=== PATIENT | female | born 1955 | race Caucasian/White ===

== ENCOUNTER 2024-12-02 10:59 | Outpatient (REF) | payer MEDICARE, SELFPAY ==
--- OUTSIDE RECORDS SUMMARY | 2024-12-02 12:44 | XMS_ITS | Patient Health Record ---
[facility] Address [address] [place] [address] Care Team Providers Care Pad Extraction Tender Name Role Phone Antione Venegas Primary Care Provider Unavailabl e Black, Christina Unavailable [phone] Allergies Allergen (clinical drug ingredient) Drug/Non Drug Allergy documented on EMR Reaction Allergy Type Onset Date Status meperidine Demerol Unknown Drug Allergy Active acetaminophen / oxycodone Percocet hives Drug Allergy Active Penicillin hives Drug Allergy Active Results Component Value Reference Range Notes X ray : Foot, left 3V Reviewed date:10/07/2024 12:55:56 PM Interpretation:See Examination above Performing Lab: Notes/Report: See Examination above HEMOGLOBIN A1C (GLYCOHEMOGLO BIN) Reviewed date:10/07/2024 08:26:33 AM Interpretation: Performing Lab: Notes/Report: HEMOGLOBIN A1C % (HH) 5.6 Reason For Referral No Information Medications Medication SIG (Take, Route, Frequency, Duration) Notes Start Date End Date Status Trelegy Ellipta 100-62.5-25 MCG/INH 1 puff Inhalation Once a day Unknown metFORMIN HCl 500 MG 1 tablet with a kellen l Orally Once a day for 30 day(s) Unknown Lexapro 20 MG 1 tablet Orally Once a day for 30 day(s) Unknown Losartan Potassium 50 MG 1 tablet Orally Once a day for 30 day(s) Unknown hydroCHLOROthiazide 25 MG 1 tablet in th e morning Orally Once a day for 30 day(s) Unknown Calcium 1000 + D 1000-800 MG-UNIT 1 tablet with a meal Orally Once a day for 30 day(s) Unknown CeleBREX 100 MG 1 capsule with food Orally Once a day for 30 day(s) Unknown Omeprazole 20 MG 1 capsule 30 minutes before morning meal Orally Once a day for 30 day(s) Active Baby Aspirin Active Atorvastatin Calcium 40 MG 1 tablet Oral ly Once a day for 30 day(s) Active Vitamin B12 Active Combivent Respimat A ctive Vitamin D Active Ozempic Active Escitalopram Oxalate Active Medrol 4 MG as directed Orally daily for 6 days 07/08/2021 Unknown Vitamin A & D 35255-548 UNIT as directed Orally Unknown Immunizations Vaccine Route Administration Date Status Comme nts COVID-19 Pfizer BioNTech Vaccine Unknown 12/18/2020 Adm inistered 1st 11/26/20 Social History Tobacco Use: Social History Observation Description Date Details (start date - stop date) Never Smoker NA - NA Tobacco use other than smoking: Question Answer Notes Are you an other tobacco user? No Tobacco Control (Standard) Question Answer Notes Tobacco use: Nonsmoker Additional Findings: Tobacco non-user Current no nsmoker AUDIT-C (Standard) Question Answer Notes Did you have a drink containing alcohol in the p ast year? No Points 0 Interpretation Negative Problems Problem Type SNOMED Code ICD Code Onset Dates Problem Status W/U Status Risk Notes Problem Diabetic renal disease (506458458) Type 2 diabetes mellitus with diabetic chronic kidney disease (E11.22) Active confirmed Problem Localized, primary osteoarthritis of the ankle and/or foot (204004325) Primary osteoarthritis, right ankle and foot (M19.071) Active confirmed Problem Localized, primary osteoarthritis of the ankle and/or foot (115594643) Primary osteoarthritis, left ankle and foot (M19.072) Active confirmed Problem Acquired hammer toe of right foot (3490423537518596 ) Other hammer toe(s) (acquired), right foot (M20.41) Active confirmed Problem Acquired hammer toe of left foot (9836581132006041 ) Hammer toe of left foot (M20.42) Active confirmed Problem Kohler's neuroma of left foot (231290083499370) 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 confirmed Problem Acquired deformity of right foot (2092700359123495 0) PlantarFlexion of metatarsal of right foot (M21.6X1) Active confirmed Problem Acquired deformity of left foot (3002514454028670 4) PlantarFlexion of metatarsal of left foot (M21.6X2) Active confirmed Vital Signs Blood pressure diastolic 80 mm Hg 11/03/2024 Height 5ft 1in in 11/03/2024 Blood pressure systolic 120 mm Hg 11/03/2024 Weight 185 lbs 11/03/2024 BMI 34.95 kg/m2 11/03/2024 Procedures Procedure Date Ordered Date Performed Result Body Sit e 43682, J0702- Neuroma/Injection 10/07/2024 N/A Encounters Encounter Location Date Provider Diagnosis [address] [address] 10/07/2024 Christina Black Pain in left foot M79.672 ; Pain in left ankle and joints of left foot M25.572 ; Bursitis of intermetatarsal bursa of left foot M77.52 ; Metatarsalgia, left foot M77.42 ; Kohler's neuroma of left foot G57.62 ; Neuritis M79.2 ; Hammer toe of left foot M20.42 and Type 2 diabetes mellitus with diabetic chronic kidney disease E11.[address] [address] 11/03/2024 Christina Black Pain in left foot M79.672 ; Kohler's neuroma of left foot G57.62 ; Pain in left ankle and joints of left foot M25.572 ; Bursitis of intermetatarsal bursa of left foot M77.52 ; Metatarsalgia, left foot M77.42 ; Neuritis M79.2 ; Hammer toe of left foot M20.42 and Type 2 diabetes mellitus with diabetic chronic kidney disease E11.[address] [address] 08/30/2024 Christina Black [address] [address] 11/03/2024 Christina Black Assessments Encounter Date Diagnosis (ICD Code) Assessment Notes Treatment Notes Treatment Clinical Notes Section Notes 10/07/2024 Pain in left ankle and joints of left foot (ICD-10 - M25.572) 10/07/2024 Pain in left foot (ICD-10 - M79.672) 11/03/2024 Pain in left foot (ICD-10 - M79.672) 11/03/2024 Kohler's neuroma of left foot (ICD-10 - G57.62) 11/03/2024 Pain in left ankle and joints of left foot (ICD-10 - M25.572) 10/07/2024 Bursitis of intermetatarsal bursa of left foot (ICD-10 - M77.52) 10/07/2024 Metatarsalgia, left foot (ICD-10 - M77.42) 11/03/2024 Bursitis of intermetatarsal bursa of left foot (ICD-10 - M77.52) 11/03/2024 Metatarsalgia, left foot (ICD-10 - M77.42) 10/07/2024 Okhler's neuroma of left foot (ICD-10 - G57.62) 10/07/2024 Neuritis (ICD-10 - M79.2) 11/03/2024 Neuritis (ICD-10 - M79.2) 11/03/2024 Hammer toe of left foot (ICD-10 - M20.42) 10/07/2024 Hammer toe of left foot (ICD-10 - M20.42) 10/07/2024 Type 2 diabetes mellitus with diabetic chronic kidney disease (ICD-10 - E11.22) 11/03/2024 Type 2 diabetes mellitus with diabetic chronic kidney disease (ICD-10 - E11.22) Plan Of Treatment Pending Test Test Name Order Date 82254, J0702- Neuroma/Injection 10/07/19 25 Insurance Providers Payer Name Payer Address Payer Phone Subscriber Number Group Number Insured Name Patient Relationship to Insured Coverage Start Date Coverage End Date [employer] [place] Medicare Advantage [facility] [address] [place] [address] [id number] Rena Ko Self - patient is the insured 4 Medical (General) History Medical History History ICD Code Anxiety Arthritis asthma Back,Hip,and Knee pain Diverticulitis High blood pressure osteonecrosis Psoriasis Scarlet fever Spina bifida Pulmonary hypertension Cataracts covid-19 Gall bladder problems Kidney disease Lung disease Reflux ( GERD) Sciatica Measles Mumps Chicken pox Joint implants/screws Diabetes mellitus Surgical History Surgery Date(Month/Year) right thoracotomy 11/13/2016 2 cataracts surgeies 07/2018 right rotator cuff repair 03/29/18 left arthroscopy shoulder 03/10/19
--- OUTSIDE RECORDS SUMMARY | 2024-12-02 12:45 | XMS_ITS | Clinical Summary ---
Author Organization [address] Address [address] [place] [address] Phone Care Team Providers Care Mortgage Loan Originator Name Role Phone Laith Venegas MD Primary Care Provider [phone] Medical History Medical History Date Comments Hyperlipidemia 07/04/2017 DX:Hyperlipidemi a Osteoarthritis 07/04/2017 DX:Osteoarthriti s Allergic rhinitis 07/04/2017 DX:Allergic rh initis Sicca syndrome (CMS/HCC) 07/04/2017 DX:Sicc a syndrome (HCC) Psoriasis 07/04/2017 DX:Psoriasis GERD (gastroesophageal reflux disease) 07/04/2017 DX:GERD (gastroesophageal reflux disease) History of scarlet fever 07/04/2017 DX:Hist ory of scarlet fever Spina bifida occulta 07/04/2017 DX:Spina bi fida occulta Social History Tobacco Use Types Packs/Day Years Used Date Smoking Tobacco: Former Cigarettes Smokeless Tobacco: Never Alcohol Use Standard Drinks/Week Comments Yes 1 (1 standard drink = 0.6 oz pur e alcohol) Comments Unknown Sex and Gender Information Value Date Recorded Sex Assigned at Not on file Legal Sex Female 8:40 PM EST Gender Identity Not on file Sexual Orientation Not on file Obstetrics History Last Filed Vital Signs Vital Sign Reading Time Taken Comments Blood Pressure 125/64 11/30/2023 3:26 PM EDT Sit ting L Arm Pulse 72 11/30/2023 3:26 PM EDT Temperature - - Respiratory Rate - - Oxygen Saturation - - Inhaled Oxygen Concentration - - Weight 87.5 kg (193 lb) 11/30/2023 3:26 PM EDT Height 157.5 cm (5' 2 ) 11/30/2023 3:26 PM EDT Body Mass Index 35.3 11/30/2023 3:26 PM EDT Plan of Treatment Upcoming Encounters Date Type Department Care Team (Late st Contact Info) Description 01/26/2025 9:50 AM EDT Office Visit [facility] [address] [facility] [address] [place] [address] Tom Doherty MD [address] [facility] [address] [place] [address] Health Maintenance Due Date Last Done Comments DTaP,Tdap,and Td Vaccines (1 - Tdap) 1973 Pneumococcal Vaccine: 50+ Years (1 of 2 - PCV) 1973 Zoster Vaccines (1 of 2) 2004 RSV Immunization Adult Patients (1 - Risk 60-74 years 1-dose series) 2014 Colorectal Cancer Screening: Colonoscopy 08/08/2022 Depression Screening 08/08/2022 Falls Risk Assessment 08/08/2022 Hepatitis C Screening 08/08/2022 Medicare Annual Wellness Visit 08/08/2022 Social Influencers of Health Screening 08/08/2022 COVID-19 Vaccine ( season) 2024 Influenza Vaccine (#1) 2024 05/28/2017 Breast Cancer Screening 12/09/2025 12/10/19, 09/08/2022, 08/07/2021, Additional history exists Cholesterol Screening (Lipid Panel) 07/05/2029 07/05/2024 Osteoporosis Screening (Bone Density Screening) 11/05/2031 11/04/2021, 08/19/2019 HIB Vaccines Aged Out No longer eligi ble based on patient's age to complete this topic HPV Vaccines Aged Out No longer eligi ble based on patient's age to complete this topic Hepatitis A Vaccines Aged Out No long er eligible based on patient's age to complete this topic Hepatitis B Vaccines Aged Out No long er eligible based on patient's age to complete this topic IPV Vaccines Aged Out No longer eligi ble based on patient's age to complete this topic MMR Vaccines Aged Out No longer eligi ble based on patient's age to complete this topic Meningococcal ACWY Vaccine Aged Out N o longer eligible based on patient's age to complete this topic Meningococcal B Vacine Aged Out No lo nger eligible based on patient's age to complete this topic RSV Immunization Patients Under 20 months Aged Out No longer eligible based on patient's age to complete this topic Varicella Vaccines Aged Out No longer eligible based on patient's age to complete this topic Procedures Procedure Name Priority Date/Time Associated Diagnosis Comments LIPID PANEL WITH REFLEX TO DIRECT LDL Routine 07/05/2024 8:16 AM EST Pre-diabetes Hyperlipemia Routine general medical examination at health care facility Vitamin D deficiency disease [facility] SCREENING DIGITAL Routine 12/10/2023 2:24 PM EDT Encounter for screening mammogram for malignant neoplasm of breast [facility] DEXA AXIAL SKELETON Routine 11/04/2021 1:23 PM EST Encounter for screening for osteoporosis from Last 3 Months or Most Recently Relevant to Health Maintenance Results * Lipid panel with reflex to direct LDL (07/05/2024 8:16 AM EST) Cholesterol 153 0 - 200 mg/dL LAB CHEMISTRY METHOD 07/05/2024 11:12 AM [facility] Triglycerides 55 0 - 150 mg/dL LAB CHEMISTRY METHOD 07/05/2024 11:12 AM [facility] HDL 64 >=40 mg/dL LAB CHEMISTRY METHOD 07/05/2024 11:12 AM [facility] LDL Calculated 78 0 - 100 mg/dL LAB CHEMISTRY METHOD 07/05/2024 11:12 AM [facility] VLDL Cholesterol Alexis 11 mg/dL LAB CHEMISTRY METHOD 07/05/2024 11:12 AM [facility] Non HDL Chol. (LDL+VLDL) 89 <145 mg/dL LAB CHEMISTRY METHOD 07/05/2024 11:12 AM [facility] Chol/HDL Ratio 2.4 0.0 - 4.4 LAB CHEMISTRY METHOD 07/05/2024 11:12 AM [facility] Blood Venous blood specimen / Unknown Venipuncture / Unknown 07/05/2024 8:16 AM EST 07/05/2024 10:02 AM EST us Mari Sandoval AGRICULTURAL COMMODITIES INSPECTOR LAB BLOOD ORDERABLES Final Re sult [facility] [address] [place] [address], * MAO SCREENING DIGITAL (12/10/2023 2:24 PM EDT) Anatomical Region Laterality Modality Mammography 12/10/2023 11:0 2 AM EDT Narrative 12/10/2023 2:24 PM EDT [facility] Diagnostic Imaging Department [address] [place] [address] Patient: ??RENA DODGE ?/Age/Sex: 1955 - 68 - F Unit#: ??[id number] ? Location/Status: ??SPDIMAM/REG CLI ? Mnemonic/Ordering Site: ??DIGSC/SPMAM Ordering Physician: ??LAITH VENEGAS MD Mao Screening Digital - 12/10/23 - 1133 Report Status:Signed EXAM: [facility] Screening Digital EXAM DATE AND TIME: 12/10/2023 11:33 AM HISTORY: ??Annual screening COMPARISON: ??Multiple exams dating back to 2003 TECHNIQUE: Bilateral digital breast tomosynthesis was performed in the CC and MLO projections. Computer aided detection with Nu3 3D 3.1 was employed. TISSUE DENSITY: b. There are scattered areas of fibroglandular density. FINDINGS: No suspicious masses, grouped microcalcifications, or areas of architectural distortion are seen. The skin and vascularity are unremarkable. IMPRESSION: Stable mammographic appearance of the breasts. ??No evidence of malignancy is seen. A negative mammogram in the presence of a clinically suspicious palpable abnormality does not preclude the possibility of malignancy or alter the indications for biopsy. BI-RADS: ??Category 1: Negative RECOMMENDATION(S): 1: Routine screening mammogram BILATERAL in 1 year. 3341F, 7098F Dictating Physician: ??MANJEET BELLO MD Electronically Signed by: ??MANJEET BELLO MD Dic Date/Time: ??12/10/23 142 Sign date/Time: ??12/10/23 1424 Procedure Note Manjeet Bello MD - 04/18/2024 [facility] Diagnostic Imaging Department [address] [place] [address] Patient: RENA DODGE/Age/Sex: 1955 68 - F Unit#: [id number] [facility]Ordering Site: [facility] Ordering Physician: LAITH VENEGAS MD Mao Screening Digital - 12/10/23 - 1133 Report Status:Signed EXAM: [facility] Screening Digital EXAM DATE AND TIME: 12/10/2023 11:33 AM HISTORY: Annual screening COMPARISON: Multiple exams dating back to 2003 TECHNIQUE: Bilateral digital breast tomosynthesis was performed in the CCand MLO projections. Computer aided detection with Nu3 3D 3.1was employed. TISSUE DENSITY: b. There are scattered areas of fibroglandular density. FINDINGS: No suspicious masses, grouped microcalcifications, or areas ofarchitectural distortion are seen. The skin and vascularity are unremarkable. IMPRESSION: Stable mammographic appearance of the breasts. No evidence of malignancyis seen. A negative mammogram in the presence of a clinically suspicious palpable abnormality does not preclude the possibility of malignancy or alter the indications for biopsy. BI-RADS: Category 1: Negative RECOMMENDATION(S): 1: Routine screening mammogram BILATERAL in 1 year. 3341F, 7025F Dictating Physician: MANJEET BELLO MD Electronically Signed by: MANJEET BELLO MD Dic Date/Time: 12/10/23 1422 Sign date/Time: 12/10/23 142 Laith Venegas MD IMG BI PROCEDURES Final Result * [facility] DEXA AXIAL SKELETON (11/04/2021 1:23 PM EST) Anatomical Region Laterality Modality Mammography 11/04/2021 10:2 8 AM EST Narrative 11/04/2021 1:23 PM EST [facility] Diagnostic Imaging Department [address] [place] [address] [id number] Patient: ??IMERMertRENA ?/Age/Sex: 1955 - 66 - F Unit#: ??[id number] ? Location/Status: ??SPDIMAM/REG CLI ? Mnemonic/Ordering Site: ??MAMDEXAAX/SPMAM Ordering Physician: ??GAGE FRANCE MD [facility] Dexa Axial Skeleton - 11/04/21 - 1100 [facility] Dexa Axial Skeleton INDICATION: POSTMENOPAUSAL Technique: Bone densitometry was performed utilizing dual energy x-ray absorptiometry (DEXA). The lumbar spine is evaluated in the AP projection from L1 through L4. The proximal femora are evaluated in the AP projection bilaterally. The patient is taking vitamin D supplements. COMPARISON: 08/19/2019 FINDINGS: AP spine: Bone mineral density: 1.092 gm/cm2 T-score: 0.7 Femoral total (mean, bilateral): Bone mineral density: 0.963 gm/cm2 T-score: -0.4 IMPRESSION: Findings suggesting normal bone mineral density. Statistically significant interval increase in lumbar spine bone mineral density of 4.9% [id number] Dictating Physician: ??BETO THOMAS MD Electronically Signed by: ??BETO THOMAS MD Dic Date/Time: ??11/04/21 1322 Sign date/Time: ??11/04/21 1323 Procedure Note Beto Thomas MD - 08/20/2022 [facility] Diagnostic Imaging Department [address] [place], [place] [id number] Patient: RENA DODGE /Age/Sex: 1955 - 66 - F Unit#: [id number] Location/Status: SPDIMAM/REG CLI Mnemonic/Ordering Site: MAMDEXAAX/SPMAM Ordering Physician: GAGE FRANCE MD [facility] Dexa Axial Skeleton - 11/04/21 - 1100 [facility] Dexa Axial Skeleton INDICATION: POSTMENOPAUSAL Technique: Bone densitometry was performed utilizing dual energy x-ray absorptiometry (DEXA). The lumbar spine is evaluated in the AP projectionfrom L1 through L4. The proximal femora are evaluated in the AP projection bilaterally. The patient is taking vitamin D supplements. COMPARISON: 08/19/2019 FINDINGS: AP spine: Bone mineral density: 1.092 gm/cm2 T-score: 0.7 Femoral total (mean, bilateral): Bone mineral density: 0.963 gm/cm2 T-score: -0.4 IMPRESSION: Findings suggesting normal bone mineral density. Statistically significant interval increase in lumbar spine bone mineral density of 4.9% [address] Dictating Physician: BETO THOMAS MD Electronically Signed by: BETO THOMAS MD Dic Date/Time: 11/04/21 1322 Sign date/Time: 11/04/21 132 Gage France MD IMG BI PROCEDURES Final Res ult from Last 3 Months or Most Recently Relevant to Health Maintenance Insurance [facility] MEDICARE ADVANTAGE Care Teams Mortgage Loan Originator Relationship Specialty Start Date End Date Laith Venegas MD PCP - General Internal Medicine 07/20/17
--- OUTSIDE RECORDS SUMMARY | 2024-12-02 12:45 | XMS_ITS ---
Author Organization [facility] Address [address] [place] [address] Care Team Providers Care Window Glazier Name Role Phone Antione Venegas Primary Care Provider Unavailabl e Black, Christina Unavailable [phone] REASON FOR VISIT buy Pedag OTs Mini #38 Encounters Encounter Location Date Provider Diagnosis [facility] [address] [place] [address] 11/03/2024 Christina Black Plan Of Treatment No Information Progress Notes * ECHO MorenaJanieOB:[birth year] (69 yo F)Acc No.[id number]:11/03/2024 Patient:?Rena DODGE :1955???Age:69 Y???Sex:Female Address:[address] [place] [address] * true * Date:? Generated for Printi ng/Faprabhug/eTransmitting on:?12/02/2024 12:45 PM EDT
--- OUTSIDE RECORDS SUMMARY | 2024-12-02 12:45 | XMS_ITS ---
Author Organization [facility] Address [address] [place] [address] Care Team Providers Care Aquaculture Farmer Name Role Phone LAITH CESPEDES Primary Care Provider SVEN ROBLERO [phone] REASON FOR VISIT letter Encounters Encounter Location Date Provider Diagnosis [address] [place] [address] 10/03/2024 SVEN ROBLERO PLAN OF TREATMENT Next Appt Details Provider Name:SVEN ROBLERO , 12/05/2024 11:15:00 AM, [address], [address], [place], [address], Provider Name:SVEN ROBLERO , 07/03/2025 11:00:00 AM, [address], [address], [place], [address], Progress Notes * ERWIN GOOD MDOB:1954 (69 yo F)Acc No.[id number]:10/03/2024 Patient:??ERWIN GOOD :1955?Age:69 Y?Sex:Fe male Address:[address] [place] [address] * true * Date:??
--- OUTSIDE RECORDS SUMMARY | 2024-12-02 12:45 | XMS_ITS | Clinical Summary ---
Author Organization [facility] Address [address] [place] [address] Care Team Providers Care Medical Review Specialist Name Role Phone Antione Venegas MD Primary Care Provider [phone] Allergies Active Allergy Reactions Criticality Noted Date Comments Penicillins 01/15/2018 Quinapril 10/22/2020 Rimantadine 01/15/2018 Medications Medication Sig Dispensed Refills Start Date End Date Status albuterol (PROVENTIL HFA;VENTOLIN HFA) 108 (90 Base) MCG/ACT inhaler Inhale 2 puffs into the lungs. 0 Active aspirin EC 81 MG tablet Take 81 mg by mouth. 0 Acti ve atorvastatin (LIPITOR) tablet 40 mg Take 10 mg by mouth. 0 Acti ve celecoxib (CELEBREX) 100 MG capsule Take 100 mg by mouth. 0 Act syed Cholecalciferol (VITAMIN D-[address]) 1000 units tablet Take 1,000 Units by mouth. 0 Active escitalopram (LEXAPRO) tablet 10 mg Take 10 mg by mouth. 0 Acti ve hydrochlorothiazid e (HYDRODIURIL) tablet 25 mg Take 25 mg by mouth. 0 Ac tive losartan (COZAAR) tablet 50 mg Take 50 mg by mouth. 0 Ac tive Omeprazole (RA OMEPRAZOLE) 20 MG TBEC Take 20 mg by mouth. 0 Acti ve buPROPion (WELLBUTRIN) 75 MG tablet Take 75 mg by mouth 2 (two) times a day. 3 12/10/2018 Active SAXENDA 18 MG/3ML SOPN INJECT 3MG UNDER THE SKIN ONCE DAILY 0 11/18/2018 Active metFORMIN (GLUCOPHAGE) tablet 500 mg Take 500 mg by mouth daily. with food 3 12/04/2018 Active naltrexone (DEPADE) 50 MG tablet Take 50 mg by mouth daily. 3 12/07/2018 Active diclofenac (VOLTAREN) 50 MG EC tablet TAKE 1 TABLET BY MOUTH TWICE A DAY NEEDED FOR 10 DAYS 0 10/14/2021 Active tiZANidine (ZANAFLEX) 2 MG tablet TAKE 1 TABLET BY MOUTH THREE TIMES A DAY NEEDED FOR 10 DAYS 0 10/14/2021 Active Trelegy Ellipta 100-62.5-25 MCG/INH AEPB 0 03/27/2022 Active irbesartan (AVAPRO) 150 MG tablet TAKE 1 TABLET BY MOUTH EVERY DAY FOR 90 DAYS 0 02/11/2022 Active Ozempic, 0.25 or 0.5 MG/DOSE, 2 MG/1.5ML SOPN INJECT DIRECTED SUBCUTANEOUSLY WEEKLY 0 01/26/2022 Active Active Problems Problem Noted Date Diagnosed Date Acute pain of left shoulder 12/23/2018 Shoulder impingement syndrome, left 12/23/2018 Subacromial bursitis of left shoulder joint 11/30 Postoperative follow-up 04/13/2018 Incomplete tear of right rotator cuff 02/10/2018 Right shoulder injury 01/15/2018 Acute pain of right shoulder 01/15/2018 Family History Medical History Relation Name Comments Heart disease Mother Relation Name Status Comments Mother Social History Tobacco Use Types Packs/Day Years Used Date Smoking Tobacco: Never Assessed Sex and Gender Information Value Date Recorded Sex Assigned at Not on file Gender Identity Not on file Sexual Orientation Not on file Job Start Date Occupation Industry Not on file Not on file Not on file Last Filed Vital Signs Vital Sign Reading Time Taken Comments Blood Pressure - - Pulse - - Temperature - - Respiratory Rate - - Oxygen Saturation - - Inhaled Oxygen Concentration - - Weight 108.9 kg (240 lb) 06/27/2022 9:51 AM EDT Height 157.5 cm (5' 2 ) 06/27/2022 9:51 AM EDT Body Mass Index 43.9 06/27/2022 9:51 AM EDT Plan of Treatment Health Maintenance Due Date Last Done Comments Hepatitis C Screening 1954 COVID-19 Vaccine (#1) 01[birth year]17/1956 Pneumococcal Vaccine (1 of 2 - PCV) 1960 Depression Screening 1966 BMI Counseling 1972 Preventative Health Evaluation 1972 DTap / Tdap / Td (1 - Tdap) 1973 Colon Cancer Screening (Colonoscopy) 1999 Breast Cancer Screening (Mammogram) 2004 Shingrix-Zoster Vaccine (1 o f 2) 2004 Fall Risk Assessment 2019 Osteoporosis Screening (DEXA Scan) 2019 Influenza Vaccine (#1) 2024 9, 05/28/2017 RSV Adult > 60+ Yrs or (1 - 1-dose 75+ series) 2029 Hepatitis B Vaccines Aged Out No long er eligible based on patient's age to complete this topic RSV Ped < 20 months Aged Out No longe r eligible based on patient's age to complete this topic Care Teams Medical Review Specialist Relationship Specialty Start Date End Date Antione Venegas MD [address] [place] [address] PCP - General Internal Medicine 03/07/19
--- OUTSIDE RECORDS SUMMARY | 2024-12-02 12:45 | XMS_ITS ---
Author Organization [facility] Address [address] [place] [address] Care Team Providers Care Psychodramatist Name Role Phone Antione Venegas Primary Care Provider Unavailabl e Black, Christina Unavailable [phone] Allergies Allergen (clinical drug ingredient) Drug/Non Drug Allergy documented on EMR Reaction Allergy Type Onset Date Status meperidine Demerol Unknown Drug Allergy Active acetaminophen / oxycodone Percocet hives Drug Allergy Active Penicillin hives Drug Allergy Active Results Component Value Reference Range Notes X ray : Foot, left 3V Reviewed date:10/07/2024 12:55:56 PM Interpretation:See Examination above Performing Lab: Notes/Report: See Examination above REASON FOR VISIT pcp-08/12/2024, Foot pain, At Risk Footcare Medications Medication SIG (Take, Route, Frequency, Duration) Notes Start Date End Date Status Vitamin A & D 44543-082 UNIT as directed Orally Unknown Medrol 4 MG as directed Orally daily for 6 days 07/08/2021 Unknown metFORMIN HCl 500 MG 1 tablet with a kellen l Orally Once a day for 30 day(s) Unknown Trelegy Ellipta 100-62.5-25 MCG/INH 1 puff Inhalation Once a day Unknown Lexapro 20 MG 1 tablet Orally [...] Once a day for 30 day(s) Active CeleBREX 100 MG 1 capsule with food Orally Once a day for 30 day(s) Unknown Baby Aspirin Active Vitamin B12 Active Atorvastatin Calcium 40 MG 1 tablet Oral ly Once a day for 30 day(s) Active Vitamin D Active Combivent Respimat A ctive Escitalopram Oxalate Active Ozempic Active Social History Tobacco Use: Social History Observation Description Date Details (start date - stop date) Never Smoker NA - NA Tobacco use other than smoking: Question Answer Notes Are you an other tobacco user? No Tobacco Control (Standard) Question Answer Notes Tobacco use: Nonsmoker Additional Findings: Tobacco non-user Current no nsmoker AUDIT-C (Standard) Question Answer Notes Did you have a drink contain ing alcohol in the past year? Yes How often did you have a dri nk containing alcohol in the past year? Monthly or less (1 point) How many drinks did you have on a typical day when you were drinking in the past year? 1 or 2 drinks (0 point) How often did you have six o r more drinks on one occasion in the past year? 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 confirmed Problem Acquired hammer toe of left foot (1667688979597 103) Hammer toe of left foot (M20.42) Active confirmed Problem Diabetic renal disease (426813356) Type 2 diabetes mellitus with diabetic chronic kidney disease (E11.22) Active confirmed Vital Signs Blood pressure systolic 120 mm Hg 10/07/19 25 Blood pressure diastolic 72 mm Hg 025 Height 5ft 1in in 10/07/2024 Weight 186 lbs 10/07/2024 BMI 35.14 kg/m2 10/07/2024 Procedures Procedure Date Ordered Date Performed Result Body Sit e 75707, J0702- Neuroma/Injection 10/07/2024 N/A Encounters Encounter Location Date Provider Diagnosis [facility] [address] [place] [address] 10/07/2024 Christina Black Pain in left foot M79.672 ; Pain in left ankle and joints of left foot M25.572 ; Bursitis of intermetatarsal bursa of left foot M77.52 ; Metatarsalgia, left foot M77.42 ; Kohler's neuroma of left foot G57.62 ; Neuritis M79.2 ; Hammer toe of left foot M20.42 and Type 2 diabetes mellitus with diabetic chronic kidney disease E11.22 Assessments Encounter Date Diagnosis (ICD Code) Assessment Notes Treatment Notes Treatment Clinical Notes Section Notes 10/07/2024 Pain in left foot (ICD-10 - M79.672) 10/07/2024 Pain in left ankle and joints of left foot (ICD-10 - M25.572) 10/07/2024 Bursitis of intermetatarsal bursa of left foot (ICD-10 - M77.52) 10/07/2024 Metatarsalgia, left foot (ICD-10 - M77.42) 10/07/2024 Kohler's neuroma of left foot (ICD-10 - G57.62) 10/07/2024 Neuritis (ICD-10 - M79.2) 10/07/2024 Hammer toe of left foot (ICD-10 - M20.42) 10/07/2024 Type 2 diabetes mellitus with diabetic chronic kidney disease (ICD-10 - E11.22) Plan Of Treatment Pending Test Test Name Order Date 67115, J0702- Neuroma/Injection 10/07/19 25 Next Appt Details Follow Up: 6 Weeks, Reason: Procedure Notes * Category Sub-Category Detail Notes Injection Neuroma/Injection 20566, J0702 I njection - Neuroma w/ Celestone Soluspan 3mg combined with 1cc 1 percent Xylocaine Plain anes utilizing aseptic technique. The patient tolerated the procedure well. Post injection instructions were dispensed, verbally discussed, and confirmed understood by the patient. I explained that a steroid and local anesthetic injections are administered to relieve pain and inflammation and thereby meant to improve function. I explained the possible complications including but not limited to signs/symptoms of steroid flare, infection, bruising, atrophy, discoloration of skin, change/deviation in toe position, and that additional injections may be necessary, Patient relates post-procedural pain assessment improved at ( 0-1) out of 10, I explained that a steroid and local anesthetic injection usually decreases pain and inflammation. I explained the possible complications including but not limited to signs/symptoms of steroid flare, infection, atrophy, discoloration of skin, additional injections may be necessary, change/deviation in toe position. Discussed the effects the cortisone will have on the patients blood sugars if the patient is a diabetic and Home Care Instructons: Rest 12-24hrs,Ice 15-20 mins. 3-4 x/24hrs, LEFT, DM: Discussed the transient elevated effects an injection of cortisone may have on the patient's blood sugars Progress Notes * Morena DODGEJanieOB:[birth year] (69 yo F)Acc No.[id number]:10/07/2024 Progress Notes Patient:?Rena DODGE Provider:?Christina Ward DPM :1955???Age:69 Y???Sex:Female D ate:10/07/2024 Address:[address] [place] [address] [place], [id number] Pcp:Antione Venegas Subjective: * Chief Complaints: * ???Pcp-08/12/2024Foot painAt Risk Footcare * HPI: ???Foot Pain:?Nature:?burning, numbness, sharp, shooting , burning, radiating, shooting, tingling.?Location:??Forefoot, LEFT , Forefoot, LEFT.?Duration:?, since DOI [ 02/2024] ,?.?Onset:?hyperextended toes ,.?Course:?worse ,.?Aggravated:?any pressure.?Treatments:?rest/alter normal daily activity, medication ( tylenol, voltaren gel) pedag inserts ,?.? * ROS:?General/Constitutional:?Nausea?denies.?Vomiting?denies.?Hunger Thirst?denies.?Loss appetite?denies.?Chills?denies.?Fatigue?denies.?Fever?denies.?Night Sweats?denies.?Unexplained weight loss?denies.?Unexplained weight gain?denies.?HEENTM:?Dentures?denies.?Dizziness?denies.?Glasses/contacts?admits.?Retinopathy?den ies.?Blurred/double vision?denies.?TMJ?denies.?Discharge/drainage?denies.?Implants?denies.?Sore throat?denies.?Dental implants?denies.?Hard of hearing ?denies.?Difficulty chewing/swallowing/speaking?denies.?Nose bleeds?denies.?Sore mouth?denies.?Respiratory:?On O xygen?admits.?Pneumonia/pleurisy?denies.?Bronchitis?denies.?Emphysema?denies.?Co ughing?denies.?Cough blood?denies.?Shortness of breath?denies.?Wheezing?denies.?Cardiovascular:?Pacemaker?denies.?MVP?denies.?WPW?denies.?CHF?denies.?Heart attack?denies.?Septal defect?denies.?Rapid beat?denies.?Chest pain ?denies.?Atrial Fib.?denies.?Murmur/Palpitations?denies.?Gastrointestinal:?Hemorrhoids?admits.?Stomach/Abdominal pain?denies.?Dark blood stool?denies.?Irritable bowel ?admits.?Constipation?denies.?Diarrhea?denies.?Hematology:?Swelling?denies.?Clots?denies.?Varicose Veins?denies.?Bruising?denies.?Bleeding problem?denies.?Genitourinary:?Blood urine?denies.?Frequent/Painfu/urination/bladder control?denies.?Kidney stones?denies.?Infection (UTI)?denies.?Nephropathy?denies.?sex trans dis (STD)?denies.?Prostate?denies.?Musculoskeletal:?Hammertoes?admits.?Bunions?denies.?Back Pain?admits.?Muscle Cramps/ Resting?denies.?Muscle cramps / walking?admits.?Generalized aches and pains?admits.?Weakness?denies.?Integ.:?Gonzalez?denies.?Scars?denies.?Corns/calluses?denies.?Ingrown nails?denies.?Painful nails?denies.?Open Sores?denies.?Rashes?denies.?Neurologic:?Difficulty sleeping?denies.?Brain disorder?denies.?Numbness?denies.?Balance t rouble?denies.?Confusion?denies.?Fainting/blackouts?denies.?Tingling?denies.?[place] mors?denies.? * Medical History:? * Surgical History:?right thor acotomy 11/13/20162 cataracts surgeies 07/2018right rotator cuff repair 03/29/18left arthroscopy shoulder 03/10/19 * Hospitalization/Major Diagno stic Procedure:?Denies Past Hospitalization * Family History:?Mother: dece ased, kidney/liver disease, diagnosed with Unspecified essential hypertension, Unspecified heart disease, Other specified conditions influencing health status, Family history of arthritis.?Father: , diagnosed with Family history of arthritis.?Maternal Grand Mother: diagnosed with Diabetic - NIDDM, Unspecified cerebral artery occlusion with cerebral infarction. Siblings: diagnosed with Other malignant neoplasm of unspecified site, Diabetic - NIDDM, Unspecified essential hypertension.? * Social History:?Tobacco Use:?Tobacco use other than smoking?Are you an other tobacco user??No ?Tobacco Control (Standard)?Tobacco use:?Nonsmoker ?Additional Findings: Tobacco non-user?Current nonsmoker ???Drugs/Alcohol:?Drugs?Have you used drugs other than those for medical reasons in the past 12 months??No ???Miscellaneous:?Caffeine: yes. ?Children: no. ?Exercise: yes, walking, reading, quilting, camping, water aerobics. ?Marital status: . ???Drug/Alcohol:?AUDIT-C (Standard)?Did you have a drink containing alcohol in the past year??Yes ?How often did you have a drink containing alcohol in the past year??Monthly or less (1 point) ?How many drinks did you have on a typical day when you were drinking in the past year??1 or 2 drinks (0 point) ?How often did you have six or more drinks on one occasion in the past year??Less than monthly (1 point) ?Points?2 ?Interpretation?Negative * Medications:?TakingEscitalop aleida Oxalate Ozempic Vitamin D Combivent Respimat Vitamin B12 Atorvastatin Calcium 40 MG Tablet 1 tablet Orally Once a day Baby Aspirin Omeprazole 20 MG Capsule Delayed Release 1 capsule 30 minutes before morning meal Orally Once a day Taking Escitalopram Oxalate Taking Ozempic Taking Vitamin D Taking Combivent Respimat Taking Vitamin B12 Taking Atorvastatin Calcium 40 MG Tablet 1 tablet Orally Once a day Taking Baby Aspirin Taking Omeprazole 20 MG Capsule Delayed Release 1 capsule 30 minutes before morning meal Orally Once a day UnknownCeleBREX 100 MG Capsule 1 capsule with food Orally Once a day Calcium 1000 + D 1000-800 MG-UNIT Tablet 1 tablet with a meal Orally Once a day hydroCHLOROthiazide 25 MG Tablet 1 tablet in the morning Orally Once a day Losartan Potassium 50 MG Tablet 1 tablet Orally Once a day Lexapro 20 MG Tablet 1 tablet Orally Once a day metFORMIN HCl 500 MG Tablet 1 tablet with a meal Orally Once a day Trelegy Ellipta 100-62.5-25 MCG/INH Aerosol Powder Breath Activated 1 puff Inhalation Once a day Vitamin A & D 30599-922 UNIT Tablet as directed Orally Medrol 4 MG Tablet Therapy Pack as directed Orally daily Medication List reviewed and reconciled with the patientUnknown CeleBREX 100 MG Capsule 1 capsule with food Orally Once a day Unknown Calcium 1000 + D 1000-800 MG-UNIT Tablet 1 tablet with a meal Orally Once a day Unknown hydroCHLOROthiazide 25 MG Tablet 1 tablet in the morning Orally Once a day Unknown Losartan Potassium 50 MG Tablet 1 tablet Orally Once a day Unknown Lexapro 20 MG Tablet 1 tablet Orally Once a day Unknown metFORMIN HCl 500 MG Tablet 1 tablet with a meal Orally Once a day Unknown Trelegy Ellipta 100-62.5-25 MCG/INH Aerosol Powder Breath Activated 1 puff Inhalation Once a day Unknown Vitamin A & D 95686-425 UNIT Tablet as directed Orally Unknown Medrol 4 MG Tablet Therapy Pack as directed Orally daily Medication List reviewed and reconciled with the patient * Allergies:?Penicillin: hives Percocet: hivesDemerolyes[Allergies Verified] Objective: * Vitals:?Ht: 5ft 1in, Wt:186, BMI:35.14, Shoe size: 7.5, BP:120/72mm Hg, BS: not taken, Ht-cm: 154.94 cm, Wt-k.37 kg. * ???Past Orders: ???Lab:HEMOGLOBIN A1C (GLYCO HEMOGLOBIN) (Order Date - 08/12/2024) (Collection Date & Time - 08/12/2024 08:26 AM) ? Value Reference Range ?HEMOGLOBIN A1C % (HH) 5.6 * Examination: ???Ophthalmology Referral: ?DIABETES EYE EXAM?Procedure Performed:?Yes ?Date of Exam Performed?08/01/2024 ?Diabetic Retinopathy Screening:?Yes ?Findings of Diabetic Eye Exam:?no retinopathy?General Examination: ?GENERAL APPEARANCE:?Reveals a pleasant, alert, well nourished, well- developed, well hydrated individual, who demonstrates proper attention to hygiene/body habitus, and is in no acute distress, Pt serves as own historian for office visit today.?ORIENTED:?person, place, and time.?FOOT EXAM:?Lower Extremity Neurological Exam performed:?Yes ?Visual exam of foot performed:?Yes ?Date?10/07/2024 ?Sensory testing performed:?sensations normal ?Sensory and motor testing performed:?sensations normal ?Pedal pulse taking performed:?2+ ?Footwear Evaluation?Footwear Evaluation performed:?Yes?Orthopedic: ?MUSCLE STRENGTH:?5/5 all groups in a symmetrical fashion, B/L.?GAIT ABNORMALITY:?antalgic.?DIGITAL DEFORMITIES:?Digital contracture, PIPJ, 2-5 B/L, incompl-reducible with WB, or to push-up test, no over, nor underlapping.?MPJ PATHOLOGY:? Pain, swelling, and inflammation to plantar/dorsal MPJ(s), LEFT, No MPJ pain with ROM, [ - ] Ecchymosis,2nd,3rd,LEFT.?FOOTWEAR:?good condition- new balance with high toe box and wide forefoot.?Neurological: ?SENSORY:?Neurological exam reveals intact sensorium, pain sensation normal, vibration sensation intact, pinprick sensation is normal in the lower extremities, Pt denies, anesthesia, burning, paresthesia, tingling, B/L.?TINEL'S COMPRESSION:? Negative tarsal tunnel, arpan pedis, and medial calcaneal nerves, Left.?Neuroma Pain: ?PALPATION:? Pain with direct palpation of the intermetatarsal space, Pain with lateral compression of metatarsals, positive Arun's click, 3rd interspace, LEFT.?X-Rays - IMAGING REPORT: ?Clinical Indication(s):? Evaluate for Fracture ,?.?Views:?3 views of Foot, AP, LAT, LO, LEFT??Taken by trained?Podiatric Lace Stripper (TG?),.?Findings:?normal bone and soft tissue density consistent for patients age and sex, elongated plantarflexed [ 4th ] metatarsal with hypertrophied MTH ,.?Fracture:?Negative fractures identified?.? Assessment: * Assessment: 1.?Pain in left ankle and casey ints of left foot - M25.572???2.?Pain in left foot - M79.672 (Primary)???3.?Bursitis of intermetatarsal bursa of left foot - M77.52???4.?Metatarsalgia, left foot - M77.42???5.?Kohler's neuroma of left foot - G57.62???Specify :Acute problem, Complicated w/ Multiple Tx Options(4),Dx New problem, Prognosis Uncertain (4)???6.?Neuritis - M79.2???7.?Hammer toe of left foot - M20.42???8.?Type 2 diabetes mellitus with diabetic chronic kidney disease - E11.22??? Plan: * Treatment: 2.?Kohler's neuroma of left foot?Procedure: 50530, J0702- Neuroma/Injection * Procedures:?Injection:?Neuroma/Injection?20327, J0702 Injection - Neuroma w/ Celestone Soluspan 3mg combined with 1cc 1 percent Xylocaine Plain anes utilizing aseptic technique. The patient tolerated the procedure well. Post injection instructions were dispensed, verbally discussed, and confirmed understood by the patient. I explained that a steroid and local anesthetic injections are administered to relieve pain and inflammation and thereby meant to improve function. I explained the possible complications including but not limited to signs/symptoms of steroid flare, infection, bruising, atrophy, discoloration of skin, change/deviation in toe position, and that additional injections may be necessary, Patient relates post-procedural pain assessment improved at ( 0-1) out of 10, I explained that a steroid and local anesthetic injection usually decreases pain and inflammation. I explained the possible complications including but not limited to signs/symptoms of steroid flare, infection, atrophy, discoloration of skin, additional injections may be necessary, change/deviation in toe position. Discussed the effects the cortisone will have on the patients blood sugars if the patient is a diabetic and Home Care Instructons: Rest 12-24hrs,Ice 15-20 mins. 3-4 x/24hrs, LEFT, DM: Discussed the transient elevated effects an injection of cortisone may have on the patient's blood sugars.? * Procedure Codes:?16512 X-RAY EXAM OF LEFT FOOT 3V, Modifiers: 26 , [id number] N BLOCK INJ, PLANTAR [id number] INJ BETAMETHSN ACTAT&SOD PHOSPH-3MG * Preventive Medicine:? ??Counseling:?Discussion:?-04: Office or other outpatient visit for the evaluation and management of a new patient, which required a medically appropriate history and/or examination and MODERATE level of DECISION MAKING for: 1 OR MORE CHRONIC PROBLEM(S) THATS WORSENING, 2 STABLE CHRONIC PROBLEMS, A NEWLY DIAGNOSED PROBLEM WITH UNCERTAIN PROGNOSIS, AN ACUTE COMPLICATED INJURY WITH MULTIPLE TREATMENT OPTIONS, OR AN ACUTE PROBLEM WITH ACCOMPANYING SYSTEMIC SYMPTOMS, THAT POSE(S) A MODERATE RISK OF MORBIDITY. THIS CONDITION MAY ALSO INCLUDE RX DRUG MANAGEMENT, OR A DECISON FOR MINOR SURGERY. The visit on the day of the encounter encompassed interpreting the data and educating the patient as to the nature of their condition, treatment options available according to their individual PMH, meds, allergies, and overall health/living conditions, as well as any potential risks or complications that may occur from a failure to adhere to, and participate in, the recommended course of therapy. The discussion included a complete verbal, and/or written explanation of the examination results, any x-rays taken, the proposed diagnosis, and outline of the treatment plan. A schedule for future care needs was also explained. The patient verbalized an understanding of the instructions at this time and agreed to be an active participant in their treatment. If the patient should think of any questions or concerns after the visit, I have encouraged the patient to call the office.?BioMech.:?I discussed the Pts foot biomechanics with them and how it relates to their problem, Discussed and reviewed the X-rays with the patient. We discussed how the findings relate to the patients symptoms/complaints. Answered any and all questions., Recommended Topical analgesics including biofreeze/aspercream/Voltaren gel.?Digital Treatment:?HT- I explained to the patient the possible etiologies of Hammertoes, including genetics/foot type/shoegear/activity level/exercise routine and the risks/benefits of all the different treatment options for their pain including: No treatment at all, Rest, Ice, New/supportive/wider/deeper Shoe gear, Digital Padding/Strapping/Taping/Bracing/Gel protective sleeves, Foot/Ankle AFO Bracing, Stretching exercises, Deep Tissue Massage, Arch support/shoe inserts with splay metatarsal padding, and Custom orthoses. I insisted that any digital devices be removed daily and not worn overnight for safety. The patient is to carefully examine the toes daily for any skin irritation while using any splinting or padding device. The advantages and disadvantages of each option were discussed and the patients questions re: shoe gear, padding, custom vs prefabricated inserts, activity level, and consistency in home treatment regimens for optimal success were answered to their verbally confirmed satisfaction.?Neuroma:?The patient was counseled on the diagnosis, possible etiologies (including foot structure/foot function/nonsupportive shoes/activity), treatment options, and importance for adherence to recommendations regarding the treatment for a Neuroma. The advantages and disadvantages of the treatment options including medications available, forefoot offloading padding, mechanically accomidative orthotics, supportive shoegear with adequate forefoot width, cortisone injection(s), experimental sclerosis therapy, and surgical treatment options including nerve release, nerve relocation, and complete nerve removal were discussed in detail with each procedures outcomes and possible sequlea (i.e.failure of procedure, stump neuroma formation, infection, chronic scarring, chronic pain). Patient questions re: the potential successes of conservative vs surgical treatment options were reviewed and their answers were understood. The patient verbally confirmed a full understanding of the above.?Shoe Gear Counseling:?The patient and I reviewed the types of shoes they should be wearing. My recommendation included obtaining a well-fitted shoe with a good supportive, non-foldable nor twistable sole, plenty of toe/room for the forefoot, and proper arch support. Based on todays examination, I recommended the patient look for new shoes, by having their feet professionally measured. We discussed that generally the best time of the day for a shoe fitting is the afternoon. Different shoes types and brands to best match the patients occupation and vocation were discussed. Specific brand selection will be up to the patient, their individual foot condition/deformities, and fit. The patient and I reviewed the standard new shoe break in period by wearing them for a few hours a day while checking for redness or sores as wear time is increased. The patient verbally confirmed to understanding the information discussed, Recommend supportive running shoes for patient, discussed various shoe brands including Roca, Asics, New Balance, [employer]. Discussed types of shoes to avoid for patients foot type..?Steriod Injection:?I explained that a steroid and local anesthetic injections are administered to relieve pain and inflammation and thereby meant to improve function. I explained the possible complications including but not limited to signs/symptoms of steroid flare, infection, bruising, atrophy, discoloration of skin, change/deviation in toe position, and that additional injections may be necessary, cortisone post-injection informative educational handout was dispensed to and reviewed with the patient.? ??Screening/Special Tests:?Fall Risk?Screening:?No falls in the past year ?FALLS: Screening for Future Fall Risk?Have you had any falls with injury in the past year??No * Follow Up:?6 Weeks * Images: * Sign off status: Completed true * Provider:?Christina Ward DPM Date:?2024 Generated for Baldo damon/Estefani/Halima on:?12/02/2024 12:45 PM EDT History and Physical Notes * HPI (History of Present Illness) Category Sub-Category Detail Notes Category Not es Foot Pain Nature: burning, numbnes s, sharp, shooting , burning, radiating, shooting, tingling Location: Forefoot, LEFT , For efoot, LEFT Duration: , since DOI [ 02/2024 ] , Onset: hyperextended toes , Course: worse , Aggravated: any pressure Treatments: rest/alter normal da shannon activity, medication ( tylenol, voltaren gel) pedag inserts , Examination Category Sub-Category Detail Notes Category Not es Neuroma Pain PALPATION: Pain with direct palpation of the intermetatarsal space, Pain with lateral compression of metatarsals, positive Arun's click, 3rd interspace, LEFT Neurological SENSORY: Neurological exa m reveals intact sensorium, pain sensation normal, vibration sensation intact, pinprick sensation is normal in the lower extremities, Pt denies, anesthesia, burning, paresthesia, tingling, B/L TINEL'S COMPRESSION: Negative tarsal alejandra alicia, arpan pedis, and medial calcaneal nerves, Left Orthopedic GAIT ABNORMALITY: antalgic FOOTWEAR EVALUATION: good condition- new balance with high toe box and wide forefoot DIGITAL DEFORMITIES: Digital contracture , PIPJ, 2-5 B/L, incompl-reducible with WB, or to push-up test, no over, nor underlapping MPJ PATHOLOGY: Pain, swelling, and inflammation to plantar/dorsal MPJ(s), LEFT, No MPJ pain with ROM, [ - ] Ecchymosis,2nd,3rd,LEFT MUSCLE STRENGTH: 5/5 all groups in a symmetrical fashion, B/L General Examination GENERAL APPEARANCE: Reveals a pleasant, alert, well nourished, well-developed, well hydrated individual, who demonstrates proper attention to hygiene/body habitus, and is in no acute distress, Pt serves as own historian for office visit today FOOT EXAM: Lower Extremity Neurological Exa m performed:: Yes Visual exam of foot performed:: Yes Date: 10/07/2024 Sensory testing performed:: sensations n ormal Sensory and motor testing performed:: se nsations normal Pedal pulse taking performed:: 2+ ORIENTED: person, place, and t sage Footwear Evaluation Footwear Evaluation performe d:: Yes Ophthalmology Referral DIABETES EYE EXAM Procedure Perform ed:: Yes ?Date of Exam Performed: 08/01/2024 Diabetic Retinopathy Screening:: Yes Findings of Diabetic Eye Exam:: no retin opathy X-Rays - IMAGING REPORT Findings: normal b one and soft tissue density consistent for patients age and sex, elongated plantarflexed [ 4th ] metatarsal with hypertrophied MTH , Fracture: Negative fractures i dentified Views: 3 views of Foot, AP, LAT, LO, LEFT Taken by trained Podiatric Lace Stripper (TG ) , Clinical Indication(s): Evaluate for Fra cture ,
--- OUTSIDE RECORDS SUMMARY | 2024-12-02 12:45 | XMS_ITS ---
Author Organization [facility] Address [address] [place] [address] Care Team Providers Care Kindergarten Assistant Name Role Phone Antione Venegas Primary Care Provider Unavailabl e Black, Christina Unavailable [phone] Allergies Allergen (clinical drug ingredient) Drug/Non Drug Allergy documented on EMR Reaction Allergy Type Onset Date Status meperidine Demerol Unknown Drug Allergy Active acetaminophen / oxycodone Percocet hives Drug Allergy Active Penicillin hives Drug Allergy Active REASON FOR VISIT Pcp-10/31/24, At Risk Footcare, Foot pain Medications Medication SIG (Take, Route, Frequency, Duration) Notes Start Date End Date Status Trelegy Ellipta 100-62.5-25 MCG/INH 1 puff Inhalation Once a day Unknown metFORMIN HCl 500 MG 1 tablet with a kellen l Orally Once a day for 30 day(s) Unknown Lexapro 20 MG 1 tablet Orally Once a day for 30 day(s) Unknown Medrol 4 MG as directed Orally daily for 6 days 07/08/2021 Unknown Vitamin A & D 73315-810 UNIT as directed Orally Unknown Losartan Potassium 50 MG 1 tablet [...] D Active Ozempic Active Escitalopram Oxalate Active Social History Tobacco Use: Social History [...] ast year? 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) 11/03/2024 Pain in left ankle and joints of left foot (ICD-10 - M25.572) 11/03/2024 Bursitis of intermetatarsal bursa of left foot (ICD-10 - M77.52) 11/03/2024 Metatarsalgia, left foot (ICD-10 - M77.42) 11/03/2024 Neuritis (ICD-10 - M79.2) 11/03/2024 Hammer toe of left foot (ICD-10 - M20.42) 11/03/2024 Type 2 diabetes mellitus with diabetic chronic kidney disease (ICD-10 - E11.22) Plan Of Treatment Next Appt Details Follow Up: prn, Reason: Progress Notes * Chely DODGEOB:[birth year] (69 yo F)Acc No.[id number]:11/03/2024 Progress Notes Patient:?Rena DODGE Provider:?Christina Ward DPM :1955???Age:69 Y???Sex:Female D ate:11/03/2024 Address:[address] [place] [address], [id number] Pcp:Antione Venegas Subjective: * Chief Complaints: * ???Pcp-10/31/24At Risk Footcar eFoot pain * HPI: ???Foot Pain:?Nature:?burning, numbness, sharp, shooting , burning, radiating, shooting, tingling.?Location:??Forefoot, LEFT , Forefoot, LEFT.?Duration:?, since DOI [ 02/2024] ,?.?Onset:?hyperextended toes ,.?Course:?, improved, at 80-90 %.?Aggravated:?any pressure.?Treatments:?rest/alter normal daily activity, medication ( tylenol, voltaren gel) pedag inserts , , cortisone injection (1).? * ROS:?General/Constitutional:?Nausea?denies.?Vomiting?denies.?Hunger Thirst?denies.?Loss appetite?denies.?Chills?denies.?Fatigue?denies.?Fever?denies.?Night Sweats?denies.?Unexplained weight loss?denies.?Unexplained [...] with Other malignant neoplasm of unspecified site, Unspecified essential hypertension, Diabetic - NIDDM.? * Social History:?Tobacco Use:?Tobacco use other than smoking?Are you an other tobacco user??No ?Tobacco Control (Standard)?Tobacco use:?Nonsmoker ?Additional Findings: Tobacco non-user?Current nonsmoker ???Drugs/Alcohol:?Drugs?Have you used drugs other than those for medical reasons in the past 12 months??No ???Miscellaneous:?Caffeine: yes, 1-2 cups per day. ?Children: no. ?Exercise: yes, walking, reading, quilting, camping, water aerobics. ?Marital status: . ?Occupation: weeks/months/years, Retired- [employer]. ???Drug/Alcohol:?AUDIT-C (Standard)?Did you have a drink containing alcohol in the past year??No ?Points?0 ?Interpretation?Negative * Medications:?TakingEscitalop aleida Oxalate Ozempic Vitamin [...] Once a day Vitamin A & D 27933-558 UNIT Tablet as directed Orally Medrol 4 [...] a day Unknown Vitamin A & D 44800-395 UNIT Tablet as directed Orally Unknown Medrol 4 MG Tablet Therapy Pack as directed Orally daily Medication List reviewed and reconciled with the patient * Allergies:?Penicillin: hives Percocet: hivesDemerolyes[Allergies Verified] Objective: * Vitals:?Ht: 5ft 1in, Wt:185, BMI:34.95, Shoe size: 7.5, BP:120/80mm Hg, BS: not taken, Ht-cm: 154.94 cm, Wt-k.92 kg. * ???Past Orders: ???Lab:HEMOGLOBIN A1C (GLYCO [...] historian for office visit today.?ORIENTED:?person, place, and time.?Orthopedic: ?MUSCLE STRENGTH:?5/5 all groups in a symmetrical fashion, B/L.?GAIT ABNORMALITY:?antalgic.?DIGITAL DEFORMITIES:?Digital contracture, PIPJ, 2-5 B/L, incompl-reducible with WB, or to push-up test, no over, nor underlapping.?MPJ PATHOLOGY:?minor Pain, swelling, and inflammation to plantar/dorsal MPJ(s), LEFT, No MPJ pain with ROM, [ - ] Ecchymosis,2nd,3rd,LEFT, Approximately 90? percent LESS.?FOOTWEAR:?good condition- new balance with high toe box and wide forefoot, orthotics are old with no metatarsal pad.?Neuroma Pain: ?PALPATION:? Pain with direct palpation of the intermetatarsal space, Pain with lateral compression of metatarsals, positive Arun's click, 3rd interspace, LEFT @ 80 % less.? * Physical Examination:?L2999 Supplies:?Insoles-pedag?#38.? Assessment: * Assessment: 1.?Pain in left foot - M79.6 72???2.?Kohler's neuroma of left foot - G57.62 (Primary)???Specify :Response to treatment - Improvement???3.?Pain in left ankle and joints of left foot - M25.572???4. Bursitis of intermetatarsal bursa of left foot - M77.52???5.?Metatarsalgia, left foot - M77.42???6.?Neuritis - M79.2???7.?Hammer toe of left foot - M20.42???8.?Type 2 diabetes mellitus with diabetic chronic kidney disease - E11.22??? Plan: * Treatment: * Procedure Codes:? * Preventive Medicine:? ??Counseling:?Discussion:?-13: Office or other outpatient visit for the evaluation and management of an established patient, which required a medically appropriate history and/or examination and LOW level of DECISION MAKING for: 1 STABLE ACUTE UNCOMPLICATED PROBLEM, 2 OR MORE MINOR PROBLEMS, OR 1 STABLE CHRONIC PROBLEM, THAT POSE(S) A LOW RISK FOR MORBIDITY/MORTALITY. The visit on the day of the [...] and how it relates to their problem, Pt is fitted for an OC orthotic to help address their issues..?Orthotic Dispensing:?The OTC inserts are properly fitted to the patient's feet in both weight-bearing and non-weight bearing attitudes. The patient was instructed to gradually increase the amount of time they are wearing the orthoses, starting with one hour the first day and thereon progressively increasing the amount of time used until they are comfortable to be worn all day and with all activities. They were asked to call the office if any signs of skin irritation were noted including redness, blistering or callous formation. The patient verbally indicated a full understanding of all the above information.? * Follow Up:?prn * Images: * Sign off status: Completed true * Provider:?Christina Ward DPM Date:?2024 Generated for Baldo damon/Estefani/Yandyitting on:?12/02/2024 12:45 PM EDT History and Physical Notes * HPI (History of Present Illness) Category Sub-Category Detail Notes Category Not es Foot Pain Nature: burning, numbnes s, sharp, shooting , burning, radiating, shooting, tingling Location: Forefoot, LEFT , For efoot, LEFT Duration: , since DOI [ 02/2024 ] , Onset: hyperextended toes , Course: , improved, at 80-90 % Aggravated: any pressure Treatments: rest/alter normal da shannon activity, medication ( tylenol, voltaren gel) pedag inserts , , cortisone injection (1) Physical Examination Category Sub-Category Detail Notes Section Note s L2999 Supplies Insoles-pedag #38 Examination Category Sub-Category Detail Notes Category Not es Neuroma Pain PALPATION: Pain with direct palpation of the intermetatarsal space, Pain with lateral compression of metatarsals, positive Arun's click, 3rd interspace, LEFT @ 80 % less Orthopedic GAIT ABNORMALITY: antalgic FOOTWEAR EVALUATION: good condition- new balance with high toe box and wide forefoot, orthotics are old with no metatarsal pad DIGITAL DEFORMITIES: Digital contracture , PIPJ, 2-5 B/L, incompl-reducible with WB, or to push-up test, no over, nor underlapping MPJ PATHOLOGY: minor Pain, swelling , and inflammation to plantar/dorsal MPJ(s), LEFT, No MPJ pain with ROM, [ - ] Ecchymosis,2nd,3rd,LEFT, Approximately 90 percent LESS MUSCLE STRENGTH: 5/5 all groups in a symmetrical fashion, B/L General Examination GENERAL APPEARANCE: Reveals a pleasant, alert, well nourished, well-developed, well hydrated individual, who demonstrates proper attention to hygiene/body habitus, and is in no acute distress, Pt serves as own historian for office visit today ORIENTED: person, place, and t sage Ophthalmology Referral DIABETES EYE EXAM Procedure Perform ed:: Yes ?Date of Exam Performed: 08/01/2024 Diabetic Retinopathy Screening:: Yes Findings of Diabetic Eye Exam:: no retin opathy
--- OUTSIDE RECORDS SUMMARY | 2024-12-02 12:46 | XMS_ITS ---
Author Organization [facility] Address [address] [place] [address] Care Team Providers Care Sizing Machine And Drier Operator Name Role Phone LAITH CESPEDES Primary Care Provider SVEN ROBLERO [phone] Encounters Encounter Location Date Provider Diagnosis [address] [place] [address] 10/21/2024 SVEN ROBLERO PLAN OF TREATMENT Next Appt Details Provider Name:SVEN ROBLERO , 12/05/2024 11:15:00 AM, [address], [address], [place], [address], Provider Name:SVEN ROBLERO , 07/03/2025 11:00:00 AM, [address], [address], [place], [address], Progress Notes * ERWIN GOOD MDOB:1954 (69 yo F)Acc No.[id number]:10/21/2024 Patient:??ERWIN GOOD Provider:??SVEN ROBLERO :1955?Age:69 Y?Sex:Fe male Date:10/21/2024 Address:[address] [facility], [id number] Pcp:LAITH CESPEDES Subjective: * Chief Complaints: * ? * Medical History:?? Objective: Assessment: Plan: * Treatment: * Images: Billing Information: * Visit Code:?? * Procedure Codes:?? * Sign off status: Pending * Provider:??SVEN ROBLERO Date:?? 025
--- OUTSIDE RECORDS SUMMARY | 2024-12-02 12:46 | XMS_ITS | Data Portability ---
Author Organization [place] [facility] Fed[facility] Reis [place] Address [address] [facility] [facility] [address] [place] [address] Care Team Providers Care Obstetrician/Gynecologist Name Role Phone LAITH CESPEDES Referring Provider [phone] LAITH CESPEDES Primary Care Provider Assessment Encounter Date Assessment Date Assessment LastModified by Organization Details LastModified Time 01/09/2023 01/09/2023 Pleasant 59-year -old female who has had right shoulder surgery x2. The last surgery being performed on 09/25/2022. She has had ongoing discomfort consistent with subacromial bursitis. I had a discussion with patient current management which include the following; 1. Physical therapy patient did not except at today's visit however stretching exercises were reinforced 2. Right cortisone injection subacromial bursa. After verbal consent was granted by patient. The procedure was carried out the right shoulder. The patient tolerated the procedure well. Aftercare instructions were discussed in detail. I did offer 3-month follow-up appointment however she states she will contact us if her symptoms do not improve. Patient agrees with the above-noted plan. Indirect care and treatment in conjunction with Dr. Wilder Additional treatment plan discussed with the patient in detail included the following; - Provider focused nonsteroidal anti-inflammatory regimen (discussed were the pros, cons, benefits and risks as well as any black box warnings) in patients over 60 years old they should be very cautious in taking these medications due to potential decreased kidney function and or elevated blood pressure. - Analgesic pain medication for pain suppression (discussed were the pros, cons, benefits and risks as well as any black box warnings) - The use of topical pain relieving medication were discussed - The use of ice to decrease inflammation and pain - The use of assistive ambulatory devices for ambulation and fall prevention - Formal specific guided physical therapy program I reviewed my findings at length with the patient today. ? ? ?We discussed the nature and etiology of this problem along with current treatment options. We discussed the expected course and outcomes and what to expect. We also discussed risks and benefits. ? ? ? All of their questions were answered today, and there was exhibited understanding and comprehension of all that was discussed. 10 minutes were spent reviewing previous imaging and charting. ? ? ?10 minutes were spent obtaining patient history. ? ? ?5 minutes were spent on physical exam. ? ? ?5? ? ?minutes were spent explaining diagnosis and assessment. Today's documentation was made using voice recognition software. This note may contain grammatical errors secondary to the software. Not available 01/09/2023 12:25:18 01/14/2024 01/14/2024 68-year-old fema le with left knee pain. History, examination and x-rays are consistent with osteoarthritis. After discussion regarding treatment options she wishes to proceed with cortisone injection. See the attached procedure note. She can continue to use Tylenol arthritis as needed. Follow-up in 2 months. This patient was seen and evaluated by Ankur Starkey MS, PA-C in indirect conjunction with documenting/supervis ing provider Chidi Wilder MD. He agrees with history, physical examination, tests/diagnostic imaging, and treatment plan. This document was generated using voice recognition software. As a result, there may be unintended spelling, grammatical and/or textual errors. Not available 01/14/2024 10:29:33 01/21/2024 01/21/2024 The above findin gs suggest medial epicondylitis and ulnar neuritis. We discussed pathology and expected prognosis today. Treatment options include conservative treatment, anti-inflammatories, physical therapy, and bracing. I showed them some exercises to work on today and provided a printout of home exercise. This is a self-limiting process however it often takes 6 months to one year for the symptoms to resolve. I recommend a tennis elbow counterforce brace or a wrist splint for pain control during activities. I explained to them that even if they are having discomfort, it is okay to work through the pain. I do not recommend a cortisone injection as it may provide some temporary relief but clinical data shows that it will prolong the overall course of symptoms. They can take over the counter antiinflammatories and icing. We discussed formal physical therapy, the patient would like to start with home exercises. We also discussed ulnar neuritis and activity modification she can do to help improve her symptoms such as keeping the elbow straight especially at night and not leaning on hard surfaces during the day. She will work on these. I will see them back in 2 months for followup, all their questions were answered, they are in agreement with the plan. Not available 01/26/2024 14:10:11 Plan of Treatment Reminders Order Date Submit Date Provider Last Modified By Organization Details Last Modified Time Details Appointments None recorded . Lab None recorded . Referral None recorded . Procedures None recorded . Surgeries None recorded . Imaging XR, elbow, 3 or more view 2023 [email or web address] [facility], [address], [place], [address], 4 22:51:40 XR, knee, 4 or more view 2023 024 [email or web address] [facility], [address], [address], [place], [address], 4 10:45:34 Medication Orders Marcaine (PF) 0.5 % (5 mg/mL) injectio n solution [address]/Pharm[facility] #[id number], [address] [place] [address], [address], 4 10:42:47 lidocain e (PF) 100 mg/5 mL (2 %) injectio n syringe [address]/Pharmacy #2332, [address] [place] [address], [address], 4 10:42:47 triamcin olone acetonid e 40 mg/mL suspensi on for injectio n [address]/Pharmacy #2339, [address] [place], [address], 10:42:47 Kenalog 40 mg/mL suspensi on for injectio n 2022 023 [email or web address] [facility]/Pharmacy #[id number], [address] [place], [address], 4 10:17:25 lidocain e (PF) 10 mg/mL (1 %) injectio n solution 2022 023 [email or web address] [facility]/Pharmacy #[id number], [address] [place], [address], 10:17:27 Patient TargetsNo targets recorded. Patient Instructions Encounter Date Encounter Id Patient Instructions Last Modified By Organization Details Last Modified Time 01/09/2023 [id number] You have been provided with a cortisone injection in order to reduce the pain and inflammation that you are experiencing. The injection consists of two medications. Cortisone (an anti-inflammatory that will take 48-72 hours to take effect) and Lidocaine (a numbing agent that will last 2-3 hours). Please note that not everyone will have a lasting response following the injection. PATIENT INSTRUCTIONS Once the Lidocaine wears off, you may have an increase in your pain. I recommend icing the affected area for 20 minutes 3-4 times per day. It is recommended that you refrain from any high level activities using the joint or limb that was injected for approximately 24-48 hours. Normal day-to-day activities are generally not a problem. POSSIBLE SIDE EFFECTS Individuals with dark complexions may experience some skin discoloration locally at the site of the injection. There is the possibility of an increase in discomfort within 48 hours following the injection. This is called a ? f lare? . To help minimize the chances of this, please see the post-injection instructions above. There is a less than 1% chance of an infection. If you notice any signs of infection (redness, warmth, drainage, fever greater than 100 degrees) please call our office or contact us through the portal [facility]. Not available 01/09/2023 12:26:09 01/14/2024 [id number] {{2 3 4 5 6 7* 8 9} } view X-ray study obtained during today's office encounter show evidence of {{mild moderate* se avila}} {{right left bilate ral*}} {{hip knee*}} osteoarthritis. There is joint space narrowing, subchondral sclerosis and marginal osteophytosis. Kellgren-Bob grade {{0 1 2* 3 4}}. No evidence of acute fracture or osteolytic findings. Not available 01/14/2024 10:29:04 01/21/2024 [id number] tennis elbow: exercises [email or web address] Not available 01/21/2024 22:51:40 3 views of the l eft elbow were ordered and reviewed today, this demonstrates no acute findings. There is an enthesophyte at the lateral epicondyle. No enthesophyte at the medial epicondyle or posterior olecranon. Maintained joint space at the radiocapitellar and ulnohumeral joints. Good mineralization of the bones. Not available 01/26/2024 14:09:02 Reason for Referral None Reported. Problems Name Problem SNOMED Code Status Onset Date Resolution Date Notes Provider Name and Address Organization Details Recorded Time Medial epicondyli tis of left elbow joint 8034758061384 07 Active 2023 Kristal gilbert, [place] - [facility] 4 14:14:29 Neuritis of left ulnar nerve 4722288430944 9100 Active 2023 Tenisha Olson MD [address] [address], [place], [address] , [place] [facility] 4 14:10:19 Subacromia l bursitis of right shoulder 3539550922936 109 Active 2022 ANKUR MAHAJAN PA-C [address] [facility] [address], [place], [address] , [place] - [facility] 3 12:25:41 Problem Notes None recorded. Procedures Surgical History Date Name Laterality Status Provider Name and Address Organization Details Recorded Time 4 MJG Knee injection w/US completed ANKUR STARKEY PA-C [address], [place], [address], [place] [facility] 01/14/2024 10:29:42 3 Shoulder Joint/Bursa Asp & Inj completed ANKUR MAHAJAN PA-C [address], [place], [address], [facility], P 01/09/2023 12:24:02 Shoulder Surgery completed Gennaro Neff [facility], P 01/09/2023 11:06:48 Imaging Results None recorded. Procedure Notes None recorded. Medical Equipment None Reported. Allergies Allergen ID Allergen Name Allergen Category Reaction Reaction Severity Criticality Documentation Date Start Date Code Code System Note Provider Name and Address Organization Details Recorded Time 3924 Product containin g penicilli n (product) medicatio n Not available Not available Not available 01/09/2023 15139 8001 SNOMED Gennaro Martinnchard [facility], [facility], P 3 11:05:18 3925 acetamino phen / oxycodone medicatio n Not available Not available Not available 01/09/2023 65811 3 RxNorm Gennaro Martinapril gilbert, [facility], P 3 11:05:30 Medications Name Sig Start Date Stop Date Status Note LastModified by Organization Details LastModified Time atorvastati n 40 mg tablet TAKE 1 TABLET BY MOUTH EVERY DAY active Not Available Not Available No t Available metformin 500 mg tablet TAKE 1 TABLET BY MOUTH EVERY DAY WITH MEALS 01/13 completed Not Available Not Available Not Available triamcinolo ne acetonide 0.1 % topical cream APPLY TWICE DAILY TO AFFECTED AREAS ON THE BACK FOR TWO WEEKS, BREAK FOR ONE WEEK, REPEAT NEEDED. active Not Available Not Available No t Available hydromorpho ne 2 mg tablet TAKE 1 OR 2 TABLETS BY MOUTH EVERY 4 HOURS NEEDED FOR PAIN. MAX 4/DAY MAX 7DS PER IN 01/13 completed Not Available Not Available Not Available triamcinolo ne acetonide 40 mg/mL suspension for injection Take 40 mg by injection route. 2023 active Not Available Not Available Not Avai lable nystatin 100,000 unit/gram topical cream APPLY TO AFFECTED AREAS BELOW BREASTS TWICE DAILY UNTIL CLEARED, THEN REPEAT FOR FLARES. 01/13 completed Not Available Not Available Not Available omeprazole 20 mg capsule,del ayed release TAKE 1 CAPSULE BY MOUTH EVERY DAY active Not Available Not Available No t Available hydrochloro thiazide 25 mg tablet TAKE 1 TABLET BY MOUTH EVERY DAY IN THE MORNING 01/13 completed Not Available Not Available Not Available irbesartan 150 mg tablet TAKE 1 TABLET BY MOUTH EVERY DAY active Not Available Not Available No t Available celecoxib 100 mg capsule TAKE 1 CAPSULE BY MOUTH EVERY DAY WITH FOOD 01/13 completed Not Available Not Available Not Available escitalopra m 20 mg tablet TAKE 1 TABLET BY MOUTH EVERY DAY active Not Available Not Available No t Available Marcaine (PF) 0.5 % (5 mg/mL) injection solution Take 4 mL by injection route. 2023 active Not Available Not Available Not Avai lable mometasone 0.1 % topical solution APPLY TO AFFECTED AREAS ON SCALP TWICE DAILY FOR TWO WEEKS ON AND ONE WEEK OFF, REPEAT NEEDED active Not Available Not Available No t Available lidocaine (PF) 10 mg/mL (1 %) injection solution Take 2 mL by injection route. 01/13 completed Not Available Not Available Not Available lidocaine (PF) 100 mg/5 mL (2 %) injection syringe Take 4 mL by injection route. 2023 active Not Available Not Available Not Avai lable Combivent Respimat 20 mcg-100 mcg/actuati on solution for inhalation PLEASE SEE ATTACHED FOR DETAILED DIRECTION S active Not Available Not Available No t Available Trelegy Ellipta 100 mcg-62.5 mcg-25 mcg powder for inhalation INHALE 1 PUFF BY MOUTH DAILY FOR 30 DAYS 01/13 completed Not Available Not Available Not Available Ozempic 0.25 mg or 0.5 mg (2 mg/1.5 mL) subcutaneou s pen injector INJECT DIRECTED SUBCUTANE OUSLY WEEKLY 01/13 completed Not Available Not Available Not Available Ozempic 1 mg/dose (4 mg/3 mL) subcutaneou s pen injector INJECT 1MG SUBCUTANE OUS WEEKLY 30 DAYS 01/13 completed Not Available Not Available Not Available Ozempic 2 mg/dose (8 mg/3 mL) subcutaneou s pen injector INJECT 2 MG SUBCUTANE OUSLY ONCE PER WEEK active Not Available Not Available No t Available Paxlovid 150 mg-100 mg tablets in a dose pack (Renal Dose) TAKE 2 TABLETS BY MOUTH TWICE A DAY FOR 5 DAYS 01/13 completed Not Available Not Available Not Available Vitals Date Recorded Body height Body mass index (BMI) Body weight Provider Name and Address Organization Details Last Updated DateTime 01/09/2023 157.48 cm 43.2 kg/m2 229958.8 g Gennaro Neff [place] - [facility] 01/09/2023 11:05:04 Social History Question Answer Notes LastModified by Organizat ion Details LastModified Time Tobacco Smoking Status Former Smoker Gennaro Neff [facility], [facility] 01/09/2023 11:06:07 What Is Your Level Of Alcohol Consumption? Occasional [email or web address] Information not available 01/09/2023 How Many Times Per Week Do You Consume Alcohol? 1-2 Times Per Week [email or web address] Information not available 01/09/2023 When Did You Quit Smoking? 16+yearssincel astcigarette [email or web address] Information not available 01/09/2023 Do You Use Any Illicit Or Recreational Drugs? No [email or web address] Information not available 01/09/2023 Do You Or Have You Ever Used Any Other Forms Of Tobacco Or Nicotine? No [email or web address] Information not available 01/09/2023 Sex: Unknown Functional Status None recorded. Mental Status None recorded. Family History Nothing Reported. Medical History Condition Response Hypertension Y Asthma Y Gynecological HistoryNo gynecological history recorded. Obstetrics History GPAL:G 0 P 0 0 0 0 Past Encounters Encounter ID Performer Location Encounter Start Date Encounter Closed Date Diagnosis/Indication Diagnosis SNOMED-CT Code Diagnosis ICD10 Code Diagnosis Note [id number] [facility] [address] [place] [address] 01/09/2023 10:53:37 01/09/2023 11:11:13 Subacromial bursitis of right shoulder 1244222926 433428 M75.51 [id number] MD KENNETH Lynchparesh [address] [place] [address] 01/21/2024 13:22:38 01/21/2024 14:26:00 Pain in elbow 03959129 M25.522 Additional diagnosis detail: Elbow pain, left Medial epi condylitis of left elbow joint 8912842560 01634 M77.02 Additional diagnosis detail: Medial epicondyli tis, left Neuritis o f left ulnar nerve 2757836418 6256552 G56.22 Additional diagnosis detail: Ulnar neuritis, left [id number] MD KENNETH Bang [facility] [address] [facility] [address] [place] [address] 01/14/2024 09:52:28 01/14/2024 10:45:33 Pain of left knee joint 9977302980 74549 M25.562 Additional diagnosis detail: Pain, joint, knee, left Osteoarthr itis of left knee joint 4666204555 82857 M17.12 Additional diagnosis detail: Primary osteoarthr itis of left knee Health Concerns Section Related Observation LastModified by Organization Detai ls LastModified Time None Recorded Concern Status LastModified by Organization Details LastModified Time None Recorded Advance Directives Directive None Recorded Payers Encounter Date Sequence Insurance Name Policy Number Policy Hope Covered Member ID Hope Member ID Guarantor Name 01/09/2023 1 [facility] (MEDICARE REPLACEMENT/A DVANTAGE - PPO) [id number] Rena Colbyk [id number] Rena Milmikiezjean-claude 01/14/2024 1 [facility] (MEDICARE REPLACEMENT/A DVANTAGE - PPO) [id number] Rena Colbyk [id number] Rena Milmikiezcik 01/14/2024 2 [employer] - MEDICARE ADVANTAGE PLAN (MEDICARE REPLACEMENT HMO) [id number] 01 Rena Colbyk [id number] Rena Milmikiezcik 01/21/2024 1 [facility] (MEDICARE REPLACEMENT/A DVANTAGE - PPO) [id number] 01 Rena Sierrazcik [id number] Rena Milelzcik 01/21/2024 2 [facility] - MEDICARE ADVANTAGE PLAN (MEDICARE REPLACEMENT HMO) [id number] 01 Rena Dodge [id number] Rena Dodge Notes Date Note Type Note Provider Name and Address Organization Details Recorded Time 01/09/2023 text/html Pleasant 67-year-old female last seen 10/09/2022 for ongoing right shoulder pain since her surgery on the below noted date. This has been ongoing but intermittent here for evaluation she describes her pain is lateral in nature with overuse she is doing repetitive exercises. She denies any trauma. Pertinent to her right shoulder history notable arthroscopy, DCE, acromioplasty, anterior capsular release and manipulation under anesthesia on 09/25/2022. Prior to that she had rotator cuff repair with 1 suture anchor. ANKUR MAHAJAN PA-C [address] [facility],[address], [place], [address], [place] [facility] 01/09/2023 12:26:45 01/14/2024 text/html 68-year-old jyoti nguyen presents with chief complaint of left knee pain. She reports that she has had knee pain over the course of many years... For a long, long, long time. She reports that she has had an estimated 3 cortisone injections to the left knee. Each have given her excellent relief. The most recent was multiple years ago. She describes form a progressive worsening of pain at the medial compartment of the left knee. She reports that approximately 1 month ago she was doing [employer] as part of her water aerobics routine when she had a spike in pain at the medial joint compartment. She states that ice has been helpful and Tylenol arthritis gives her about 4 hours worth of relief of the pain. She denies a history of surgery to the left knee. She has some mild symptoms radiating into the thigh as well. ANKUR STARKEY PA-C [address], [place], [address], [place] [facility] 01/14/2024 10:30:39 01/21/2024 text/html This is a 68-year-old taugj-euna-vdhejxrt female who presenting with left elbow pain and hand numbness and tingling. She sustained a fall about 2 weeks ago when she hit the left shoulder elbow and her head. She did not lose consciousness. She did not have bruising or swelling however after the fall she had pain at the elbow and tingling into her forearm and into her ring and small fingers. She notes increased numbness and tingling as well as pain in this distribution is just with activity. She also has symptoms at night. She has been trying Tylenol, Voltaren gel, and icing. She has not worn any braces. She does have a history of lateral epicondylitis a few months ago which she was treated nonoperatively. She denies any subjective weakness in the hand. Denies any numbness or tingling in the thumb, index, middle fingers. Tenisha Olson MD [address] [place] [address], [address], [place] - [facility] 01/26/2024 14:10:47 OBGyn Episode No OBEpisode recorded.
--- OUTSIDE RECORDS SUMMARY | 2024-12-02 12:46 | XMS_ITS ---
Author Organization [facility] Address [address] [place] [id number] Care Team Providers Care [employer] Name Role Phone LAITH VENEGAS Primary Care Provider SVEN ROBLERO Unavailable [phone] ALLERGIES Allergen (clinical drug ingredient) Drug/Non Drug Allergy documented on EMR Reaction Allergy Type Onset Date Status penicillin G Penicillin G Sodium Unknown Drug Allergy Active rimantadine Rimantadine HCl Unknown Drug Allergy Active REASON FOR VISIT 4 month f/u MEDICATIONS Medication SIG (Take, Route, Frequency, Duration) Notes Start Date End Date Status ZyrTEC Allergy 10 MG 1 tablet Orally Onc e a day for 30 day(s) Active Flonase 50 MCG/ACT 1 spray in each nost ril Nasally Once a day for 30 day(s) Active Aspirin 81 81 MG 1 tablet Orally Once a day for 30 day(s) Active Losartan Potassium 50 MG 1 tablet Orally Once a day Active Combivent Respimat 20-100 MCG/ACT 1 puff as needed Inhalation every 6 hrs Active Omeprazole 20 MG TAKE 1 CAPSULE BY [facility] EVERY DAY for 90 Active Zepbound 2.5 MG/0.5ML Inject 2.5 mg Subcutaneous weekly for 28 days 09/23/2024 Not-Taking Ozempic (2 MG/DOSE) 8 MG/3ML INJECT 2 MG SUBCUTANEOUSLY ONCE PER WEEK for 30 Active Vitamin B Complex - as directed Orally Active Escitalopram Oxalate 20 MG TAKE 1 TABLET BY MOUTH EVERY DAY FOR 30 DAYS for 90 Active Atorvastatin Calcium 40 MG 1 tablet Orally Once a day for 30 day(s) Active Calcium 1000 + D 1000-800 MG-UNIT 1 tablet with a meal Orally Once a day Active Vitamin D 25 MCG (1000 UT) 1 tablet Orally Once a day Active SOCIAL HISTORY Tobacco Use: Social History Observation Description Date Details (start date - stop date) Former Smoker NA - NA Sex Assigned At : Social History Observation Description Sex Assigned At Unknown Tobacco Use/Smoking Question Answer Notes Are you a former smoker PROBLEMS Problem Type ICD Code Onset Dates Problem Status W/U Status Risk SNOMED Code Notes Problem Mixed hyperlipidemia (E78.2) Active confirmed 729122907 VITAL SIGNS Blood pressure systolic 124 mm Hg 11/01/19 25 Blood pressure diastolic 80 mm Hg 025 Heart Rate 77 /min 10/31/2024 Height 62 in 10/31/2024 Weight 189 lbs 10/31/2024 BMI 34.56 kg/m2 10/31/2024 Oximetry 99 % 10/31/2024 Encounters Encounter Location Date Provider Diagnosis [facility] [address] [facility] [address] [place] [address] 10/31/2024 SVEN ROBLERO Essential hypertensi on I10 ; Primary pulmonary hypertension I27.0 ; ABBY (obstructive sleep apnea) G47.33 ; GERD without esophagitis K21.9 ; Primary osteoarthritis involving multiple joints M15.0 ; Mixed hyperlipidemia E78.2 ; Seasonal allergies J30.2 ; Prediabetes R73.03 and Adult-onset obesity E66.9 ASSESSMENTS Encounter Date Diagnosis Assessment Notes Treatment Notes Treatment Clinical Notes Section Notes 10/31/2024 Essential hypertension (ICD-10 - I10) Erwin is a 69-year-old female with history of multiple medical conditions who presents today for routine follow-up. Cardiopulmonary and abdominal exam unremarkable. All patient questions answered at this time. Follow-up with the following was performed. She will return to the office in approximately 3 to 4 months. All patient questions answered at this time. # Hypertension: Blood pressure stable in office 124/80. Continue losartan 50 mg once daily. Discussed red flag signs of hypertension. Currently asymptomatic without chest pain, shortness of breath, dyspnea on exertion, or diaphoresis. Will continue to monitor at subsequent visits. # ABBY: Continue nightly oxygen, 2 L O2 nasal cannula to maintain SpO2 of 96 to 98%. # Joint pain: Patient has followed previously with orthopedics for degenerative joint disease. Also has undergone right shoulder arthroscopy in August 2022 demonstrating right shoulder acromioclavicular joint arthritis, right shoulder impingement syndrome, and right shoulder adhesive capsulitis. Has history of right shoulder rotator cuff repair in 2018. Due to chronic kidney disease with recent improved creatinine of 1.22, EGFR 48 have advised against use of anti-inflammatory medications for acute pain. Advise [id number] Tylenol as needed. Patient has been practicing physical therapy exercises at home for increased range of motion. Has upcoming orthopedic appointment for further evaluation. # GERD: Stable at this time. Continue omeprazole 20 mg once daily before morning meal. Will continue to monitor. # Seasonal allergies: Continue Flonase 50 mcg 1 spray in each nostril daily. Continue Zyrtec 10 mg once daily. Will continue to monitor for symptoms of seasonal allergies. # Hyperlipidemia: Lipid panel obtained recently on 07/05/2024 with values of cholesterol 153, triglycerides 55, HDL 64, and LDL 78. Continue atorvastatin calcium 40 mg once daily. Discussed proper use of medication and expected side effect profile occluding but not limited to muscle aches. Will continue to monitor. # Pulmonary hypertension: Patient with cardiology regularly for management of pulmonary hypertension. Was last seen in the office in November 2023, no acute concerns for cardiology at this time. Continue Combivent Respimat 20 to 100 mcg per actuation 1 puff as needed every 6 hours. Will continue to monitor. Please follow-up with cardiology. # Depression: Stable at this time. Reports good mood. Continue escitalopram 20 mg once daily. Discussed proper use of the medication and expected side effect profile occluding with a limited to dizziness, headache, GI upset, sexual dysfunction, weight gain, and increased depression. Will continue to monitor. # Prediabetes: Hemoglobin A1c 5.6%. Will continue to monitor and encourage lifestyle vacations. # Obesity: Weight 189 pounds, BMI 34.56. Patient established in weight management program. Currently on Ozempic 2 mg weekly. Next follow-up on 12/05/24. Will continue to encourage healthy lifestyle including balanced diet and regular physical activity. All questions have been answered to patient's satisfaction. Patient verbalized understanding of diagnosis and treatments explained. Advised to call sooner prior to next visit it any questions/concerns arise. Case discussed with collaborating physician Makeda Venegas who reviewed the assessment and plan. Chart, medications, labs, vital signs reviewed. Dictation was accomplished with the use of [employer] voice recognition software, which is prone to medical misidentifications and grammatical errors. This are unintentional and the practitioner does try to identify and correct these, but some could still be present. Please do not hesitate to contact practitioner for clarification. 10/31/2024 Primary pulmonary hypertension (ICD-10 - I27.0) Erwin is a 69-year-old female with history of multiple medical conditions who presents today for routine follow-up. Cardiopulmonary and abdominal exam unremarkable. All patient questions answered at this time. Follow-up with the following was performed. She will return to the office in approximately 3 to 4 months. All patient questions answered at this time. # Hypertension: Blood pressure stable in office 124/80. Continue losartan 50 mg once daily. Discussed red flag signs of hypertension. Currently asymptomatic without chest pain, shortness of breath, dyspnea on exertion, or diaphoresis. Will continue to monitor at subsequent visits. # ABBY: Continue nightly oxygen, 2 L O2 nasal cannula to maintain SpO2 of 96 to 98%. # Joint pain: Patient has followed previously with orthopedics for degenerative joint disease. Also has undergone right shoulder arthroscopy in August 2022 demonstrating right shoulder acromioclavicular joint arthritis, right shoulder impingement syndrome, and right shoulder adhesive capsulitis. Has history of right shoulder rotator cuff repair in 2018. Due to chronic kidney disease with recent improved creatinine of 1.22, EGFR 48 have advised against use of anti-inflammatory medications for acute pain. Advise [id number] Tylenol as needed. Patient has been practicing physical therapy exercises at home for increased range of motion. Has upcoming orthopedic appointment for further evaluation. # GERD: Stable at this time. Continue omeprazole 20 mg once daily before morning meal. Will continue to monitor. # Seasonal allergies: Continue Flonase 50 mcg 1 spray in each nostril daily. Continue Zyrtec 10 mg once daily. Will continue to monitor for symptoms of seasonal allergies. # Hyperlipidemia: Lipid panel obtained recently on 07/05/2024 with values of cholesterol 153, triglycerides 55, HDL 64, and LDL 78. Continue atorvastatin calcium 40 mg once daily. Discussed proper use of medication and expected side effect profile occluding but not limited to muscle aches. Will continue to monitor. # Pulmonary hypertension: Patient with cardiology regularly for management of pulmonary hypertension. Was last seen in the office in November 2023, no acute concerns for cardiology at this time. Continue Combivent Respimat 20 to 100 mcg per actuation 1 puff as needed every 6 hours. Will continue to monitor. Please follow-up with cardiology. # Depression: Stable at this time. Reports good mood. Continue escitalopram 20 mg once daily. Discussed proper use of the medication and expected side effect profile occluding with a limited to dizziness, headache, GI upset, sexual dysfunction, weight gain, and increased depression. Will continue to monitor. # Prediabetes: Hemoglobin A1c 5.6%. Will continue to monitor and encourage lifestyle vacations. # Obesity: Weight 189 pounds, BMI 34.56. Patient established in weight management program. Currently on Ozempic 2 mg weekly. Next follow-up on 12/05/24. Will continue to encourage healthy lifestyle including balanced diet and regular physical activity. All questions have been answered to patient's satisfaction. Patient verbalized understanding of diagnosis and treatments explained. Advised to call sooner prior to next visit it any questions/concerns arise. Case discussed with collaborating physician Makeda Venegas who reviewed the assessment and plan. Chart, medications, labs, vital signs reviewed. Dictation was accomplished with the use of [employer] voice recognition software, which is prone to medical misidentifications and grammatical errors. This are unintentional and the practitioner does try to identify and correct these, but some could still be present. Please do not hesitate to contact practitioner for clarification. 10/31/2024 ABBY (obstructive sleep apnea) (ICD-10 - G47.33) Erwin is a 69-year-old female with history of multiple medical conditions who presents today for routine follow-up. Cardiopulmonary and abdominal exam unremarkable. All patient questions answered at this time. Follow-up with the following was performed. She will return to the office in approximately 3 to 4 months. All patient questions answered at this time. # Hypertension: Blood pressure stable in office 124/80. Continue losartan 50 mg once daily. Discussed red flag signs of hypertension. Currently asymptomatic without chest pain, shortness of breath, dyspnea on exertion, or diaphoresis. Will continue to monitor at subsequent visits. # ABBY: Continue nightly oxygen, 2 L O2 nasal cannula to maintain SpO2 of 96 to 98%. # Joint pain: Patient has followed previously with orthopedics for degenerative joint disease. Also has undergone right shoulder arthroscopy in August 2022 demonstrating right shoulder acromioclavicular joint arthritis, right shoulder impingement syndrome, and right shoulder adhesive capsulitis. Has history of right shoulder rotator cuff repair in 2018. Due to chronic kidney disease with recent improved creatinine of 1.22, EGFR 48 have advised against use of anti-inflammatory medications for acute pain. Advise [id number] Tylenol as needed. Patient has been practicing physical therapy exercises at home for increased range of motion. Has upcoming orthopedic appointment for further evaluation. # GERD: Stable at this time. Continue omeprazole 20 mg once daily before morning meal. Will continue to monitor. # Seasonal allergies: Continue Flonase 50 mcg 1 spray in each nostril daily. Continue Zyrtec 10 mg once daily. Will continue to monitor for symptoms of seasonal allergies. # Hyperlipidemia: Lipid panel obtained recently on 07/05/2024 with values of cholesterol 153, triglycerides 55, HDL 64, and LDL 78. Continue atorvastatin calcium 40 mg once daily. Discussed proper use of medication and expected side effect profile occluding but not limited to muscle aches. Will continue to monitor. # Pulmonary hypertension: Patient with cardiology regularly for management of pulmonary hypertension. Was last seen in the office in November 2023, no acute concerns for cardiology at this time. Continue Combivent Respimat 20 to 100 mcg per actuation 1 puff as needed every 6 hours. Will continue to monitor. Please follow-up with cardiology. # Depression: Stable at this time. Reports good mood. Continue escitalopram 20 mg once daily. Discussed proper use of the medication and expected side effect profile occluding with a limited to dizziness, headache, GI upset, sexual dysfunction, weight gain, and increased depression. Will continue to monitor. # Prediabetes: Hemoglobin A1c 5.6%. Will continue to monitor and encourage lifestyle vacations. # Obesity: Weight 189 pounds, BMI 34.56. Patient established in weight management program. Currently on Ozempic 2 mg weekly. Next follow-up on 12/05/24. Will continue to encourage healthy lifestyle including balanced diet and regular physical activity. All questions have been answered to patient's satisfaction. Patient verbalized understanding of diagnosis and treatments explained. Advised to call sooner prior to next visit it any questions/concerns arise. Case discussed with collaborating physician Makeda Venegas who reviewed the assessment and plan. Chart, medications, labs, vital signs reviewed. Dictation was accomplished with the use of [employer] voice recognition software, which is prone to medical misidentifications and grammatical errors. This are unintentional and the practitioner does try to identify and correct these, but some could still be present. Please do not hesitate to contact practitioner for clarification. 10/31/2024 GERD without esophagitis (ICD-10 - K21.9) Erwin is a 69-year-old female with history of multiple medical conditions who presents today for routine follow-up. Cardiopulmonary and abdominal exam unremarkable. All patient questions answered at this time. Follow-up with the following was performed. She will return to the office in approximately 3 to 4 months. All patient questions answered at this time. # Hypertension: Blood pressure stable in office 124/80. Continue losartan 50 mg once daily. Discussed red flag signs of hypertension. Currently asymptomatic without chest pain, shortness of breath, dyspnea on exertion, or diaphoresis. Will continue to monitor at subsequent visits. # ABBY: Continue nightly oxygen, 2 L O2 nasal cannula to maintain SpO2 of 96 to 98%. # Joint pain: Patient has followed previously with orthopedics for degenerative joint disease. Also has undergone right shoulder arthroscopy in August 2022 demonstrating right shoulder acromioclavicular joint arthritis, right shoulder impingement syndrome, and right shoulder adhesive capsulitis. Has history of right shoulder rotator cuff repair in 2018. Due to chronic kidney disease with recent improved creatinine of 1.22, EGFR 48 have advised against use of anti-inflammatory medications for acute pain. Advise [id number] Tylenol as needed. Patient has been practicing physical therapy exercises at home for increased range of motion. Has upcoming orthopedic appointment for further evaluation. # GERD: Stable at this time. Continue omeprazole 20 mg once daily before morning meal. Will continue to monitor. # Seasonal allergies: Continue Flonase 50 mcg 1 spray in each nostril daily. Continue Zyrtec 10 mg once daily. Will continue to monitor for symptoms of seasonal allergies. # Hyperlipidemia: Lipid panel obtained recently on 07/05/2024 with values of cholesterol 153, triglycerides 55, HDL 64, and LDL 78. Continue atorvastatin calcium 40 mg once daily. Discussed proper use of medication and expected side effect profile occluding but not limited to muscle aches. Will continue to monitor. # Pulmonary hypertension: Patient with cardiology regularly for management of pulmonary hypertension. Was last seen in the office in November 2023, no acute concerns for cardiology at this time. Continue Combivent Respimat 20 to 100 mcg per actuation 1 puff as needed every 6 hours. Will continue to monitor. Please follow-up with cardiology. # Depression: Stable at this time. Reports good mood. Continue escitalopram 20 mg once daily. Discussed proper use of the medication and expected side effect profile occluding with a limited to dizziness, headache, GI upset, sexual dysfunction, weight gain, and increased depression. Will continue to monitor. # Prediabetes: Hemoglobin A1c 5.6%. Will continue to monitor and encourage lifestyle vacations. # Obesity: Weight 189 pounds, BMI 34.56. Patient established in weight management program. Currently on Ozempic 2 mg weekly. Next follow-up on 12/05/24. Will continue to encourage healthy lifestyle including balanced diet and regular physical activity. All questions have been answered to patient's satisfaction. Patient verbalized understanding of diagnosis and treatments explained. Advised to call sooner prior to next visit it any questions/concerns arise. Case discussed with collaborating physician Makeda Venegas who reviewed the assessment and plan. Chart, medications, labs, vital signs reviewed. Dictation was accomplished with the use of [employer] voice recognition software, which is prone to medical misidentifications and grammatical errors. This are unintentional and the practitioner does try to identify and correct these, but some could still be present. Please do not hesitate to contact practitioner for clarification. 10/31/2024 Primary osteoarthritis involving multiple joints (ICD-10 - M15.0) Erwin is a 69-year-old female with history of multiple medical conditions who presents today for routine follow-up. Cardiopulmonary and abdominal exam unremarkable. All patient questions answered at this time. Follow-up with the following was performed. She will return to the office in approximately 3 to 4 months. All patient questions answered at this time. # Hypertension: Blood pressure stable in office 124/80. Continue losartan 50 mg once daily. Discussed red flag signs of hypertension. Currently asymptomatic without chest pain, shortness of breath, dyspnea on exertion, or diaphoresis. Will continue to monitor at subsequent visits. # ABBY: Continue nightly oxygen, 2 L O2 nasal cannula to maintain SpO2 of 96 to 98%. # Joint pain: Patient has followed previously with orthopedics for degenerative joint disease. Also has undergone right shoulder arthroscopy in August 2022 demonstrating right shoulder acromioclavicular joint arthritis, right shoulder impingement syndrome, and right shoulder adhesive capsulitis. Has history of right shoulder rotator cuff repair in 2018. Due to chronic kidney disease with recent improved creatinine of 1.22, EGFR 48 have advised against use of anti-inflammatory medications for acute pain. Advise [id number] Tylenol as needed. Patient has been practicing physical therapy exercises at home for increased range of motion. Has upcoming orthopedic appointment for further evaluation. # GERD: Stable at this time. Continue omeprazole 20 mg once daily before morning meal. Will continue to monitor. # Seasonal allergies: Continue Flonase 50 mcg 1 spray in each nostril daily. Continue Zyrtec 10 mg once daily. Will continue to monitor for symptoms of seasonal allergies. # Hyperlipidemia: Lipid panel obtained recently on 07/05/2024 with values of cholesterol 153, triglycerides 55, HDL 64, and LDL 78. Continue atorvastatin calcium 40 mg once daily. Discussed proper use of medication and expected side effect profile occluding but not limited to muscle aches. Will continue to monitor. # Pulmonary hypertension: Patient with cardiology regularly for management of pulmonary hypertension. Was last seen in the office in November 2023, no acute concerns for cardiology at this time. Continue Combivent Respimat 20 to 100 mcg per actuation 1 puff as needed every 6 hours. Will continue to monitor. Please follow-up with cardiology. # Depression: Stable at this time. Reports good mood. Continue escitalopram 20 mg once daily. Discussed proper use of the medication and expected side effect profile occluding with a limited to dizziness, headache, GI upset, sexual dysfunction, weight gain, and increased depression. Will continue to monitor. # Prediabetes: Hemoglobin A1c 5.6%. Will continue to monitor and encourage lifestyle vacations. # Obesity: Weight 189 pounds, BMI 34.56. Patient established in weight management program. Currently on Ozempic 2 mg weekly. Next follow-up on 12/05/24. Will continue to encourage healthy lifestyle including balanced diet and regular physical activity. All questions have been answered to patient's satisfaction. Patient verbalized understanding of diagnosis and treatments explained. Advised to call sooner prior to next visit it any questions/concerns arise. Case discussed with collaborating physician Makeda Venegas who reviewed the assessment and plan. Chart, medications, labs, vital signs reviewed. Dictation was accomplished with the use of [employer] voice recognition software, which is prone to medical misidentifications and grammatical errors. This are unintentional and the practitioner does try to identify and correct these, but some could still be present. Please do not hesitate to contact practitioner for clarification. 10/31/2024 Mixed hyperlipidemia (ICD-10 - E78.2) Erwin is a 69-year-old female with history of multiple medical conditions who presents today for routine follow-up. Cardiopulmonary and abdominal exam unremarkable. All patient questions answered at this time. Follow-up with the following was performed. She will return to the office in approximately 3 to 4 months. All patient questions answered at this time. # Hypertension: Blood pressure stable in office 124/80. Continue losartan 50 mg once daily. Discussed red flag signs of hypertension. Currently asymptomatic without chest pain, shortness of breath, dyspnea on exertion, or diaphoresis. Will continue to monitor at subsequent visits. # ABBY: Continue nightly oxygen, 2 L O2 nasal cannula to maintain SpO2 of 96 to 98%. # Joint pain: Patient has followed previously with orthopedics for degenerative joint disease. Also has undergone right shoulder arthroscopy in August 2022 demonstrating right shoulder acromioclavicular joint arthritis, right shoulder impingement syndrome, and right shoulder adhesive capsulitis. Has history of right shoulder rotator cuff repair in 2018. Due to chronic kidney disease with recent improved creatinine of 1.22, EGFR 48 have advised against use of anti-inflammatory medications for acute pain. Advise [id number] Tylenol as needed. Patient has been practicing physical therapy exercises at home for increased range of motion. Has upcoming orthopedic appointment for further evaluation. # GERD: Stable at this time. Continue omeprazole 20 mg once daily before morning meal. Will continue to monitor. # Seasonal allergies: Continue Flonase 50 mcg 1 spray in each nostril daily. Continue Zyrtec 10 mg once daily. Will continue to monitor for symptoms of seasonal allergies. # Hyperlipidemia: Lipid panel obtained recently on 07/05/2024 with values of cholesterol 153, triglycerides 55, HDL 64, and LDL 78. Continue atorvastatin calcium 40 mg once daily. Discussed proper use of medication and expected side effect profile occluding but not limited to muscle aches. Will continue to monitor. # Pulmonary hypertension: Patient with cardiology regularly for management of pulmonary hypertension. Was last seen in the office in November 2023, no acute concerns for cardiology at this time. Continue Combivent Respimat 20 to 100 mcg per actuation 1 puff as needed every 6 hours. Will continue to monitor. Please follow-up with cardiology. # Depression: Stable at this time. Reports good mood. Continue escitalopram 20 mg once daily. Discussed proper use of the medication and expected side effect profile occluding with a limited to dizziness, headache, GI upset, sexual dysfunction, weight gain, and increased depression. Will continue to monitor. # Prediabetes: Hemoglobin A1c 5.6%. Will continue to monitor and encourage lifestyle vacations. # Obesity: Weight 189 pounds, BMI 34.56. Patient established in weight management program. Currently on Ozempic 2 mg weekly. Next follow-up on 12/05/24. Will continue to encourage healthy lifestyle including balanced diet and regular physical activity. All questions have been answered to patient's satisfaction. Patient verbalized understanding of diagnosis and treatments explained. Advised to call sooner prior to next visit it any questions/concerns arise. Case discussed with collaborating physician Makeda Venegas who reviewed the assessment and plan. Chart, medications, labs, vital signs reviewed. Dictation was accomplished with the use of [employer] voice recognition software, which is prone to medical misidentifications and grammatical errors. This are unintentional and the practitioner does try to identify and correct these, but some could still be present. Please do not hesitate to contact practitioner for clarification. 10/31/2024 Seasonal allergies (ICD-10 - J30.2) Erwin is a 69-year-old female with history of multiple medical conditions who presents today for routine follow-up. Cardiopulmonary and abdominal exam unremarkable. All patient questions answered at this time. Follow-up with the following was performed. She will return to the office in approximately 3 to 4 months. All patient questions answered at this time. # Hypertension: Blood pressure stable in office 124/80. Continue losartan 50 mg once daily. Discussed red flag signs of hypertension. Currently asymptomatic without chest pain, shortness of breath, dyspnea on exertion, or diaphoresis. Will continue to monitor at subsequent visits. # ABBY: Continue nightly oxygen, 2 L O2 nasal cannula to maintain SpO2 of 96 to 98%. # Joint pain: Patient has followed previously with orthopedics for degenerative joint disease. Also has undergone right shoulder arthroscopy in August 2022 demonstrating right shoulder acromioclavicular joint arthritis, right shoulder impingement syndrome, and right shoulder adhesive capsulitis. Has history of right shoulder rotator cuff repair in 2018. Due to chronic kidney disease with recent improved creatinine of 1.22, EGFR 48 have advised against use of anti-inflammatory medications for acute pain. Advise [id number] Tylenol as needed. Patient has been practicing physical therapy exercises at home for increased range of motion. Has upcoming orthopedic appointment for further evaluation. # GERD: Stable at this time. Continue omeprazole 20 mg once daily before morning meal. Will continue to monitor. # Seasonal allergies: Continue Flonase 50 mcg 1 spray in each nostril daily. Continue Zyrtec 10 mg once daily. Will continue to monitor for symptoms of seasonal allergies. # Hyperlipidemia: Lipid panel obtained recently on 07/05/2024 with values of cholesterol 153, triglycerides 55, HDL 64, and LDL 78. Continue atorvastatin calcium 40 mg once daily. Discussed proper use of medication and expected side effect profile occluding but not limited to muscle aches. Will continue to monitor. # Pulmonary hypertension: Patient with cardiology regularly for management of pulmonary hypertension. Was last seen in the office in November 2023, no acute concerns for cardiology at this time. Continue Combivent Respimat 20 to 100 mcg per actuation 1 puff as needed every 6 hours. Will continue to monitor. Please follow-up with cardiology. # Depression: Stable at this time. Reports good mood. Continue escitalopram 20 mg once daily. Discussed proper use of the medication and expected side effect profile occluding with a limited to dizziness, headache, GI upset, sexual dysfunction, weight gain, and increased depression. Will continue to monitor. # Prediabetes: Hemoglobin A1c 5.6%. Will continue to monitor and encourage lifestyle vacations. # Obesity: Weight 189 pounds, BMI 34.56. Patient established in weight management program. Currently on Ozempic 2 mg weekly. Next follow-up on 12/05/24. Will continue to encourage healthy lifestyle including balanced diet and regular physical activity. All questions have been answered to patient's satisfaction. Patient verbalized understanding of diagnosis and treatments explained. Advised to call sooner prior to next visit it any questions/concerns arise. Case discussed with collaborating physician Makeda Venegas who reviewed the assessment and plan. Chart, medications, labs, vital signs reviewed. Dictation was accomplished with the use of [employer] voice recognition software, which is prone to medical misidentifications and grammatical errors. This are unintentional and the practitioner does try to identify and correct these, but some could still be present. Please do not hesitate to contact practitioner for clarification. 10/31/2024 Prediabetes (ICD-10 - R73.03) Erwin is a 69-year-old female with history of multiple medical conditions who presents today for routine follow-up. Cardiopulmonary and abdominal exam unremarkable. All patient questions answered at this time. Follow-up with the following was performed. She will return to the office in approximately 3 to 4 months. All patient questions answered at this time. # Hypertension: Blood pressure stable in office 124/80. Continue losartan 50 mg once daily. Discussed red flag signs of hypertension. Currently asymptomatic without chest pain, shortness of breath, dyspnea on exertion, or diaphoresis. Will continue to monitor at subsequent visits. # ABBY: Continue nightly oxygen, 2 L O2 nasal cannula to maintain SpO2 of 96 to 98%. # Joint pain: Patient has followed previously with orthopedics for degenerative joint disease. Also has undergone right shoulder arthroscopy in August 2022 demonstrating right shoulder acromioclavicular joint arthritis, right shoulder impingement syndrome, and right shoulder adhesive capsulitis. Has history of right shoulder rotator cuff repair in 2018. Due to chronic kidney disease with recent improved creatinine of 1.22, EGFR 48 have advised against use of anti-inflammatory medications for acute pain. Advise [id number] Tylenol as needed. Patient has been practicing physical therapy exercises at home for increased range of motion. Has upcoming orthopedic appointment for further evaluation. # GERD: Stable at this time. Continue omeprazole 20 mg once daily before morning meal. Will continue to monitor. # Seasonal allergies: Continue Flonase 50 mcg 1 spray in each nostril daily. Continue Zyrtec 10 mg once daily. Will continue to monitor for symptoms of seasonal allergies. # Hyperlipidemia: Lipid panel obtained recently on 07/05/2024 with values of cholesterol 153, triglycerides 55, HDL 64, and LDL 78. Continue atorvastatin calcium 40 mg once daily. Discussed proper use of medication and expected side effect profile occluding but not limited to muscle aches. Will continue to monitor. # Pulmonary hypertension: Patient with cardiology regularly for management of pulmonary hypertension. Was last seen in the office in November 2023, no acute concerns for cardiology at this time. Continue Combivent Respimat 20 to 100 mcg per actuation 1 puff as needed every 6 hours. Will continue to monitor. Please follow-up with cardiology. # Depression: Stable at this time. Reports good mood. Continue escitalopram 20 mg once daily. Discussed proper use of the medication and expected side effect profile occluding with a limited to dizziness, headache, GI upset, sexual dysfunction, weight gain, and increased depression. Will continue to monitor. # Prediabetes: Hemoglobin A1c 5.6%. Will continue to monitor and encourage lifestyle vacations. # Obesity: Weight 189 pounds, BMI 34.56. Patient established in weight management program. Currently on Ozempic 2 mg weekly. Next follow-up on 12/05/24. Will continue to encourage healthy lifestyle including balanced diet and regular physical activity. All questions have been answered to patient's satisfaction. Patient verbalized understanding of diagnosis and treatments explained. Advised to call sooner prior to next visit it any questions/concerns arise. Case discussed with collaborating physician Makeda Venegas who reviewed the assessment and plan. Chart, medications, labs, vital signs reviewed. Dictation was accomplished with the use of [employer] voice recognition software, which is prone to medical misidentifications and grammatical errors. This are unintentional and the practitioner does try to identify and correct these, but some could still be present. Please do not hesitate to contact practitioner for clarification. 10/31/2024 Adult-onset obesity (ICD-10 - E66.9) Erwin is a 69-year-old female with history of multiple medical conditions who presents today for routine follow-up. Cardiopulmonary and abdominal exam unremarkable. All patient questions answered at this time. Follow-up with the following was performed. She will return to the office in approximately 3 to 4 months. All patient questions answered at this time. # Hypertension: Blood pressure stable in office 124/80. Continue losartan 50 mg once daily. Discussed red flag signs of hypertension. Currently asymptomatic without chest pain, shortness of breath, dyspnea on exertion, or diaphoresis. Will continue to monitor at subsequent visits. # ABBY: Continue nightly oxygen, 2 L O2 nasal cannula to maintain SpO2 of 96 to 98%. # Joint pain: Patient has followed previously with orthopedics for degenerative joint disease. Also has undergone right shoulder arthroscopy in August 2022 demonstrating right shoulder acromioclavicular joint arthritis, right shoulder impingement syndrome, and right shoulder adhesive capsulitis. Has history of right shoulder rotator cuff repair in 2018. Due to chronic kidney disease with recent improved creatinine of 1.22, EGFR 48 have advised against use of anti-inflammatory medications for acute pain. Advise [id number] Tylenol as needed. Patient has been practicing physical therapy exercises at home for increased range of motion. Has upcoming orthopedic appointment for further evaluation. # GERD: Stable at this time. Continue omeprazole 20 mg once daily before morning meal. Will continue to monitor. # Seasonal allergies: Continue Flonase 50 mcg 1 spray in each nostril daily. Continue Zyrtec 10 mg once daily. Will continue to monitor for symptoms of seasonal allergies. # Hyperlipidemia: Lipid panel obtained recently on 07/05/2024 with values of cholesterol 153, triglycerides 55, HDL 64, and LDL 78. Continue atorvastatin calcium 40 mg once daily. Discussed proper use of medication and expected side effect profile occluding but not limited to muscle aches. Will continue to monitor. # Pulmonary hypertension: Patient with cardiology regularly for management of pulmonary hypertension. Was last seen in the office in November 2023, no acute concerns for cardiology at this time. Continue Combivent Respimat 20 to 100 mcg per actuation 1 puff as needed every 6 hours. Will continue to monitor. Please follow-up with cardiology. # Depression: Stable at this time. Reports good mood. Continue escitalopram 20 mg once daily. Discussed proper use of the medication and expected side effect profile occluding with a limited to dizziness, headache, GI upset, sexual dysfunction, weight gain, and increased depression. Will continue to monitor. # Prediabetes: Hemoglobin A1c 5.6%. Will continue to monitor and encourage lifestyle vacations. # Obesity: Weight 189 pounds, BMI 34.56. Patient established in weight management program. Currently on Ozempic 2 mg weekly. Next follow-up on 12/05/24. Will continue to encourage healthy lifestyle including balanced diet and regular physical activity. All questions have been answered to patient's satisfaction. Patient verbalized understanding of diagnosis and treatments explained. Advised to call sooner prior to next visit it any questions/concerns arise. Case discussed with collaborating physician Makeda Venegas who reviewed the assessment and plan. Chart, medications, labs, vital signs reviewed. Dictation was accomplished with the use of [employer] voice recognition software, which is prone to medical misidentifications and grammatical errors. This are unintentional and the practitioner does try to identify and correct these, but some could still be present. Please do not hesitate to contact practitioner for clarification. PLAN OF TREATMENT Pending Test Test Name Order Date LIPID PANEL, STANDARD 10/31/2024 COMPREHENSIVE METABOLIC PANEL 10/31/2024 CBC (INCLUDES DIFF/PLT) 10/31/2024 URINALYSIS, COMPLETE 10/31/2024 TSH 10/31/2024 VITAMIN D,25-OH,TOTAL,IA 10/31/2024 Next Appt Details Provider Name:SVEN OSBALDO , 12/05/2024 11:15:00 AM, [address], [address], [place], [id number], Provider Name:SVEN OSBALDO , 07/03/2025 11:00:00 AM, [address], [address], [place], [address], Progress Notes * ERWIN GOOD MDOB:1954 (69 yo F)Acc No.[id number]:10/31/2024 Progress Notes Patient:??ERWIN GOOD M Provider:??SVEN ROBLERO :1955?Age:69 Y?Sex:Fe male Date:10/31/2024 Address:[address] [place], [place] [id number] Pcp:LAITH VENEGAS Subjective: * Chief Complaints: * ?1. 4 month f/u. * HPI: ?Constitutional:? Erwin is a 69-year-old female with history of hypertension, hyperlipidemia, GERD, pulmonary hypertension, restrictive lung disease, asthma, osteoarthritis, psoriasis, and obesity who presents today for routine follow-up. Patient reports that she feels well today. Has been having recent right shoulder pain however chronic in nature. Reports no recent injuries or trauma. Does have some limited range of motion of the right shoulder, finds that sometimes it locks, however she is seeing orthopedics in November for follow-up. States that we will likely get a cortisone injection. States that she has no longer been taking joint supplements that we discussed at her previous visit due to adverse side effects and cost. Has been regularly exercising and doing physical therapy exercises at home to maintain joint mobility. ?Today also discussing her heart rate. States that she has had a few instances on her Fitbit where her heart rate has dropped about 58 bpm. Reports no associated symptoms including chest pain, dizziness, or shortness of breath. States will likely make a follow-up with cardiology for her annual appointment in November. ?States that she is not taking Zepbound this time due to medication not being on [facility] in formulary. Prior authorization was approved. * ROS:?Constitutional: Patient denies any excessive fatigue with exercise, no weight loss, no fever, no night sweats, no changes in sleep. ???Eyes: No eye discharge, no itching, no redness, no vision changes. Advised the significance of regular eye exams to screen for glaucoma and other eye problems. ???Ear nose throat: No ear pain, No sore throat, no postnasal drip, no runny nose, no sneezing, no hearing changes ???Cardiovascular: No chest pain, no dyspnea on exertion, no PND, no orthopnea, no irregular pulse, no palpitations, no claudication, no diaphoresis, no claudication. ???Respiratory: No chronic cough, no hemoptysis, no sputum, no wheezing, no SOB, no pleuritic pain. ???GI: No diarrhea, no constipation, no blood in the stools, no pain associated with eating, no indigestion, no difficulty swallowing, no appetite change. ???Genitourinary: No painful urination, no hesitancy, no blood in the urine, no incontinence, no frequency, no urgency, no abnormal discharge. ???Musculoskeletal: No back pain, no joint pain, no limitations to walking and running, no joint deformity, no joint stiffness, no muscle weakness ???Integumentary: No new skin rash. No new changes in skin moles, no pruritis, no color change. ???Neurological: No history of seizures, no memory loss, no language dysfunction, no inability to concentrate, no localized weakness, no sensation loss, no confusion, no dizziness, no tremor, no numbness, no tingling. ???Psychiatric: no anxiety, no depression, no suicidal thoughts, feels safe at home. ???Endocrine: No polyuria, no polyphagia, no polydipsia. No heat/cold intolerance, no excesss thirst. ???Hematological: No easy bruising or bleeding, no lymph node swelling. * Medical History:??Asthma, Mo rbid obesity, Pulmonary hypertension, Restrictive lung disease. * Surgical History:??right jeffrey phram plication 11/13/16 , colonoscopy 2015 , Right Shoulder Surgery 08/2022. * Hospitalization/Major Diagno stic Procedure:??Denies Past Hospitalization. * Family History:??Father: dec eased.??Spouse: alive.??Mother: , diagnosed with Unspecified heart disease.??Maternal Grand Father: diagnosed with Unspecified heart disease.??Maternal Grand Mother: diagnosed with Unspecified heart disease.??Maternal uncle: diagnosed with Other malignant neoplasm of unspecified site.??Maternal aunt: diagnosed with Unspecified heart disease.??1 brother(s) . .?? Father - copd, emphysema Mother - from kidney failure and heart issues. Brother - had IPF and prostate cancer. mom uncle's - had cancer brain, pancreatic and lung. * Social History:?Tobacco Use:??Tobacco Use/Smoking??Are you a??former smoker.?? * Medications:??Taking Vitamin B Complex - Capsule as directed Orally , Taking Combivent Respimat 20-100 MCG/ACT Aerosol Solution 1 puff as needed Inhalation every 6 hrs , Taking Losartan Potassium 50 MG Tablet 1 tablet Orally Once a day , Taking Aspirin 81 81 MG Tablet Chewable 1 tablet Orally Once a day , Taking Flonase 50 MCG/ACT Suspension 1 spray in each nostril Nasally Once a day , Taking ZyrTEC Allergy 10 MG Tablet 1 tablet Orally Once a day , Taking Vitamin D 25 MCG (1000 UT) Tablet 1 tablet Orally Once a day , Taking Calcium 1000 + D 1000-800 MG-UNIT Tablet 1 tablet with a meal Orally Once a day , Taking Atorvastatin Calcium 40 MG Tablet 1 tablet Orally Once a day , Taking Omeprazole 20 MG Capsule Delayed Release TAKE 1 CAPSULE BY MOUTH EVERY DAY , Taking Escitalopram Oxalate 20 MG Tablet TAKE 1 TABLET BY MOUTH EVERY DAY FOR 30 DAYS , Taking Ozempic (2 MG/DOSE) 8 MG/3ML Solution Pen- injector INJECT 2 MG SUBCUTANEOUSLY ONCE PER WEEK , Not-Taking Zepbound 2.5 MG/0.5ML Solution Auto-injector Inject 2.5 mg Subcutaneous weekly , Medication List reviewed and reconciled with the patient * Allergies:??Penicillin G Sod ium, Rimantadine HCl. Objective: * Vitals:??HR:77/min, BP:124/8 0mm Hg, Wt:189lbs, BMI:34.56Index, Ht: 62 in, Oxygen sat %:99%. Assessment: * Assessment: 1.??Essential hypertension - I10 (Primary)??2.??Primary pulmonary hypertension - I27.0??3.??ABBY (obstructive sleep apnea) - G47.33??4.??GERD without esophagitis - K21.9??5.??Primary osteoarthritis involving multiple joints - M15.0??6.??Mixed hyperlipidemia - E78.2??7.??Seasonal allergies - J30.2??8.??Prediabetes - R73.03??9.??Adult-onset obesity - E66.9?? Erwin is a 69-year-old femal e with history of multiple medical conditions who presents today for routine follow-up. Cardiopulmonary and abdominal exam unremarkable. All patient questions answered at this time. Follow-up with the following was performed. She will return to the office in approximately 3 to 4 months. All patient questions answered at this time. # Hypertension: Blood pressure stable in office 124/80. Continue losartan 50 mg once daily. Discussed red flag signs of hypertension. Currently asymptomatic without chest pain, shortness of breath, dyspnea on exertion, or diaphoresis. Will continue to monitor at subsequent visits. # ABBY: Continue nightly oxygen, 2 L O2 nasal cannula to maintain SpO2 of 96 to 98%. # Joint pain: Patient has followed previously with orthopedics for degenerative joint disease. Also has undergone right shoulder arthroscopy in August 2022 demonstrating right shoulder acromioclavicular joint arthritis, right shoulder impingement syndrome, and right shoulder adhesive capsulitis. Has history of right shoulder rotator cuff repair in 2018. Due to chronic kidney disease with recent improved creatinine of 1.22, EGFR 48 have advised against use of anti-inflammatory medications for acute pain. Advise [id number] Tylenol as needed. Patient has been practicing physical therapy exercises at home for increased range of motion. Has upcoming orthopedic appointment for further evaluation. # GERD: Stable at this time. Continue omeprazole 20 mg once daily before morning meal. Will continue to monitor. # Seasonal allergies: Continue Flonase 50 mcg 1 spray in each nostril daily. Continue Zyrtec 10 mg once daily. Will continue to monitor for symptoms of seasonal allergies. # Hyperlipidemia: Lipid panel obtained recently on 07/05/2024 with values of cholesterol 153, triglycerides 55, HDL 64, and LDL 78. Continue atorvastatin calcium 40 mg once daily. Discussed proper use of medication and expected side effect profile occluding but not limited to muscle aches. Will continue to monitor. # Pulmonary hypertension: Patient with cardiology regularly for management of pulmonary hypertension. Was last seen in the office in November 2023, no acute concerns for cardiology at this time. Continue Combivent Respimat 20 to 100 mcg per actuation 1 puff as needed every 6 hours. Will continue to monitor. Please follow-up with cardiology. # Depression: Stable at this time. Reports good mood. Continue escitalopram 20 mg once daily. Discussed proper use of the medication and expected side effect profile occluding with a limited to dizziness, headache, GI upset, sexual dysfunction, weight gain, and increased depression. Will continue to monitor. # Prediabetes: Hemoglobin A1c 5.6%. Will continue to monitor and encourage lifestyle vacations. # Obesity: Weight 189 pounds, BMI 34.56. Patient established in weight management program. Currently on Ozempic 2 mg weekly. Next follow-up on 12/05/24. Will continue to encourage healthy lifestyle including balanced diet and regular physical activity. All questions have been answered to patient's satisfaction. Patient verbalized understanding of diagnosis and treatments explained. Advised to call sooner prior to next visit it any questions/concerns arise. Case discussed with collaborating physician Makeda Venegas who reviewed the assessment and plan. Chart, medications, labs, vital signs reviewed. Dictation was accomplished with the use of [employer] voice recognition software, which is prone to medical misidentifications and grammatical errors. This are unintentional and the practitioner does try to identify and correct these, but some could still be present. Please do not hesitate to contact practitioner for clarification. Plan: * Treatment: * Labs:?? * ?Lab: VITAMIN D,25- OH,TOTAL,IA ?Lab: URINALYSIS, C OMPLETE ?Lab: COMPREHENSIVE METABOLIC PANEL ?Lab: CBC (INCLUDES DIFF/PLT) ?Lab: TSH ?Lab: LIPID PANEL, STANDARD * Images: Billing Information: * Visit Code:?? 99664 Office Visit, Est Pt., Level 4. Modifiers: 25, SA * Procedure Codes:?? Care Plan Details* * Sign off status: Completed true * Provider:??SVEN ROBLERO Date:?? 025 History and Physical Notes * HPI (History of Present Illness) Category Sub-Category Detail Notes Category Not es Constitutional Erwin is a 69-year-old female with history of hypertension, hyperlipidemia, GERD, pulmonary hypertension, restrictive lung disease, asthma, osteoarthritis, psoriasis, and obesity who presents today for routine follow-up. Patient reports that she feels well today. Has been having recent right shoulder pain however chronic in nature. Reports no recent injuries or trauma. Does have some limited range of motion of the right shoulder, finds that sometimes it locks, however she is seeing orthopedics in November for follow-up. States that we will likely get a cortisone injection. States that she has no longer been taking joint supplements that we discussed at her previous visit due to adverse side effects and cost. Has been regularly exercising and doing physical therapy exercises at home to maintain joint mobility. Today also discussing her heart rate. States that she has had a few instances on her Fitbit where her heart rate has dropped about 58 bpm. Reports no associated symptoms including chest pain, dizziness, or shortness of breath. States will likely make a follow-up with cardiology for her annual appointment in November. States that she is not taking Zepbound this time due to medication not being on [facility] in formulary. Prior authorization was approved.
== END 2024-12-02 11:00 | disposition home or self-care (01) ==
LOC: HO.HOSX 10:59
PROVIDERS: Visit Provider Orthopaedic Surgery
DX: Z13.89 Encounter for screening for other disorder (principal)

== ENCOUNTER 2024-12-08 13:47 | Outpatient (REF) | payer MEDICARE, SELFPAY ==
--- NOTE | ~2024-12-08 | XR_ITS ---
EXAMINATION: XR SHOULDER, RIGHT CLINICAL INFORMATION: M25.511 - Pain in right shoulder COMPARISON: None available. TECHNIQUE: AP external rotation, Grashey, scapular Y, and axillary views of the right shoulder. FINDINGS: Normal bone mineralization. No fracture, dislocation, or suspicious bone lesion. Normal alignment. There has been prior rotator cuff repair with surgical anchor in the greater tuberosity. Minimal degenerative arthritis in the glenohumeral joint with normal alignment. AC joint appears mildly widened, likely on the basis of prior subacromial decompression. No significant undersurface spurring. There is a mildly downsloping lateral acromion. No undersurface spurring. The subacromial space is moderately narrowed. Remainder of the soft tissue and bony structures appear normal. XR/XR shoulder RT min 2V IMPRESSION: 1. No acute bony abnormalities. 2. Prior rotator cuff repair and subacromial decompression. 3. Moderate narrowing of the subacromial space. 4. Mild degenerative arthritis in the glenohumeral joint. Electronically signed by: Qasim De La Rosa MD 12/09/2024 08:21 AM EDT
--- OUTSIDE RECORDS SUMMARY | 2024-12-09 14:09 | XMS_ITS | Patient Health Record ---
Author Organization [facility] Address [address] [place] [address] Care Team Providers Care Market Development Manager Name Role Phone LAITH VENEGAS Primary Care Provider [phone] CANDICE NAGEL Unavailable [phone] OSBALDO SVEN Unavailable [phone] ALLERGIES Allergen (clinical drug ingredient) Drug/Non Drug Allergy documented on EMR Reaction Allergy Type Onset Date Status penicillin G Penicillin G Sodium Unknown Drug Allergy Active rimantadine Rimantadine HCl Unknown Drug Allergy Active RESULTS Component Value Reference Range Notes Mao Screening Digital Reviewed date:12/11/2023 10:28:47 AM Interpretation: Performing Lab: Notes/Report: Original Ordering Provider: LAITH VENEGAS MD [facility] CBC WITH AUTO DIFFERENTIAL Reviewed date:07/05/2024 [...] 12:55:31 PM Interpretation: Performing Lab: Notes/Report: Specific [facility] Urine 1.016 1.003-1.030 pH, Urine 5.5 5.0-8.0 [...] Vitamin D deficiency, unspecified (E55.9) Active confirmed 12547503 Problem Morbid (severe) obesity due to excess calories (E66.01) Active confirmed Morbid obesity (disorder) (447905867) Problem Mixed hyperlipidemia (E78.2) Active confirmed 325490941 Problem Hyperlipidemia, unspecified (E78.5) Active confirmed Hyperlipidemia (15980437) Problem Primary pulmonary hypertension (I27.0) Active confirmed Idiopathic pulmonary arterial hypertension (769819571) Problem Unspecified diastolic (congestive) heart failure (I50.30) Active confirmed Diastolic heart failure (791266084) Problem Encounter for general adult medical examination without abnormal findings (Z00.00) Active confirmed 146905384 Problem Encounter for screening for lipoid disorders (Z13.220) Active confirmed Lipid screening (252889918) Problem Encounter for screening for other suspected endocrine disorder (Z13.29) Active confirmed 671683888 Problem Encounter for screening for osteoporosis (Z13.820) Active confirmed 995603152 Problem Body mass index (BMI) 40.0-44.9, adult (Z68.41) Active confirmed Body mass ind ex 40+ - severely obese (608635364) Problem Body mass index (BMI) 45.0-49.9, adult (Z68.42) Active confirmed Body mass ind ex 40+ - severely obese (866633548) Problem Prediabetes (R73.03) Active confirmed 666473459 Problem Essential hypertension (I10) Active confirmed 33128136 Problem Adult general medical exam (Z00.00) Active confirmed Adult health examination (562566094) Problem Dizziness (R42) Active confirmed Dizzin ess (622647732) Problem Cataract, unspecified cataract type, unspecified laterality (H26.9) Active confirmed Cataract (203841895) Problem Seasonal allergies (J30.2) Active confirmed 132288945 Problem ABBY (obstructive sleep apnea) (G47.33) Active confirmed 92895781 Problem Headache, unspecified (R51.9) Active confirmed Headache (53457545) Problem BMI 35.0-35.9,adult (Z68.35) Active confirmed 087296461 Problem Recurrent falls (R29.6) Active confirmed Recurrent falls (129394464) Problem BMI 36.0-36.9,adult (Z68.36) Active confirmed 984776889 Problem BMI 38.0-38.9,adult (Z68.38) Active confirmed 204099378 Problem Adult-onset obesity (E66.9) Active confirmed 432115392 Problem BMI 34.0-34.9,adult (Z68.34) Active confirmed 433264650 Problem GERD without esophagitis (K21.9) Active confirmed 911547510 Problem Avitaminosis D (E55.9) Active confirmed Avitaminosis D (40289852) Problem Encounter for screening for endocrine disorder (Z13.29) Active confirmed Endocrine/ metabol ic screening (213901577) VITAL SIGNS Heart Rate 70 /min 12/05/2024 Oximetry 98 % 12/05/2024 Blood pressure diastolic 86 mm Hg 12/05/2024 Height 62 in 12/05/2024 Blood pressure systolic 144 mm Hg 12/05/2024 Weight 188 lbs 12/05/2024 BMI 34.38 kg/m2 12/05/2024 Encounters Encounter Location Date Provider Diagnosis [facility] [address] [facility] [address] [place] [address] 03/10/2024 CANDICE NAGEL Obesity (BMI 30-39.9 ) E66.9 ; BMI 35.0-35.9,adult Z68.35 ; Primary pulmonary hypertension I27.0 ; Shortness of breath R06.02 ; Prediabetes R73.03 and Hyperlipidemia, unspecified E78.5 [facility] [address] [place] [address] 03/26/[address] [address] 10/21/2024 SVEN ROBLERO [place] [address] [address] 03/31/2024 CANDICE NAGEL Obesity (BMI 30-39.9 ) E66.9 ; BMI 35.0-35.9,adult Z68.35 ; Primary pulmonary hypertension I27.0 ; Shortness of breath R06.02 ; Prediabetes R73.03 and Hyperlipidemia, unspecified E78.5 [place] [address] [address] 07/12/2024 SVEN ROBLERO Annual physical exam Z00.00 ; Encounter for screening for depression Z13.31 ; Encounter for screening for other disorder Z13.89 ; BMI 34.0-34.9,adult Z68.34 ; Adult-onset obesity E66.9 ; Advance care planning Z71.89 ; Essential hypertension I10 ; Multiple joint pain M25.50 ; Pulmonary HTN I27.20 ; Mild depression F32.A and Seasonal allergies J30.2 [place] [address] [address] 09/23/2024 SVEN ROBLERO Adult-onset obesity E66.9 ; BMI 34.0-34.9,adult Z68.34 ; ABBY (obstructive sleep apnea) G47.33 ; Primary pulmonary hypertension I27.0 ; Generalized joint pain M25.50 ; GERD without esophagitis K21.9 ; Seasonal allergies J30.2 ; Hyperlipidemia, unspecified E78.5 ; Chronic depression F32.A and Prediabetes R73.03 [place] [address] [address] 10/31/2024 SVEN ROBLERO Essential hypertensi on I10 ; Primary pulmonary hypertension I27.0 ; ABBY (obstructive sleep apnea) G47.33 ; GERD without esophagitis K21.9 ; Primary osteoarthritis involving multiple joints M15.0 ; Mixed hyperlipidemia E78.2 ; Seasonal allergies J30.2 ; Prediabetes R73.03 and Adult-onset obesity E66.9 [place] [address] [address] 12/05/2024 SVEN ROBLERO Adult-onset obesity E66.9 ; BMI 34.0-34.9,adult Z68.34 ; ABBY (obstructive sleep apnea) G47.33 ; Primary pulmonary hypertension I27.0 ; Generalized joint pain M25.50 ; GERD without esophagitis K21.9 ; Seasonal allergies J30.2 ; Hyperlipidemia, unspecified E78.5 ; Chronic depression F32.A and Prediabetes R73.03 [address] [place] [address] 07/21/[address] [place] [address] 09/02/[address] [place] [address] 09/23/[address] [place] [address] 09/24/[address] [place] [address] 10/03/2024 SVEN ROBLERO [address] [place] [address] 04/03/2024 LAITH VENEGAS ASSESSMENTS Encounter Date Diagnosis Assessment Notes Treatment Notes Treatment Clinical Notes Section Notes 03/10/2024 Obesity (BMI 30-39.9) (ICD-10 - E66.9) [...] minimum of 6 months The most recent [place] [employer] of clinical endocrinologists and [place] [employer] guidelines recommend patients who [...] track activity level. Consider using apps like Petbrosia, E-Box - [email or web address], lose it, stick as needed for self-monitoring and weight management. Consider group exercises. Consider hiring a resident athletic trainer. Regular exercise is riojas to sustainable [...] counseling and psychiatry and Dr Escobar at [facility]. We would like to cover regular topics [...] software and direct typing Please excuse inadvertent forging dies final finisher or typing errors, or uncorrected word substitutions Although every attempt has been made by the provider to proofread this document, occasional misspellings and typographical errors may still be present Due to the previous pandemic, and the use of personal protective equipment (PPE) This may decrease voice recognition accuracy Inadvertent forging dies final finisher errors may occur 03/31/2024 Obesity (BMI 30-39.9) (ICD-10 - E66.9) [...] minimum of 6 months The most recent [place] Association of clinical endocrinologists and [place] [employer] guidelines recommend patients who [...] track activity level. Consider using apps like Petbrosia, myfitnesspal, lose it, stick as needed for self-monitoring and weight management. Consider group exercises. Consider hiring a resident athletic trainer. Regular exercise is riojas to sustainable [...] counseling and psychiatry and Dr Escobar at [facility]. We would like to cover regular topics [...] software and direct typing Please excuse inadvertent forging dies final finisher or typing errors, or uncorrected word substitutions Although every attempt has been made by the provider to proofread this document, occasional misspellings and typographical errors may still be present Due to the previous pandemic, and the use of personal protective equipment (PPE) This may decrease voice recognition accuracy Inadvertent forging dies final finisher errors may occur 07/12/2024 Encounter for screening [...] of anti-inflammatory medications for acute pain. Advise lwkx-xfj-redcvof Tylenol as needed. Patient also discussed a supplement today called Caddo XL which she can begin using and [...] Fall risk assessed. Discussed healthcare proxy. Discussed [place] order for life sustaining treatment, end-of-life issues, intubation and resuscitation dialysis artificial nutrition and hydration is appropriate. We discussed [place] order for life sustaining treatment and healthcare [...] Dictation was accomplished with the use of MyCrowd voice recognition software, which is prone to [...] of anti-inflammatory medications for acute pain. Advise pnib-lmy-tffkumk Tylenol as needed. Patient also discussed a supplement today called Caddo XL which she can begin using and [...] Fall risk assessed. Discussed healthcare proxy. Discussed [place] order for life sustaining treatment, end-of-life issues, intubation and resuscitation dialysis artificial nutrition and hydration is appropriate. We discussed [place] order for life sustaining treatment and healthcare [...] Dictation was accomplished with the use of MyCrowd voice recognition software, which is prone to [...] of anti-inflammatory medications for acute pain. Advise wcpi-mxj-qgyzljw Tylenol as needed. Patient also discussed a supplement today called Caddo XL which she can begin using and [...] Dictation was accomplished with the use of MyCrowd voice recognition software, which is prone to [...] Dictation was accomplished with the use of MyCrowd voice recognition software, which is prone to [...] of anti-inflammatory medications for acute pain. Advise kxhh-wsu-hirqwem Tylenol as needed. Patient has been practicing [...] Dictation was accomplished with the use of MyCrowd voice recognition software, which is prone to [...] of anti-inflammatory medications for acute pain. Advise ouhh-nkn-bwiqdlk Tylenol as needed. Patient has been practicing [...] Dictation was accomplished with the use of MyCrowd voice recognition software, which is prone to [...] of anti-inflammatory medications for acute pain. Advise ioiq-vdp-uhyhjlj Tylenol as needed. Patient also discussed a supplement today called Caddo XL which she can begin using and [...] Dictation was accomplished with the use of MyCrowd voice recognition software, which is prone to [...] Dictation was accomplished with the use of MyCrowd voice recognition software, which is prone to [...] of anti-inflammatory medications for acute pain. Advise tgsx-rgs-ezwfezh Tylenol as needed. Patient also discussed a supplement today called Caddo XL which she can begin using and [...] Dictation was accomplished with the use of MyCrowd voice recognition software, which is prone to [...] Dictation was accomplished with the use of MyCrowd voice recognition software, which is prone to [...] of anti-inflammatory medications for acute pain. Advise bkpa-lob-skysndp Tylenol as needed. Patient also discussed a supplement today called Caddo XL which she can begin using and [...] Dictation was accomplished with the use of MyCrowd voice recognition software, which is prone to [...] Dictation was accomplished with the use of MyCrowd voice recognition software, which is prone to [...] of anti-inflammatory medications for acute pain. Advise qqqt-vfv-jhzlibx Tylenol as needed. Patient has been practicing [...] Dictation was accomplished with the use of MyCrowd voice recognition software, which is prone to [...] of anti-inflammatory medications for acute pain. Advise fbmh-gkz-tcvtugg Tylenol as needed. Patient also discussed a supplement today called Caddo XL which she can begin using and [...] Dictation was accomplished with the use of MyCrowd voice recognition software, which is prone to [...] Dictation was accomplished with the use of MyCrowd voice recognition software, which is prone to [...] minimum of 6 months The most recent [place] Association of clinical endocrinologists and [place] [employer]ocrin[employer] guidelines recommend patients who [...] track activity level. Consider using apps like Jamgle mionute excercise, E-Box - Blogo.itpal, lose it, stick as needed for self-monitoring and weight management. Consider group exercises. Consider hiring a resident athletic trainer. Regular exercise is riojas to sustainable [...] counseling and psychiatry and Dr Escobar at [facility]. We would like to cover regular topics [...] software and direct typing Please excuse inadvertent forging dies final finisher or typing errors, or uncorrected word substitutions Although every attempt has been made by the provider to proofread this document, occasional misspellings and typographical errors may still be present Due to the previous pandemic, and the use of personal protective equipment (PPE) This may decrease voice recognition accuracy Inadvertent forging dies final finisher errors may occur 07/12/2024 Encounter for screening [...] of anti-inflammatory medications for acute pain. Advise sdoj-qvv-dafolgi Tylenol as needed. Patient also discussed a supplement today called Caddo XL which she can begin using and [...] Fall risk assessed. Discussed healthcare proxy. Discussed [place] order for life sustaining treatment, end-of-life issues, intubation and resuscitation dialysis artificial nutrition and hydration is appropriate. We discussed [place] order for life sustaining treatment and healthcare [...] Dictation was accomplished with the use of MyCrowd voice recognition software, which is prone to medical misidentifications and grammatical errors. This are unintentional and the practitioner does try to identify and correct these, but some could still be present. Please do not hesitate to contact practitioner for clarification. 03/10/2024 BMI 35.0-35.9,adult (ICD-10 - Z68.35) #Weight [...] minimum of 6 months The most recent [place] Association of clinical endocrinologists and [place] [employer]ocrin[employer] guidelines recommend patients who [...] track activity level. Consider using apps like Petbrosia, E-Box - Blogo.itpal, lose it, stick as needed for self-monitoring and weight management. Consider group exercises. Consider hiring a resident athletic trainer. Regular exercise is riojas to sustainable [...] counseling and psychiatry and Dr Escobar at [facility]. We would like to cover regular topics [...] software and direct typing Please excuse inadvertent forging dies final finisher or typing errors, or uncorrected word substitutions Although every attempt has been made by the provider to proofread this document, occasional misspellings and typographical errors may still be present Due to the previous pandemic, and the use of personal protective equipment (PPE) This may decrease voice recognition accuracy Inadvertent forging dies final finisher errors may occur 03/10/2024 Primary pulmonary hypertension (ICD-10 - I27.0) [...] minimum of 6 months The most recent [place] Association of clinical endocrinologists and [place] [employer] Endocrinology guidelines recommend patients who [...] track activity level. Consider using apps like Petbrosia, E-Box - Blogo.itpal, lose it, stick as needed for self-monitoring and weight management. Consider group exercises. Consider hiring a resident athletic trainer. Regular exercise is riojas to sustainable [...] counseling and psychiatry and Dr Escobar at [facility]. We would like to cover regular topics [...] software and direct typing Please excuse inadvertent forging dies final finisher or typing errors, or uncorrected word substitutions Although every attempt has been made by the provider to proofread this document, occasional misspellings and typographical errors may still be present Due to the previous pandemic, and the use of personal protective equipment (PPE) This may decrease voice recognition accuracy Inadvertent forging dies final finisher errors may occur 03/31/2024 Primary pulmonary hypertension (ICD-10 - I27.0) [...] minimum of 6 months The most recent [place] Association of clinical endocrinologists and [place] [employer] Endocrinology guidelines recommend patients who [...] track activity level. Consider using apps like Petbrosia, E-Box - Blogo.itpal, lose it, stick as needed for self-monitoring and weight management. Consider group exercises. Consider hiring a resident athletic trainer. Regular exercise is riojas to sustainable [...] counseling and psychiatry and Dr Escobar at [facility]. We would like to cover regular topics [...] software and direct typing Please excuse inadvertent forging dies final finisher or typing errors, or uncorrected word substitutions Although every attempt has been made by the provider to proofread this document, occasional misspellings and typographical errors may still be present Due to the previous pandemic, and the use of personal protective equipment (PPE) This may decrease voice recognition accuracy Inadvertent forging dies final finisher errors may occur 07/12/2024 BMI 34.0-34.9,adult (ICD-10 [...] of anti-inflammatory medications for acute pain. Advise sjdq-qvu-nxasgoq Tylenol as needed. Patient also discussed a supplement today called Caddo XL which she can begin using and [...] Fall risk assessed. Discussed healthcare proxy. Discussed [place] order for life sustaining treatment, end-of-life issues, intubation and resuscitation dialysis artificial nutrition and hydration is appropriate. We discussed [place] order for life sustaining treatment and healthcare [...] Dictation was accomplished with the use of MyCrowd voice recognition software, which is prone to [...] of anti-inflammatory medications for acute pain. Advise mblq-wbg-adlwwfg Tylenol as needed. Patient also discussed a supplement today called Caddo XL which she can begin using and [...] Dictation was accomplished with the use of MyCrowd voice recognition software, which is prone to [...] Dictation was accomplished with the use of MyCrowd voice recognition software, which is prone to [...] of anti-inflammatory medications for acute pain. Advise uwbf-xso-bcukzhf Tylenol as needed. Patient has been practicing [...] Dictation was accomplished with the use of MyCrowd voice recognition software, which is prone to [...] of anti-inflammatory medications for acute pain. Advise hqlx-rzh-dzuzegc Tylenol as needed. Patient also discussed a supplement today called Caddo XL which she can begin using and [...] Dictation was accomplished with the use of MyCrowd voice recognition software, which is prone to [...] Dictation was accomplished with the use of MyCrowd voice recognition software, which is prone to [...] of anti-inflammatory medications for acute pain. Advise iavl-gpq-yqpkugw Tylenol as needed. Patient has been practicing [...] Dictation was accomplished with the use of MyCrowd voice recognition software, which is prone to [...] of anti-inflammatory medications for acute pain. Advise bwxc-oox-fdywmxv Tylenol as needed. Patient also discussed a supplement today called Caddo XL which she can begin using and [...] Dictation was accomplished with the use of MyCrowd voice recognition software, which is prone to [...] Dictation was accomplished with the use of MyCrowd voice recognition software, which is prone to [...] of anti-inflammatory medications for acute pain. Advise wlwb-inz-eugcwnq Tylenol as needed. Patient also discussed a supplement today called Caddo XL which she can begin using and [...] Dictation was accomplished with the use of MyCrowd voice recognition software, which is prone to [...] Dictation was accomplished with the use of MyCrowd voice recognition software, which is prone to medical misidentifications and grammatical errors. This are unintentional and the practitioner does try to identify and correct these, but some could still be present. Please do not hesitate to contact practitioner for clarification. 07/12/2024 Adult-onset obesity (ICD-10 - E66.9) Patient [...] of anti-inflammatory medications for acute pain. Advise oyux-eza-kazjceq Tylenol as needed. Patient also discussed a supplement today called Caddo XL which she can begin using and [...] Fall risk assessed. Discussed healthcare proxy. Discussed [place] order for life sustaining treatment, end-of-life issues, intubation and resuscitation dialysis artificial nutrition and hydration is appropriate. We discussed [place] order for life sustaining treatment and healthcare [...] Dictation was accomplished with the use of MyCrowd voice recognition software, which is prone to [...] minimum of 6 months The most recent [place] Association of clinical endocrinologists and [place] [employer]in[employer] guidelines recommend patients who [...] track activity level. Consider using apps like Jamgle mionute exceGuideWallise, E-Box - Blogo.itpal, lose it, stick as needed for self-monitoring and weight management. Consider group exercises. Consider hiring a resident athletic trainer. Regular exercise is riojas to sustainable [...] counseling and psychiatry and Dr Escobar at [facility]. We would like to cover regular topics [...] software and direct typing Please excuse inadvertent forging dies final finisher or typing errors, or uncorrected word substitutions Although every attempt has been made by the provider to proofread this document, occasional misspellings and typographical errors may still be present Due to the previous pandemic, and the use of personal protective equipment (PPE) This may decrease voice recognition accuracy Inadvertent forging dies final finisher errors may occur 03/10/2024 Shortness of breath [...] minimum of 6 months The most recent [place] Association of clinical endocrinologists and [place] [employer]in[employer] guidelines recommend patients who [...] track activity level. Consider using apps like Petbrosia, E-Box - Blogo.itpal, lose it, stick as needed for self-monitoring and weight management. Consider group exercises. Consider hiring a resident athletic trainer. Regular exercise is riojas to sustainable [...] counseling and psychiatry and Dr Escobar at [facility]. We would like to cover regular topics [...] software and direct typing Please excuse inadvertent forging dies final finisher or typing errors, or uncorrected word substitutions Although every attempt has been made by the provider to proofread this document, occasional misspellings and typographical errors may still be present Due to the previous pandemic, and the use of personal protective equipment (PPE) This may decrease voice recognition accuracy Inadvertent forging dies final finisher errors may occur 03/10/2024 Prediabetes (ICD-10 - R73.03) #Weight Management [...] minimum of 6 months The most recent [place] Association of clinical endocrinologists and [place] [employer]in[employer] guidelines recommend patients who [...] track activity level. Consider using apps like Petbrosia, myfitSuo Yipal, lose it, stick as needed for self-monitoring and weight management. Consider group exercises. Consider hiring a resident athletic trainer. Regular exercise is riojas to sustainable [...] counseling and psychiatry and Dr Escobar at [facility]. We would like to cover regular topics [...] software and direct typing Please excuse inadvertent forging dies final finisher or typing errors, or uncorrected word substitutions Although every attempt has been made by the provider to proofread this document, occasional misspellings and typographical errors may still be present Due to the previous pandemic, and the use of personal protective equipment (PPE) This may decrease voice recognition accuracy Inadvertent forging dies final finisher errors may occur 03/31/2024 Prediabetes (ICD-10 - R73.03) #Weight Management [...] minimum of 6 months The most recent [place] Association of clinical endocrinologists and [place] [employer]in[employer] guidelines recommend patients who [...] track activity level. Consider using apps like Pet[employer], [employer], lose it, stick as needed for self-monitoring and weight management. Consider group exercises. Consider hiring a resident athletic trainer. Regular exercise is riojas to sustainable [...] counseling and psychiatry and Dr Escobar at [facility]. We would like to cover regular topics [...] software and direct typing Please excuse inadvertent forging dies final finisher or typing errors, or uncorrected word substitutions Although every attempt has been made by the provider to proofread this document, occasional misspellings and typographical errors may still be present Due to the previous pandemic, and the use of personal protective equipment (PPE) This may decrease voice recognition accuracy Inadvertent forging dies final finisher errors may occur 07/12/2024 Advance care planning (ICD-10 - Z71.89) [...] of anti-inflammatory medications for acute pain. Advise iygi-vax-piehiah Tylenol as needed. Patient also discussed a supplement today called Caddo XL which she can begin using and [...] Fall risk assessed. Discussed healthcare proxy. Discussed [place] order for life sustaining treatment, end-of-life issues, intubation and resuscitation dialysis artificial nutrition and hydration is appropriate. We discussed [place] order for life sustaining treatment and healthcare [...] Dictation was accomplished with the use of [employer] voice recognition software, which is prone to [...] of anti-inflammatory medications for acute pain. Advise dsut-shw-ujcmnac Tylenol as needed. Patient also discussed a supplement today called Caddo XL which she can begin using and [...] Dictation was accomplished with the use of [employer] voice recognition software, which is prone to [...] Dictation was accomplished with the use of [employer] voice recognition software, which is prone to medical misidentifications and grammatical errors. This are unintentional and the practitioner does try to identify and correct these, but some could still be present. Please do not hesitate to contact practitioner for clarification. 09/23/2024 GERD without esophagitis (ICD-10 - K21.9) [...] of anti-inflammatory medications for acute pain. Advise hnyv-qyv-dhjtmwc Tylenol as needed. Patient also discussed a supplement today called Caddo XL which she can begin using and [...] Dictation was accomplished with the use of [employer] voice recognition software, which is prone to [...] Dictation was accomplished with the use of [employer] voice recognition software, which is prone to medical misidentifications and grammatical errors. This are unintentional and the practitioner does try to identify and correct these, but some could still be present. Please do not hesitate to contact practitioner for clarification. 10/31/2024 Mixed hyperlipidemia (ICD-10 - E78.2) Rena is a 69-year-old female with history [...] of anti-inflammatory medications for acute pain. Advise lurm-ucz-rcjuwtq Tylenol as needed. Patient has been practicing [...] Dictation was accomplished with the use of [employer] voice recognition software, which is prone to [...] of anti-inflammatory medications for acute pain. Advise eues-gth-oswgfts Tylenol as needed. Patient also discussed a supplement today called Caddo XL which she can begin using and [...] Dictation was accomplished with the use of [employer] voice recognition software, which is prone to [...] Dictation was accomplished with the use of [employer] voice recognition software, which is prone to [...] of anti-inflammatory medications for acute pain. Advise rajo-uch-ejrleew Tylenol as needed. Patient has been practicing [...] Dictation was accomplished with the use of [employer] voice recognition software, which is prone to [...] of anti-inflammatory medications for acute pain. Advise ppaf-vay-raxsicf Tylenol as needed. Patient also discussed a supplement today called Caddo XL which she can begin using and [...] Dictation was accomplished with the use of [employer] voice recognition software, which is prone to [...] Dictation was accomplished with the use of [employer] voice recognition software, which is prone to medical misidentifications and grammatical errors. This are unintentional and the practitioner does try to identify and correct these, but some could still be present. Please do not hesitate to contact practitioner for clarification. 07/12/2024 Essential hypertension (ICD-10 - I10) Patient [...] of anti-inflammatory medications for acute pain. Advise iraw-rxe-kgwsgvs Tylenol as needed. Patient also discussed a supplement today called Caddo XL which she can begin using and [...] Fall risk assessed. Discussed healthcare proxy. Discussed [place] order for life sustaining treatment, end-of-life issues, intubation and resuscitation dialysis artificial nutrition and hydration is appropriate. We discussed [place] order for life sustaining treatment and healthcare [...] Dictation was accomplished with the use of [employer] voice recognition software, which is prone to medical misidentifications and grammatical errors. This are unintentional and the practitioner does try to identify and correct these, but some could still be present. Please do not hesitate to contact practitioner for clarification. 03/10/2024 Hyperlipidemia, unspecified (ICD-10 - E78.5) #Weight [...] minimum of 6 months The most recent [place] Association of clinical endocrinologists and [place] [employer]ocrin[employer] guidelines recommend patients who [...] track activity level. Consider using apps like Pet[employer], [employer]fitnesspal, lose it, stick as needed for self-monitoring and weight management. Consider group exercises. Consider hiring a resident athletic trainer. Regular exercise is riojas to sustainable [...] counseling and psychiatry and Dr Escobar at [facility]. We would like to cover regular topics [...] software and direct typing Please excuse inadvertent forging dies final finisher or typing errors, or uncorrected word substitutions Although every attempt has been made by the provider to proofread this document, occasional misspellings and typographical errors may still be present Due to the previous pandemic, and the use of personal protective equipment (PPE) This may decrease voice recognition accuracy Inadvertent forging dies final finisher errors may occur 03/31/2024 Hyperlipidemia, unspecified (ICD-10 - E78.5) #Weight [...] minimum of 6 months The most recent [place] Association of clinical endocrinologists and [place] [employer]ocrin[employer] guidelines recommend patients who [...] track activity level. Consider using apps like Petbrosia, [employer], lose it, stick as needed for self-monitoring and weight management. Consider group exercises. Consider hiring a resident athletic trainer. Regular exercise is riojas to sustainable [...] counseling and psychiatry and Dr Escobar at [facility]. We would like to cover regular topics [...] software and direct typing Please excuse inadvertent forging dies final finisher or typing errors, or uncorrected word substitutions Although every attempt has been made by the provider to proofread this document, occasional misspellings and typographical errors may still be present Due to the previous pandemic, and the use of personal protective equipment (PPE) This may decrease voice recognition accuracy Inadvertent forging dies final finisher errors may occur 07/12/2024 Multiple joint pain (ICD-10 - M25.50) [...] of anti-inflammatory medications for acute pain. Advise kguh-zry-srncgbs Tylenol as needed. Patient also discussed a supplement today called Caddo XL which she can begin using and [...] Fall risk assessed. Discussed healthcare proxy. Discussed [place] order for life sustaining treatment, end-of-life issues, [...] Dictation was accomplished with the use of [employer] voice recognition software, which is prone to [...] of anti-inflammatory medications for acute pain. Advise wkht-syk-cnycibp Tylenol as needed. Patient also discussed a supplement today called Caddo XL which she can begin using and [...] Dictation was accomplished with the use of [employer] voice recognition software, which is prone to [...] Dictation was accomplished with the use of [employer] voice recognition software, which is prone to medical misidentifications and grammatical errors. This are unintentional and the practitioner does try to identify and correct these, but some could still be present. Please do not hesitate to contact practitioner for clarification. 10/31/2024 Prediabetes (ICD-10 - R73.03) eRna is a 69-year-old female with history of [...] of anti-inflammatory medications for acute pain. Advise szjl-rev-hnveiji Tylenol as needed. Patient has been practicing [...] Dictation was accomplished with the use of [employer] voice recognition software, which is prone to [...] of anti-inflammatory medications for acute pain. Advise oeiv-rtj-hfyswtl Tylenol as needed. Patient also discussed a supplement today called Caddo XL which she can begin using and [...] Dictation was accomplished with the use of [employer] voice recognition software, which is prone to [...] Dictation was accomplished with the use of [employer] voice recognition software, which is prone to [...] of anti-inflammatory medications for acute pain. Advise qcvb-crc-tlwlkey Tylenol as needed. Patient has been practicing [...] Dictation was accomplished with the use of [employer] voice recognition software, which is prone to [...] of anti-inflammatory medications for acute pain. Advise sakk-zni-uqbghsc Tylenol as needed. Patient also discussed a supplement today called Caddo XL which she can begin using and [...] Dictation was accomplished with the use of [employer] voice recognition software, which is prone to [...] Dictation was accomplished with the use of [employer] voice recognition software, which is prone to [...] of anti-inflammatory medications for acute pain. Advise lptm-hzu-qlsarkw Tylenol as needed. Patient also discussed a supplement today called Caddo XL which she can begin using and [...] Dictation was accomplished with the use of [employer] voice recognition software, which is prone to [...] Dictation was accomplished with the use of [employer] voice recognition software, which is prone to [...] of anti-inflammatory medications for acute pain. Advise mvgl-dce-krmoaqn Tylenol as needed. Patient also discussed a supplement today called Caddo XL which she can begin using and [...] Fall risk assessed. Discussed healthcare proxy. Discussed [place] order for life sustaining treatment, end-of-life issues, intubation and resuscitation dialysis artificial nutrition and hydration is appropriate. We discussed [place] order for life sustaining treatment and healthcare [...] Dictation was accomplished with the use of My[employer] voice recognition software, which is prone to [...] of anti-inflammatory medications for acute pain. Advise gmss-ehi-xzyymzg Tylenol as needed. Patient also discussed a supplement today called Caddo XL which she can begin using and [...] Fall risk assessed. Discussed healthcare proxy. Discussed [place] order for life sustaining treatment, end-of-life issues, intubation and resuscitation dialysis artificial nutrition and hydration is appropriate. We discussed [place] order for life sustaining treatment and healthcare [...] Dictation was accomplished with the use of My[employer] voice recognition software, which is prone to [...] of anti-inflammatory medications for acute pain. Advise xaqx-ady-mrlmffo Tylenol as needed. Patient also discussed a supplement today called Caddo XL which she can begin using and [...] Dictation was accomplished with the use of My[employer] voice recognition software, which is prone to [...] Dictation was accomplished with the use of MyC[employer]d voice recognition software, which is prone to [...] of anti-inflammatory medications for acute pain. Advise whug-ihc-tkfhokf Tylenol as needed. Patient also discussed a supplement today called Caddo XL which she can begin using and [...] Dictation was accomplished with the use of My[employer] voice recognition software, which is prone to [...] Dictation was accomplished with the use of My[employer] voice recognition software, which is prone to [...] of anti-inflammatory medications for acute pain. Advise jdsw-psp-jjpkzcv Tylenol as needed. Patient also discussed a supplement today called Caddo XL which she can begin using and [...] Dictation was accomplished with the use of MyC[employer]d voice recognition software, which is prone to [...] Dictation was accomplished with the use of MyC[employer]d voice recognition software, which is prone to [...] of anti-inflammatory medications for acute pain. Advise tmei-qof-ejiezqc Tylenol as needed. Patient also discussed a supplement today called Caddo XL which she can begin using and [...] Dictation was accomplished with the use of My[employer]d voice recognition software, which is prone to [...] 11/18/2018 Comp. Metabolic Panel (14) 05/27/2019 CBC 11/18/2018 CBC 05/27/2019 Bone Density 07/12/2024 Urinalysis 11/18/2018 MRI : Brain without Contrast 04/15/2022 EKG 07/07/2022 1,25OH VITAMIN D 11/04/2017 25OH VITAMIN D 04/01/2023 25OH VITAMIN D 04/10/2021 CBC (COMPLETE BLOOD COUNT) 04/03/2020 CBC (COMPLETE BLOOD COUNT) 06/01/2018 CBC (COMPLETE BLOOD COUNT) 11/04/2017 CBC (COMPLETE BLOOD COUNT) 09/04/2020 CBC (COMPLETE BLOOD COUNT) 07/26/2019 CBC (COMPLETE BLOOD COUNT) 05/16/2020 CBC (COMPLETE BLOOD COUNT) WITH DIFF 10/2022 COMPREHENSIVE METABOLIC PANEL 04/10/2021 COMPREHENSIVE METABOLIC PANEL 04/03/2020 COMPREHENSIVE METABOLIC PANEL 04/01/2023 COMPREHENSIVE METABOLIC PANEL 05/16/2020 COMPREHENSIVE METABOLIC PANEL 07/26/2019 COMPREHENSIVE METABOLIC PANEL 09/04/2020 COMPREHENSIVE METABOLIC PANEL 11/04/2017 COMPREHENSIVE METABOLIC PANEL 06/01/2018 HEMOGLOBIN A1C 11/04/2017 HEMOGLOBIN A1C 07/26/2019 HEMOGLOBIN A1C 11/29/2021 HEMOGLOBIN A1C 09/04/2020 HEMOGLOBIN A1C 04/01/2023 HEMOGLOBIN A1C 04/10/2021 LIPID PANEL 04/01/2023 LIPID PANEL 05/16/2020 LIPID PANEL 07/26/2019 LIPID PANEL 09/04/2020 LIPID PANEL 06/01/2018 MICROALBUMIN, URINE 04/10/2021 TSH 04/10/2021 TSH WITH REFLEX TO FT4 04/01/2023 TSH WITH REFLEX TO FT4 11/04/2017 URINALYSIS W/REFLEX CULTURE 04/01/2023 URINALYSIS, COMPLETE 04/03/2020 URINALYSIS, COMPLETE 09/04/2020 URINALYSIS, COMPLETE 07/26/2019 URINALYSIS, COMPLETE 05/16/2020 VITAMIN B12 11/04/2017 XR Shoulder 2+ Views RT 10/14/2021 LIPID PANEL, STANDARD 10/31/2024 LIPID PANEL, STANDARD 03/31/2024 COMPREHENSIVE METABOLIC PANEL 03/31/2024 COMPREHENSIVE METABOLIC PANEL 10/31/2024 CBC (INCLUDES DIFF/PLT) 10/31/2024 CBC (INCLUDES DIFF/PLT) 03/31/2024 URINALYSIS, COMPLETE 03/31/2024 URINALYSIS, COMPLETE 10/31/2024 HEMOGLOBIN A1c 03/31/2024 TSH 03/31/2024 TSH 10/31/2024 VITAMIN D,25-OH,TOTAL,IA 10/31/2024 VITAMIN D,25-OH,TOTAL,IA 03/31/2024 COMPLETE URINALYSIS 04/10/2021 Next Appt Details Provider Name:SVEN ROBLERO , 02/06/2025 10:00:00 AM, [address] [address], [place], [address], Provider Name:SVEN ROBLERO , 07/03/2025 11:00:00 AM, [address] [facility], [facility] [address], [place], [address], Insurance Providers Payer Name Payer Address Payer Phone Subscriber Number Group Number Insured Name Patient Relationship to Insured Coverage Start Date Coverage End Date [facility] [address] [place] [address] [id number] RENA KIDD Self - patient is the [...]
--- OUTSIDE RECORDS SUMMARY | 2024-12-09 14:09 | XMS_ITS | Patient Health Record ---
[facility] Address [address] [facility] [place] [address] Care Team Providers Care Blockers Skiver Name Role Phone Antione Venegas Primary Care Provider Unavailabl e Black, Christina Unavailable [phone] Allergies Allergen (clinical drug ingredient) Drug/Non Drug [...] days 07/08/2021 Unknown Vitamin A & D 55238-572 UNIT as directed Orally Unknown Immunizations Vaccine [...] Status Risk Notes Problem Diabetic renal disease (313645992) Type 2 diabetes mellitus with diabetic chronic kidney disease (E11.22) Active confirmed Problem Localized, primary osteoarthritis of the ankle and/or foot (553112288) Primary osteoarthritis, right ankle and foot (M19.071) Active confirmed Problem Localized, primary osteoarthritis of the ankle and/or foot (878982062) Primary osteoarthritis, left ankle and foot (M19.072) Active confirmed Problem Acquired hammer toe of right foot (6483862282854458 ) Other hammer toe(s) (acquired), right foot (M20.41) Active confirmed Problem Acquired hammer toe of left foot (4306416593601625 ) Hammer toe of left foot (M20.42) Active confirmed Problem Kohler's neuroma of left foot (449048587814701) 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 confirmed Problem Acquired deformity of right foot (4831165281024047 0) PlantarFlexion of metatarsal of right foot (M21.6X1) Active confirmed Problem Acquired deformity of left foot (1965537984136848 4) PlantarFlexion of metatarsal of left foot (M21.6X2) Active confirmed Vital Signs Blood pressure diastolic 80 mm Hg 11/03/2024 Height 5ft 1in in 11/03/2024 Blood pressure systolic 120 mm Hg 11/03/2024 Weight 185 lbs 11/03/2024 BMI 34.95 kg/m2 11/03/2024 Procedures Procedure Date Ordered Date Performed Result [place] e [address]449, J0702- Neuroma/Injection 10/07/2024 N/A Encounters Encounter Location Date Provider Diagnosis [address] [address] 10/07/2024 Christina Black Pain in left foot M79.672 ; Pain in left ankle and joints of left foot M25.572 ; Bursitis of intermetatarsal bursa of left foot M77.52 ; Metatarsalgia, left foot M77.42 ; Kohler's neuroma of left foot G57.62 ; Neuritis M79.2 ; Hammer toe of left foot M20.42 and Type 2 diabetes mellitus with diabetic chronic kidney disease E11.[address] [address] 11/03/2024 Christina Black Pain in left foot M79.672 ; Kohler's neuroma of left foot G57.62 ; Pain in left ankle and joints of left foot M25.572 ; Bursitis of intermetatarsal bursa of left foot M77.52 ; Metatarsalgia, left foot M77.42 ; Neuritis M79.2 ; Hammer toe of left foot M20.42 and Type 2 diabetes mellitus with diabetic chronic kidney disease E11.[address] [address] 08/30/2024 Christina Black [address] [address] 11/03/2024 Christina Black Assessments Encounter Date Diagnosis [...] Treatment Pending Test Test Name Order Date 80310, J0702- Neuroma/Injection 10/07/19 25 Insurance Providers Payer Name Payer Address Payer Phone Subscriber Number Group Number Insured Name Patient Relationship to Insured Coverage Start Date Coverage End Date [employer] [place] [employer] Advant[employer] [facility] [address] [place] [address] [phone] [id number] Rena Ko Self - patient is the [...]
--- OUTSIDE RECORDS SUMMARY | 2024-12-09 14:09 | XMS_ITS | Clinical Summary ---
Author Organization [address] Address [address] [place] [address] Phone Care Team Providers Care Sales Representative Jewelry Name Role Phone Laith Venegas MD Primary Care Provider [phone] Medical History Medical History Date Comments Hyperlipidemia [...] Description 01/26/2025 9:50 AM EDT Office Visit [facility] [address] [address] Tom Doherty MD 300 [facility] [address] [place] [address] Health Maintenance Due Date Last Done Comments [...] health care facility Vitamin D deficiency disease [facility] SCREENING DIGITAL Routine 12/10/2023 2:24 PM EDT Encounter for screening mammogram for malignant neoplasm of breast [facility] DEXA AXIAL SKELETON Routine 11/04/2021 1:23 PM EST Encounter for screening for osteoporosis from Last 3 Months or Most Recently Relevant to Health Maintenance Results * Lipid panel with reflex to direct LDL (07/05/2024 8:16 AM EST) Cholesterol 153 0 - 200 mg/dL LAB CHEMISTRY METHOD 07/05/2024 11:12 AM [facility] Triglycerides 55 0 - 150 mg/dL LAB CHEMISTRY METHOD 07/05/2024 11:12 AM [facility] HDL 64 >=40 mg/dL LAB CHEMISTRY METHOD 07/05/2024 11:12 AM [facility] LDL Calculated 78 0 - 100 mg/dL LAB CHEMISTRY METHOD 07/05/2024 11:12 AM [facility] VLDL Cholesterol Alexis 11 mg/dL LAB CHEMISTRY METHOD 07/05/2024 11:12 AM [facility] Non HDL Chol. (LDL+VLDL) 89 <145 mg/dL LAB CHEMISTRY METHOD 07/05/2024 11:12 AM [facility] Chol/HDL Ratio 2.4 0.0 - 4.4 LAB CHEMISTRY METHOD 07/05/2024 11:12 AM [facility] Blood Venous blood specimen / Unknown Venipuncture / Unknown 07/05/2024 8:16 AM EST 07/05/2024 10:02 AM EST us Mari Sandoval FAGOTING MACHINE OPERATOR LAB BLOOD ORDERABLES Final Re sult [facility] ([facility] [[email or web address] H[facility] LAB [address] [place] [address], * MAO SCREENING DIGITAL (12/10/2023 2:24 PM EDT) Anatomical Region Laterality Modality Mammography 12/10/2023 11:0 2 AM EDT Narrative 12/10/2023 2:24 PM EDT [facility] Diagnostic Imaging Department [address] [place] [address] Patient: ??RENA DODGE ?/Age/Sex: 1955 - 68 - F Unit#: ??[id number] ? Location/Status: ??SPDIMAM/REG CLI ? Mnemonic/Ordering Site: ??DIGSC/SPMAM Ordering Physician: ??LAITH VENEGAS MD Mao Screening Digital - 12/10/23 - 1133 Report Status:Signed EXAM: Mao Screening Digital EXAM DATE AND TIME: 12/10/2023 11:33 AM HISTORY: ??Annual screening COMPARISON: ??Multiple exams dating back to 2003 TECHNIQUE: Bilateral digital breast tomosynthesis was performed in the CC and MLO projections. Computer aided detection with [employer] 3D 3.1 was employed. TISSUE DENSITY: b. [...] Procedure Note Manjeet Bello MD - 04/18/2024 [facility] Diagnostic Imaging Department [address] [place] [address] Patient: RENA DODGE/Age/Sex: 1955 68 - F Unit#: [id number] [facility]Ordering Site: [facility] Ordering Physician: LAITH VENEGAS MD Mao Screening Digital - 12/10/23 - 1133 Report Status:Signed EXAM: [facility] Screening Digital EXAM DATE AND TIME: 12/10/2023 11:33 AM HISTORY: Annual screening COMPARISON: Multiple exams dating back to 2003 TECHNIQUE: Bilateral digital breast tomosynthesis was performed in the CCand MLO projections. Computer aided detection with [employer] 3D 3.1was employed. TISSUE DENSITY: b. There [...] MD IMG BI PROCEDURES Final Result * [facility] DEXA AXIAL SKELETON (11/04/2021 1:23 PM EST) Anatomical Region Laterality Modality Mammography 11/04/2021 10:2 8 AM EST Narrative 11/04/2021 1:23 PM EST [facility] Diagnostic Imaging Department [address] [place] [id number] Patient: ??IMERMertRENA ?/Age/Sex: 1955 - 66 - F Unit#: ??[id number] ? Location/Status: ??SPDIMAM/REG CLI ? Mnemonic/Ordering Site: ??MAMDEXAAX/SPMAM Ordering Physician: ??GAGE FRANCE MD [facility] Dexa Axial Skeleton - 11/04/21 - 1100 [facility] Dexa Axial Skeleton INDICATION: POSTMENOPAUSAL Technique: Bone [...] lumbar spine bone mineral density of 4.9% [address]23 Dictating Physician: ??BETO THOMAS MD Electronically Signed by: ??BETO THOMAS MD Dic Date/Time: ??11/04/21 1322 Sign date/Time: ??11/04/21 1323 Procedure Note Beto Thomas MD - 08/20/2022 [facility] Diagnostic Imaging Department [address] [place], [place] [id number] Patient: RENA DODGE /Age/Sex: 1955 - 66 - F Unit#: [id number] Location/Status: SPDIMAM/REG CLI Mnemonic/Ordering Site: MAMDEXAAX/SPMAM Ordering Physician: GAGE FRANCE MD [facility] Dexa Axial Skeleton - 11/04/21 - 1100 [facility] Dexa Axial Skeleton INDICATION: POSTMENOPAUSAL Technique: Bone [...] lumbar spine bone mineral density of 4.9% 44998 Dictating Physician: BETO THOMAS MD Electronically Signed by: BETO THOMAS MD Dic Date/Time: 11/04/21 1322 Sign date/Time: 11/04/21 132 Gage France MD IMG BI PROCEDURES Final Res ult from Last 3 Months or Most Recently Relevant to Health Maintenance Insurance [facility] MEDIC[facility] ADVANTAGE Care Teams Sales Representative Jewelry Relationship Specialty Start Date End Date Laith Venegas MD PCP - General Internal Medicine 07/20/17
--- OUTSIDE RECORDS SUMMARY | 2024-12-09 14:09 | XMS_ITS | Clinical Summary ---
Author Organization [facility] Address [address] [place] [address] Care Team Providers Care Printed Circuit Board Panels Plater Name Role Phone Antione Venegas MD Primary Care Provider [phone] Allergies Active Allergy Reactions Criticality Noted Date [...] age to complete this topic Care Teams Printed Circuit Board Panels Plater Relationship Specialty Start Date End Date Antione Venegas MD [address] [place] [address] PCP - General Internal Medicine 03/07/19
--- OUTSIDE RECORDS SUMMARY | 2024-12-09 14:09 | XMS_ITS ---
Author Organization [facility] Address [address] [facility] [place] [address] Care Team Providers Care Physical Therapy Instructor Name Role Phone Antione Venegas Primary Care Provider Unavailabl e Black, Christina Unavailable [phone] Allergies Allergen (clinical drug ingredient) Drug/Non Drug [...] days 07/08/2021 Unknown Vitamin A & D 41358-694 UNIT as directed Orally Unknown Losartan Potassium [...] 025 Encounters Encounter Location Date Provider Diagnosis [facility] [place] [address] [place] [address] 11/03/2024 Christina Black Pain in left foot [...] * Chely DODGEOB:[birth year] (69 yo F)Acc No.[id number]:11/03/2024 Progress Notes Patient:?Rena DODGE Provider:?Christina Ward DPM :1955???Age:69 Y???Sex:Female D ate:11/03/2024 Address:[address] [place] [address], [phone] Pcp:Antione Venegas Subjective: * Chief Complaints: * [...] aerobics. ?Marital status: . ?Occupation: weeks/months/years, Retired- [employer]. ???Drug/Alcohol:?AUDIT-C (Standard)?Did you have a drink containing [...] Once a day Vitamin A & D 98235-902 UNIT Tablet as directed Orally Medrol 4 [...] a day Unknown Vitamin A & D 32836-769 UNIT Tablet as directed Orally Unknown Medrol [...] Ward DPM Date:?2024 Generated for Baldo damon/Estefani/Yandyitting on:?12/09/2024 02:09 PM EDT History and Physical Notes * [...]
--- OUTSIDE RECORDS SUMMARY | 2024-12-09 14:09 | XMS_ITS ---
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 Problem Acquired hammer toe of left foot (2270353155436 103) Hammer toe of left foot (M20.42) Active confirmed Problem Diabetic renal disease (423747508) Type 2 diabetes mellitus with diabetic chronic kidney disease (E11.22) Active confirmed Vital Signs Height 5ft 1in in 10/07/2024 Weight 186 lbs 10/07/2024 BMI 35.14 kg/m2 10/07/2024 Blood pressure systolic 120 mm Hg 10/07/19 25 Blood pressure diastolic 72 mm Hg 025 Procedures Procedure Date Ordered Date Performed Result Body Sit e 50062, J0702- Neuroma/Injection 10/07/2024 N/A Encounters Encounter Location Date Provider Diagnosis [facility] [address] 10/07/2024 Christina Black Pain in left foot [...] Treatment Pending Test Test Name Order Date 91279, J0702- Neuroma/Injection 10/07/19 25 Next Appt Details Follow Up: 6 Weeks, Reason: Procedure Notes * Category Sub-Category Detail Notes Injection Neuroma/Injection 49707, J0702 I njection - Neuroma w/ Celestone [...] patient's blood sugars Progress Notes * Morena DODEGJanieOB:[birth year] (69 yo F)Acc No.[id number]:10/07/2024 Progress Notes Patient:?Rena DODGE Provider:?Christina Ward DPM :1955???Age:69 Y???Sex:Female D ate:10/07/2024 Address:[address] [place] [address] [place] Pcp:Antione Venegas Subjective: * Chief Complaints: * [...] Once a day Vitamin A & D 65890-455 UNIT Tablet as directed Orally Medrol 4 [...] a day Unknown Vitamin A & D 19307-271 UNIT Tablet as directed Orally Unknown Medrol [...] Foot, AP, LAT, LO, LEFT??Taken by trained?Podiatric Supervisor Filter Assembly (TG?),.?Findings:?normal bone and soft tissue density consistent [...] * Treatment: 2.?Kohler's neuroma of left foot?Procedure: 50772, J0702- Neuroma/Injection * Procedures:?Injection:?Neuroma/Injection?16544, J0702 Injection - Neuroma w/ Celestone Soluspan [...] on the patient's blood sugars.? * Procedure Codes:?74386 X-RAY EXAM OF LEFT FOOT 3V, Modifiers: 26 , MD88415 N BLOCK INJ, PLANTAR [id number] INJ BETAMETHSN ACTAT&SOD PHOSPH-3MG * Preventive Medicine:? [...] Ward DPM Date:?2024 Generated for Baldo damon/Estefani/Halima on:?12/09/2024 02:09 PM EDT History and Physical [...] LAT, LO, LEFT Taken by trained Podiatric Supervisor Filter Assembly (TG ) , Clinical Indication(s): Evaluate for Fra cture ,
--- OUTSIDE RECORDS SUMMARY | 2024-12-09 14:10 | XMS_ITS ---
Author Organization [facility] Address [address] [place] [address] Care Team Providers Care Model Maker Plastic Name Role Phone Antione Venegas Primary Care Provider Unavailabl e Black, Christina Unavailable [phone] REASON FOR VISIT buy Pedag OTs Mini #38 Encounters Encounter Location Date Provider Diagnosis [facility] [address] [place] [address] 11/03/2024 Christina Black Plan Of Treatment No Information Progress Notes * ECHO MorenaJanieOB:[birth year] (69 yo F)Acc No.[id number]:11/03/2024 Patient:?Rena DODGE :1955???Age:69 Y???Sex:Female Address:[address] [place] [address] * true * Date:? Generated for Printi ng/Faprabhug/eTransmitting on:?12/09/2024 02:09 PM EDT
--- OUTSIDE RECORDS SUMMARY | 2024-12-09 14:10 | XMS_ITS ---
Author Organization [facility] Address [address] [place] [address] Care Team Providers Care Web Master Name Role Phone LAITH CESPEDES Primary Care Provider SVEN ROBLERO [phone] Encounters Encounter Location Date Provider Diagnosis [facility] [address] [place] [address] 10/21/2024 SVEN ROBLERO PLAN OF TREATMENT Next Appt Details Provider Name:SVEN ROBLERO , 02/06/2025 10:00:00 AM, [address], [address], [place], [address], Provider Name:SVEN ROBLERO , 07/03/2025 11:00:00 AM, [address], [address], [place], [address], Progress Notes * ERWIN GOOD MDOB:1954 (69 yo F)Acc No.[id number]:10/21/2024 Patient:??ERWIN GOOD Provider:??SVEN ROBLERO :1955?Age:69 Y?Sex:Fe male Date:10/21/2024 Address:[address] [facility] [place]-[id number] Pcp:LAITH CESPEDES Subjective: * Chief Complaints: * ? * Medical History:?? Objective: Assessment: Plan: * Treatment: * Images: Billing Information: * Visit Code:?? * Procedure Codes:?? * Sign off status: Pending * Provider:??SVEN ROBLERO Date:?? 025
--- OUTSIDE RECORDS SUMMARY | 2024-12-09 14:10 | XMS_ITS ---
Author Organization [facility] Address [address] [place] [address] Care Team Providers Care Gas Engineer Name Role Phone LAITH VENEGAS Primary Care Provider SVEN ROBLERO Unavailable [phone] ALLERGIES Allergen (clinical drug ingredient) Drug/Non Drug [...] Omeprazole 20 MG TAKE 1 CAPSULE BY [facility] EVERY DAY for 90 Active Zepbound 2.5 [...] Notes Problem Mixed hyperlipidemia (E78.2) Active confirmed [id number] VITAL SIGNS Blood pressure systolic 124 mm Hg 11/01/19 25 Blood pressure diastolic 80 mm Hg 025 Heart Rate 77 /min 10/31/2024 Height 62 in 10/31/2024 Weight 189 lbs 10/31/2024 BMI 34.56 kg/m2 10/31/2024 Oximetry 99 % 10/31/2024 Encounters Encounter Location Date Provider Diagnosis [facility] [address] [facility] [address] [place] [address] 10/31/2024 SVEN ROBLERO Essential hypertensi on I10 [...] of anti-inflammatory medications for acute pain. Advise cipa-ovg-gfkksqj Tylenol as needed. Patient has been practicing [...] Dictation was accomplished with the use of [employer] voice recognition software, which is prone to [...] of anti-inflammatory medications for acute pain. Advise ufwg-hsx-dkntdee Tylenol as needed. Patient has been practicing [...] Dictation was accomplished with the use of [employer] voice recognition software, which is prone to [...] of anti-inflammatory medications for acute pain. Advise vhsh-ecd-afznbog Tylenol as needed. Patient has been practicing [...] Dictation was accomplished with the use of [employer] voice recognition software, which is prone to [...] of anti-inflammatory medications for acute pain. Advise rtyu-eft-rdvpxul Tylenol as needed. Patient has been practicing [...] Dictation was accomplished with the use of [employer] voice recognition software, which is prone to [...] of anti-inflammatory medications for acute pain. Advise igmm-saw-soxxjqm Tylenol as needed. Patient has been practicing [...] Dictation was accomplished with the use of [employer] voice recognition software, which is prone to [...] of anti-inflammatory medications for acute pain. Advise yxba-qvd-jmtezcz Tylenol as needed. Patient has been practicing [...] Dictation was accomplished with the use of [employer] voice recognition software, which is prone to [...] of anti-inflammatory medications for acute pain. Advise kypi-jce-trppnse Tylenol as needed. Patient has been practicing [...] Dictation was accomplished with the use of [employer] voice recognition software, which is prone to [...] of anti-inflammatory medications for acute pain. Advise xgrw-znp-avarwkn Tylenol as needed. Patient has been practicing [...] Dictation was accomplished with the use of [employer] voice recognition software, which is prone to [...] of anti-inflammatory medications for acute pain. Advise iavw-jze-eyvhehf Tylenol as needed. Patient has been practicing [...] Dictation was accomplished with the use of [employer] voice recognition software, which is prone to [...] 10:00:00 AM, [address], [address], [place], [address], Provider Name:SVEN OSBALDO , 07/03/2025 11:00:00 AM, [address], [address], [place], [address], Progress Notes * ERWIN GOOD MDOB:1954 (69 yo F)Acc No.[id number]:10/31/2024 Progress Notes Patient:??ERWIN GOOD M Provider:??SVEN ROBLERO :1955?Age:69 Y?Sex:Fe male Date:10/31/2024 Address:[address] [place], [place] [address] Pcp:LAITH VENEGAS Subjective: * Chief Complaints: * [...] of anti-inflammatory medications for acute pain. Advise oqvm-kvv-cnwpids Tylenol as needed. Patient has been practicing [...] Dictation was accomplished with the use of [employer] voice recognition software, which is prone to [...] * Images: Billing Information: * Visit Code:?? 69164 Office Visit, Est Pt., Level 4. Modifiers: [...]
--- OUTSIDE RECORDS SUMMARY | 2024-12-09 14:10 | XMS_ITS ---
Author Organization [facility] Address [address] [place] [address] Care Team Providers Care Electrician Bus Name Role Phone LAITH VENEGAS Primary Care Provider OSBALDO SVEN Unavailable [phone] ALLERGIES Allergen (clinical drug ingredient) Drug/Non Drug [...] 12/05/2024 Encounters Encounter Location Date Provider Diagnosis [facility] [address] [facility] [address] [place] [address] 12/05/2024 SVEN ROBLERO Adult-onset obesity E66.9 ; [...] of anti-inflammatory medications for acute pain. Advise ogmy-mtw-mjgueft Tylenol as needed. Patient also discussed a supplement today called [place] XL which she can begin using and [...] Dictation was accomplished with the use of [employer] voice recognition software, which is prone to [...] Dictation was accomplished with the use of [employer] voice recognition software, which is prone to [...] of anti-inflammatory medications for acute pain. Advise rpsm-qfr-mruqexs Tylenol as needed. Patient also discussed a supplement today called [place] XL which she can begin using and [...] Dictation was accomplished with the use of [employer] voice recognition software, which is prone to [...] Dictation was accomplished with the use of [employer] voice recognition software, which is prone to [...] of anti-inflammatory medications for acute pain. Advise weay-dqf-trnyrlc Tylenol as needed. Patient also discussed a supplement today called [place] XL which she can begin using and [...] Dictation was accomplished with the use of [employer] voice recognition software, which is prone to [...] Dictation was accomplished with the use of [employer] voice recognition software, which is prone to [...] of anti-inflammatory medications for acute pain. Advise hnwo-vae-bkkbvna Tylenol as needed. Patient also discussed a supplement today called [place] XL which she can begin using and [...] Dictation was accomplished with the use of [employer] voice recognition software, which is prone to [...] questions/concerns arise. Case discussed with collaborating physician aMkeda Venegas who reviewed the assessment and plan. Chart, medications, labs, vital signs reviewed. Dictation was accomplished with the use of [employer] voice recognition software, which is prone to [...] of anti-inflammatory medications for acute pain. Advise zuud-qgx-acvrqut Tylenol as needed. Patient also discussed a supplement today called [place] XL which she can begin using and [...] Dictation was accomplished with the use of [employer] voice recognition software, which is prone to [...] Dictation was accomplished with the use of [employer] voice recognition software, which is prone to [...] of anti-inflammatory medications for acute pain. Advise xdil-xla-jkhokgp Tylenol as needed. Patient also discussed a supplement today called [place] XL which she can begin using and [...] Dictation was accomplished with the use of [employer] voice recognition software, which is prone to [...] Dictation was accomplished with the use of [employer] voice recognition software, which is prone to [...] of anti-inflammatory medications for acute pain. Advise fclw-vhw-raclqjv Tylenol as needed. Patient also discussed a supplement today called [place] XL which she can begin using and [...] Dictation was accomplished with the use of [employer] voice recognition software, which is prone to [...] Dictation was accomplished with the use of [employer] voice recognition software, which is prone to [...] of anti-inflammatory medications for acute pain. Advise qgkv-dcp-hrlhbdw Tylenol as needed. Patient also discussed a supplement today called [place] XL which she can begin using and [...] Dictation was accomplished with the use of [employer] voice recognition software, which is prone to [...] Dictation was accomplished with the use of [employer] voice recognition software, which is prone to [...] of anti-inflammatory medications for acute pain. Advise wtpk-dga-ehbtyis Tylenol as needed. Patient also discussed a supplement today called [place] XL which she can begin using and [...] Dictation was accomplished with the use of [employer] voice recognition software, which is prone to [...] Dictation was accomplished with the use of [employer] voice recognition software, which is prone to [...] of anti-inflammatory medications for acute pain. Advise zlof-qpg-fcqqjdt Tylenol as needed. Patient also discussed a supplement today called [place] XL which she can begin using and [...] Dictation was accomplished with the use of [employer] voice recognition software, which is prone to [...] Dictation was accomplished with the use of [employer] voice recognition software, which is prone to medical misidentifications and grammatical errors. This are unintentional and the practitioner does try to identify and correct these, but some could still be present. Please do not hesitate to contact practitioner for clarification. PLAN OF TREATMENT Next Appt Details Provider Name:SVEN ROBLERO , 02/06/2025 10:00:00 AM, [address], [address], [place], [address], Provider Name:SVEN ROBLERO , 07/03/2025 11:00:00 AM, [address], [address], [place], [address], Progress Notes * ERWIN GOOD MDOB:1954 (69 yo F)Acc No.[id number]:12/05/2024 Patient:??ERWIN GOOD Provider:??SVEN ROBLERO :1955?Age:69 Y?Sex:Fe male Date:12/05/2024 Address:[address] [place] [address], [facility] Pcp:LAITH VENEGAS Subjective: * Chief Complaints: * [...] She is soon to be traveling to [place]. Recently purchased a walking pad and has [...] of anti-inflammatory medications for acute pain. Advise ielr-nix-zarzzia Tylenol as needed. Patient also discussed a supplement today called [place] XL which she can begin using and [...] Dictation was accomplished with the use of [employer] voice recognition software, which is prone to [...] Dictation was accomplished with the use of [employer] voice recognition software, which is prone to medical misidentifications and grammatical errors. This are unintentional and the practitioner does try to identify and correct these, but some could still be present. Please do not hesitate to contact practitioner for clarification. Plan: * Treatment: * Procedure Codes:??91093 P/M FIRE ENGINEER, INDIV 15 MIN, Modifiers: 33 , SA * Images: Billing Information: * Visit Code:?? 00559 Office Visit, Est Pt., Level 4. Modifiers: SA * Procedure Codes:?? 16444 P/M FIRE ENGINEER, INDIV 15 MIN. Modifiers: 33, SA * [...] She is soon to be traveling to [place]. Recently purchased a walking pad and has [...]
== END 2024-12-08 13:48 | disposition home or self-care (01) ==
LOC: HO.HOSX 13:47
PROVIDERS: Visit Provider Orthopaedic Surgery
DX: M25.511 Pain in right shoulder (principal); M25.311 Other instability, right shoulder
CPT/HCPCS: 73030; 99212

== ENCOUNTER 2024-12-08 13:49 | Outpatient (AMB) | payer MEDICARE, SELFPAY ==
--- NOTE | 2024-12-08 13:53 | A.OFFVIS_ITS ---
Vital Signs 12/08/24 14:01 Height 5 ft 1 in Weight 188 lb BMI 35.5 Intake Visit Reasons: Right shoulder pain and weakness Intake Note: Rena is a 69 year old right hand dominant female who presents with complaints of progressively worsening right shoulder pain and weakness. The patient did undergo right shoulder surgery several years ago. She did well initially. She re-injured her shoulder approximately 1 year ago while lifting a heavy object. Since that time her pain and weakness have gotten worse. She reports difficulty lifting her right hand above shoulder height. She has failed the last 6 weeks of conservative treatment which has included physical therapy exercises, a home exercise program, Tylenol and anti-inflammatory medicines. Allergies acetaminophen [From Percocet] Allergy (Verified 12/08/24 14:06) Hives oxycodone [From Percocet] Allergy (Verified 12/08/24 14:06) Hives Penicillins Allergy (Verified 12/08/24 14:06) Hives rimantadine Allergy (Verified 12/08/24 14:06) Hives Medication List - Last Reconciled 12/08/24 by Luke Hartley MD atorvastatin 40 mg PO DAILY escitalopram oxalate 20 mg PO DAILY ipratropium-albuterol 20-100 mcg/actuation (Combivent Respimat) 1 puff inhalatio n Q6H omeprazole 20 mg PO DAILY PFSH Surgical History (Updated 12/08/24 @ 14:20 by RAAD Maradiaga) Hx of cataract surgery Hx of shoulder surgery History of thoracotomy Social History (Updated 12/08/24 @ 14:01 by RAAD Maradiaga) Patient Tobacco Use Status: Never used Tobacco Current occupational status: retired Current occupation: right hand dominant Physical Exam Vital Signs: BMI result Body Mass Index 35.5 Const Other: Well-nourished well-developed very friendly female awake alert and oriented x3 in no acute distress Extrem Other: Bilateral upper extremity examination shows good capillary refill, no skin lesions noted, normal sensation light touch Right shoulder examination shows decreased range of motion when compared to her left shoulder, 4/5 strength with supraspinatus testing, positive impingement signs, tenderness over her acromioclavicular joint, no instability Results Reviewed Results Reviewed: X-rays of the patient's right shoulder show 1 suture anchor in the proximal humerus with no signs of loosening, no acute bony abnormalities Assessment & Plan Assessment & Plan (1) Rotator cuff insufficiency of right shoulder: Code(s): M25.311 - Other instability, right shoulder Category: Medical Plan Mrs. Dodge presents with recurrent right shoulder pain and weakness possibly due to a recurrent rotator cuff tear. Thus, I will send the patient for an MRI of her right shoulder for further evaluation. I will see her back once the MRI is completed discuss the findings and treatment options. She will continue with her ymmko-cn-xqanwd exercises in the meantime. I spent 21 minutes in reviewing the patient's records and imaging studies, seeing the patient and documenting in the medical record. Orders: Orders XR shoulder RT min 2V Today M25.511 - Pain in right shoulder MR shoulder RT wo con Today M25.311 - Other instability, right shoulder Coding Level of Care Code Est Pt Level 3 (93034) Complex EM visit Add On G2211 Diagnoses Rotator cuff insufficiency of right shoulder M25.311
[2024-12-08 14:01] VITALS: BMI 35.5
--- OUTSIDE RECORDS SUMMARY | 2024-12-08 16:43 | XMS_ITS | Patient Health Record ---
Author [facility] Address [address] [place] [address] Care Team Providers Care Wood Heel Cementer Name Role Phone Antione Venegas Primary Care Provider Unavailabl e Black, Christina Unavailable [phone] Allergies Allergen (clinical drug ingredient) Drug/Non Drug [...] days 07/08/2021 Unknown Vitamin A & D 18673-498 UNIT as directed Orally Unknown Immunizations Vaccine [...] Status Risk Notes Problem Diabetic renal disease (074826306) Type 2 diabetes mellitus with diabetic chronic kidney disease (E11.22) Active confirmed Problem Localized, primary osteoarthritis of the ankle and/or foot (910099667) Primary osteoarthritis, right ankle and foot (M19.071) Active confirmed Problem Localized, primary osteoarthritis of the ankle and/or foot (012565784) Primary osteoarthritis, left ankle and foot (M19.072) Active confirmed Problem Acquired hammer toe of right foot (0048417740181813 ) Other hammer toe(s) (acquired), right foot (M20.41) Active confirmed Problem Acquired hammer toe of left foot (9009900833428783 ) Hammer toe of left foot (M20.42) Active confirmed Problem Kohler's neuroma of left foot (553992986907463) 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 confirmed Problem Acquired deformity of right foot (9716224207124695 0) PlantarFlexion of metatarsal of right foot (M21.6X1) Active confirmed Problem Acquired deformity of left foot (6236263241610525 4) PlantarFlexion of metatarsal of left foot (M21.6X2) Active confirmed Vital Signs Blood pressure diastolic 80 mm Hg 11/03/2024 Height 5ft 1in in 11/03/2024 Blood pressure systolic 120 mm Hg 11/03/2024 Weight 185 lbs 11/03/2024 BMI 34.95 kg/m2 11/03/2024 Procedures Procedure Date Ordered Date Performed Result Body Sit e 28894, J0702- Neuroma/Injection 10/07/2024 N/A Encounters Encounter Location Date Provider Diagnosis [address] [address] 10/07/2024 Christina Black Pain in left foot M79.672 ; Pain in left ankle and joints of left foot M25.572 ; Bursitis of intermetatarsal bursa of left foot M77.52 ; Metatarsalgia, left foot M77.42 ; Kohler's neuroma of left foot G57.62 ; Neuritis M79.2 ; Hammer toe of left foot M20.42 and Type 2 diabetes mellitus with diabetic chronic kidney disease E11.[address] [address] 11/03/2024 Christina Black Pain in left foot M79.672 ; Kohler's neuroma of left foot G57.62 ; Pain in left ankle and joints of left foot M25.572 ; Bursitis of intermetatarsal bursa of left foot M77.52 ; Metatarsalgia, left foot M77.42 ; Neuritis M79.2 ; Hammer toe of left foot M20.42 and Type 2 diabetes mellitus with diabetic chronic kidney disease E11.[address] [address] 08/30/2024 Christina Black [address] [address] 11/03/2024 Christina Black Assessments Encounter Date Diagnosis [...] Treatment Pending Test Test Name Order Date 93528, J0702- Neuroma/Injection 10/07/19 25 Insurance Providers Payer Name Payer Address Payer Phone Subscriber Number Group Number Insured Name Patient Relationship to Insured Coverage Start Date Coverage End Date [employer] [place] Medicare Advantage [facility] [address] [place] [address] [id number] Rena Ko Self - patient is the [...]
--- OUTSIDE RECORDS SUMMARY | 2024-12-08 16:44 | XMS_ITS | Clinical Summary ---
Author Organization [facility] Address [address] [place] [address] Care Team Providers Care Labor Commissioner Name Role Phone Antione Venegas MD Primary Care Provider [phone] Allergies Active Allergy Reactions Criticality Noted Date [...] age to complete this topic Care Teams Labor Commissioner Relationship Specialty Start Date End Date Antione Venegas MD [address] [place] [address] PCP - General Internal Medicine 03/07/19
--- OUTSIDE RECORDS SUMMARY | 2024-12-08 16:44 | XMS_ITS | Clinical Summary ---
Author Organization [address] Address [address] [place] [address] Phone Care Team Providers Care Production Worker Name Role Phone Laith Venegas MD Primary Care Provider [phone] Medical History Medical History Date Comments Hyperlipidemia 07/04/2017 DX:Hyperlipidemi a Osteoarthritis 07/04/2017 DX:Osteoarthriti s Allergic rhinitis 07/04/2017 DX:Allergic rh initis Sicca syndrome (CMS/HCC V24) 07/04/2017 DX: Sicca syndrome (HCC) Psoriasis 07/04/2017 DX:Psoriasis GERD (gastroesophageal [...] Description 01/26/2025 9:50 AM EDT Office Visit [facility] [address] [address] Tom Doherty MD [address] [facility] [address] [place] [address] Health Maintenance Due Date Last Done Comments [...] COVID-19 Vaccine ( season) 2024 Influenza Vaccine (Season Ended) 2025 05/28/2017 Breast Cancer Screening 12/09/2025 12/10/19 24, 09/08/2022, 08/07/2021, Additional history exists Cholesterol Screening [...] age to complete this topic Meningococcal B Vaccine Aged Out No l onger eligible based on patient's age to complete [...] health care facility Vitamin D deficiency disease [facility] SCREENING DIGITAL Routine 12/10/2023 2:24 PM EDT Encounter for screening mammogram for malignant neoplasm of breast [facility] DEXA AXIAL SKELETON Routine 11/04/2021 1:23 PM EST Encounter for screening for osteoporosis from Last 3 Months or Most Recently Relevant to Health Maintenance Results * Lipid panel with reflex to direct LDL (07/05/2024 8:16 AM EST) Cholesterol 153 0 - 200 mg/dL LAB CHEMISTRY METHOD 07/05/2024 11:12 AM [facility] Triglycerides 55 0 - 150 mg/dL LAB CHEMISTRY METHOD 07/05/2024 11:12 AM [facility] HDL 64 >=40 mg/dL LAB CHEMISTRY METHOD 07/05/2024 11:12 AM [facility] LDL Calculated 78 0 - 100 mg/dL LAB CHEMISTRY METHOD 07/05/2024 11:12 AM [facility] VLDL Cholesterol Alexis 11 mg/dL LAB CHEMISTRY METHOD 07/05/2024 11:12 AM [facility] Non HDL Chol. (LDL+VLDL) 89 <145 mg/dL LAB CHEMISTRY METHOD 07/05/2024 11:12 AM [facility] Chol/HDL Ratio 2.4 0.0 - 4.4 LAB CHEMISTRY METHOD 07/05/2024 11:12 AM [facility] Blood Venous blood specimen / Unknown Venipuncture / Unknown 07/05/2024 8:16 AM EST 07/05/2024 10:02 AM EST us Mari Sandoval BAILIFF LAB BLOOD ORDERABLES Final Re sult [facility] [address] [place] [address], * MAO SCREENING DIGITAL (12/10/2023 2:24 PM EDT) Anatomical Region Laterality Modality Mammography 12/10/2023 11:0 2 AM EDT Narrative 12/10/2023 2:24 PM EDT [facility] Diagnostic Imaging Department [address] [place] [address] Patient: ??RENA DODGE ?/Age/Sex: 1955 - 68 - F Unit#: ??[id number] ? Location/Status: ??SPDIMAM/REG CLI ? Mnemonic/Ordering Site: ??DIGSC/SPMAM Ordering Physician: ??LAITH VENEGAS MD Mao Screening Digital - 12/10/23 - 1133 Report Status:Signed EXAM: Mao Screening Digital EXAM DATE AND TIME: 12/10/2023 11:33 AM HISTORY: ??Annual screening COMPARISON: ??Multiple exams dating back to 2003 TECHNIQUE: Bilateral digital breast tomosynthesis was performed in the CC and MLO projections. Computer aided detection with Nvidia 3D 3.1 was employed. TISSUE DENSITY: b. [...] screening mammogram BILATERAL in 1 year. 3341F, 7013F Dictating Physician: ??MANJEET BELLO MD Electronically Signed by: ??MANJEET BELLO MD Dic Date/Time: ??12/10/23 142 Sign date/Time: ??12/10/23 1424 Procedure Note Manjeet Bello MD - 04/18/2024 [facility] Diagnostic Imaging Department [address] [place] [address] Patient: RENA DODGE/Age/Sex: 1955 68 - F Unit#: [id number] [facility]Ordering Site: [facility] Ordering Physician: LAITH VENEGAS MD Mao Screening Digital - 12/10/23 - 1133 Report Status:Signed EXAM: [facility] Screening Digital EXAM DATE AND TIME: 12/10/2023 11:33 AM HISTORY: Annual screening COMPARISON: Multiple exams dating back to 2003 TECHNIQUE: Bilateral digital breast tomosynthesis was performed in the CCand MLO projections. Computer aided detection with Nvidia 3D 3.1was employed. TISSUE DENSITY: b. There [...] MD IMG BI PROCEDURES Final Result * [facility] DEXA AXIAL SKELETON (11/04/2021 1:23 PM EST) Anatomical Region Laterality Modality Mammography 11/04/2021 10:2 8 AM EST Narrative 11/04/2021 1:23 PM EST [facility] Diagnostic Imaging Department [address] [place] [id number] Patient: ??IMERMertRENA ?/Age/Sex: 1955 - 66 - F Unit#: ??[id number] ? Location/Status: ??SPDIMAM/REG CLI ? Mnemonic/Ordering Site: ??MAMDEXAAX/SPMAM Ordering Physician: ??GAGE FRANCE MD [facility] Dexa Axial Skeleton - 11/04/21 - 1100 [facility] Dexa Axial Skeleton INDICATION: POSTMENOPAUSAL Technique: [...] lumbar spine bone mineral density of 4.9% 14269 Dictating Physician: ??BETO THOMAS MD Electronically Signed by: ??BETO THOMAS MD Dic Date/Time: ??11/04/21 1322 Sign date/Time: ??11/04/21 1323 Procedure Note Beto Thomas MD - 08/20/2022 [facility] Diagnostic Imaging Department [address] [place], [place] [id number] Patient: RENA DODGE /Age/Sex: 1955 - 66 - F Unit#: [id number] Location/Status: SPDIMAM/REG CLI Mnemonic/Ordering Site: MAMDEXAAX/SPMAM Ordering Physician: GAGE FRANCE MD [facility] Dexa Axial Skeleton - 11/04/21 - 1100 [facility] Dexa Axial Skeleton INDICATION: POSTMENOPAUSAL Technique: [...] lumbar spine bone mineral density of 4.9% 17533 Dictating Physician: BETO THOMAS MD Electronically Signed by: BETO THOMAS MD Dic Date/Time: 11/04/21 1322 Sign date/Time: 11/04/21 132 Gage France MD IMG BI PROCEDURES Final Res ult from Last 3 Months or Most Recently Relevant to Health Maintenance Insurance [facility] MEDICARE ADVANTAGE Care Teams Production Worker Relationship Specialty Start Date End Date Laith Venegas MD PCP - General Internal Medicine 07/20/17
--- OUTSIDE RECORDS SUMMARY | 2024-12-08 16:44 | XMS_ITS | Data Portability ---
Author Organization [place] [facility] Address [address] [facility] [address] [place] [address] Care Team Providers Care Software Controls Engineer Name Role Phone LAITH CESPEDES Referring Provider [phone] LAITH CESPEDES Primary Care Provider [phone] Assessment Encounter Date Assessment Date Assessment LastModified [...] or more view 2023 [email or web address] [facility], [address], [place], [address], 4 22:51:40 XR, knee, 4 or more view 2023 024 [email or web address] [facility], [address], [place], [address], 4 10:45:34 Medication Orders Marcaine (PF) 0.5 % (5 mg/mL) injectio n solution [address]/Pharmacy #2335, [address] [place] [address], [address], 4 10:42:47 lidocain e (PF) 100 mg/5 mL (2 %) injectio n syringe [address]/Pharmacy [facility]2332, [address] [place] [address], [address], 4 10:42:47 triamcin olone acetonid e 40 mg/mL suspensi on for injectio n [address]/Pharmacy #2339, [address] [place], [address], 10:42:47 Kenalog 40 mg/mL suspensi on for injectio n 2022 023 [email or web address] [facility]/Pharmacy #2339, [address] [place], [address], 4 10:17:25 lidocain e (PF) 10 mg/mL (1 %) injectio n solution 2022 023 [email or web address] [facility]/Pharmacy #2339, [address] [place], [address], 10:17:27 Patient TargetsNo targets recorded. Patient Instructions Encounter Date Encounter Id Patient Instructions Last Modified By Organization Details Last Modified Time 01/09/2023 [id number] You have been provided with a cortisone [...] portal HEATHER. Not available 01/09/2023 12:26:09 01/14/2024 [id number] {{2 3 4 5 6 7* 8 9} } view X-ray study obtained during today's office encounter show evidence of {{mild moderate* se avila}} {{right left bilate ral*}} {{hip knee*}} osteoarthritis. There is joint space narrowing, subchondral sclerosis and marginal osteophytosis. Kellgren-Bob grade {{0 1 2* 3 4}}. No evidence of acute fracture or osteolytic findings. Not available 01/14/2024 10:29:04 01/21/2024 [id number] tennis elbow: exercises [email or web address] Not available 01/21/2024 [...] Medial epicondyli tis of left elbow joint 1242664449602 07 Active 2023 Kristal gilbert, [place] [facility], P 4 14:14:29 Neuritis of left ulnar nerve 6392377124623 9100 Active 2023 Tenisha Olson MD [address] [address], [place], [address] , [place] [facility], [facility] 4 14:10:19 Subacromia l bursitis of right shoulder 9124509625430 109 Active 2022 ANKUR MAHAJAN PA-C [address] [facility] [address], [place], [address] , [place] [facility], [facility] 3 12:25:41 Problem Notes None recorded. Procedures Surgical History Date Name Laterality Status Provider Name and Address Organization Details Recorded Time 4 MJG Knee injection w/US completed ANKUR STARKEY PA-C [address], [place], [address], [place] [facility] 01/14/2024 10:29:42 3 Shoulder Joint/Bursa Asp & Inj completed ANKUR MAHAJAN PA-C [address], [place], [address], [facility], P 01/09/2023 12:24:02 Shoulder Surgery completed Gennaro Neff [facility], P 01/09/2023 11:06:48 Imaging Results None recorded. Procedure Notes None recorded. Medical Equipment None Reported. Allergies Allergen ID Allergen Name Allergen Category Reaction Reaction Severity Criticality Documentation Date Start Date Code Code System Note Provider Name and Address Organization Details Recorded Time 3924 Product containin g penicilli n (product) medicatio n Not available Not available Not available 01/09/2023 51876 8001 SNOMED Gennaro Martinnchard [facility], [facility], P 3 11:05:18 3925 acetamino phen / oxycodone medicatio n Not available Not available Not available 01/09/2023 31149 3 RxNorm Gennaro Martinapril gilbert, [facility], P 3 11:05:30 Medications Name Sig Start [...] Updated DateTime 01/09/2023 157.48 cm 43.2 kg/m2 721116.8 g Gennaro Neff [place] [facility], P 01/09/2023 11:05:04 Social History Question Answer Notes LastModified by Organizat ion Details LastModified Time Tobacco Smoking Status Former Smoker Gennaro Neff [facility], [facility] 01/09/2023 11:06:07 What Is Your Level Of Alcohol Consumption? Occasional [email or web address] Information not available 01/09/2023 How Many Times Per Week Do You Consume Alcohol? 1-2 Times Per Week [email or web address] Information not available 01/09/2023 When Did You Quit Smoking? 16+yearssincel astcigarette [email or web address] Information not available 01/09/2023 Do You Use Any Illicit Or Recreational Drugs? No [email or web address] Information not available 01/09/2023 Do You Or Have You Ever Used Any Other Forms Of Tobacco Or Nicotine? No [email or web address] Information not available 01/09/2023 Sex: Unknown Functional [...] Code Diagnosis Note [id number] [facility] [address] [place] [address] 01/09/2023 10:53:37 01/09/2023 11:11:13 Subacromial bursitis of right shoulder 4156855130 896971 M75.51 [id number] MD KENNETH Lynchparesh [address] [place] [address] 01/21/2024 13:22:38 01/21/2024 14:26:00 Pain in elbow 31750614 M25.522 Additional diagnosis detail: Elbow pain, left Medial epi condylitis of left elbow joint 8948294750 58315 M77.02 Additional diagnosis detail: Medial epicondyli tis, left Neuritis o f left ulnar nerve 8163160251 4609024 G56.22 Additional diagnosis detail: Ulnar neuritis, left 32389 MD KENNETH Bang [facility] [address] [facility] [address] [place] [address] 01/14/2024 09:52:28 01/14/2024 10:45:33 Pain of left knee joint 5352033130 76544 M25.562 Additional diagnosis detail: Pain, joint, knee, left Osteoarthr itis of left knee joint 3328210730 53144 M17.12 Additional diagnosis detail: Primary osteoarthr itis of left knee Health Concerns Section Related Observation LastModified by Organization Detai ls LastModified Time None Recorded Concern Status LastModified by Organization Details LastModified Time None Recorded Advance Directives Directive None Recorded Payers Encounter Date Sequence Insurance Name Policy Number Policy Hope Covered Member ID Hope Member ID Guarantor Name 01/09/2023 1 [facility] (MEDICARE REPLACEMENT/A DVANTAGE - PPO) [id number] Rena Colbyk [id number] Rena Milmikiezjean-claude 01/14/2024 1 [facility] (MEDICARE REPLACEMENT/A DVANTAGE - PPO) [id number] Rena Colbyk [id number] Rena Milmikiezcik 01/14/2024 2 [employer] - MEDICARE ADVANTAGE PLAN (MEDICARE REPLACEMENT HMO) [id number] Rena Colbyk [id number] Rena Milmikiezcik 01/21/2024 1 [facility] (MEDICARE REPLACEMENT/A DVANTAGE - PPO) [id number] 01 Rena Sierrazcik [id number] Rena Milelzcik 01/21/2024 2 [facility] - MEDICARE ADVANTAGE PLAN (MEDICARE REPLACEMENT HMO) [id number] 01 Rena Dodge [id number] Rena Dodge Notes Date Note Type Note [...] 1 suture anchor. ANKUR MAHAJAN PA-C [address] [facility],[address], [place], [address], [place] [facility], P 01/09/2023 12:26:45 01/14/2024 text/html 68-year-old jyoti [...] ANKUR STARKEY PA-C [address], [place], [address], [place] [facility] 01/14/2024 10:30:39 01/21/2024 text/html This is a 68-year-old dfdko-tolu-jtfeypkj female who presenting with left elbow pain [...] thumb, index, middle fingers. Tenisha Olson MD [address] [place] [address], [address], [place] [facility], P 01/26/2024 14:10:47 OBGyn Episode No OBEpisode recorded.
--- OUTSIDE RECORDS SUMMARY | 2024-12-08 16:44 | XMS_ITS | Patient Health Record ---
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 Name Role Phone LAITH VENEGAS Primary Care Provider CANDICE NAGEL Unavailable [phone] OSBALDO SVEN Unavailable [phone] ALLERGIES Allergen (clinical drug ingredient) Drug/Non Drug Allergy documented on EMR Reaction Allergy Type Onset Date Status penicillin G Penicillin G Sodium Unknown Drug Allergy Active rimantadine Rimantadine HCl Unknown Drug Allergy Active RESULTS Component Value Reference Range Notes Mao Screening Digital Reviewed date:12/11/2023 10:28:47 AM Interpretation: Performing Lab: Notes/Report: Original Ordering Provider: LAITH VENEGAS MD [facility] CBC WITH AUTO DIFFERENTIAL Reviewed date:07/05/2024 10:41:16 AM Interpretation: Performing Lab: Notes/Report: WBC 6.2 4.8-10.8 K/mcL RBC 4.40 3.80-4.80 M/mcL Hemoglobin 12.7 11.5-16.0 g/dL Hematocrit 41.2 35.0-47.0 % MCV 94.1 79.0-98.0 FL MCH 29.0 27.0-32.0 pcg MCHC 30.8 32.0-37.0 g/dL RDW 13.2 11.0-15.0 % Platelets 213 130-400 K/mcL MPV 10.0 7.0-11.0 FL NRBC 0.0 <1.0 % NRBC Absolute 0.00 <0.10 K/mcL Neutrophils Relative 67.1 Lymphocytes Relative 20.4 Monocytes Relative 9.6 Eosinophils Relative 1.8 Basophils Relative 0.6 Immature Granulocytes Relative 0.5 Neutrophils Absolute 4.14 1.50-7.00 K/mcL Lymphocytes Absolute 1.26 1.00-5.00 K/mcL Monocytes Absolute 0.59 0.20-1.00 K/mcL Eosinophils Absolute 0.11 0.00-0.50 K/mcL Basophils Absolute 0.04 0.00-0.20 K/mcL Immature Granulocytes Absolute 0.03 0.00-0.03 K/mcL LIPID PANEL WITH REFLEX TO D IRECT LDL Reviewed date:07/05/2024 11:37:07 AM Interpretation: Performing Lab: Notes/Report: Cholesterol 153 0-200 mg/dL Triglycerides 55 0-150 mg/dL HDL 64 >=40 mg/dL LDL Calculated 78 0-100 mg/dL VLDL Cholesterol Alexis 11 Non HDL Chol. (LDL+VLDL) 89 <145 mg/dL Chol/HDL Ratio 2.4 0.0-4.4 VITAMIN D 25 HYDROXY Reviewed date:07/05/2024 11:37:07 AM Interpretation: Performing Lab: Notes/Report: Vit D, 25-Hydroxy 46.2 30.0-80.0 ng/mL THYROID STIMULATING HORMONE Reviewed date:07/05/2024 11:37:07 AM Interpretation: Performing Lab: Notes/Report: TSH 1.93 0.40-4.00 mcIU/mL COMPREHENSIVE METABOLIC PANE L Reviewed date:07/05/2024 11:37:07 AM Interpretation: Performing Lab: Notes/Report: Sodium 141 133-145 mmol/L Potassium 4.0 3.5-5.5 mmol/L Chloride 106 96-110 mmol/L CO2 28 21-32 mmol/L Anion Gap 7 3-11 Glucose 74 70-100 mg/dL BUN 19 5-25 mg/dL Creatinine 1.22 0.50-1.10 mg/dL eGFR 48 >=60 mL/min/1.73m2 Calculati on based on the?Chronic Kidney Disease Epidemiology Collaboration (CKD-EPI) equation refit?without adjustment for race. BUN/Creatinine Ratio 15.6 Calcium 9.2 8.5-10.5 mg/dL AST (SGOT) 16 10-42 unit/L ALT (SGPT) 15 10-60 unit/L Alkaline Phosphatase 129 42-121 unit/L Total Protein 6.9 6.0-8.0 g/dL Albumin 3.6 3.2-5.0 g/dL Total Bilirubin 0.4 0.0-1.4 mg/dL URINALYSIS WITH REFLEX MICRO SCOPIC AND CULTURE Reviewed date:07/05/2024 12:55:31 PM Interpretation: Performing Lab: Notes/Report: Specific [place] Urine 1.016 1.003-1.030 pH, Urine 5.5 5.0-8.0 pH Leukocytes, Urine Moderate Negative Nitrite, Urine Negative Negative Protein, Urine Negative <=Trace mg/dL Glucose, Urine Negative Negative mg/dL Ketones, Urine Negative Negative mg/dL Urobilinogen, Urine 0.2 0.2-1.0 mg/dL Bilirubin, Urine Negative Negative Blood, Urine Negative Negative RBC, Urine 1.5 0-4 /HPF WBC, Urine 4.9 0-4 /HPF Squamous Epithelial, Urine 52 0-60 /LPF Bacteria, Urine Negative Negative /HPF Hyaline Casts, Urine 0.4 0-3 /LPF HEMOGLOBIN A1C Reviewed date:07/05/2024 02:20:57 PM Interpretation: Performing Lab: Notes/Report: Hemoglobin A1C 5.2 <6.5 % Mean Bld Glu Estim. 103 REASON FOR REFERRAL No Information MEDICATIONS Medication SIG (Take, Route, Frequency, Duration) Notes Start Date End Date Status Vitamin D 25 MCG (1000 UT) 1 tablet Orally Once a day Active Calcium 1000 + D 1000-800 MG-UNIT 1 tablet with a meal Orally Once a day Active Omeprazole 20 MG TAKE 1 CAPSULE BY MO UTH EVERY DAY for 90 Active Vitamin B Complex - as directed Orally Active Losartan Potassium 50 MG 1 tablet Orally Once a day Not-Taking Escitalopram Oxalate 20 MG TAKE 1 TABLET BY MOUTH EVERY DAY FOR 30 DAYS for 90 Active Ozempic (2 MG/DOSE) 8 MG/3ML INJECT 2 MG SUBCUTANEOUSLY ONCE PER WEEK for 30 Active Flonase 50 MCG/ACT 1 spray in each nost ril Nasally Once a day for 30 day(s) Active ZyrTEC Allergy 10 MG 1 tablet Orally Onc e a day for 30 day(s) Active Combivent Respimat 20-100 MCG/ACT 1 puff as needed Inhalation every 6 hrs Active Zepbound 2.5 MG/0.5ML Inject 2.5 mg Subcutaneous weekly for 28 days 09/23/2024 Not-Taking Aspirin 81 81 MG 1 tablet Orally Once a day for 30 day(s) Active Atorvastatin Calcium 40 MG 1 tablet Orally Once a day for 30 day(s) Active IMMUNIZATIONS Vaccine Route Administration Date Status Comme nts Influenza, high dose seasonal IM Intramuscular 05/27/2019 Administered Influenza, high dose seasonal IM Intramuscular 07/08/2023 Administered Pfizer Covid-19 Vaccine Unknown 12/18/2020 Administered SHINGRIX IM Intramuscular 09/15/2018 Administered Zoster IM Intramuscular 11/09/2020 Administered SOCIAL HISTORY Tobacco Use: Social History Observation Description Date Details (start date - stop date) Former Smoker NA - NA Sex Assigned At : Social History Observation Description Sex Assigned At Unknown Tobacco Use/Smoking Question Answer Notes Are you a former smoker PROBLEMS Problem Type ICD Code Onset Dates Problem Status W/U Status Risk SNOMED Code Notes Problem Vitamin D deficiency, unspecified (E55.9) Active confirmed 60171741 Problem Morbid (severe) obesity due to excess calories (E66.01) Active confirmed Morbid obesity (disorder) (163876728) Problem Mixed hyperlipidemia (E78.2) Active confirmed 348833605 Problem Hyperlipidemia, unspecified (E78.5) Active confirmed Hyperlipidemia (29189696) Problem Primary pulmonary hypertension (I27.0) Active confirmed Idiopathic pulmonary arterial hypertension (629895518) Problem Unspecified diastolic (congestive) heart failure (I50.30) Active confirmed Diastolic heart failure (815056793) Problem Encounter for general adult medical examination without abnormal findings (Z00.00) Active confirmed 619304310 Problem Encounter for screening for lipoid disorders (Z13.220) Active confirmed Lipid screening (019202296) Problem Encounter for screening for other suspected endocrine disorder (Z13.29) Active confirmed 091974712 Problem Encounter for screening for osteoporosis (Z13.820) Active confirmed 990842073 Problem Body mass index (BMI) 40.0-44.9, adult (Z68.41) Active confirmed Body mass ind ex 40+ - severely obese (617730132) Problem Body mass index (BMI) 45.0-49.9, adult (Z68.42) Active confirmed Body mass ind ex 40+ - severely obese (180920599) Problem Prediabetes (R73.03) Active confirmed 132208878 Problem Essential hypertension (I10) Active confirmed 29340472 Problem Adult general medical exam (Z00.00) Active confirmed Adult health examination (262547622) Problem Dizziness (R42) Active confirmed Dizzin ess (698042800) Problem Cataract, unspecified cataract type, unspecified laterality (H26.9) Active confirmed Cataract (323559314) Problem Seasonal allergies (J30.2) Active confirmed 813944257 Problem ABBY (obstructive sleep apnea) (G47.33) Active confirmed 88844495 Problem Headache, unspecified (R51.9) Active confirmed Headache (22637816) Problem BMI 35.0-35.9,adult (Z68.35) Active confirmed 770178121 Problem Recurrent falls (R29.6) Active confirmed Recurrent falls (482383914) Problem BMI 36.0-36.9,adult (Z68.36) Active confirmed 169696042 Problem BMI 38.0-38.9,adult (Z68.38) Active confirmed 439761527 Problem Adult-onset obesity (E66.9) Active confirmed 785134951 Problem BMI 34.0-34.9,adult (Z68.34) Active confirmed 920276672 Problem GERD without esophagitis (K21.9) Active confirmed 008132146 Problem Avitaminosis D (E55.9) Active confirmed Avitaminosis D (40006027) Problem Encounter for screening for endocrine disorder (Z13.29) Active confirmed Endocrine/ metabol ic screening (467847702) VITAL SIGNS Heart Rate 70 /min 12/05/2024 Oximetry 98 % 12/05/2024 Blood pressure diastolic 86 mm Hg 12/05/2024 Height 62 in 12/05/2024 Blood pressure systolic 144 mm Hg 12/05/2024 Weight 188 lbs 12/05/2024 BMI 34.38 kg/m2 12/05/2024 Encounters Encounter Location Date Provider Diagnosis [facility] [address] [facility] [address] [place] [address] 03/10/2024 CANDICE NAGEL Obesity (BMI 30-39.9 ) E66.9 ; BMI 35.0-35.9,adult Z68.35 ; Primary pulmonary hypertension I27.0 ; Shortness of breath R06.02 ; Prediabetes R73.03 and Hyperlipidemia, unspecified E78.5 [facility] [address] [place] [address] 03/26/[address] [facility] [address] 10/21/2024 SVEN ROBLERO [place] [address] [address] 03/31/2024 CANDICE NAGEL Obesity (BMI 30-39.9 ) E66.9 ; BMI 35.0-35.9,adult Z68.35 ; Primary pulmonary hypertension I27.0 ; Shortness of breath R06.02 ; Prediabetes R73.03 and Hyperlipidemia, unspecified E78.5 [place] [address] [address] 07/12/2024 SVEN ROBLERO Annual physical exam Z00.00 ; Encounter for screening for depression Z13.31 ; Encounter for screening for other disorder Z13.89 ; BMI 34.0-34.9,adult Z68.34 ; Adult-onset obesity E66.9 ; Advance care planning Z71.89 ; Essential hypertension I10 ; Multiple joint pain M25.50 ; Pulmonary HTN I27.20 ; Mild depression F32.A and Seasonal allergies J30.2 [place] [address] [address] 09/23/2024 SVEN ROBLERO Adult-onset obesity E66.9 ; BMI 34.0-34.9,adult Z68.34 ; ABBY (obstructive sleep apnea) G47.33 ; Primary pulmonary hypertension I27.0 ; Generalized joint pain M25.50 ; GERD without esophagitis K21.9 ; Seasonal allergies J30.2 ; Hyperlipidemia, unspecified E78.5 ; Chronic depression F32.A and Prediabetes R73.03 [place] [address] [address] 10/31/2024 SVEN ROBLERO Essential hypertensi on I10 ; Primary pulmonary hypertension I27.0 ; ABBY (obstructive sleep apnea) G47.33 ; GERD without esophagitis K21.9 ; Primary osteoarthritis involving multiple joints M15.0 ; Mixed hyperlipidemia E78.2 ; Seasonal allergies J30.2 ; Prediabetes R73.03 and Adult-onset obesity E66.9 [place] [address] [address] 12/05/2024 SVEN ROBLERO Adult-onset obesity E66.9 ; BMI 34.0-34.9,adult Z68.34 ; ABBY (obstructive sleep apnea) G47.33 ; Primary pulmonary hypertension I27.0 ; Generalized joint pain M25.50 ; GERD without esophagitis K21.9 ; Seasonal allergies J30.2 ; Hyperlipidemia, unspecified E78.5 ; Chronic depression F32.A and Prediabetes R73.03 [address] [place] [address] 07/21/[address] [place] [address] 09/02/[address] [place] [address] 09/23/[address] [place] [address] 09/24/[address] [place] [address] 10/03/2024 SVEN ROBLERO [address] [place] [address] 04/03/2024 LAITH VENEGAS ASSESSMENTS Encounter Date Diagnosis Assessment Notes Treatment Notes Treatment Clinical Notes Section Notes 03/31/2024 Obesity (BMI 30-39.9) (ICD-10 - E66.9) #Weight Management 03/31/2024 Has done quite well on a weight management program Chronic conditions are otherwise stable Increase stressors in life and family, likely increased cortisol Continue Ozempic 2 mg Will see her back in the fall for Medicare visit with labs Total time spent today was 30 minutes of which greater than 50% was spent on coordinating and counseling Patient has been found to be obese with a BMI of (35). Patient has class (2) obesity. We are a board certified obesity and weight management practice Patient has trialed behavioral modification, dietary restrictions and exercise for a minimum of 6 months The most recent [place] [employer] of clinical endocrinologists and [place] [employer] guidelines recommend patients who have overweight BMI or obesity BMI, who also have metabolic syndrome, prediabetes, or at risk of developing type 2 diabetes should aim for a weight loss goal of at least 10% of the baseline body weight Patient counseled regarding effects of GLP/GIP-1 agonists, and other FDA approved wgt loss meds with regards to a multifactorial approach of weight loss as mentioned above and not solely appetite suppression. We have discussed the mechanism of GLP-1's/GIP, dual incretins, appetitite suppressants I think this would be fantastic option for her given her metabolic workup and body composition We have discussed the risks and benefits and side effects including/and not limited to Sarcopenia, intestinal obstruction, constipation, nausea, lethargy, headache Discussed importance of protein consumption for muscle maintenance as well as strength and resistance training ,probiotics, B12 complex biotin , iron and other nutrients, To help avoid telogen effluvium We have discussed the lifelong requirement of nutritional supplementation And adherence to an exercise regimen as well as importance of follow-up The patient understands and agrees There is no history of medullary thyroid cancer or multiple endocrine neoplasia There is also no history of cardiovascular disease, hypertension, palpitations, or arrhythmias In the setting of potential stimulant/amphetamin e use such as phentermine We have also discussed risks and benefits, and the use of compounded medications to help offset the national shortages as well as financial implications vs trade name drugs Patient was reassured and welcomed to the practice. We discussed that we stress a hollistic medical approach with emphasis on lifestyle modification. Patient was informed that a healthy lifestyle with exercise and good eating habits can help reduce his risk of medical complications. He is explained that obesity increases his risk of diabetes, cardiovascular disease, or organ damage. We spent a lot of time discussing the relationship between food, exercise, sleep, mental health and obesity. Patient was counseled on the importance EATING local, organic food when possible. Patient was educated on clean 15 and dirty dozen. I provided information about reading books called The Food Rules by Pedro Barrera and Eat Fat Get Lean by Dr Pedro Salazar. Self education is important in the journey for weight management. Patient was offered diagnostic testing. We want to measure visceral adiposity, advanced body composition, adverse lipids, fatty acid balance, risk for heart disease and atherosclerosis, markers of inflammation and genetic susceptibility. Patient was counseled on weight management and was advised to lose weight using A. Meal Replacement Products We discussed the lifelong requirement of nutritional supplementation and adherence to an exercise regimen as well as importance of dietary follow-up Patient was educated on the replacement products called optifast. This is a good way of taking fixed amount of calories. It has been shown in studies to be ineffective weight management tool. We also recommend maintaining adequate protein intake and muscle composition, 1.5mg/kg This however has to be coupled with lifestyle intervention as well as laboratory data and EKG monitoring. It is impossible to know how a person will tolerate complete meal replacement. The side effects of meal replacement and weight loss could include syncopal attacks, dizziness, gallstones, potential cholecystectomy, possible heart attack and even . The benefits of meal replacement would be potential weight loss but no guarantees can be made. Meal replacement products are not covered by insurance. Once the patient has bought these products we cannot return them B. Lifestyle management which includes several strategies as below 1. Eat a low carbohydrate good fat good protein diet. Eliminate refined carbohydrates from the diet. Continue blood sugar and sugared beverages. Eat local organic when possible. Cook your own meals. Read food labels. None about healthy snacks. Portion control and food with low glycemic index 2. Exercise regularly. Try to get at least 6000 steps a day. Use a predominant to track activity level. Consider using apps like [employer], Fresh[employer], lose it, stick as needed for self-monitoring and weight management. Consider group exercises. Consider hiring a fitness trainer. Regular exercise is riojas to sustainable health and prevents as a buffer against weight regain 3. Sleep is most important for healing. Tried to sleep at least 8 hours a night. A good quality sleep needs a sleep ritual with ideal room temperature of around 68. It might help to take a shower and have no electronics in the room and sleep in a very dark room without artificial light. Start her sleep routine and get up early in the morning and go to bed on time 4. Make a social connection. Surround yourself with positive people with positive energy. Connect with friends and family. 5. Get into the habit of meditating and mindfulness while doing everything. 6. Go outside and connect with nature. C. Prescription medications Patient was educated on the use of prescription medications for medical weight loss. This is a growing list and includes phentermine, Topamax,Qsymia, contrave, belviq and saxenda. All prescription medications could have side effects including but not limited to kidney stones, seizure disorder cardiac arrhythmias heart attack pancreatitis etc. etc.. Patient was encouraged to read the prescription insert and have coaching with their pharmacist and make an informed decision about taking medication and know that these medications are being prescribed with good intentions and we do not know how a patient would react to her medication. Sudden medications are FDA approved for weight loss and there is also off label use depending on patient's inability to afford medications in an attempt to lose weight D. Behavioral counseling was done to establish a relationship between food and an mood. Patient was provided information about local counseling and psychiatry and Dr Escobar at [employer]. We would like to cover regular topics and build on low glycemic eating exercise mindful eating, using yoga and meditation along with deep breathing and connecting with friends and family. E. MASS PAT reviewed, Patient's current medications were reviewed and opinion was given on medication that can cause weight gain and can be substituted F. Patient was assessed for risk with obesity including and not limiting to atherosclerosis heart disease stroke kidney disease, restrictive lung disease, irritable bowel syndrome and overall mortality. Risk of developing prediabetes diabetes and metabolic syndrome was discussed G. Therapeutic plan: We have decided to make therapeutic plan which would include choosing wisely on calories restricting portion getting active, tracking weight, getting good quality sleep and working on time management H. Patient will follow up in (4) weeks for weight management Of note, some information is being carried forward from prior records for informational purposes only and is being cited so that efficiency, safety and quality of the patient's care is not compromised This note was prepared using voice recognition software and direct typing Please excuse inadvertent junior architect or typing errors, or uncorrected word substitutions Although every attempt has been made by the provider to proofread this document, occasional misspellings and typographical errors may still be present Due to the previous pandemic, and the use of personal protective equipment (PPE) This may decrease voice recognition accuracy Inadvertent junior architect errors may occur 07/12/2024 Encounter for screening for depression (ICD-10 - Z13.31) Patient is here for a Medicare wellness visit. Complete paperwork was reviewed and updated and has been filed and scanned. Depression screen completed. Alcohol AUDIT SCREEN completed. Obesity screen completed. Cardiovascular risk stratification screen completed. # Hypertension: Blood pressure stable in office today 126/82. Continue losartan 50 mg once daily. Continue aspirin 81 mg once daily for cardiac protection. Discussed proper use of the medication and expected side effect profile including but not limited to fatigue, muscle aches, low blood pressure, and cough. Discussed red flag signs of hypertension clinic but not limited to headache, blurry vision, chest pain, difficulty breathing, abdominal pain, dizziness, or weakness. Will continue to monitor. # Joint pain: Patient has followed previously [...] of anti-inflammatory medications for acute pain. Advise [id number] Tylenol as needed. Patient also discussed a supplement today called [place] XL which she can begin using and to monitor effect on joint pain. All patient question answered at this time. # GERD: Stable at this time. Continue [...] increased depression. Will continue to monitor. # Obesity: Weight at this visit 189 pounds, BMI 34.56. Hemoglobin A1c obtained on 07/05/2024 and is 5.2%. Before then hemoglobin A1c obtained in July 2023 and was 5.6%. Continue Ozempic 2 mg once weekly subcutaneous injection. Discussed proper use of medication including rotating injection sites and expected side effect profile including but not limited to nausea, constipation, abdominal pain, and heartburn. She will follow-up in the office in August at her earliest convenience for weight management. All patient questions answered at this time. # Preventative medicine: Repeat bone mineral density scan ordered. Patient is up-to-date on most immunizations. She is due for RSV vaccine, given vaccine form to give to pharmacist. Cognition assessed and within reasonable limits Fall risk assessed. Discussed healthcare proxy. Discussed [place] order for life sustaining treatment, end-of-life issues, intubation and resuscitation dialysis artificial nutrition and hydration is appropriate. We discussed [place] order for life sustaining treatment and healthcare proxy. We discussed need for resuscitation, intubation, ventilation, need for dialysis, short-term versus long-term, nutrition, IV nutrition and hydration. Total time spent was 45 minutes with greater than 50% spent on counseling and coordinating care All questions have been answered to patient's satisfaction. Patient verbalized understanding of diagnosis and treatments explained. Advised to call sooner prior to next visit it any questions/concerns arise. Case discussed with collaborating physician Makeda Venegas who reviewed the assessment and plan. Chart, medications, labs, vital signs reviewed. Dictation was accomplished with the use of [employer] voice recognition software, which is prone to medical misidentifications and grammatical errors. This are unintentional and the practitioner does try to identify and correct these, but some could still be present. Please do not hesitate to contact practitioner for clarification. 07/12/2024 Annual physical exam (ICD-10 - Z00.00) Patient is here for a Medicare wellness visit. Complete paperwork was reviewed and updated and has been filed and scanned. Depression screen completed. Alcohol AUDIT SCREEN completed. Obesity screen completed. Cardiovascular risk stratification screen completed. # Hypertension: Blood pressure stable in office today 126/82. Continue losartan 50 mg once daily. Continue aspirin 81 mg once daily for cardiac protection. Discussed proper use of the medication and expected side effect profile including but not limited to fatigue, muscle aches, low blood pressure, and cough. Discussed red flag signs of hypertension clinic but not limited to headache, blurry vision, chest pain, difficulty breathing, abdominal pain, dizziness, or weakness. Will continue to monitor. # Joint pain: Patient has followed previously [...] of anti-inflammatory medications for acute pain. Advise [id number] Tylenol as needed. Patient also discussed a supplement today called [employer] [place] XL which she can begin using and to monitor effect on joint pain. All patient question answered at this time. # GERD: Stable at this time. Continue [...] increased depression. Will continue to monitor. # Obesity: Weight at this visit 189 pounds, BMI 34.56. Hemoglobin A1c obtained on 07/05/2024 and is 5.2%. Before then hemoglobin A1c obtained in July 2023 and was 5.6%. Continue Ozempic 2 mg once weekly subcutaneous injection. Discussed proper use of medication including rotating injection sites and expected side effect profile including but not limited to nausea, constipation, abdominal pain, and heartburn. She will follow-up in the office in August at her earliest convenience for weight management. All patient questions answered at this time. # Preventative medicine: Repeat bone mineral density scan ordered. Patient is up-to-date on most immunizations. She is due for RSV vaccine, given vaccine form to give to pharmacist. Cognition assessed and within reasonable limits Fall risk assessed. Discussed healthcare proxy. Discussed [place] order for life sustaining treatment, end-of-life issues, intubation and resuscitation dialysis artificial nutrition and hydration is appropriate. We discussed [place] order for life sustaining treatment and healthcare proxy. We discussed need for resuscitation, intubation, ventilation, need for dialysis, short-term versus long-term, nutrition, IV nutrition and hydration. Total time spent was 45 minutes with greater than 50% spent on counseling and coordinating care All questions have been answered to patient's satisfaction. Patient verbalized understanding of diagnosis and treatments explained. Advised to call sooner prior to next visit it any questions/concerns arise. Case discussed with collaborating physician Makeda Venegas who reviewed the assessment and plan. Chart, medications, labs, vital signs reviewed. Dictation was accomplished with the use of [employer] voice recognition software, which is prone to medical misidentifications and grammatical errors. This are unintentional and the practitioner does try to identify and correct these, but some could still be present. Please do not hesitate to contact practitioner for clarification. 09/23/2024 Adult-onset obesity (ICD-10 - E66.9) Patient is here for weight management follow-up. We focused on significance of healthy lifestyle changes. We talked about need to track steps with goal between 6000-10,000 steps daily, focus on portion control, read food labels, get adequate sleep between 7 to 8 hours, get adequate rest to the body, meditate, frequent nutritious meals including vegetables and healthy choices of lean meats, fish, and elimination of refined carbohydrates. We also talked about mindfulness and mindful eating. Particular focus was on continuing portion control, mindful eating, and exercise. Total time spent with 30 minutes with greater than 50% spent on counseling and coordinating care. 09/23/2024: Weight 190 pounds, BMI 44.75. Seca scan completed today and interpreted with patient. SECA scan demonstrating low muscle mass. Discussed importance of increasing physical activity particular resistance training 3 times weekly to build muscle. Patient understanding. Discussed risk of sarcopenia related to osteoporosis. Currently on Ozempic 2 mg once weekly. Good tolerance of medication, however interested in transitioning to Zepbound due to increased co-pay at pharmacy as well as history of ABBY. Does not use nightly CPAP however does use nightly oxygen. Advised that the medication does require prior authorization which can take 2 to 4 weeks. At this time continue Ozempic weekly, if Zepbound approved we will discontinue Ozempic and begin Zepbound. Patient understanding. She otherwise will follow-up in office in 4 weeks for further management. # ABBY: Continue nightly oxygen, 2 L [...] of anti-inflammatory medications for acute pain. Advise [id number] Tylenol as needed. Patient also discussed a supplement today called [employer] [place] XL which she can begin using and to monitor effect on joint pain. All patient question answered at this time. # GERD: Stable at this time. Continue [...] continue to monitor and encourage lifestyle vacations. All questions have been answered to patient's satisfaction. Patient verbalized understanding of diagnosis and treatments explained. Advised to call sooner prior to next visit it any questions/concerns arise. Case discussed with collaborating physician Makeda Venegas who reviewed the assessment and plan. Chart, medications, labs, vital signs reviewed. Dictation was accomplished with the use of [employer] voice recognition software, which is prone to medical misidentifications and grammatical errors. This are unintentional and the practitioner does try to identify and correct these, but some could still be present. Please do not hesitate to contact practitioner for clarification. All questions have been answered to patient's satisfaction. Patient verbalized understanding of diagnosis and treatments explained. Advised to call sooner prior to next visit it any questions/concerns arise. Case discussed with collaborating physician Makeda Venegas who reviewed the assessment and plan. Chart, medications, labs, vital signs reviewed. Dictation was accomplished with the use of [employer] voice recognition software, which is prone to medical misidentifications and grammatical errors. This are unintentional and the practitioner does try to identify and correct these, but some could still be present. Please do not hesitate to contact practitioner for clarification. 09/23/2024 BMI 34.0-34.9,adult (ICD-10 - Z68.34) Patient is here for weight management follow-up. We focused on significance of healthy lifestyle changes. We talked about need to track steps with goal between 6000-10,000 steps daily, focus on portion control, read food labels, get adequate sleep between 7 to 8 hours, get adequate rest to the body, meditate, frequent nutritious meals including vegetables and healthy choices of lean meats, fish, and elimination of refined carbohydrates. We also talked about mindfulness and mindful eating. Particular focus was on continuing portion control, mindful eating, and exercise. Total time spent with 30 minutes with greater than 50% spent on counseling and coordinating care. 09/23/2024: Weight 190 pounds, BMI 44.75. Seca scan completed today and interpreted with patient. SECA scan demonstrating low muscle mass. Discussed importance of increasing physical activity particular resistance training 3 times weekly to build muscle. Patient understanding. Discussed risk of sarcopenia related to osteoporosis. Currently on Ozempic 2 mg once weekly. Good tolerance of medication, however interested in transitioning to Zepbound due to increased co-pay at pharmacy as well as history of ABBY. Does not use nightly CPAP however does use nightly oxygen. Advised that the medication does require prior authorization which can take 2 to 4 weeks. At this time continue Ozempic weekly, if Zepbound approved we will discontinue Ozempic and begin Zepbound. Patient understanding. She otherwise will follow-up in office in 4 weeks for further management. # ABBY: Continue nightly oxygen, 2 L [...] of anti-inflammatory medications for acute pain. Advise [id number] Tylenol as needed. Patient also discussed a supplement today called [place] XL which she can begin using and to monitor effect on joint pain. All patient question answered at this time. # GERD: Stable at this time. Continue [...] continue to monitor and encourage lifestyle vacations. All questions have been answered to patient's satisfaction. Patient verbalized understanding of diagnosis and treatments explained. Advised to call sooner prior to next visit it any questions/concerns arise. Case discussed with collaborating physician Makeda Venegas who reviewed the assessment and plan. Chart, medications, labs, vital signs reviewed. Dictation was accomplished with the use of [employer] voice recognition software, which is prone to medical misidentifications and grammatical errors. This are unintentional and the practitioner does try to identify and correct these, but some could still be present. Please do not hesitate to contact practitioner for clarification. All questions have been answered to patient's satisfaction. Patient verbalized understanding of diagnosis and treatments explained. Advised to call sooner prior to next visit it any questions/concerns arise. Case discussed with collaborating physician Makeda Venegas who reviewed the assessment and plan. Chart, medications, labs, vital signs reviewed. Dictation was accomplished with the use of [employer] voice recognition software, which is prone to medical misidentifications and grammatical errors. This are unintentional and the practitioner does try to identify and correct these, but some could still be present. Please do not hesitate to contact practitioner for clarification. 10/31/2024 Primary pulmonary hypertension (ICD-10 - I27.0) Rena is a 69-year-old female with history of [...] of anti-inflammatory medications for acute pain. Advise [id number] Tylenol as needed. Patient has been practicing [...] Dictation was accomplished with the use of [employer] voice recognition software, which is prone to medical misidentifications and grammatical errors. This are unintentional and the practitioner does try to identify and correct these, but some could still be present. Please do not hesitate to contact practitioner for clarification. 10/31/2024 Essential hypertension (ICD-10 - I10) Rena is a 69-year-old female with history of [...] of anti-inflammatory medications for acute pain. Advise [id number] Tylenol as needed. Patient has been practicing [...] Dictation was accomplished with the use of [employer] voice recognition software, which is prone to medical misidentifications and grammatical errors. This are unintentional and the practitioner does try to identify and correct these, but some could still be present. Please do not hesitate to contact practitioner for clarification. 12/05/2024 Adult-onset obesity (ICD-10 - E66.9) Patient is here for weight management follow-up. We focused on significance of healthy lifestyle changes. We talked about need to track steps with goal between 6000-10,000 steps daily, focus on portion control, read food labels, get adequate sleep between 7 to 8 hours, get adequate rest to the body, meditate, frequent nutritious meals including vegetables and healthy choices of lean meats, fish, and elimination of refined carbohydrates. We also talked about mindfulness and mindful eating. Particular focus was on continuing portion control, mindful eating, and exercise. Total time spent with 30 minutes with greater than 50% spent on counseling and coordinating care. 09/23/2024: Weight 190 pounds, BMI 44.75. Seca scan completed today and interpreted with patient. SECA scan demonstrating low muscle mass. Discussed importance of increasing physical activity particular resistance training 3 times weekly to build muscle. Patient understanding. Discussed risk of sarcopenia related to osteoporosis. Currently on Ozempic 2 mg once weekly. Good tolerance of medication, however interested in transitioning to Zepbound due to increased co-pay at pharmacy as well as history of ABBY. Does not use nightly CPAP however does use nightly oxygen. Advised that the medication does require prior authorization which can take 2 to 4 weeks. At this time continue Ozempic weekly, if Zepbound approved we will discontinue Ozempic and begin Zepbound. Patient understanding. She otherwise will follow-up in office in 4 weeks for further management. 12/05/2024: Weight 188 pounds, BMI 34.38. Seca scan completed today and interpreted with the patient. She is down 2 pounds from her last visit. On body analysis she is up 1 pound of muscle mass and has had a reduction of fat mass by about 4 pounds. Currently on Ozempic 2 mg weekly. Reports good tolerance of the medication. We discussed goals of diet and exercise as well as improving her hydration. Plan is to otherwise maintain current regimen and have her follow-up in office in approximately 8 weeks for further evaluation. # ABBY: Continue nightly oxygen, 2 L [...] of anti-inflammatory medications for acute pain. Advise [id number] Tylenol as needed. Patient also discussed a supplement today called [place] XL which she can begin using and to monitor effect on joint pain. All patient question answered at this time. # GERD: Stable at this time. Continue [...] continue to monitor. Please follow-up with cardiology. Patient reports that she is no longer on losartan per discretion of cardiology. Blood pressure is elevated today 144/86, however she reports regularly monitoring her blood pressure at home, typically within normal ranges. # Depression: Stable at this time. Reports good mood. Continue escitalopram 20 mg once daily. Discussed proper use of the medication and expected side effect profile occluding with a limited to dizziness, headache, GI upset, sexual dysfunction, weight gain, and increased depression. Will continue to monitor. # Prediabetes: Hemoglobin A1c 5.6%. Will continue to monitor and encourage lifestyle vacations. All questions have been answered to patient's satisfaction. Patient verbalized understanding of diagnosis and treatments explained. Advised to call sooner prior to next visit it any questions/concerns arise. Case discussed with collaborating physician Makeda Venegas who reviewed the assessment and plan. Chart, medications, labs, vital signs reviewed. Dictation was accomplished with the use of Enval voice recognition software, which is prone to medical misidentifications and grammatical errors. This are unintentional and the practitioner does try to identify and correct these, but some could still be present. Please do not hesitate to contact practitioner for clarification. All questions have been answered to patient's satisfaction. Patient verbalized understanding of diagnosis and treatments explained. Advised to call sooner prior to next visit it any questions/concerns arise. Case discussed with collaborating physician Makeda Venegas who reviewed the assessment and plan. Chart, medications, labs, vital signs reviewed. Dictation was accomplished with the use of Enval voice recognition software, which is prone to medical misidentifications and grammatical errors. This are unintentional and the practitioner does try to identify and correct these, but some could still be present. Please do not hesitate to contact practitioner for clarification. 03/10/2024 Obesity (BMI 30-39.9) (ICD-10 - E66.9) #Weight Management 03/10/2024 Has done quite well on a weight management program Patient reports increasing working out s/p shoulder athroscopy and participates in water aerobics for exercise She has set a new tagert weight goal Other chronic conditions are stable and she is doing quite well Will see her back in 6 weeks Total time spent today was 30 minutes of which greater than 50% was spent on coordinating and counseling Patient has been found to be obese with a BMI of (35). Patient has class (2) obesity. We are a board certified obesity and weight management practice Patient has trialed behavioral modification, dietary restrictions and exercise for a minimum of 6 months The most recent [place] [employer] clinical endocrinologists and [place] [employer] guidelines recommend patients who have overweight BMI or obesity BMI, who also have metabolic syndrome, prediabetes, or at risk of developing type 2 diabetes should aim for a weight loss goal of at least 10% of the baseline body weight Patient counseled regarding effects of GLP/GIP-1 agonists, and other FDA approved wgt loss meds with regards to a multifactorial approach of weight loss as mentioned above and not solely appetite suppression. We have discussed the mechanism of GLP-1's/GIP, dual incretins, appetitite suppressants I think this would be fantastic option for her given her metabolic workup and body composition We have discussed the risks and benefits and side effects including/and not limited to Sarcopenia, intestinal obstruction, constipation, nausea, lethargy, headache Discussed importance of protein consumption for muscle maintenance as well as strength and resistance training ,probiotics, B12 complex biotin , iron and other nutrients, To help avoid telogen effluvium We have discussed the lifelong requirement of nutritional supplementation And adherence to an exercise regimen as well as importance of follow-up The patient understands and agrees There is no history of medullary thyroid cancer or multiple endocrine neoplasia There is also no history of cardiovascular disease, hypertension, palpitations, or arrhythmias In the setting of potential stimulant/amphetamin e use such as phentermine We have also discussed risks and benefits, and the use of compounded medications to help offset the national shortages as well as financial implications vs trade name drugs Patient was reassured and welcomed to the practice. We discussed that we stress a hollistic medical approach with emphasis on lifestyle modification. Patient was informed that a healthy lifestyle with exercise and good eating habits can help reduce his risk of medical complications. He is explained that obesity increases his risk of diabetes, cardiovascular disease, or organ damage. We spent a lot of time discussing the relationship between food, exercise, sleep, mental health and obesity. Patient was counseled on the importance EATING local, organic food when possible. Patient was educated on clean 15 and dirty dozen. I provided information about reading books called The Food Rules by Pedro Barrera and Eat Fat Get Lean by Dr Pedro Salazar. Self education is important in the journey for weight management. Patient was offered diagnostic testing. We want to measure visceral adiposity, advanced body composition, adverse lipids, fatty acid balance, risk for heart disease and atherosclerosis, markers of inflammation and genetic susceptibility. Patient was counseled on weight management and was advised to lose weight using A. Meal Replacement Products We discussed the lifelong requirement of nutritional supplementation and adherence to an exercise regimen as well as importance of dietary follow-up Patient was educated on the replacement products called optifast. This is a good way of taking fixed amount of calories. It has been shown in studies to be ineffective weight management tool. We also recommend maintaining adequate protein intake and muscle composition, 1.5mg/kg This however has to be coupled with lifestyle intervention as well as laboratory data and EKG monitoring. It is impossible to know how a person will tolerate complete meal replacement. The side effects of meal replacement and weight loss could include syncopal attacks, dizziness, gallstones, potential cholecystectomy, possible heart attack and even . The benefits of meal replacement would be potential weight loss but no guarantees can be made. Meal replacement products are not covered by insurance. Once the patient has bought these products we cannot return them B. Lifestyle management which includes several strategies as below 1. Eat a low carbohydrate good fat good protein diet. Eliminate refined carbohydrates from the diet. Continue blood sugar and sugared beverages. Eat local organic when possible. Cook your own meals. Read food labels. None about healthy snacks. Portion control and food with low glycemic index 2. Exercise regularly. Try to get at least 6000 steps a day. Use a predominant to track activity level. Consider using apps like [employer], myfitnesspal, lose it, stick as needed for self-monitoring and weight management. Consider group exercises. Consider hiring a fitness trainer. Regular exercise is riojas to sustainable health and prevents as a buffer against weight regain 3. Sleep is most important for healing. Tried to sleep at least 8 hours a night. A good quality sleep needs a sleep ritual with ideal room temperature of around 68. It might help to take a shower and have no electronics in the room and sleep in a very dark room without artificial light. Start her sleep routine and get up early in the morning and go to bed on time 4. Make a social connection. Surround yourself with positive people with positive energy. Connect with friends and family. 5. Get into the habit of meditating and mindfulness while doing everything. 6. Go outside and connect with nature. C. Prescription medications Patient was educated on the use of prescription medications for medical weight loss. This is a growing list and includes phentermine, Topamax,Qsymia, contrave, belviq and saxenda. All prescription medications could have side effects including but not limited to kidney stones, seizure disorder cardiac arrhythmias heart attack pancreatitis etc. etc.. Patient was encouraged to read the prescription insert and have coaching with their pharmacist and make an informed decision about taking medication and know that these medications are being prescribed with good intentions and we do not know how a patient would react to her medication. Sudden medications are FDA approved for weight loss and there is also off label use depending on patient's inability to afford medications in an attempt to lose weight D. Behavioral counseling was done to establish a relationship between food and an mood. Patient was provided information about local counseling and psychiatry and Dr Escobar at [facility]. We would like to cover regular topics and build on low glycemic eating exercise mindful eating, using yoga and meditation along with deep breathing and connecting with friends and family. E. MASS PAT reviewed, Patient's current medications were reviewed and opinion was given on medication that can cause weight gain and can be substituted F. Patient was assessed for risk with obesity including and not limiting to atherosclerosis heart disease stroke kidney disease, restrictive lung disease, irritable bowel syndrome and overall mortality. Risk of developing prediabetes diabetes and metabolic syndrome was discussed G. Therapeutic plan: We have decided to make therapeutic plan which would include choosing wisely on calories restricting portion getting active, tracking weight, getting good quality sleep and working on time management H. Patient will follow up in (4) weeks for weight management Of note, some information is being carried forward from prior records for informational purposes only and is being cited so that efficiency, safety and quality of the patient's care is not compromised This note was prepared using voice recognition software and direct typing Please excuse inadvertent junior architect or typing errors, or uncorrected word substitutions Although every attempt has been made by the provider to proofread this document, occasional misspellings and typographical errors may still be present Due to the previous pandemic, and the use of personal protective equipment (PPE) This may decrease voice recognition accuracy Inadvertent junior architect errors may occur 03/10/2024 BMI 35.0-35.9,adult (ICD-10 - Z68.35) #Weight Management 03/10/2024 Has done quite well on a weight management program Patient reports increasing working out s/p shoulder athroscopy and participates in water aerobics for exercise She has set a new tagert weight goal Other chronic conditions are stable and she is doing quite well Will see her back in 6 weeks Total time spent today was 30 minutes of which greater than 50% was spent on coordinating and counseling Patient has been found to be obese with a BMI of (35). Patient has class (2) obesity. We are a board certified obesity and weight management practice Patient has trialed behavioral modification, dietary restrictions and exercise for a minimum of 6 months The most recent [place] [employer] and [place] [employer] guidelines recommend patients who have overweight BMI or obesity BMI, who also have metabolic syndrome, prediabetes, or at risk of developing type 2 diabetes should aim for a weight loss goal of at least 10% of the baseline body weight Patient counseled regarding effects of GLP/GIP-1 agonists, and other FDA approved wgt loss meds with regards to a multifactorial approach of weight loss as mentioned above and not solely appetite suppression. We have discussed the mechanism of GLP-1's/GIP, dual incretins, appetitite suppressants I think this would be fantastic option for her given her metabolic workup and body composition We have discussed the risks and benefits and side effects including/and not limited to Sarcopenia, intestinal obstruction, constipation, nausea, lethargy, headache Discussed importance of protein consumption for muscle maintenance as well as strength and resistance training ,probiotics, B12 complex biotin , iron and other nutrients, To help avoid telogen effluvium We have discussed the lifelong requirement of nutritional supplementation And adherence to an exercise regimen as well as importance of follow-up The patient understands and agrees There is no history of medullary thyroid cancer or multiple endocrine neoplasia There is also no history of cardiovascular disease, hypertension, palpitations, or arrhythmias In the setting of potential stimulant/amphetamin e use such as phentermine We have also discussed risks and benefits, and the use of compounded medications to help offset the national shortages as well as financial implications vs trade name drugs Patient was reassured and welcomed to the practice. We discussed that we stress a hollistic medical approach with emphasis on lifestyle modification. Patient was informed that a healthy lifestyle with exercise and good eating habits can help reduce his risk of medical complications. He is explained that obesity increases his risk of diabetes, cardiovascular disease, or organ damage. We spent a lot of time discussing the relationship between food, exercise, sleep, mental health and obesity. Patient was counseled on the importance EATING local, organic food when possible. Patient was educated on clean 15 and dirty dozen. I provided information about reading books called The Food Rules by Pedro Barrera and Eat Fat Get Lean by Dr Pedro Salazar. Self education is important in the journey for weight management. Patient was offered diagnostic testing. We want to measure visceral adiposity, advanced body composition, adverse lipids, fatty acid balance, risk for heart disease and atherosclerosis, markers of inflammation and genetic susceptibility. Patient was counseled on weight management and was advised to lose weight using A. Meal Replacement Products We discussed the lifelong requirement of nutritional supplementation and adherence to an exercise regimen as well as importance of dietary follow-up Patient was educated on the replacement products called optifast. This is a good way of taking fixed amount of calories. It has been shown in studies to be ineffective weight management tool. We also recommend maintaining adequate protein intake and muscle composition, 1.5mg/kg This however has to be coupled with lifestyle intervention as well as laboratory data and EKG monitoring. It is impossible to know how a person will tolerate complete meal replacement. The side effects of meal replacement and weight loss could include syncopal attacks, dizziness, gallstones, potential cholecystectomy, possible heart attack and even . The benefits of meal replacement would be potential weight loss but no guarantees can be made. Meal replacement products are not covered by insurance. Once the patient has bought these products we cannot return them B. Lifestyle management which includes several strategies as below 1. Eat a low carbohydrate good fat good protein diet. Eliminate refined carbohydrates from the diet. Continue blood sugar and sugared beverages. Eat local organic when possible. Cook your own meals. Read food labels. None about healthy snacks. Portion control and food with low glycemic index 2. Exercise regularly. Try to get at least 6000 steps a day. Use a predominant to track activity level. Consider using apps like [employer], FreshReal[employer], lose it, stick as needed for self-monitoring and weight management. Consider group exercises. Consider hiring a fitness trainer. Regular exercise is riojas to sustainable health and prevents as a buffer against weight regain 3. Sleep is most important for healing. Tried to sleep at least 8 hours a night. A good quality sleep needs a sleep ritual with ideal room temperature of around 68. It might help to take a shower and have no electronics in the room and sleep in a very dark room without artificial light. Start her sleep routine and get up early in the morning and go to bed on time 4. Make a social connection. Surround yourself with positive people with positive energy. Connect with friends and family. 5. Get into the habit of meditating and mindfulness while doing everything. 6. Go outside and connect with nature. C. Prescription medications Patient was educated on the use of prescription medications for medical weight loss. This is a growing list and includes phentermine, Topamax,Qsymia, contrave, belviq and saxenda. All prescription medications could have side effects including but not limited to kidney stones, seizure disorder cardiac arrhythmias heart attack pancreatitis etc. etc.. Patient was encouraged to read the prescription insert and have coaching with their pharmacist and make an informed decision about taking medication and know that these medications are being prescribed with good intentions and we do not know how a patient would react to her medication. Sudden medications are FDA approved for weight loss and there is also off label use depending on patient's inability to afford medications in an attempt to lose weight D. Behavioral counseling was done to establish a relationship between food and an mood. Patient was provided information about local counseling and psychiatry and Dr Escobar at [facility]. We would like to cover regular topics and build on low glycemic eating exercise mindful eating, using yoga and meditation along with deep breathing and connecting with friends and family. E. MASS PAT reviewed, Patient's current medications were reviewed and opinion was given on medication that can cause weight gain and can be substituted F. Patient was assessed for risk with obesity including and not limiting to atherosclerosis heart disease stroke kidney disease, restrictive lung disease, irritable bowel syndrome and overall mortality. Risk of developing prediabetes diabetes and metabolic syndrome was discussed G. Therapeutic plan: We have decided to make therapeutic plan which would include choosing wisely on calories restricting portion getting active, tracking weight, getting good quality sleep and working on time management H. Patient will follow up in (4) weeks for weight management Of note, some information is being carried forward from prior records for informational purposes only and is being cited so that efficiency, safety and quality of the patient's care is not compromised This note was prepared using voice recognition software and direct typing Please excuse inadvertent junior architect or typing errors, or uncorrected word substitutions Although every attempt has been made by the provider to proofread this document, occasional misspellings and typographical errors may still be present Due to the previous pandemic, and the use of personal protective equipment (PPE) This may decrease voice recognition accuracy Inadvertent junior architect errors may occur 12/05/2024 BMI 34.0-34.9,adult (ICD-10 - Z68.34) Patient is here for weight management follow-up. We focused on significance of healthy lifestyle changes. We talked about need to track steps with goal between 6000-10,000 steps daily, focus on portion control, read food labels, get adequate sleep between 7 to 8 hours, get adequate rest to the body, meditate, frequent nutritious meals including vegetables and healthy choices of lean meats, fish, and elimination of refined carbohydrates. We also talked about mindfulness and mindful eating. Particular focus was on continuing portion control, mindful eating, and exercise. Total time spent with 30 minutes with greater than 50% spent on counseling and coordinating care. 09/23/2024: Weight 190 pounds, BMI 44.75. Seca scan completed today and interpreted with patient. SECA scan demonstrating low muscle mass. Discussed importance of increasing physical activity particular resistance training 3 times weekly to build muscle. Patient understanding. Discussed risk of sarcopenia related to osteoporosis. Currently on Ozempic 2 mg once weekly. Good tolerance of medication, however interested in transitioning to Zepbound due to increased co-pay at pharmacy as well as history of ABBY. Does not use nightly CPAP however does use nightly oxygen. Advised that the medication does require prior authorization which can take 2 to 4 weeks. At this time continue Ozempic weekly, if Zepbound approved we will discontinue Ozempic and begin Zepbound. Patient understanding. She otherwise will follow-up in office in 4 weeks for further management. 12/05/2024: Weight 188 pounds, BMI 34.38. Seca scan completed today and interpreted with the patient. She is down 2 pounds from her last visit. On body analysis she is up 1 pound of muscle mass and has had a reduction of fat mass by about 4 pounds. Currently on Ozempic 2 mg weekly. Reports good tolerance of the medication. We discussed goals of diet and exercise as well as improving her hydration. Plan is to otherwise maintain current regimen and have her follow-up in office in approximately 8 weeks for further evaluation. # ABBY: Continue nightly oxygen, 2 L [...] of anti-inflammatory medications for acute pain. Advise [id number] Tylenol as needed. Patient also discussed a supplement today called [place] XL which she can begin using and to monitor effect on joint pain. All patient question answered at this time. # GERD: Stable at this time. Continue [...] continue to monitor. Please follow-up with cardiology. Patient reports that she is no longer on losartan per discretion of cardiology. Blood pressure is elevated today 144/86, however she reports regularly monitoring her blood pressure at home, typically within normal ranges. # Depression: Stable at this time. Reports good mood. Continue escitalopram 20 mg once daily. Discussed proper use of the medication and expected side effect profile occluding with a limited to dizziness, headache, GI upset, sexual dysfunction, weight gain, and increased depression. Will continue to monitor. # Prediabetes: Hemoglobin A1c 5.6%. Will continue to monitor and encourage lifestyle vacations. All questions have been answered to patient's satisfaction. Patient verbalized understanding of diagnosis and treatments explained. Advised to call sooner prior to next visit it any questions/concerns arise. Case discussed with collaborating physician Makeda Venegas who reviewed the assessment and plan. Chart, medications, labs, vital signs reviewed. Dictation was accomplished with the use of [employer]val voice recognition software, which is prone to medical misidentifications and grammatical errors. This are unintentional and the practitioner does try to identify and correct these, but some could still be present. Please do not hesitate to contact practitioner for clarification. All questions have been answered to patient's satisfaction. Patient verbalized understanding of diagnosis and treatments explained. Advised to call sooner prior to next visit it any questions/concerns arise. Case discussed with collaborating physician Makeda Venegas who reviewed the assessment and plan. Chart, medications, labs, vital signs reviewed. Dictation was accomplished with the use of [employer]val voice recognition software, which is prone to medical misidentifications and grammatical errors. This are unintentional and the practitioner does try to identify and correct these, but some could still be present. Please do not hesitate to contact practitioner for clarification. 10/31/2024 ABBY (obstructive sleep apnea) (ICD-10 - G47.33) Rena is a 69-year-old female with history of [...] of anti-inflammatory medications for acute pain. Advise [id number] Tylenol as needed. Patient has been practicing [...] Dictation was accomplished with the use of [employer]val voice recognition software, which is prone to medical misidentifications and grammatical errors. This are unintentional and the practitioner does try to identify and correct these, but some could still be present. Please do not hesitate to contact practitioner for clarification. 09/23/2024 ABBY (obstructive sleep apnea) (ICD-10 - G47.33) Patient is here for weight management follow-up. We focused on significance of healthy lifestyle changes. We talked about need to track steps with goal between 6000-10,000 steps daily, focus on portion control, read food labels, get adequate sleep between 7 to 8 hours, get adequate rest to the body, meditate, frequent nutritious meals including vegetables and healthy choices of lean meats, fish, and elimination of refined carbohydrates. We also talked about mindfulness and mindful eating. Particular focus was on continuing portion control, mindful eating, and exercise. Total time spent with 30 minutes with greater than 50% spent on counseling and coordinating care. 09/23/2024: Weight 190 pounds, BMI 44.75. Seca scan completed today and interpreted with patient. SECA scan demonstrating low muscle mass. Discussed importance of increasing physical activity particular resistance training 3 times weekly to build muscle. Patient understanding. Discussed risk of sarcopenia related to osteoporosis. Currently on Ozempic 2 mg once weekly. Good tolerance of medication, however interested in transitioning to Zepbound due to increased co-pay at pharmacy as well as history of ABBY. Does not use nightly CPAP however does use nightly oxygen. Advised that the medication does require prior authorization which can take 2 to 4 weeks. At this time continue Ozempic weekly, if Zepbound approved we will discontinue Ozempic and begin Zepbound. Patient understanding. She otherwise will follow-up in office in 4 weeks for further management. # ABBY: Continue nightly oxygen, 2 L [...] of anti-inflammatory medications for acute pain. Advise [id number] Tylenol as needed. Patient also discussed a supplement today called [place] XL which she can begin using and to monitor effect on joint pain. All patient question answered at this time. # GERD: Stable at this time. Continue [...] continue to monitor and encourage lifestyle vacations. All questions have been answered to patient's satisfaction. Patient verbalized understanding of diagnosis and treatments explained. Advised to call sooner prior to next visit it any questions/concerns arise. Case discussed with collaborating physician Makeda Venegas who reviewed the assessment and plan. Chart, medications, labs, vital signs reviewed. Dictation was accomplished with the use of Enval voice recognition software, which is prone to medical misidentifications and grammatical errors. This are unintentional and the practitioner does try to identify and correct these, but some could still be present. Please do not hesitate to contact practitioner for clarification. All questions have been answered to patient's satisfaction. Patient verbalized understanding of diagnosis and treatments explained. Advised to call sooner prior to next visit it any questions/concerns arise. Case discussed with collaborating physician Makeda Venegas who reviewed the assessment and plan. Chart, medications, labs, vital signs reviewed. Dictation was accomplished with the use of Enval voice recognition software, which is prone to medical misidentifications and grammatical errors. This are unintentional and the practitioner does try to identify and correct these, but some could still be present. Please do not hesitate to contact practitioner for clarification. 03/31/2024 BMI 35.0-35.9,adult (ICD-10 - Z68.35) #Weight Management 03/31/2024 Has done quite well on a weight management program Chronic conditions are otherwise stable Increase stressors in life and family, likely increased cortisol Continue Ozempic 2 mg Will see her back in the fall for Medicare visit with labs Total time spent today was 30 minutes of which greater than 50% was spent on coordinating and counseling Patient has been found to be obese with a BMI of (35). Patient has class (2) obesity. We are a board certified obesity and weight management practice Patient has trialed behavioral modification, dietary restrictions and exercise for a minimum of 6 months The most recent [place] [employer]ocrin[employer] and [place] [employer] guidelines recommend patients who have overweight BMI or obesity BMI, who also have metabolic syndrome, prediabetes, or at risk of developing type 2 diabetes should aim for a weight loss goal of at least 10% of the baseline body weight Patient counseled regarding effects of GLP/GIP-1 agonists, and other FDA approved wgt loss meds with regards to a multifactorial approach of weight loss as mentioned above and not solely appetite suppression. We have discussed the mechanism of GLP-1's/GIP, dual incretins, appetitite suppressants I think this would be fantastic option for her given her metabolic workup and body composition We have discussed the risks and benefits and side effects including/and not limited to Sarcopenia, intestinal obstruction, constipation, nausea, lethargy, headache Discussed importance of protein consumption for muscle maintenance as well as strength and resistance training ,probiotics, B12 complex biotin , iron and other nutrients, To help avoid telogen effluvium We have discussed the lifelong requirement of nutritional supplementation And adherence to an exercise regimen as well as importance of follow-up The patient understands and agrees There is no history of medullary thyroid cancer or multiple endocrine neoplasia There is also no history of cardiovascular disease, hypertension, palpitations, or arrhythmias In the setting of potential stimulant/amphetamin e use such as phentermine We have also discussed risks and benefits, and the use of compounded medications to help offset the national shortages as well as financial implications vs trade name drugs Patient was reassured and welcomed to the practice. We discussed that we stress a hollistic medical approach with emphasis on lifestyle modification. Patient was informed that a healthy lifestyle with exercise and good eating habits can help reduce his risk of medical complications. He is explained that obesity increases his risk of diabetes, cardiovascular disease, or organ damage. We spent a lot of time discussing the relationship between food, exercise, sleep, mental health and obesity. Patient was counseled on the importance EATING local, organic food when possible. Patient was educated on clean 15 and dirty dozen. I provided information about reading books called The Food Rules by Pedro Barrera and Eat Fat Get Lean by Dr Pedro Salazar. Self education is important in the journey for weight management. Patient was offered diagnostic testing. We want to measure visceral adiposity, advanced body composition, adverse lipids, fatty acid balance, risk for heart disease and atherosclerosis, markers of inflammation and genetic susceptibility. Patient was counseled on weight management and was advised to lose weight using A. Meal Replacement Products We discussed the lifelong requirement of nutritional supplementation and adherence to an exercise regimen as well as importance of dietary follow-up Patient was educated on the replacement products called optifast. This is a good way of taking fixed amount of calories. It has been shown in studies to be ineffective weight management tool. We also recommend maintaining adequate protein intake and muscle composition, 1.5mg/kg This however has to be coupled with lifestyle intervention as well as laboratory data and EKG monitoring. It is impossible to know how a person will tolerate complete meal replacement. The side effects of meal replacement and weight loss could include syncopal attacks, dizziness, gallstones, potential cholecystectomy, possible heart attack and even . The benefits of meal replacement would be potential weight loss but no guarantees can be made. Meal replacement products are not covered by insurance. Once the patient has bought these products we cannot return them B. Lifestyle management which includes several strategies as below 1. Eat a low carbohydrate good fat good protein diet. Eliminate refined carbohydrates from the diet. Continue blood sugar and sugared beverages. Eat local organic when possible. Cook your own meals. Read food labels. None about healthy snacks. Portion control and food with low glycemic index 2. Exercise regularly. Try to get at least 6000 steps a day. Use a predominant to track activity level. Consider using apps like [employer], myfitnesspal, lose it, stick as needed for self-monitoring and weight management. Consider group exercises. Consider hiring a fitness trainer. Regular exercise is riojas to sustainable health and prevents as a buffer against weight regain 3. Sleep is most important for healing. Tried to sleep at least 8 hours a night. A good quality sleep needs a sleep ritual with ideal room temperature of around 68. It might help to take a shower and have no electronics in the room and sleep in a very dark room without artificial light. Start her sleep routine and get up early in the morning and go to bed on time 4. Make a social connection. Surround yourself with positive people with positive energy. Connect with friends and family. 5. Get into the habit of meditating and mindfulness while doing everything. 6. Go outside and connect with nature. C. Prescription medications Patient was educated on the use of prescription medications for medical weight loss. This is a growing list and includes phentermine, Topamax,Qsymia, contrave, belviq and saxenda. All prescription medications could have side effects including but not limited to kidney stones, seizure disorder cardiac arrhythmias heart attack pancreatitis etc. etc.. Patient was encouraged to read the prescription insert and have coaching with their pharmacist and make an informed decision about taking medication and know that these medications are being prescribed with good intentions and we do not know how a patient would react to her medication. Sudden medications are FDA approved for weight loss and there is also off label use depending on patient's inability to afford medications in an attempt to lose weight D. Behavioral counseling was done to establish a relationship between food and an mood. Patient was provided information about local counseling and psychiatry and Dr Escobar at [facility]. We would like to cover regular topics and build on low glycemic eating exercise mindful eating, using yoga and meditation along with deep breathing and connecting with friends and family. E. MASS PAT reviewed, Patient's current medications were reviewed and opinion was given on medication that can cause weight gain and can be substituted F. Patient was assessed for risk with obesity including and not limiting to atherosclerosis heart disease stroke kidney disease, restrictive lung disease, irritable bowel syndrome and overall mortality. Risk of developing prediabetes diabetes and metabolic syndrome was discussed G. Therapeutic plan: We have decided to make therapeutic plan which would include choosing wisely on calories restricting portion getting active, tracking weight, getting good quality sleep and working on time management H. Patient will follow up in (4) weeks for weight management Of note, some information is being carried forward from prior records for informational purposes only and is being cited so that efficiency, safety and quality of the patient's care is not compromised This note was prepared using voice recognition software and direct typing Please excuse inadvertent junior architect or typing errors, or uncorrected word substitutions Although every attempt has been made by the provider to proofread this document, occasional misspellings and typographical errors may still be present Due to the previous pandemic, and the use of personal protective equipment (PPE) This may decrease voice recognition accuracy Inadvertent junior architect errors may occur 07/12/2024 Encounter for screening for other disorder (ICD-10 - Z13.89) Patient is here for a Medicare wellness visit. Complete paperwork was reviewed and updated and has been filed and scanned. Depression screen completed. Alcohol AUDIT SCREEN completed. Obesity screen completed. Cardiovascular risk stratification screen completed. # Hypertension: Blood pressure stable in office today 126/82. Continue losartan 50 mg once daily. Continue aspirin 81 mg once daily for cardiac protection. Discussed proper use of the medication and expected side effect profile including but not limited to fatigue, muscle aches, low blood pressure, and cough. Discussed red flag signs of hypertension clinic but not limited to headache, blurry vision, chest pain, difficulty breathing, abdominal pain, dizziness, or weakness. Will continue to monitor. # Joint pain: Patient has followed previously [...] of anti-inflammatory medications for acute pain. Advise [id number] Tylenol as needed. Patient also discussed a supplement today called [place] XL which she can begin using and to monitor effect on joint pain. All patient question answered at this time. # GERD: Stable at this time. Continue [...] increased depression. Will continue to monitor. # Obesity: Weight at this visit 189 pounds, BMI 34.56. Hemoglobin A1c obtained on 07/05/2024 and is 5.2%. Before then hemoglobin A1c obtained in July 2023 and was 5.6%. Continue Ozempic 2 mg once weekly subcutaneous injection. Discussed proper use of medication including rotating injection sites and expected side effect profile including but not limited to nausea, constipation, abdominal pain, and heartburn. She will follow-up in the office in August at her earliest convenience for weight management. All patient questions answered at this time. # Preventative medicine: Repeat bone mineral density scan ordered. Patient is up-to-date on most immunizations. She is due for RSV vaccine, given vaccine form to give to pharmacist. Cognition assessed and within reasonable limits Fall risk assessed. Discussed healthcare proxy. Discussed [place] order for life sustaining treatment, end-of-life issues, intubation and resuscitation dialysis artificial nutrition and hydration is appropriate. We discussed [place] order for life sustaining treatment and healthcare proxy. We discussed need for resuscitation, intubation, ventilation, need for dialysis, short-term versus long-term, nutrition, IV nutrition and hydration. Total time spent was 45 minutes with greater than 50% spent on counseling and coordinating care All questions have been answered to patient's satisfaction. Patient verbalized understanding of diagnosis and treatments explained. Advised to call sooner prior to next visit it any questions/concerns arise. Case discussed with collaborating physician Makeda Venegas who reviewed the assessment and plan. Chart, medications, labs, vital signs reviewed. Dictation was accomplished with the use of Enval voice recognition software, which is prone to medical misidentifications and grammatical errors. This are unintentional and the practitioner does try to identify and correct these, but some could still be present. Please do not hesitate to contact practitioner for clarification. 03/31/2024 Primary pulmonary hypertension (ICD-10 - I27.0) #Weight Management 03/31/2024 Has done quite well on a weight management program Chronic conditions are otherwise stable Increase stressors in life and family, likely increased cortisol Continue Ozempic 2 mg Will see her back in the fall for Medicare visit with labs Total time spent today was 30 minutes of which greater than 50% was spent on coordinating and counseling Patient has been found to be obese with a BMI of (35). Patient has class (2) obesity. We are a board certified obesity and weight management practice Patient has trialed behavioral modification, dietary restrictions and exercise for a minimum of 6 months The most recent [place] [employer] of clinical endocrinologists and [place] [employer] guidelines recommend patients who have overweight BMI or obesity BMI, who also have metabolic syndrome, prediabetes, or at risk of developing type 2 diabetes should aim for a weight loss goal of at least 10% of the baseline body weight Patient counseled regarding effects of GLP/GIP-1 agonists, and other FDA approved wgt loss meds with regards to a multifactorial approach of weight loss as mentioned above and not solely appetite suppression. We have discussed the mechanism of GLP-1's/GIP, dual incretins, appetitite suppressants I think this would be fantastic option for her given her metabolic workup and body composition We have discussed the risks and benefits and side effects including/and not limited to Sarcopenia, intestinal obstruction, constipation, nausea, lethargy, headache Discussed importance of protein consumption for muscle maintenance as well as strength and resistance training ,probiotics, B12 complex biotin , iron and other nutrients, To help avoid telogen effluvium We have discussed the lifelong requirement of nutritional supplementation And adherence to an exercise regimen as well as importance of follow-up The patient understands and agrees There is no history of medullary thyroid cancer or multiple endocrine neoplasia There is also no history of cardiovascular disease, hypertension, palpitations, or arrhythmias In the setting of potential stimulant/amphetamin e use such as phentermine We have also discussed risks and benefits, and the use of compounded medications to help offset the national shortages as well as financial implications vs trade name drugs Patient was reassured and welcomed to the practice. We discussed that we stress a hollistic medical approach with emphasis on lifestyle modification. Patient was informed that a healthy lifestyle with exercise and good eating habits can help reduce his risk of medical complications. He is explained that obesity increases his risk of diabetes, cardiovascular disease, or organ damage. We spent a lot of time discussing the relationship between food, exercise, sleep, mental health and obesity. Patient was counseled on the importance EATING local, organic food when possible. Patient was educated on clean 15 and dirty dozen. I provided information about reading books called The Food Rules by Pedro Barrera and Eat Fat Get Lean by Dr Pedro Salazar. Self education is important in the journey for weight management. Patient was offered diagnostic testing. We want to measure visceral adiposity, advanced body composition, adverse lipids, fatty acid balance, risk for heart disease and atherosclerosis, markers of inflammation and genetic susceptibility. Patient was counseled on weight management and was advised to lose weight using A. Meal Replacement Products We discussed the lifelong requirement of nutritional supplementation and adherence to an exercise regimen as well as importance of dietary follow-up Patient was educated on the replacement products called optifast. This is a good way of taking fixed amount of calories. It has been shown in studies to be ineffective weight management tool. We also recommend maintaining adequate protein intake and muscle composition, 1.5mg/kg This however has to be coupled with lifestyle intervention as well as laboratory data and EKG monitoring. It is impossible to know how a person will tolerate complete meal replacement. The side effects of meal replacement and weight loss could include syncopal attacks, dizziness, gallstones, potential cholecystectomy, possible heart attack and even . The benefits of meal replacement would be potential weight loss but no guarantees can be made. Meal replacement products are not covered by insurance. Once the patient has bought these products we cannot return them B. Lifestyle management which includes several strategies as below 1. Eat a low carbohydrate good fat good protein diet. Eliminate refined carbohydrates from the diet. Continue blood sugar and sugared beverages. Eat local organic when possible. Cook your own meals. Read food labels. None about healthy snacks. Portion control and food with low glycemic index 2. Exercise regularly. Try to get at least 6000 steps a day. Use a predominant to track activity level. Consider using apps like [employer], myUber.compal, lose it, stick as needed for self-monitoring and weight management. Consider group exercises. Consider hiring a fitness trainer. Regular exercise is riojas to sustainable health and prevents as a buffer against weight regain 3. Sleep is most important for healing. Tried to sleep at least 8 hours a night. A good quality sleep needs a sleep ritual with ideal room temperature of around 68. It might help to take a shower and have no electronics in the room and sleep in a very dark room without artificial light. Start her sleep routine and get up early in the morning and go to bed on time 4. Make a social connection. Surround yourself with positive people with positive energy. Connect with friends and family. 5. Get into the habit of meditating and mindfulness while doing everything. 6. Go outside and connect with nature. C. Prescription medications Patient was educated on the use of prescription medications for medical weight loss. This is a growing list and includes phentermine, Topamax,Qsymia, contrave, belviq and saxenda. All prescription medications could have side effects including but not limited to kidney stones, seizure disorder cardiac arrhythmias heart attack pancreatitis etc. etc.. Patient was encouraged to read the prescription insert and have coaching with their pharmacist and make an informed decision about taking medication and know that these medications are being prescribed with good intentions and we do not know how a patient would react to her medication. Sudden medications are FDA approved for weight loss and there is also off label use depending on patient's inability to afford medications in an attempt to lose weight D. Behavioral counseling was done to establish a relationship between food and an mood. Patient was provided information about local counseling and psychiatry and Dr Escobar at [facility]. We would like to cover regular topics and build on low glycemic eating exercise mindful eating, using yoga and meditation along with deep breathing and connecting with friends and family. E. MASS PAT reviewed, Patient's current medications were reviewed and opinion was given on medication that can cause weight gain and can be substituted F. Patient was assessed for risk with obesity including and not limiting to atherosclerosis heart disease stroke kidney disease, restrictive lung disease, irritable bowel syndrome and overall mortality. Risk of developing prediabetes diabetes and metabolic syndrome was discussed G. Therapeutic plan: We have decided to make therapeutic plan which would include choosing wisely on calories restricting portion getting active, tracking weight, getting good quality sleep and working on time management H. Patient will follow up in (4) weeks for weight management Of note, some information is being carried forward from prior records for informational purposes only and is being cited so that efficiency, safety and quality of the patient's care is not compromised This note was prepared using voice recognition software and direct typing Please excuse inadvertent junior architect or typing errors, or uncorrected word substitutions Although every attempt has been made by the provider to proofread this document, occasional misspellings and typographical errors may still be present Due to the previous pandemic, and the use of personal protective equipment (PPE) This may decrease voice recognition accuracy Inadvertent junior architect errors may occur 07/12/2024 BMI 34.0-34.9,adult (ICD-10 - Z68.34) Patient is here for a Medicare wellness visit. Complete paperwork was reviewed and updated and has been filed and scanned. Depression screen completed. Alcohol AUDIT SCREEN completed. Obesity screen completed. Cardiovascular risk stratification screen completed. # Hypertension: Blood pressure stable in office today 126/82. Continue losartan 50 mg once daily. Continue aspirin 81 mg once daily for cardiac protection. Discussed proper use of the medication and expected side effect profile including but not limited to fatigue, muscle aches, low blood pressure, and cough. Discussed red flag signs of hypertension clinic but not limited to headache, blurry vision, chest pain, difficulty breathing, abdominal pain, dizziness, or weakness. Will continue to monitor. # Joint pain: Patient has followed previously [...] of anti-inflammatory medications for acute pain. Advise [id number] Tylenol as needed. Patient also discussed a supplement today called [place] XL which she can begin using and to monitor effect on joint pain. All patient question answered at this time. # GERD: Stable at this time. Continue [...] increased depression. Will continue to monitor. # Obesity: Weight at this visit 189 pounds, BMI 34.56. Hemoglobin A1c obtained on 07/05/2024 and is 5.2%. Before then hemoglobin A1c obtained in July 2023 and was 5.6%. Continue Ozempic 2 mg once weekly subcutaneous injection. Discussed proper use of medication including rotating injection sites and expected side effect profile including but not limited to nausea, constipation, abdominal pain, and heartburn. She will follow-up in the office in August at her earliest convenience for weight management. All patient questions answered at this time. # Preventative medicine: Repeat bone mineral density scan ordered. Patient is up-to-date on most immunizations. She is due for RSV vaccine, given vaccine form to give to pharmacist. Cognition assessed and within reasonable limits Fall risk assessed. Discussed healthcare proxy. Discussed [place] order for life sustaining treatment, end-of-life issues, intubation and resuscitation dialysis artificial nutrition and hydration is appropriate. We discussed [place] order for life sustaining treatment and healthcare proxy. We discussed need for resuscitation, intubation, ventilation, need for dialysis, short-term versus long-term, nutrition, IV nutrition and hydration. Total time spent was 45 minutes with greater than 50% spent on counseling and coordinating care All questions have been answered to patient's satisfaction. Patient verbalized understanding of diagnosis and treatments explained. Advised to call sooner prior to next visit it any questions/concerns arise. Case discussed with collaborating physician Makeda Venegas who reviewed the assessment and plan. Chart, medications, labs, vital signs reviewed. Dictation was accomplished with the use of Enval voice recognition software, which is prone to medical misidentifications and grammatical errors. This are unintentional and the practitioner does try to identify and correct these, but some could still be present. Please do not hesitate to contact practitioner for clarification. 09/23/2024 Primary pulmonary hypertension (ICD-10 - I27.0) Patient is here for weight management follow-up. We focused on significance of healthy lifestyle changes. We talked about need to track steps with goal between 6000-10,000 steps daily, focus on portion control, read food labels, get adequate sleep between 7 to 8 hours, get adequate rest to the body, meditate, frequent nutritious meals including vegetables and healthy choices of lean meats, fish, and elimination of refined carbohydrates. We also talked about mindfulness and mindful eating. Particular focus was on continuing portion control, mindful eating, and exercise. Total time spent with 30 minutes with greater than 50% spent on counseling and coordinating care. 09/23/2024: Weight 190 pounds, BMI 44.75. Seca scan completed today and interpreted with patient. SECA scan demonstrating low muscle mass. Discussed importance of increasing physical activity particular resistance training 3 times weekly to build muscle. Patient understanding. Discussed risk of sarcopenia related to osteoporosis. Currently on Ozempic 2 mg once weekly. Good tolerance of medication, however interested in transitioning to Zepbound due to increased co-pay at pharmacy as well as history of ABBY. Does not use nightly CPAP however does use nightly oxygen. Advised that the medication does require prior authorization which can take 2 to 4 weeks. At this time continue Ozempic weekly, if Zepbound approved we will discontinue Ozempic and begin Zepbound. Patient understanding. She otherwise will follow-up in office in 4 weeks for further management. # ABBY: Continue nightly oxygen, 2 L [...] of anti-inflammatory medications for acute pain. Advise [id number] Tylenol as needed. Patient also discussed a supplement today called [place] XL which she can begin using and to monitor effect on joint pain. All patient question answered at this time. # GERD: Stable at this time. Continue [...] continue to monitor and encourage lifestyle vacations. All questions have been answered to patient's satisfaction. Patient verbalized understanding of diagnosis and treatments explained. Advised to call sooner prior to next visit it any questions/concerns arise. Case discussed with collaborating physician Makeda Venegas who reviewed the assessment and plan. Chart, medications, labs, vital signs reviewed. Dictation was accomplished with the use of Enval voice recognition software, which is prone to medical misidentifications and grammatical errors. This are unintentional and the practitioner does try to identify and correct these, but some could still be present. Please do not hesitate to contact practitioner for clarification. All questions have been answered to patient's satisfaction. Patient verbalized understanding of diagnosis and treatments explained. Advised to call sooner prior to next visit it any questions/concerns arise. Case discussed with collaborating physician Makeda Venegas who reviewed the assessment and plan. Chart, medications, labs, vital signs reviewed. Dictation was accomplished with the use of Enval voice recognition software, which is prone to medical misidentifications and grammatical errors. This are unintentional and the practitioner does try to identify and correct these, but some could still be present. Please do not hesitate to contact practitioner for clarification. 10/31/2024 GERD without esophagitis (ICD-10 - K21.9) Rena is a 69-year-old female with history of [...] of anti-inflammatory medications for acute pain. Advise [id number] Tylenol as needed. Patient has been practicing [...] Dictation was accomplished with the use of Enval voice recognition software, which is prone to medical misidentifications and grammatical errors. This are unintentional and the practitioner does try to identify and correct these, but some could still be present. Please do not hesitate to contact practitioner for clarification. 12/05/2024 ABBY (obstructive sleep apnea) (ICD-10 - G47.33) Patient is here for weight management follow-up. We focused on significance of healthy lifestyle changes. We talked about need to track steps with goal between 6000-10,000 steps daily, focus on portion control, read food labels, get adequate sleep between 7 to 8 hours, get adequate rest to the body, meditate, frequent nutritious meals including vegetables and healthy choices of lean meats, fish, and elimination of refined carbohydrates. We also talked about mindfulness and mindful eating. Particular focus was on continuing portion control, mindful eating, and exercise. Total time spent with 30 minutes with greater than 50% spent on counseling and coordinating care. 09/23/2024: Weight 190 pounds, BMI 44.75. Seca scan completed today and interpreted with patient. SECA scan demonstrating low muscle mass. Discussed importance of increasing physical activity particular resistance training 3 times weekly to build muscle. Patient understanding. Discussed risk of sarcopenia related to osteoporosis. Currently on Ozempic 2 mg once weekly. Good tolerance of medication, however interested in transitioning to Zepbound due to increased co-pay at pharmacy as well as history of ABBY. Does not use nightly CPAP however does use nightly oxygen. Advised that the medication does require prior authorization which can take 2 to 4 weeks. At this time continue Ozempic weekly, if Zepbound approved we will discontinue Ozempic and begin Zepbound. Patient understanding. She otherwise will follow-up in office in 4 weeks for further management. 12/05/2024: Weight 188 pounds, BMI 34.38. Seca scan completed today and interpreted with the patient. She is down 2 pounds from her last visit. On body analysis she is up 1 pound of muscle mass and has had a reduction of fat mass by about 4 pounds. Currently on Ozempic 2 mg weekly. Reports good tolerance of the medication. We discussed goals of diet and exercise as well as improving her hydration. Plan is to otherwise maintain current regimen and have her follow-up in office in approximately 8 weeks for further evaluation. # ABBY: Continue nightly oxygen, 2 L [...] of anti-inflammatory medications for acute pain. Advise [id number] Tylenol as needed. Patient also discussed a supplement today called [place] XL which she can begin using and to monitor effect on joint pain. All patient question answered at this time. # GERD: Stable at this time. Continue [...] continue to monitor. Please follow-up with cardiology. Patient reports that she is no longer on losartan per discretion of cardiology. Blood pressure is elevated today 144/86, however she reports regularly monitoring her blood pressure at home, typically within normal ranges. # Depression: Stable at this time. Reports good mood. Continue escitalopram 20 mg once daily. Discussed proper use of the medication and expected side effect profile occluding with a limited to dizziness, headache, GI upset, sexual dysfunction, weight gain, and increased depression. Will continue to monitor. # Prediabetes: Hemoglobin A1c 5.6%. Will continue to monitor and encourage lifestyle vacations. All questions have been answered to patient's satisfaction. Patient verbalized understanding of diagnosis and treatments explained. Advised to call sooner prior to next visit it any questions/concerns arise. Case discussed with collaborating physician Makeda Venegas who reviewed the assessment and plan. Chart, medications, labs, vital signs reviewed. Dictation was accomplished with the use of Enval voice recognition software, which is prone to medical misidentifications and grammatical errors. This are unintentional and the practitioner does try to identify and correct these, but some could still be present. Please do not hesitate to contact practitioner for clarification. All questions have been answered to patient's satisfaction. Patient verbalized understanding of diagnosis and treatments explained. Advised to call sooner prior to next visit it any questions/concerns arise. Case discussed with collaborating physician Makeda Venegas who reviewed the assessment and plan. Chart, medications, labs, vital signs reviewed. Dictation was accomplished with the use of Dragon voice recognition software, which is prone to medical misidentifications and grammatical errors. This are unintentional and the practitioner does try to identify and correct these, but some could still be present. Please do not hesitate to contact practitioner for clarification. 03/10/2024 Primary pulmonary hypertension (ICD-10 - I27.0) #Weight Management 03/10/2024 Has done quite well on a weight management program Patient reports increasing working out s/p shoulder athroscopy and participates in water aerobics for exercise She has set a new tagert weight goal Other chronic conditions are stable and she is doing quite well Will see her back in 6 weeks Total time spent today was 30 minutes of which greater than 50% was spent on coordinating and counseling Patient has been found to be obese with a BMI of (35). Patient has class (2) obesity. We are a board certified obesity and weight management practice Patient has trialed behavioral modification, dietary restrictions and exercise for a minimum of 6 months The most recent [place] [employer]ocrinologists and [place] [employer] guidelines recommend patients who have overweight BMI or obesity BMI, who also have metabolic syndrome, prediabetes, or at risk of developing type 2 diabetes should aim for a weight loss goal of at least 10% of the baseline body weight Patient counseled regarding effects of GLP/GIP-1 agonists, and other FDA approved wgt loss meds with regards to a multifactorial approach of weight loss as mentioned above and not solely appetite suppression. We have discussed the mechanism of GLP-1's/GIP, dual incretins, appetitite suppressants I think this would be fantastic option for her given her metabolic workup and body composition We have discussed the risks and benefits and side effects including/and not limited to Sarcopenia, intestinal obstruction, constipation, nausea, lethargy, headache Discussed importance of protein consumption for muscle maintenance as well as strength and resistance training ,probiotics, B12 complex biotin , iron and other nutrients, To help avoid telogen effluvium We have discussed the lifelong requirement of nutritional supplementation And adherence to an exercise regimen as well as importance of follow-up The patient understands and agrees There is no history of medullary thyroid cancer or multiple endocrine neoplasia There is also no history of cardiovascular disease, hypertension, palpitations, or arrhythmias In the setting of potential stimulant/amphetamin e use such as phentermine We have also discussed risks and benefits, and the use of compounded medications to help offset the national shortages as well as financial implications vs trade name drugs Patient was reassured and welcomed to the practice. We discussed that we stress a hollistic medical approach with emphasis on lifestyle modification. Patient was informed that a healthy lifestyle with exercise and good eating habits can help reduce his risk of medical complications. He is explained that obesity increases his risk of diabetes, cardiovascular disease, or organ damage. We spent a lot of time discussing the relationship between food, exercise, sleep, mental health and obesity. Patient was counseled on the importance EATING local, organic food when possible. Patient was educated on clean 15 and dirty dozen. I provided information about reading books called The Food Rules by Pedro Barrera and Eat Fat Get Lean by Dr Pedro Salazar. Self education is important in the journey for weight management. Patient was offered diagnostic testing. We want to measure visceral adiposity, advanced body composition, adverse lipids, fatty acid balance, risk for heart disease and atherosclerosis, markers of inflammation and genetic susceptibility. Patient was counseled on weight management and was advised to lose weight using A. Meal Replacement Products We discussed the lifelong requirement of nutritional supplementation and adherence to an exercise regimen as well as importance of dietary follow-up Patient was educated on the replacement products called optifast. This is a good way of taking fixed amount of calories. It has been shown in studies to be ineffective weight management tool. We also recommend maintaining adequate protein intake and muscle composition, 1.5mg/kg This however has to be coupled with lifestyle intervention as well as laboratory data and EKG monitoring. It is impossible to know how a person will tolerate complete meal replacement. The side effects of meal replacement and weight loss could include syncopal attacks, dizziness, gallstones, potential cholecystectomy, possible heart attack and even . The benefits of meal replacement would be potential weight loss but no guarantees can be made. Meal replacement products are not covered by insurance. Once the patient has bought these products we cannot return them B. Lifestyle management which includes several strategies as below 1. Eat a low carbohydrate good fat good protein diet. Eliminate refined carbohydrates from the diet. Continue blood sugar and sugared beverages. Eat local organic when possible. Cook your own meals. Read food labels. None about healthy snacks. Portion control and food with low glycemic index 2. Exercise regularly. Try to get at least 6000 steps a day. Use a predominant to track activity level. Consider using apps like [employer], FreshReal[employer], lose it, stick as needed for self-monitoring and weight management. Consider group exercises. Consider hiring a fitness trainer. Regular exercise is riojas to sustainable health and prevents as a buffer against weight regain 3. Sleep is most important for healing. Tried to sleep at least 8 hours a night. A good quality sleep needs a sleep ritual with ideal room temperature of around 68. It might help to take a shower and have no electronics in the room and sleep in a very dark room without artificial light. Start her sleep routine and get up early in the morning and go to bed on time 4. Make a social connection. Surround yourself with positive people with positive energy. Connect with friends and family. 5. Get into the habit of meditating and mindfulness while doing everything. 6. Go outside and connect with nature. C. Prescription medications Patient was educated on the use of prescription medications for medical weight loss. This is a growing list and includes phentermine, Topamax,Qsymia, contrave, belviq and saxenda. All prescription medications could have side effects including but not limited to kidney stones, seizure disorder cardiac arrhythmias heart attack pancreatitis etc. etc.. Patient was encouraged to read the prescription insert and have coaching with their pharmacist and make an informed decision about taking medication and know that these medications are being prescribed with good intentions and we do not know how a patient would react to her medication. Sudden medications are FDA approved for weight loss and there is also off label use depending on patient's inability to afford medications in an attempt to lose weight D. Behavioral counseling was done to establish a relationship between food and an mood. Patient was provided information about local counseling and psychiatry and Dr Escobar at [facility]. We would like to cover regular topics and build on low glycemic eating exercise mindful eating, using yoga and meditation along with deep breathing and connecting with friends and family. E. MASS PAT reviewed, Patient's current medications were reviewed and opinion was given on medication that can cause weight gain and can be substituted F. Patient was assessed for risk with obesity including and not limiting to atherosclerosis heart disease stroke kidney disease, restrictive lung disease, irritable bowel syndrome and overall mortality. Risk of developing prediabetes diabetes and metabolic syndrome was discussed G. Therapeutic plan: We have decided to make therapeutic plan which would include choosing wisely on calories restricting portion getting active, tracking weight, getting good quality sleep and working on time management H. Patient will follow up in (4) weeks for weight management Of note, some information is being carried forward from prior records for informational purposes only and is being cited so that efficiency, safety and quality of the patient's care is not compromised This note was prepared using voice recognition software and direct typing Please excuse inadvertent junior architect or typing errors, or uncorrected word substitutions Although every attempt has been made by the provider to proofread this document, occasional misspellings and typographical errors may still be present Due to the previous pandemic, and the use of personal protective equipment (PPE) This may decrease voice recognition accuracy Inadvertent junior architect errors may occur 03/10/2024 Shortness of breath (ICD-10 - R06.02) #Weight Management 03/10/2024 Has done quite well on a weight management program Patient reports increasing working out s/p shoulder athroscopy and participates in water aerobics for exercise She has set a new tagert weight goal Other chronic conditions are stable and she is doing quite well Will see her back in 6 weeks Total time spent today was 30 minutes of which greater than 50% was spent on coordinating and counseling Patient has been found to be obese with a BMI of (35). Patient has class (2) obesity. We are a board certified obesity and weight management practice Patient has trialed behavioral modification, dietary restrictions and exercise for a minimum of 6 months The most recent [place] [employer]ocrinologists and [place] [employer] guidelines recommend patients who have overweight BMI or obesity BMI, who also have metabolic syndrome, prediabetes, or at risk of developing type 2 diabetes should aim for a weight loss goal of at least 10% of the baseline body weight Patient counseled regarding effects of GLP/GIP-1 agonists, and other FDA approved wgt loss meds with regards to a multifactorial approach of weight loss as mentioned above and not solely appetite suppression. We have discussed the mechanism of GLP-1's/GIP, dual incretins, appetitite suppressants I think this would be fantastic option for her given her metabolic workup and body composition We have discussed the risks and benefits and side effects including/and not limited to Sarcopenia, intestinal obstruction, constipation, nausea, lethargy, headache Discussed importance of protein consumption for muscle maintenance as well as strength and resistance training ,probiotics, B12 complex biotin , iron and other nutrients, To help avoid telogen effluvium We have discussed the lifelong requirement of nutritional supplementation And adherence to an exercise regimen as well as importance of follow-up The patient understands and agrees There is no history of medullary thyroid cancer or multiple endocrine neoplasia There is also no history of cardiovascular disease, hypertension, palpitations, or arrhythmias In the setting of potential stimulant/amphetamin e use such as phentermine We have also discussed risks and benefits, and the use of compounded medications to help offset the national shortages as well as financial implications vs trade name drugs Patient was reassured and welcomed to the practice. We discussed that we stress a hollistic medical approach with emphasis on lifestyle modification. Patient was informed that a healthy lifestyle with exercise and good eating habits can help reduce his risk of medical complications. He is explained that obesity increases his risk of diabetes, cardiovascular disease, or organ damage. We spent a lot of time discussing the relationship between food, exercise, sleep, mental health and obesity. Patient was counseled on the importance EATING local, organic food when possible. Patient was educated on clean 15 and dirty dozen. I provided information about reading books called The Food Rules by Pedro Barrera and Eat Fat Get Lean by Dr Pedro Salazar. Self education is important in the journey for weight management. Patient was offered diagnostic testing. We want to measure visceral adiposity, advanced body composition, adverse lipids, fatty acid balance, risk for heart disease and atherosclerosis, markers of inflammation and genetic susceptibility. Patient was counseled on weight management and was advised to lose weight using A. Meal Replacement Products We discussed the lifelong requirement of nutritional supplementation and adherence to an exercise regimen as well as importance of dietary follow-up Patient was educated on the replacement products called optifast. This is a good way of taking fixed amount of calories. It has been shown in studies to be ineffective weight management tool. We also recommend maintaining adequate protein intake and muscle composition, 1.5mg/kg This however has to be coupled with lifestyle intervention as well as laboratory data and EKG monitoring. It is impossible to know how a person will tolerate complete meal replacement. The side effects of meal replacement and weight loss could include syncopal attacks, dizziness, gallstones, potential cholecystectomy, possible heart attack and even . The benefits of meal replacement would be potential weight loss but no guarantees can be made. Meal replacement products are not covered by insurance. Once the patient has bought these products we cannot return them B. Lifestyle management which includes several strategies as below 1. Eat a low carbohydrate good fat good protein diet. Eliminate refined carbohydrates from the diet. Continue blood sugar and sugared beverages. Eat local organic when possible. Cook your own meals. Read food labels. None about healthy snacks. Portion control and food with low glycemic index 2. Exercise regularly. Try to get at least 6000 steps a day. Use a predominant to track activity level. Consider using apps like [employer], [employer], lose it, stick as needed for self-monitoring and weight management. Consider group exercises. Consider hiring a fitness trainer. Regular exercise is riojas to sustainable health and prevents as a buffer against weight regain 3. Sleep is most important for healing. Tried to sleep at least 8 hours a night. A good quality sleep needs a sleep ritual with ideal room temperature of around 68. It might help to take a shower and have no electronics in the room and sleep in a very dark room without artificial light. Start her sleep routine and get up early in the morning and go to bed on time 4. Make a social connection. Surround yourself with positive people with positive energy. Connect with friends and family. 5. Get into the habit of meditating and mindfulness while doing everything. 6. Go outside and connect with nature. C. Prescription medications Patient was educated on the use of prescription medications for medical weight loss. This is a growing list and includes phentermine, Topamax,Qsymia, contrave, belviq and saxenda. All prescription medications could have side effects including but not limited to kidney stones, seizure disorder cardiac arrhythmias heart attack pancreatitis etc. etc.. Patient was encouraged to read the prescription insert and have coaching with their pharmacist and make an informed decision about taking medication and know that these medications are being prescribed with good intentions and we do not know how a patient would react to her medication. Sudden medications are FDA approved for weight loss and there is also off label use depending on patient's inability to afford medications in an attempt to lose weight D. Behavioral counseling was done to establish a relationship between food and an mood. Patient was provided information about local counseling and psychiatry and Dr Escobar at [facility]. We would like to cover regular topics and build on low glycemic eating exercise mindful eating, using yoga and meditation along with deep breathing and connecting with friends and family. E. MASS PAT reviewed, Patient's current medications were reviewed and opinion was given on medication that can cause weight gain and can be substituted F. Patient was assessed for risk with obesity including and not limiting to atherosclerosis heart disease stroke kidney disease, restrictive lung disease, irritable bowel syndrome and overall mortality. Risk of developing prediabetes diabetes and metabolic syndrome was discussed G. Therapeutic plan: We have decided to make therapeutic plan which would include choosing wisely on calories restricting portion getting active, tracking weight, getting good quality sleep and working on time management H. Patient will follow up in (4) weeks for weight management Of note, some information is being carried forward from prior records for informational purposes only and is being cited so that efficiency, safety and quality of the patient's care is not compromised This note was prepared using voice recognition software and direct typing Please excuse inadvertent junior architect or typing errors, or uncorrected word substitutions Although every attempt has been made by the provider to proofread this document, occasional misspellings and typographical errors may still be present Due to the previous pandemic, and the use of personal protective equipment (PPE) This may decrease voice recognition accuracy Inadvertent junior architect errors may occur 10/31/2024 Primary osteoarthritis involving multiple joints (ICD-10 - M15.0) Rena is a 69-year-old female with history of [...] of anti-inflammatory medications for acute pain. Advise [id number] Tylenol as needed. Patient has been practicing [...] Dictation was accomplished with the use of Enval voice recognition software, which is prone to medical misidentifications and grammatical errors. This are unintentional and the practitioner does try to identify and correct these, but some could still be present. Please do not hesitate to contact practitioner for clarification. 12/05/2024 Primary pulmonary hypertension (ICD-10 - I27.0) Patient is here for weight management follow-up. We focused on significance of healthy lifestyle changes. We talked about need to track steps with goal between 6000-10,000 steps daily, focus on portion control, read food labels, get adequate sleep between 7 to 8 hours, get adequate rest to the body, meditate, frequent nutritious meals including vegetables and healthy choices of lean meats, fish, and elimination of refined carbohydrates. We also talked about mindfulness and mindful eating. Particular focus was on continuing portion control, mindful eating, and exercise. Total time spent with 30 minutes with greater than 50% spent on counseling and coordinating care. 09/23/2024: Weight 190 pounds, BMI 44.75. Seca scan completed today and interpreted with patient. SECA scan demonstrating low muscle mass. Discussed importance of increasing physical activity particular resistance training 3 times weekly to build muscle. Patient understanding. Discussed risk of sarcopenia related to osteoporosis. Currently on Ozempic 2 mg once weekly. Good tolerance of medication, however interested in transitioning to Zepbound due to increased co-pay at pharmacy as well as history of ABBY. Does not use nightly CPAP however does use nightly oxygen. Advised that the medication does require prior authorization which can take 2 to 4 weeks. At this time continue Ozempic weekly, if Zepbound approved we will discontinue Ozempic and begin Zepbound. Patient understanding. She otherwise will follow-up in office in 4 weeks for further management. 12/05/2024: Weight 188 pounds, BMI 34.38. Seca scan completed today and interpreted with the patient. She is down 2 pounds from her last visit. On body analysis she is up 1 pound of muscle mass and has had a reduction of fat mass by about 4 pounds. Currently on Ozempic 2 mg weekly. Reports good tolerance of the medication. We discussed goals of diet and exercise as well as improving her hydration. Plan is to otherwise maintain current regimen and have her follow-up in office in approximately 8 weeks for further evaluation. # ABBY: Continue nightly oxygen, 2 L [...] of anti-inflammatory medications for acute pain. Advise [id number] Tylenol as needed. Patient also discussed a supplement today called [place] XL which she can begin using and to monitor effect on joint pain. All patient question answered at this time. # GERD: Stable at this time. Continue [...] continue to monitor. Please follow-up with cardiology. Patient reports that she is no longer on losartan per discretion of cardiology. Blood pressure is elevated today 144/86, however she reports regularly monitoring her blood pressure at home, typically within normal ranges. # Depression: Stable at this time. Reports good mood. Continue escitalopram 20 mg once daily. Discussed proper use of the medication and expected side effect profile occluding with a limited to dizziness, headache, GI upset, sexual dysfunction, weight gain, and increased depression. Will continue to monitor. # Prediabetes: Hemoglobin A1c 5.6%. Will continue to monitor and encourage lifestyle vacations. All questions have been answered to patient's satisfaction. Patient verbalized understanding of diagnosis and treatments explained. Advised to call sooner prior to next visit it any questions/concerns arise. Case discussed with collaborating physician Makeda Venegas who reviewed the assessment and plan. Chart, medications, labs, vital signs reviewed. Dictation was accomplished with the use of Enval voice recognition software, which is prone to medical misidentifications and grammatical errors. This are unintentional and the practitioner does try to identify and correct these, but some could still be present. Please do not hesitate to contact practitioner for clarification. All questions have been answered to patient's satisfaction. Patient verbalized understanding of diagnosis and treatments explained. Advised to call sooner prior to next visit it any questions/concerns arise. Case discussed with collaborating physician Makeda Venegas who reviewed the assessment and plan. Chart, medications, labs, vital signs reviewed. Dictation was accomplished with the use of Enval voice recognition software, which is prone to medical misidentifications and grammatical errors. This are unintentional and the practitioner does try to identify and correct these, but some could still be present. Please do not hesitate to contact practitioner for clarification. 09/23/2024 Generalized joint pain (ICD-10 - M25.50) Patient is here for weight management follow-up. We focused on significance of healthy lifestyle changes. We talked about need to track steps with goal between 6000-10,000 steps daily, focus on portion control, read food labels, get adequate sleep between 7 to 8 hours, get adequate rest to the body, meditate, frequent nutritious meals including vegetables and healthy choices of lean meats, fish, and elimination of refined carbohydrates. We also talked about mindfulness and mindful eating. Particular focus was on continuing portion control, mindful eating, and exercise. Total time spent with 30 minutes with greater than 50% spent on counseling and coordinating care. 09/23/2024: Weight 190 pounds, BMI 44.75. Seca scan completed today and interpreted with patient. SECA scan demonstrating low muscle mass. Discussed importance of increasing physical activity particular resistance training 3 times weekly to build muscle. Patient understanding. Discussed risk of sarcopenia related to osteoporosis. Currently on Ozempic 2 mg once weekly. Good tolerance of medication, however interested in transitioning to Zepbound due to increased co-pay at pharmacy as well as history of ABBY. Does not use nightly CPAP however does use nightly oxygen. Advised that the medication does require prior authorization which can take 2 to 4 weeks. At this time continue Ozempic weekly, if Zepbound approved we will discontinue Ozempic and begin Zepbound. Patient understanding. She otherwise will follow-up in office in 4 weeks for further management. # ABBY: Continue nightly oxygen, 2 L [...] of anti-inflammatory medications for acute pain. Advise [id number] Tylenol as needed. Patient also discussed a supplement today called [place] XL which she can begin using and to monitor effect on joint pain. All patient question answered at this time. # GERD: Stable at this time. Continue [...] continue to monitor and encourage lifestyle vacations. All questions have been answered to patient's satisfaction. Patient verbalized understanding of diagnosis and treatments explained. Advised to call sooner prior to next visit it any questions/concerns arise. Case discussed with collaborating physician Makeda Venegas who reviewed the assessment and plan. Chart, medications, labs, vital signs reviewed. Dictation was accomplished with the use of Dragon voice recognition software, which is prone to medical misidentifications and grammatical errors. This are unintentional and the practitioner does try to identify and correct these, but some could still be present. Please do not hesitate to contact practitioner for clarification. All questions have been answered to patient's satisfaction. Patient verbalized understanding of diagnosis and treatments explained. Advised to call sooner prior to next visit it any questions/concerns arise. Case discussed with collaborating physician Makeda Venegas who reviewed the assessment and plan. Chart, medications, labs, vital signs reviewed. Dictation was accomplished with the use of Enval voice recognition software, which is prone to medical misidentifications and grammatical errors. This are unintentional and the practitioner does try to identify and correct these, but some could still be present. Please do not hesitate to contact practitioner for clarification. 03/31/2024 Shortness of breath (ICD-10 - R06.02) #Weight Management 03/31/2024 Has done quite well on a weight management program Chronic conditions are otherwise stable Increase stressors in life and family, likely increased cortisol Continue Ozempic 2 mg Will see her back in the fall for Medicare visit with labs Total time spent today was 30 minutes of which greater than 50% was spent on coordinating and counseling Patient has been found to be obese with a BMI of (35). Patient has class (2) obesity. We are a board certified obesity and weight management practice Patient has trialed behavioral modification, dietary restrictions and exercise for a minimum of 6 months The most recent [place] [employer] of clinical endocrinologists and [place] [employer] guidelines recommend patients who have overweight BMI or obesity BMI, who also have metabolic syndrome, prediabetes, or at risk of developing type 2 diabetes should aim for a weight loss goal of at least 10% of the baseline body weight Patient counseled regarding effects of GLP/GIP-1 agonists, and other FDA approved wgt loss meds with regards to a multifactorial approach of weight loss as mentioned above and not solely appetite suppression. We have discussed the mechanism of GLP-1's/GIP, dual incretins, appetitite suppressants I think this would be fantastic option for her given her metabolic workup and body composition We have discussed the risks and benefits and side effects including/and not limited to Sarcopenia, intestinal obstruction, constipation, nausea, lethargy, headache Discussed importance of protein consumption for muscle maintenance as well as strength and resistance training ,probiotics, B12 complex biotin , iron and other nutrients, To help avoid telogen effluvium We have discussed the lifelong requirement of nutritional supplementation And adherence to an exercise regimen as well as importance of follow-up The patient understands and agrees There is no history of medullary thyroid cancer or multiple endocrine neoplasia There is also no history of cardiovascular disease, hypertension, palpitations, or arrhythmias In the setting of potential stimulant/amphetamin e use such as phentermine We have also discussed risks and benefits, and the use of compounded medications to help offset the national shortages as well as financial implications vs trade name drugs Patient was reassured and welcomed to the practice. We discussed that we stress a hollistic medical approach with emphasis on lifestyle modification. Patient was informed that a healthy lifestyle with exercise and good eating habits can help reduce his risk of medical complications. He is explained that obesity increases his risk of diabetes, cardiovascular disease, or organ damage. We spent a lot of time discussing the relationship between food, exercise, sleep, mental health and obesity. Patient was counseled on the importance EATING local, organic food when possible. Patient was educated on clean 15 and dirty dozen. I provided information about reading books called The Food Rules by Pedro Barrera and Eat Fat Get Lean by Dr Pedro Salazar. Self education is important in the journey for weight management. Patient was offered diagnostic testing. We want to measure visceral adiposity, advanced body composition, adverse lipids, fatty acid balance, risk for heart disease and atherosclerosis, markers of inflammation and genetic susceptibility. Patient was counseled on weight management and was advised to lose weight using A. Meal Replacement Products We discussed the lifelong requirement of nutritional supplementation and adherence to an exercise regimen as well as importance of dietary follow-up Patient was educated on the replacement products called optifast. This is a good way of taking fixed amount of calories. It has been shown in studies to be ineffective weight management tool. We also recommend maintaining adequate protein intake and muscle composition, 1.5mg/kg This however has to be coupled with lifestyle intervention as well as laboratory data and EKG monitoring. It is impossible to know how a person will tolerate complete meal replacement. The side effects of meal replacement and weight loss could include syncopal attacks, dizziness, gallstones, potential cholecystectomy, possible heart attack and even . The benefits of meal replacement would be potential weight loss but no guarantees can be made. Meal replacement products are not covered by insurance. Once the patient has bought these products we cannot return them B. Lifestyle management which includes several strategies as below 1. Eat a low carbohydrate good fat good protein diet. Eliminate refined carbohydrates from the diet. Continue blood sugar and sugared beverages. Eat local organic when possible. Cook your own meals. Read food labels. None about healthy snacks. Portion control and food with low glycemic index 2. Exercise regularly. Try to get at least 6000 steps a day. Use a predominant to track activity level. Consider using apps like [employer], FreshReal[employer], lose it, stick as needed for self-monitoring and weight management. Consider group exercises. Consider hiring a fitness trainer. Regular exercise is riojas to sustainable health and prevents as a buffer against weight regain 3. Sleep is most important for healing. Tried to sleep at least 8 hours a night. A good quality sleep needs a sleep ritual with ideal room temperature of around 68. It might help to take a shower and have no electronics in the room and sleep in a very dark room without artificial light. Start her sleep routine and get up early in the morning and go to bed on time 4. Make a social connection. Surround yourself with positive people with positive energy. Connect with friends and family. 5. Get into the habit of meditating and mindfulness while doing everything. 6. Go outside and connect with nature. C. Prescription medications Patient was educated on the use of prescription medications for medical weight loss. This is a growing list and includes phentermine, Topamax,Qsymia, contrave, belviq and saxenda. All prescription medications could have side effects including but not limited to kidney stones, seizure disorder cardiac arrhythmias heart attack pancreatitis etc. etc.. Patient was encouraged to read the prescription insert and have coaching with their pharmacist and make an informed decision about taking medication and know that these medications are being prescribed with good intentions and we do not know how a patient would react to her medication. Sudden medications are FDA approved for weight loss and there is also off label use depending on patient's inability to afford medications in an attempt to lose weight D. Behavioral counseling was done to establish a relationship between food and an mood. Patient was provided information about local counseling and psychiatry and Dr Escobar at [facility]. We would like to cover regular topics and build on low glycemic eating exercise mindful eating, using yoga and meditation along with deep breathing and connecting with friends and family. E. MASS PAT reviewed, Patient's current medications were reviewed and opinion was given on medication that can cause weight gain and can be substituted F. Patient was assessed for risk with obesity including and not limiting to atherosclerosis heart disease stroke kidney disease, restrictive lung disease, irritable bowel syndrome and overall mortality. Risk of developing prediabetes diabetes and metabolic syndrome was discussed G. Therapeutic plan: We have decided to make therapeutic plan which would include choosing wisely on calories restricting portion getting active, tracking weight, getting good quality sleep and working on time management H. Patient will follow up in (4) weeks for weight management Of note, some information is being carried forward from prior records for informational purposes only and is being cited so that efficiency, safety and quality of the patient's care is not compromised This note was prepared using voice recognition software and direct typing Please excuse inadvertent junior architect or typing errors, or uncorrected word substitutions Although every attempt has been made by the provider to proofread this document, occasional misspellings and typographical errors may still be present Due to the previous pandemic, and the use of personal protective equipment (PPE) This may decrease voice recognition accuracy Inadvertent junior architect errors may occur 07/12/2024 Adult-onset obesity (ICD-10 - E66.9) Patient is here for a Medicare wellness visit. Complete paperwork was reviewed and updated and has been filed and scanned. Depression screen completed. Alcohol AUDIT SCREEN completed. Obesity screen completed. Cardiovascular risk stratification screen completed. # Hypertension: Blood pressure stable in office today 126/82. Continue losartan 50 mg once daily. Continue aspirin 81 mg once daily for cardiac protection. Discussed proper use of the medication and expected side effect profile including but not limited to fatigue, muscle aches, low blood pressure, and cough. Discussed red flag signs of hypertension clinic but not limited to headache, blurry vision, chest pain, difficulty breathing, abdominal pain, dizziness, or weakness. Will continue to monitor. # Joint pain: Patient has followed previously [...] of anti-inflammatory medications for acute pain. Advise [id number] Tylenol as needed. Patient also discussed a supplement today called [place] XL which she can begin using and to monitor effect on joint pain. All patient question answered at this time. # GERD: Stable at this time. Continue [...] increased depression. Will continue to monitor. # Obesity: Weight at this visit 189 pounds, BMI 34.56. Hemoglobin A1c obtained on 07/05/2024 and is 5.2%. Before then hemoglobin A1c obtained in July 2023 and was 5.6%. Continue Ozempic 2 mg once weekly subcutaneous injection. Discussed proper use of medication including rotating injection sites and expected side effect profile including but not limited to nausea, constipation, abdominal pain, and heartburn. She will follow-up in the office in August at her earliest convenience for weight management. All patient questions answered at this time. # Preventative medicine: Repeat bone mineral density scan ordered. Patient is up-to-date on most immunizations. She is due for RSV vaccine, given vaccine form to give to pharmacist. Cognition assessed and within reasonable limits Fall risk assessed. Discussed healthcare proxy. Discussed [place] order for life sustaining treatment, end-of-life issues, intubation and resuscitation dialysis artificial nutrition and hydration is appropriate. We discussed [place] order for life sustaining treatment and healthcare proxy. We discussed need for resuscitation, intubation, ventilation, need for dialysis, short-term versus long-term, nutrition, IV nutrition and hydration. Total time spent was 45 minutes with greater than 50% spent on counseling and coordinating care All questions have been answered to patient's satisfaction. Patient verbalized understanding of diagnosis and treatments explained. Advised to call sooner prior to next visit it any questions/concerns arise. Case discussed with collaborating physician Makeda Venegas who reviewed the assessment and plan. Chart, medications, labs, vital signs reviewed. Dictation was accomplished with the use of Enval voice recognition software, which is prone to medical misidentifications and grammatical errors. This are unintentional and the practitioner does try to identify and correct these, but some could still be present. Please do not hesitate to contact practitioner for clarification. 07/12/2024 Advance care planning (ICD-10 - Z71.89) Patient is here for a Medicare wellness visit. Complete paperwork was reviewed and updated and has been filed and scanned. Depression screen completed. Alcohol AUDIT SCREEN completed. Obesity screen completed. Cardiovascular risk stratification screen completed. # Hypertension: Blood pressure stable in office today 126/82. Continue losartan 50 mg once daily. Continue aspirin 81 mg once daily for cardiac protection. Discussed proper use of the medication and expected side effect profile including but not limited to fatigue, muscle aches, low blood pressure, and cough. Discussed red flag signs of hypertension clinic but not limited to headache, blurry vision, chest pain, difficulty breathing, abdominal pain, dizziness, or weakness. Will continue to monitor. # Joint pain: Patient has followed previously [...] of anti-inflammatory medications for acute pain. Advise [id number] Tylenol as needed. Patient also discussed a supplement today called [place] XL which she can begin using and to monitor effect on joint pain. All patient question answered at this time. # GERD: Stable at this time. Continue [...] increased depression. Will continue to monitor. # Obesity: Weight at this visit 189 pounds, BMI 34.56. Hemoglobin A1c obtained on 07/05/2024 and is 5.2%. Before then hemoglobin A1c obtained in July 2023 and was 5.6%. Continue Ozempic 2 mg once weekly subcutaneous injection. Discussed proper use of medication including rotating injection sites and expected side effect profile including but not limited to nausea, constipation, abdominal pain, and heartburn. She will follow-up in the office in August at her earliest convenience for weight management. All patient questions answered at this time. # Preventative medicine: Repeat bone mineral density scan ordered. Patient is up-to-date on most immunizations. She is due for RSV vaccine, given vaccine form to give to pharmacist. Cognition assessed and within reasonable limits Fall risk assessed. Discussed healthcare proxy. Discussed [place] order for life sustaining treatment, end-of-life issues, intubation and resuscitation dialysis artificial nutrition and hydration is appropriate. We discussed [place] order for life sustaining treatment and healthcare proxy. We discussed need for resuscitation, intubation, ventilation, need for dialysis, short-term versus long-term, nutrition, IV nutrition and hydration. Total time spent was 45 minutes with greater than 50% spent on counseling and coordinating care All questions have been answered to patient's satisfaction. Patient verbalized understanding of diagnosis and treatments explained. Advised to call sooner prior to next visit it any questions/concerns arise. Case discussed with collaborating physician Makeda Venegas who reviewed the assessment and plan. Chart, medications, labs, vital signs reviewed. Dictation was accomplished with the use of Enval voice recognition software, which is prone to medical misidentifications and grammatical errors. This are unintentional and the practitioner does try to identify and correct these, but some could still be present. Please do not hesitate to contact practitioner for clarification. 03/31/2024 Prediabetes (ICD-10 - R73.03) #Weight Management 03/31/2024 Has done quite well on a weight management program Chronic conditions are otherwise stable Increase stressors in life and family, likely increased cortisol Continue Ozempic 2 mg Will see her back in the fall for Medicare visit with labs Total time spent today was 30 minutes of which greater than 50% was spent on coordinating and counseling Patient has been found to be obese with a BMI of (35). Patient has class (2) obesity. We are a board certified obesity and weight management practice Patient has trialed behavioral modification, dietary restrictions and exercise for a minimum of 6 months The most recent [place] [employer] clinical endocrinologists and [place] [employer] guidelines recommend patients who have overweight BMI or obesity BMI, who also have metabolic syndrome, prediabetes, or at risk of developing type 2 diabetes should aim for a weight loss goal of at least 10% of the baseline body weight Patient counseled regarding effects of GLP/GIP-1 agonists, and other FDA approved wgt loss meds with regards to a multifactorial approach of weight loss as mentioned above and not solely appetite suppression. We have discussed the mechanism of GLP-1's/GIP, dual incretins, appetitite suppressants I think this would be fantastic option for her given her metabolic workup and body composition We have discussed the risks and benefits and side effects including/and not limited to Sarcopenia, intestinal obstruction, constipation, nausea, lethargy, headache Discussed importance of protein consumption for muscle maintenance as well as strength and resistance training ,probiotics, B12 complex biotin , iron and other nutrients, To help avoid telogen effluvium We have discussed the lifelong requirement of nutritional supplementation And adherence to an exercise regimen as well as importance of follow-up The patient understands and agrees There is no history of medullary thyroid cancer or multiple endocrine neoplasia There is also no history of cardiovascular disease, hypertension, palpitations, or arrhythmias In the setting of potential stimulant/amphetamin e use such as phentermine We have also discussed risks and benefits, and the use of compounded medications to help offset the national shortages as well as financial implications vs trade name drugs Patient was reassured and welcomed to the practice. We discussed that we stress a hollistic medical approach with emphasis on lifestyle modification. Patient was informed that a healthy lifestyle with exercise and good eating habits can help reduce his risk of medical complications. He is explained that obesity increases his risk of diabetes, cardiovascular disease, or organ damage. We spent a lot of time discussing the relationship between food, exercise, sleep, mental health and obesity. Patient was counseled on the importance EATING local, organic food when possible. Patient was educated on clean 15 and dirty dozen. I provided information about reading books called The Food Rules by Pedro Barrera and Eat Fat Get Lean by Dr Pedro Salazar. Self education is important in the journey for weight management. Patient was offered diagnostic testing. We want to measure visceral adiposity, advanced body composition, adverse lipids, fatty acid balance, risk for heart disease and atherosclerosis, markers of inflammation and genetic susceptibility. Patient was counseled on weight management and was advised to lose weight using A. Meal Replacement Products We discussed the lifelong requirement of nutritional supplementation and adherence to an exercise regimen as well as importance of dietary follow-up Patient was educated on the replacement products called optifast. This is a good way of taking fixed amount of calories. It has been shown in studies to be ineffective weight management tool. We also recommend maintaining adequate protein intake and muscle composition, 1.5mg/kg This however has to be coupled with lifestyle intervention as well as laboratory data and EKG monitoring. It is impossible to know how a person will tolerate complete meal replacement. The side effects of meal replacement and weight loss could include syncopal attacks, dizziness, gallstones, potential cholecystectomy, possible heart attack and even . The benefits of meal replacement would be potential weight loss but no guarantees can be made. Meal replacement products are not covered by insurance. Once the patient has bought these products we cannot return them B. Lifestyle management which includes several strategies as below 1. Eat a low carbohydrate good fat good protein diet. Eliminate refined carbohydrates from the diet. Continue blood sugar and sugared beverages. Eat local organic when possible. Cook your own meals. Read food labels. None about healthy snacks. Portion control and food with low glycemic index 2. Exercise regularly. Try to get at least 6000 steps a day. Use a predominant to track activity level. Consider using apps like [employer], [employer]Real[employer], lose it, stick as needed for self-monitoring and weight management. Consider group exercises. Consider hiring a fitness trainer. Regular exercise is riojas to sustainable health and prevents as a buffer against weight regain 3. Sleep is most important for healing. Tried to sleep at least 8 hours a night. A good quality sleep needs a sleep ritual with ideal room temperature of around 68. It might help to take a shower and have no electronics in the room and sleep in a very dark room without artificial light. Start her sleep routine and get up early in the morning and go to bed on time 4. Make a social connection. Surround yourself with positive people with positive energy. Connect with friends and family. 5. Get into the habit of meditating and mindfulness while doing everything. 6. Go outside and connect with nature. C. Prescription medications Patient was educated on the use of prescription medications for medical weight loss. This is a growing list and includes phentermine, Topamax,Qsymia, contrave, belviq and saxenda. All prescription medications could have side effects including but not limited to kidney stones, seizure disorder cardiac arrhythmias heart attack pancreatitis etc. etc.. Patient was encouraged to read the prescription insert and have coaching with their pharmacist and make an informed decision about taking medication and know that these medications are being prescribed with good intentions and we do not know how a patient would react to her medication. Sudden medications are FDA approved for weight loss and there is also off label use depending on patient's inability to afford medications in an attempt to lose weight D. Behavioral counseling was done to establish a relationship between food and an mood. Patient was provided information about local counseling and psychiatry and Dr Escobar at [facility]. We would like to cover regular topics and build on low glycemic eating exercise mindful eating, using yoga and meditation along with deep breathing and connecting with friends and family. E. MASS PAT reviewed, Patient's current medications were reviewed and opinion was given on medication that can cause weight gain and can be substituted F. Patient was assessed for risk with obesity including and not limiting to atherosclerosis heart disease stroke kidney disease, restrictive lung disease, irritable bowel syndrome and overall mortality. Risk of developing prediabetes diabetes and metabolic syndrome was discussed G. Therapeutic plan: We have decided to make therapeutic plan which would include choosing wisely on calories restricting portion getting active, tracking weight, getting good quality sleep and working on time management H. Patient will follow up in (4) weeks for weight management Of note, some information is being carried forward from prior records for informational purposes only and is being cited so that efficiency, safety and quality of the patient's care is not compromised This note was prepared using voice recognition software and direct typing Please excuse inadvertent junior architect or typing errors, or uncorrected word substitutions Although every attempt has been made by the provider to proofread this document, occasional misspellings and typographical errors may still be present Due to the previous pandemic, and the use of personal protective equipment (PPE) This may decrease voice recognition accuracy Inadvertent junior architect errors may occur 09/23/2024 GERD without esophagitis (ICD-10 - K21.9) Patient is here for weight management follow-up. We focused on significance of healthy lifestyle changes. We talked about need to track steps with goal between 6000-10,000 steps daily, focus on portion control, read food labels, get adequate sleep between 7 to 8 hours, get adequate rest to the body, meditate, frequent nutritious meals including vegetables and healthy choices of lean meats, fish, and elimination of refined carbohydrates. We also talked about mindfulness and mindful eating. Particular focus was on continuing portion control, mindful eating, and exercise. Total time spent with 30 minutes with greater than 50% spent on counseling and coordinating care. 09/23/2024: Weight 190 pounds, BMI 44.75. Seca scan completed today and interpreted with patient. SECA scan demonstrating low muscle mass. Discussed importance of increasing physical activity particular resistance training 3 times weekly to build muscle. Patient understanding. Discussed risk of sarcopenia related to osteoporosis. Currently on Ozempic 2 mg once weekly. Good tolerance of medication, however interested in transitioning to Zepbound due to increased co-pay at pharmacy as well as history of ABBY. Does not use nightly CPAP however does use nightly oxygen. Advised that the medication does require prior authorization which can take 2 to 4 weeks. At this time continue Ozempic weekly, if Zepbound approved we will discontinue Ozempic and begin Zepbound. Patient understanding. She otherwise will follow-up in office in 4 weeks for further management. # ABBY: Continue nightly oxygen, 2 L [...] of anti-inflammatory medications for acute pain. Advise [id number] Tylenol as needed. Patient also discussed a supplement today called [place] XL which she can begin using and to monitor effect on joint pain. All patient question answered at this time. # GERD: Stable at this time. Continue [...] continue to monitor and encourage lifestyle vacations. All questions have been answered to patient's satisfaction. Patient verbalized understanding of diagnosis and treatments explained. Advised to call sooner prior to next visit it any questions/concerns arise. Case discussed with collaborating physician Makeda Venegas who reviewed the assessment and plan. Chart, medications, labs, vital signs reviewed. Dictation was accomplished with the use of [employer] voice recognition software, which is prone to medical misidentifications and grammatical errors. This are unintentional and the practitioner does try to identify and correct these, but some could still be present. Please do not hesitate to contact practitioner for clarification. All questions have been answered to patient's satisfaction. Patient verbalized understanding of diagnosis and treatments explained. Advised to call sooner prior to next visit it any questions/concerns arise. Case discussed with collaborating physician Makeda Venegas who reviewed the assessment and plan. Chart, medications, labs, vital signs reviewed. Dictation was accomplished with the use of [employer] voice recognition software, which is prone to medical misidentifications and grammatical errors. This are unintentional and the practitioner does try to identify and correct these, but some could still be present. Please do not hesitate to contact practitioner for clarification. 10/31/2024 Mixed hyperlipidemia (ICD-10 - E78.2) Rean is a 69-year-old female with history of [...] of anti-inflammatory medications for acute pain. Advise [id number] Tylenol as needed. Patient has been practicing [...] Dictation was accomplished with the use of [employer] voice recognition software, which is prone to medical misidentifications and grammatical errors. This are unintentional and the practitioner does try to identify and correct these, but some could still be present. Please do not hesitate to contact practitioner for clarification. 12/05/2024 Generalized joint pain (ICD-10 - M25.50) Patient is here for weight management follow-up. We focused on significance of healthy lifestyle changes. We talked about need to track steps with goal between 6000-10,000 steps daily, focus on portion control, read food labels, get adequate sleep between 7 to 8 hours, get adequate rest to the body, meditate, frequent nutritious meals including vegetables and healthy choices of lean meats, fish, and elimination of refined carbohydrates. We also talked about mindfulness and mindful eating. Particular focus was on continuing portion control, mindful eating, and exercise. Total time spent with 30 minutes with greater than 50% spent on counseling and coordinating care. 09/23/2024: Weight 190 pounds, BMI 44.75. Seca scan completed today and interpreted with patient. SECA scan demonstrating low muscle mass. Discussed importance of increasing physical activity particular resistance training 3 times weekly to build muscle. Patient understanding. Discussed risk of sarcopenia related to osteoporosis. Currently on Ozempic 2 mg once weekly. Good tolerance of medication, however interested in transitioning to Zepbound due to increased co-pay at pharmacy as well as history of ABBY. Does not use nightly CPAP however does use nightly oxygen. Advised that the medication does require prior authorization which can take 2 to 4 weeks. At this time continue Ozempic weekly, if Zepbound approved we will discontinue Ozempic and begin Zepbound. Patient understanding. She otherwise will follow-up in office in 4 weeks for further management. 12/05/2024: Weight 188 pounds, BMI 34.38. Seca scan completed today and interpreted with the patient. She is down 2 pounds from her last visit. On body analysis she is up 1 pound of muscle mass and has had a reduction of fat mass by about 4 pounds. Currently on Ozempic 2 mg weekly. Reports good tolerance of the medication. We discussed goals of diet and exercise as well as improving her hydration. Plan is to otherwise maintain current regimen and have her follow-up in office in approximately 8 weeks for further evaluation. # ABBY: Continue nightly oxygen, 2 L [...] of anti-inflammatory medications for acute pain. Advise ooiu-yif-puhdndd Tylenol as needed. Patient also discussed a supplement today called [place] XL which she can begin using and to monitor effect on joint pain. All patient question answered at this time. # GERD: Stable at this time. Continue [...] continue to monitor. Please follow-up with cardiology. Patient reports that she is no longer on losartan per discretion of cardiology. Blood pressure is elevated today 144/86, however she reports regularly monitoring her blood pressure at home, typically within normal ranges. # Depression: Stable at this time. Reports good mood. Continue escitalopram 20 mg once daily. Discussed proper use of the medication and expected side effect profile occluding with a limited to dizziness, headache, GI upset, sexual dysfunction, weight gain, and increased depression. Will continue to monitor. # Prediabetes: Hemoglobin A1c 5.6%. Will continue to monitor and encourage lifestyle vacations. All questions have been answered to patient's satisfaction. Patient verbalized understanding of diagnosis and treatments explained. Advised to call sooner prior to next visit it any questions/concerns arise. Case discussed with collaborating physician Makeda Venegas who reviewed the assessment and plan. Chart, medications, labs, vital signs reviewed. Dictation was accomplished with the use of Enval voice recognition software, which is prone to medical misidentifications and grammatical errors. This are unintentional and the practitioner does try to identify and correct these, but some could still be present. Please do not hesitate to contact practitioner for clarification. All questions have been answered to patient's satisfaction. Patient verbalized understanding of diagnosis and treatments explained. Advised to call sooner prior to next visit it any questions/concerns arise. Case discussed with collaborating physician Makeda Venegas who reviewed the assessment and plan. Chart, medications, labs, vital signs reviewed. Dictation was accomplished with the use of Enval voice recognition software, which is prone to medical misidentifications and grammatical errors. This are unintentional and the practitioner does try to identify and correct these, but some could still be present. Please do not hesitate to contact practitioner for clarification. 03/10/2024 Prediabetes (ICD-10 - R73.03) #Weight Management 03/10/2024 Has done quite well on a weight management program Patient reports increasing working out s/p shoulder athroscopy and participates in water aerobics for exercise She has set a new tagert weight goal Other chronic conditions are stable and she is doing quite well Will see her back in 6 weeks Total time spent today was 30 minutes of which greater than 50% was spent on coordinating and counseling Patient has been found to be obese with a BMI of (35). Patient has class (2) obesity. We are a board certified obesity and weight management practice Patient has trialed behavioral modification, dietary restrictions and exercise for a minimum of 6 months The most recent [place] [employer]ocrinologists and [place] [employer] guidelines recommend patients who have overweight BMI or obesity BMI, who also have metabolic syndrome, prediabetes, or at risk of developing type 2 diabetes should aim for a weight loss goal of at least 10% of the baseline body weight Patient counseled regarding effects of GLP/GIP-1 agonists, and other FDA approved wgt loss meds with regards to a multifactorial approach of weight loss as mentioned above and not solely appetite suppression. We have discussed the mechanism of GLP-1's/GIP, dual incretins, appetitite suppressants I think this would be fantastic option for her given her metabolic workup and body composition We have discussed the risks and benefits and side effects including/and not limited to Sarcopenia, intestinal obstruction, constipation, nausea, lethargy, headache Discussed importance of protein consumption for muscle maintenance as well as strength and resistance training ,probiotics, B12 complex biotin , iron and other nutrients, To help avoid telogen effluvium We have discussed the lifelong requirement of nutritional supplementation And adherence to an exercise regimen as well as importance of follow-up The patient understands and agrees There is no history of medullary thyroid cancer or multiple endocrine neoplasia There is also no history of cardiovascular disease, hypertension, palpitations, or arrhythmias In the setting of potential stimulant/amphetamin e use such as phentermine We have also discussed risks and benefits, and the use of compounded medications to help offset the national shortages as well as financial implications vs trade name drugs Patient was reassured and welcomed to the practice. We discussed that we stress a hollistic medical approach with emphasis on lifestyle modification. Patient was informed that a healthy lifestyle with exercise and good eating habits can help reduce his risk of medical complications. He is explained that obesity increases his risk of diabetes, cardiovascular disease, or organ damage. We spent a lot of time discussing the relationship between food, exercise, sleep, mental health and obesity. Patient was counseled on the importance EATING local, organic food when possible. Patient was educated on clean 15 and dirty dozen. I provided information about reading books called The Food Rules by Pedro Barrera and Eat Fat Get Lean by Dr Pedro Salazar. Self education is important in the journey for weight management. Patient was offered diagnostic testing. We want to measure visceral adiposity, advanced body composition, adverse lipids, fatty acid balance, risk for heart disease and atherosclerosis, markers of inflammation and genetic susceptibility. Patient was counseled on weight management and was advised to lose weight using A. Meal Replacement Products We discussed the lifelong requirement of nutritional supplementation and adherence to an exercise regimen as well as importance of dietary follow-up Patient was educated on the replacement products called optifast. This is a good way of taking fixed amount of calories. It has been shown in studies to be ineffective weight management tool. We also recommend maintaining adequate protein intake and muscle composition, 1.5mg/kg This however has to be coupled with lifestyle intervention as well as laboratory data and EKG monitoring. It is impossible to know how a person will tolerate complete meal replacement. The side effects of meal replacement and weight loss could include syncopal attacks, dizziness, gallstones, potential cholecystectomy, possible heart attack and even . The benefits of meal replacement would be potential weight loss but no guarantees can be made. Meal replacement products are not covered by insurance. Once the patient has bought these products we cannot return them B. Lifestyle management which includes several strategies as below 1. Eat a low carbohydrate good fat good protein diet. Eliminate refined carbohydrates from the diet. Continue blood sugar and sugared beverages. Eat local organic when possible. Cook your own meals. Read food labels. None about healthy snacks. Portion control and food with low glycemic index 2. Exercise regularly. Try to get at least 6000 steps a day. Use a predominant to track activity level. Consider using apps like [employer], [employer], lose it, stick as needed for self-monitoring and weight management. Consider group exercises. Consider hiring a fitness trainer. Regular exercise is riojas to sustainable health and prevents as a buffer against weight regain 3. Sleep is most important for healing. Tried to sleep at least 8 hours a night. A good quality sleep needs a sleep ritual with ideal room temperature of around 68. It might help to take a shower and have no electronics in the room and sleep in a very dark room without artificial light. Start her sleep routine and get up early in the morning and go to bed on time 4. Make a social connection. Surround yourself with positive people with positive energy. Connect with friends and family. 5. Get into the habit of meditating and mindfulness while doing everything. 6. Go outside and connect with nature. C. Prescription medications Patient was educated on the use of prescription medications for medical weight loss. This is a growing list and includes phentermine, Topamax,Qsymia, contrave, belviq and saxenda. All prescription medications could have side effects including but not limited to kidney stones, seizure disorder cardiac arrhythmias heart attack pancreatitis etc. etc.. Patient was encouraged to read the prescription insert and have coaching with their pharmacist and make an informed decision about taking medication and know that these medications are being prescribed with good intentions and we do not know how a patient would react to her medication. Sudden medications are FDA approved for weight loss and there is also off label use depending on patient's inability to afford medications in an attempt to lose weight D. Behavioral counseling was done to establish a relationship between food and an mood. Patient was provided information about local counseling and psychiatry and Dr Escobar at [facility]. We would like to cover regular topics and build on low glycemic eating exercise mindful eating, using yoga and meditation along with deep breathing and connecting with friends and family. E. MASS PAT reviewed, Patient's current medications were reviewed and opinion was given on medication that can cause weight gain and can be substituted F. Patient was assessed for risk with obesity including and not limiting to atherosclerosis heart disease stroke kidney disease, restrictive lung disease, irritable bowel syndrome and overall mortality. Risk of developing prediabetes diabetes and metabolic syndrome was discussed G. Therapeutic plan: We have decided to make therapeutic plan which would include choosing wisely on calories restricting portion getting active, tracking weight, getting good quality sleep and working on time management H. Patient will follow up in (4) weeks for weight management Of note, some information is being carried forward from prior records for informational purposes only and is being cited so that efficiency, safety and quality of the patient's care is not compromised This note was prepared using voice recognition software and direct typing Please excuse inadvertent junior architect or typing errors, or uncorrected word substitutions Although every attempt has been made by the provider to proofread this document, occasional misspellings and typographical errors may still be present Due to the previous pandemic, and the use of personal protective equipment (PPE) This may decrease voice recognition accuracy Inadvertent junior architect errors may occur 03/10/2024 Hyperlipidemia, unspecified (ICD-10 - E78.5) #Weight Management 03/10/2024 Has done quite well on a weight management program Patient reports increasing working out s/p shoulder athroscopy and participates in water aerobics for exercise She has set a new tagert weight goal Other chronic conditions are stable and she is doing quite well Will see her back in 6 weeks Total time spent today was 30 minutes of which greater than 50% was spent on coordinating and counseling Patient has been found to be obese with a BMI of (35). Patient has class (2) obesity. We are a board certified obesity and weight management practice Patient has trialed behavioral modification, dietary restrictions and exercise for a minimum of 6 months The most recent [place] [employer]ocrinologists and [place] [employer] guidelines recommend patients who have overweight BMI or obesity BMI, who also have metabolic syndrome, prediabetes, or at risk of developing type 2 diabetes should aim for a weight loss goal of at least 10% of the baseline body weight Patient counseled regarding effects of GLP/GIP-1 agonists, and other FDA approved wgt loss meds with regards to a multifactorial approach of weight loss as mentioned above and not solely appetite suppression. We have discussed the mechanism of GLP-1's/GIP, dual incretins, appetitite suppressants I think this would be fantastic option for her given her metabolic workup and body composition We have discussed the risks and benefits and side effects including/and not limited to Sarcopenia, intestinal obstruction, constipation, nausea, lethargy, headache Discussed importance of protein consumption for muscle maintenance as well as strength and resistance training ,probiotics, B12 complex biotin , iron and other nutrients, To help avoid telogen effluvium We have discussed the lifelong requirement of nutritional supplementation And adherence to an exercise regimen as well as importance of follow-up The patient understands and agrees There is no history of medullary thyroid cancer or multiple endocrine neoplasia There is also no history of cardiovascular disease, hypertension, palpitations, or arrhythmias In the setting of potential stimulant/amphetamin e use such as phentermine We have also discussed risks and benefits, and the use of compounded medications to help offset the national shortages as well as financial implications vs trade name drugs Patient was reassured and welcomed to the practice. We discussed that we stress a hollistic medical approach with emphasis on lifestyle modification. Patient was informed that a healthy lifestyle with exercise and good eating habits can help reduce his risk of medical complications. He is explained that obesity increases his risk of diabetes, cardiovascular disease, or organ damage. We spent a lot of time discussing the relationship between food, exercise, sleep, mental health and obesity. Patient was counseled on the importance EATING local, organic food when possible. Patient was educated on clean 15 and dirty dozen. I provided information about reading books called The Food Rules by Pedro Barrera and Eat Fat Get Lean by Dr Pedro Salazar. Self education is important in the journey for weight management. Patient was offered diagnostic testing. We want to measure visceral adiposity, advanced body composition, adverse lipids, fatty acid balance, risk for heart disease and atherosclerosis, markers of inflammation and genetic susceptibility. Patient was counseled on weight management and was advised to lose weight using A. Meal Replacement Products We discussed the lifelong requirement of nutritional supplementation and adherence to an exercise regimen as well as importance of dietary follow-up Patient was educated on the replacement products called optifast. This is a good way of taking fixed amount of calories. It has been shown in studies to be ineffective weight management tool. We also recommend maintaining adequate protein intake and muscle composition, 1.5mg/kg This however has to be coupled with lifestyle intervention as well as laboratory data and EKG monitoring. It is impossible to know how a person will tolerate complete meal replacement. The side effects of meal replacement and weight loss could include syncopal attacks, dizziness, gallstones, potential cholecystectomy, possible heart attack and even . The benefits of meal replacement would be potential weight loss but no guarantees can be made. Meal replacement products are not covered by insurance. Once the patient has bought these products we cannot return them B. Lifestyle management which includes several strategies as below 1. Eat a low carbohydrate good fat good protein diet. Eliminate refined carbohydrates from the diet. Continue blood sugar and sugared beverages. Eat local organic when possible. Cook your own meals. Read food labels. None about healthy snacks. Portion control and food with low glycemic index 2. Exercise regularly. Try to get at least 6000 steps a day. Use a predominant to track activity level. Consider using apps like [employer], [employer], lose it, stick as needed for self-monitoring and weight management. Consider group exercises. Consider hiring a fitness trainer. Regular exercise is riojas to sustainable health and prevents as a buffer against weight regain 3. Sleep is most important for healing. Tried to sleep at least 8 hours a night. A good quality sleep needs a sleep ritual with ideal room temperature of around 68. It might help to take a shower and have no electronics in the room and sleep in a very dark room without artificial light. Start her sleep routine and get up early in the morning and go to bed on time 4. Make a social connection. Surround yourself with positive people with positive energy. Connect with friends and family. 5. Get into the habit of meditating and mindfulness while doing everything. 6. Go outside and connect with nature. C. Prescription medications Patient was educated on the use of prescription medications for medical weight loss. This is a growing list and includes phentermine, Topamax,Qsymia, contrave, belviq and saxenda. All prescription medications could have side effects including but not limited to kidney stones, seizure disorder cardiac arrhythmias heart attack pancreatitis etc. etc.. Patient was encouraged to read the prescription insert and have coaching with their pharmacist and make an informed decision about taking medication and know that these medications are being prescribed with good intentions and we do not know how a patient would react to her medication. Sudden medications are FDA approved for weight loss and there is also off label use depending on patient's inability to afford medications in an attempt to lose weight D. Behavioral counseling was done to establish a relationship between food and an mood. Patient was provided information about local counseling and psychiatry and Dr Escobar at [facility]. We would like to cover regular topics and build on low glycemic eating exercise mindful eating, using yoga and meditation along with deep breathing and connecting with friends and family. E. MASS PAT reviewed, Patient's current medications were reviewed and opinion was given on medication that can cause weight gain and can be substituted F. Patient was assessed for risk with obesity including and not limiting to atherosclerosis heart disease stroke kidney disease, restrictive lung disease, irritable bowel syndrome and overall mortality. Risk of developing prediabetes diabetes and metabolic syndrome was discussed G. Therapeutic plan: We have decided to make therapeutic plan which would include choosing wisely on calories restricting portion getting active, tracking weight, getting good quality sleep and working on time management H. Patient will follow up in (4) weeks for weight management Of note, some information is being carried forward from prior records for informational purposes only and is being cited so that efficiency, safety and quality of the patient's care is not compromised This note was prepared using voice recognition software and direct typing Please excuse inadvertent junior architect or typing errors, or uncorrected word substitutions Although every attempt has been made by the provider to proofread this document, occasional misspellings and typographical errors may still be present Due to the previous pandemic, and the use of personal protective equipment (PPE) This may decrease voice recognition accuracy Inadvertent junior architect errors may occur 12/05/2024 GERD without esophagitis (ICD-10 - K21.9) Patient is here for weight management follow-up. We focused on significance of healthy lifestyle changes. We talked about need to track steps with goal between 6000-10,000 steps daily, focus on portion control, read food labels, get adequate sleep between 7 to 8 hours, get adequate rest to the body, meditate, frequent nutritious meals including vegetables and healthy choices of lean meats, fish, and elimination of refined carbohydrates. We also talked about mindfulness and mindful eating. Particular focus was on continuing portion control, mindful eating, and exercise. Total time spent with 30 minutes with greater than 50% spent on counseling and coordinating care. 09/23/2024: Weight 190 pounds, BMI 44.75. Seca scan completed today and interpreted with patient. SECA scan demonstrating low muscle mass. Discussed importance of increasing physical activity particular resistance training 3 times weekly to build muscle. Patient understanding. Discussed risk of sarcopenia related to osteoporosis. Currently on Ozempic 2 mg once weekly. Good tolerance of medication, however interested in transitioning to Zepbound due to increased co-pay at pharmacy as well as history of ABBY. Does not use nightly CPAP however does use nightly oxygen. Advised that the medication does require prior authorization which can take 2 to 4 weeks. At this time continue Ozempic weekly, if Zepbound approved we will discontinue Ozempic and begin Zepbound. Patient understanding. She otherwise will follow-up in office in 4 weeks for further management. 12/05/2024: Weight 188 pounds, BMI 34.38. Seca scan completed today and interpreted with the patient. She is down 2 pounds from her last visit. On body analysis she is up 1 pound of muscle mass and has had a reduction of fat mass by about 4 pounds. Currently on Ozempic 2 mg weekly. Reports good tolerance of the medication. We discussed goals of diet and exercise as well as improving her hydration. Plan is to otherwise maintain current regimen and have her follow-up in office in approximately 8 weeks for further evaluation. # ABBY: Continue nightly oxygen, 2 L [...] of anti-inflammatory medications for acute pain. Advise [id number] Tylenol as needed. Patient also discussed a supplement today called [place] XL which she can begin using and to monitor effect on joint pain. All patient question answered at this time. # GERD: Stable at this time. Continue [...] continue to monitor. Please follow-up with cardiology. Patient reports that she is no longer on losartan per discretion of cardiology. Blood pressure is elevated today 144/86, however she reports regularly monitoring her blood pressure at home, typically within normal ranges. # Depression: Stable at this time. Reports good mood. Continue escitalopram 20 mg once daily. Discussed proper use of the medication and expected side effect profile occluding with a limited to dizziness, headache, GI upset, sexual dysfunction, weight gain, and increased depression. Will continue to monitor. # Prediabetes: Hemoglobin A1c 5.6%. Will continue to monitor and encourage lifestyle vacations. All questions have been answered to patient's satisfaction. Patient verbalized understanding of diagnosis and treatments explained. Advised to call sooner prior to next visit it any questions/concerns arise. Case discussed with collaborating physician Makeda Venegas who reviewed the assessment and plan. Chart, medications, labs, vital signs reviewed. Dictation was accomplished with the use of Enval voice recognition software, which is prone to medical misidentifications and grammatical errors. This are unintentional and the practitioner does try to identify and correct these, but some could still be present. Please do not hesitate to contact practitioner for clarification. All questions have been answered to patient's satisfaction. Patient verbalized understanding of diagnosis and treatments explained. Advised to call sooner prior to next visit it any questions/concerns arise. Case discussed with collaborating physician Makeda Venegas who reviewed the assessment and plan. Chart, medications, labs, vital signs reviewed. Dictation was accomplished with the use of Enval voice recognition software, which is prone to medical misidentifications and grammatical errors. This are unintentional and the practitioner does try to identify and correct these, but some could still be present. Please do not hesitate to contact practitioner for clarification. 10/31/2024 Seasonal allergies (ICD-10 - J30.2) Rena is a 69-year-old female with history of [...] of anti-inflammatory medications for acute pain. Advise [id number] Tylenol as needed. Patient has been practicing [...] Dictation was accomplished with the use of Enval voice recognition software, which is prone to medical misidentifications and grammatical errors. This are unintentional and the practitioner does try to identify and correct these, but some could still be present. Please do not hesitate to contact practitioner for clarification. 09/23/2024 Seasonal allergies (ICD-10 - J30.2) Patient is here for weight management follow-up. We focused on significance of healthy lifestyle changes. We talked about need to track steps with goal between 6000-10,000 steps daily, focus on portion control, read food labels, get adequate sleep between 7 to 8 hours, get adequate rest to the body, meditate, frequent nutritious meals including vegetables and healthy choices of lean meats, fish, and elimination of refined carbohydrates. We also talked about mindfulness and mindful eating. Particular focus was on continuing portion control, mindful eating, and exercise. Total time spent with 30 minutes with greater than 50% spent on counseling and coordinating care. 09/23/2024: Weight 190 pounds, BMI 44.75. Seca scan completed today and interpreted with patient. SECA scan demonstrating low muscle mass. Discussed importance of increasing physical activity particular resistance training 3 times weekly to build muscle. Patient understanding. Discussed risk of sarcopenia related to osteoporosis. Currently on Ozempic 2 mg once weekly. Good tolerance of medication, however interested in transitioning to Zepbound due to increased co-pay at pharmacy as well as history of ABBY. Does not use nightly CPAP however does use nightly oxygen. Advised that the medication does require prior authorization which can take 2 to 4 weeks. At this time continue Ozempic weekly, if Zepbound approved we will discontinue Ozempic and begin Zepbound. Patient understanding. She otherwise will follow-up in office in 4 weeks for further management. # ABBY: Continue nightly oxygen, 2 L [...] of anti-inflammatory medications for acute pain. Advise [id number] Tylenol as needed. Patient also discussed a supplement today called [place] XL which she can begin using and to monitor effect on joint pain. All patient question answered at this time. # GERD: Stable at this time. Continue [...] continue to monitor and encourage lifestyle vacations. All questions have been answered to patient's satisfaction. Patient verbalized understanding of diagnosis and treatments explained. Advised to call sooner prior to next visit it any questions/concerns arise. Case discussed with collaborating physician Makeda Venegas who reviewed the assessment and plan. Chart, medications, labs, vital signs reviewed. Dictation was accomplished with the use of Enval voice recognition software, which is prone to medical misidentifications and grammatical errors. This are unintentional and the practitioner does try to identify and correct these, but some could still be present. Please do not hesitate to contact practitioner for clarification. All questions have been answered to patient's satisfaction. Patient verbalized understanding of diagnosis and treatments explained. Advised to call sooner prior to next visit it any questions/concerns arise. Case discussed with collaborating physician Makeda Venegas who reviewed the assessment and plan. Chart, medications, labs, vital signs reviewed. Dictation was accomplished with the use of Enval voice recognition software, which is prone to medical misidentifications and grammatical errors. This are unintentional and the practitioner does try to identify and correct these, but some could still be present. Please do not hesitate to contact practitioner for clarification. 03/31/2024 Hyperlipidemia, unspecified (ICD-10 - E78.5) #Weight Management 03/31/2024 Has done quite well on a weight management program Chronic conditions are otherwise stable Increase stressors in life and family, likely increased cortisol Continue Ozempic 2 mg Will see her back in the fall for Medicare visit with labs Total time spent today was 30 minutes of which greater than 50% was spent on coordinating and counseling Patient has been found to be obese with a BMI of (35). Patient has class (2) obesity. We are a board certified obesity and weight management practice Patient has trialed behavioral modification, dietary restrictions and exercise for a minimum of 6 months The most recent [place] [employer] of clinical endocrinologists and [place] [employer] guidelines recommend patients who have overweight BMI or obesity BMI, who also have metabolic syndrome, prediabetes, or at risk of developing type 2 diabetes should aim for a weight loss goal of at least 10% of the baseline body weight Patient counseled regarding effects of GLP/GIP-1 agonists, and other FDA approved wgt loss meds with regards to a multifactorial approach of weight loss as mentioned above and not solely appetite suppression. We have discussed the mechanism of GLP-1's/GIP, dual incretins, appetitite suppressants I think this would be fantastic option for her given her metabolic workup and body composition We have discussed the risks and benefits and side effects including/and not limited to Sarcopenia, intestinal obstruction, constipation, nausea, lethargy, headache Discussed importance of protein consumption for muscle maintenance as well as strength and resistance training ,probiotics, B12 complex biotin , iron and other nutrients, To help avoid telogen effluvium We have discussed the lifelong requirement of nutritional supplementation And adherence to an exercise regimen as well as importance of follow-up The patient understands and agrees There is no history of medullary thyroid cancer or multiple endocrine neoplasia There is also no history of cardiovascular disease, hypertension, palpitations, or arrhythmias In the setting of potential stimulant/amphetamin e use such as phentermine We have also discussed risks and benefits, and the use of compounded medications to help offset the national shortages as well as financial implications vs trade name drugs Patient was reassured and welcomed to the practice. We discussed that we stress a hollistic medical approach with emphasis on lifestyle modification. Patient was informed that a healthy lifestyle with exercise and good eating habits can help reduce his risk of medical complications. He is explained that obesity increases his risk of diabetes, cardiovascular disease, or organ damage. We spent a lot of time discussing the relationship between food, exercise, sleep, mental health and obesity. Patient was counseled on the importance EATING local, organic food when possible. Patient was educated on clean 15 and dirty dozen. I provided information about reading books called The Food Rules by Pedro Barrera and Eat Fat Get Lean by Dr Pedro Salazar. Self education is important in the journey for weight management. Patient was offered diagnostic testing. We want to measure visceral adiposity, advanced body composition, adverse lipids, fatty acid balance, risk for heart disease and atherosclerosis, markers of inflammation and genetic susceptibility. Patient was counseled on weight management and was advised to lose weight using A. Meal Replacement Products We discussed the lifelong requirement of nutritional supplementation and adherence to an exercise regimen as well as importance of dietary follow-up Patient was educated on the replacement products called optifast. This is a good way of taking fixed amount of calories. It has been shown in studies to be ineffective weight management tool. We also recommend maintaining adequate protein intake and muscle composition, 1.5mg/kg This however has to be coupled with lifestyle intervention as well as laboratory data and EKG monitoring. It is impossible to know how a person will tolerate complete meal replacement. The side effects of meal replacement and weight loss could include syncopal attacks, dizziness, gallstones, potential cholecystectomy, possible heart attack and even . The benefits of meal replacement would be potential weight loss but no guarantees can be made. Meal replacement products are not covered by insurance. Once the patient has bought these products we cannot return them B. Lifestyle management which includes several strategies as below 1. Eat a low carbohydrate good fat good protein diet. Eliminate refined carbohydrates from the diet. Continue blood sugar and sugared beverages. Eat local organic when possible. Cook your own meals. Read food labels. None about healthy snacks. Portion control and food with low glycemic index 2. Exercise regularly. Try to get at least 6000 steps a day. Use a predominant to track activity level. Consider using apps like [employer], FreshReal[employer]al, lose it, stick as needed for self-monitoring and weight management. Consider group exercises. Consider hiring a fitness trainer. Regular exercise is riojas to sustainable health and prevents as a buffer against weight regain 3. Sleep is most important for healing. Tried to sleep at least 8 hours a night. A good quality sleep needs a sleep ritual with ideal room temperature of around 68. It might help to take a shower and have no electronics in the room and sleep in a very dark room without artificial light. Start her sleep routine and get up early in the morning and go to bed on time 4. Make a social connection. Surround yourself with positive people with positive energy. Connect with friends and family. 5. Get into the habit of meditating and mindfulness while doing everything. 6. Go outside and connect with nature. C. Prescription medications Patient was educated on the use of prescription medications for medical weight loss. This is a growing list and includes phentermine, Topamax,Qsymia, contrave, belviq and saxenda. All prescription medications could have side effects including but not limited to kidney stones, seizure disorder cardiac arrhythmias heart attack pancreatitis etc. etc.. Patient was encouraged to read the prescription insert and have coaching with their pharmacist and make an informed decision about taking medication and know that these medications are being prescribed with good intentions and we do not know how a patient would react to her medication. Sudden medications are FDA approved for weight loss and there is also off label use depending on patient's inability to afford medications in an attempt to lose weight D. Behavioral counseling was done to establish a relationship between food and an mood. Patient was provided information about local counseling and psychiatry and Dr Escobar at [facility]. We would like to cover regular topics and build on low glycemic eating exercise mindful eating, using yoga and meditation along with deep breathing and connecting with friends and family. E. MASS PAT reviewed, Patient's current medications were reviewed and opinion was given on medication that can cause weight gain and can be substituted F. Patient was assessed for risk with obesity including and not limiting to atherosclerosis heart disease stroke kidney disease, restrictive lung disease, irritable bowel syndrome and overall mortality. Risk of developing prediabetes diabetes and metabolic syndrome was discussed G. Therapeutic plan: We have decided to make therapeutic plan which would include choosing wisely on calories restricting portion getting active, tracking weight, getting good quality sleep and working on time management H. Patient will follow up in (4) weeks for weight management Of note, some information is being carried forward from prior records for informational purposes only and is being cited so that efficiency, safety and quality of the patient's care is not compromised This note was prepared using voice recognition software and direct typing Please excuse inadvertent junior architect or typing errors, or uncorrected word substitutions Although every attempt has been made by the provider to proofread this document, occasional misspellings and typographical errors may still be present Due to the previous pandemic, and the use of personal protective equipment (PPE) This may decrease voice recognition accuracy Inadvertent junior architect errors may occur 07/12/2024 Essential hypertension (ICD-10 - I10) Patient is here for a Medicare wellness visit. Complete paperwork was reviewed and updated and has been filed and scanned. Depression screen completed. Alcohol AUDIT SCREEN completed. Obesity screen completed. Cardiovascular risk stratification screen completed. # Hypertension: Blood pressure stable in office today 126/82. Continue losartan 50 mg once daily. Continue aspirin 81 mg once daily for cardiac protection. Discussed proper use of the medication and expected side effect profile including but not limited to fatigue, muscle aches, low blood pressure, and cough. Discussed red flag signs of hypertension clinic but not limited to headache, blurry vision, chest pain, difficulty breathing, abdominal pain, dizziness, or weakness. Will continue to monitor. # Joint pain: Patient has followed previously [...] of anti-inflammatory medications for acute pain. Advise [id number] Tylenol as needed. Patient also discussed a supplement today called [place] XL which she can begin using and to monitor effect on joint pain. All patient question answered at this time. # GERD: Stable at this time. Continue [...] increased depression. Will continue to monitor. # Obesity: Weight at this visit 189 pounds, BMI 34.56. Hemoglobin A1c obtained on 07/05/2024 and is 5.2%. Before then hemoglobin A1c obtained in July 2023 and was 5.6%. Continue Ozempic 2 mg once weekly subcutaneous injection. Discussed proper use of medication including rotating injection sites and expected side effect profile including but not limited to nausea, constipation, abdominal pain, and heartburn. She will follow-up in the office in August at her earliest convenience for weight management. All patient questions answered at this time. # Preventative medicine: Repeat bone mineral density scan ordered. Patient is up-to-date on most immunizations. She is due for RSV vaccine, given vaccine form to give to pharmacist. Cognition assessed and within reasonable limits Fall risk assessed. Discussed healthcare proxy. Discussed [place] order for life sustaining treatment, end-of-life issues, intubation and resuscitation dialysis artificial nutrition and hydration is appropriate. We discussed [place] order for life sustaining treatment and healthcare proxy. We discussed need for resuscitation, intubation, ventilation, need for dialysis, short-term versus long-term, nutrition, IV nutrition and hydration. Total time spent was 45 minutes with greater than 50% spent on counseling and coordinating care All questions have been answered to patient's satisfaction. Patient verbalized understanding of diagnosis and treatments explained. Advised to call sooner prior to next visit it any questions/concerns arise. Case discussed with collaborating physician Makeda Venegas who reviewed the assessment and plan. Chart, medications, labs, vital signs reviewed. Dictation was accomplished with the use of Enval voice recognition software, which is prone to medical misidentifications and grammatical errors. This are unintentional and the practitioner does try to identify and correct these, but some could still be present. Please do not hesitate to contact practitioner for clarification. 09/23/2024 Hyperlipidemia, unspecified (ICD-10 - E78.5) Patient is here for weight management follow-up. We focused on significance of healthy lifestyle changes. We talked about need to track steps with goal between 6000-10,000 steps daily, focus on portion control, read food labels, get adequate sleep between 7 to 8 hours, get adequate rest to the body, meditate, frequent nutritious meals including vegetables and healthy choices of lean meats, fish, and elimination of refined carbohydrates. We also talked about mindfulness and mindful eating. Particular focus was on continuing portion control, mindful eating, and exercise. Total time spent with 30 minutes with greater than 50% spent on counseling and coordinating care. 09/23/2024: Weight 190 pounds, BMI 44.75. Seca scan completed today and interpreted with patient. SECA scan demonstrating low muscle mass. Discussed importance of increasing physical activity particular resistance training 3 times weekly to build muscle. Patient understanding. Discussed risk of sarcopenia related to osteoporosis. Currently on Ozempic 2 mg once weekly. Good tolerance of medication, however interested in transitioning to Zepbound due to increased co-pay at pharmacy as well as history of ABBY. Does not use nightly CPAP however does use nightly oxygen. Advised that the medication does require prior authorization which can take 2 to 4 weeks. At this time continue Ozempic weekly, if Zepbound approved we will discontinue Ozempic and begin Zepbound. Patient understanding. She otherwise will follow-up in office in 4 weeks for further management. # ABBY: Continue nightly oxygen, 2 L [...] of anti-inflammatory medications for acute pain. Advise [id number] Tylenol as needed. Patient also discussed a supplement today called [facility] XL which she can begin using and to monitor effect on joint pain. All patient question answered at this time. # GERD: Stable at this time. Continue [...] continue to monitor and encourage lifestyle vacations. All questions have been answered to patient's satisfaction. Patient verbalized understanding of diagnosis and treatments explained. Advised to call sooner prior to next visit it any questions/concerns arise. Case discussed with collaborating physician Makeda Venegas who reviewed the assessment and plan. Chart, medications, labs, vital signs reviewed. Dictation was accomplished with the use of [employer] voice recognition software, which is prone to medical misidentifications and grammatical errors. This are unintentional and the practitioner does try to identify and correct these, but some could still be present. Please do not hesitate to contact practitioner for clarification. All questions have been answered to patient's satisfaction. Patient verbalized understanding of diagnosis and treatments explained. Advised to call sooner prior to next visit it any questions/concerns arise. Case discussed with collaborating physician Makeda Venegas who reviewed the assessment and plan. Chart, medications, labs, vital signs reviewed. Dictation was accomplished with the use of [employer] voice recognition software, which is prone to medical misidentifications and grammatical errors. This are unintentional and the practitioner does try to identify and correct these, but some could still be present. Please do not hesitate to contact practitioner for clarification. 07/12/2024 Multiple joint pain (ICD-10 - M25.50) Patient is here for a Medicare wellness visit. Complete paperwork was reviewed and updated and has been filed and scanned. Depression screen completed. Alcohol AUDIT SCREEN completed. Obesity screen completed. Cardiovascular risk stratification screen completed. # Hypertension: Blood pressure stable in office today 126/82. Continue losartan 50 mg once daily. Continue aspirin 81 mg once daily for cardiac protection. Discussed proper use of the medication and expected side effect profile including but not limited to fatigue, muscle aches, low blood pressure, and cough. Discussed red flag signs of hypertension clinic but not limited to headache, blurry vision, chest pain, difficulty breathing, abdominal pain, dizziness, or weakness. Will continue to monitor. # Joint pain: Patient has followed previously [...] of anti-inflammatory medications for acute pain. Advise [id number] Tylenol as needed. Patient also discussed a supplement today called [facility] XL which she can begin using and to monitor effect on joint pain. All patient question answered at this time. # GERD: Stable at this time. Continue [...] increased depression. Will continue to monitor. # Obesity: Weight at this visit 189 pounds, BMI 34.56. Hemoglobin A1c obtained on 07/05/2024 and is 5.2%. Before then hemoglobin A1c obtained in July 2023 and was 5.6%. Continue Ozempic 2 mg once weekly subcutaneous injection. Discussed proper use of medication including rotating injection sites and expected side effect profile including but not limited to nausea, constipation, abdominal pain, and heartburn. She will follow-up in the office in August at her earliest convenience for weight management. All patient questions answered at this time. # Preventative medicine: Repeat bone mineral density scan ordered. Patient is up-to-date on most immunizations. She is due for RSV vaccine, given vaccine form to give to pharmacist. Cognition assessed and within reasonable limits Fall risk assessed. Discussed healthcare proxy. Discussed [place] order for life sustaining treatment, end-of-life issues, intubation and resuscitation dialysis artificial nutrition and hydration is appropriate. We discussed [place] order for life sustaining treatment and healthcare proxy. We discussed need for resuscitation, intubation, ventilation, need for dialysis, short-term versus long-term, nutrition, IV nutrition and hydration. Total time spent was 45 minutes with greater than 50% spent on counseling and coordinating care All questions have been answered to patient's satisfaction. Patient verbalized understanding of diagnosis and treatments explained. Advised to call sooner prior to next visit it any questions/concerns arise. Case discussed with collaborating physician Makeda Venegas who reviewed the assessment and plan. Chart, medications, labs, vital signs reviewed. Dictation was accomplished with the use of [employer] voice recognition software, which is prone to medical misidentifications and grammatical errors. This are unintentional and the practitioner does try to identify and correct these, but some could still be present. Please do not hesitate to contact practitioner for clarification. 10/31/2024 Prediabetes (ICD-10 - R73.03) Rena is a 69-year-old female with history of [...] of anti-inflammatory medications for acute pain. Advise [id number] Tylenol as needed. Patient has been practicing [...] Dictation was accomplished with the use of [employer] voice recognition software, which is prone to medical misidentifications and grammatical errors. This are unintentional and the practitioner does try to identify and correct these, but some could still be present. Please do not hesitate to contact practitioner for clarification. 12/05/2024 Seasonal allergies (ICD-10 - J30.2) Patient is here for weight management follow-up. We focused on significance of healthy lifestyle changes. We talked about need to track steps with goal between 6000-10,000 steps daily, focus on portion control, read food labels, get adequate sleep between 7 to 8 hours, get adequate rest to the body, meditate, frequent nutritious meals including vegetables and healthy choices of lean meats, fish, and elimination of refined carbohydrates. We also talked about mindfulness and mindful eating. Particular focus was on continuing portion control, mindful eating, and exercise. Total time spent with 30 minutes with greater than 50% spent on counseling and coordinating care. 09/23/2024: Weight 190 pounds, BMI 44.75. Seca scan completed today and interpreted with patient. SECA scan demonstrating low muscle mass. Discussed importance of increasing physical activity particular resistance training 3 times weekly to build muscle. Patient understanding. Discussed risk of sarcopenia related to osteoporosis. Currently on Ozempic 2 mg once weekly. Good tolerance of medication, however interested in transitioning to Zepbound due to increased co-pay at pharmacy as well as history of ABBY. Does not use nightly CPAP however does use nightly oxygen. Advised that the medication does require prior authorization which can take 2 to 4 weeks. At this time continue Ozempic weekly, if Zepbound approved we will discontinue Ozempic and begin Zepbound. Patient understanding. She otherwise will follow-up in office in 4 weeks for further management. 12/05/2024: Weight 188 pounds, BMI 34.38. Seca scan completed today and interpreted with the patient. She is down 2 pounds from her last visit. On body analysis she is up 1 pound of muscle mass and has had a reduction of fat mass by about 4 pounds. Currently on Ozempic 2 mg weekly. Reports good tolerance of the medication. We discussed goals of diet and exercise as well as improving her hydration. Plan is to otherwise maintain current regimen and have her follow-up in office in approximately 8 weeks for further evaluation. # ABBY: Continue nightly oxygen, 2 L [...] of anti-inflammatory medications for acute pain. Advise [id number] Tylenol as needed. Patient also discussed a supplement today called [employer] [facility] XL which she can begin using and to monitor effect on joint pain. All patient question answered at this time. # GERD: Stable at this time. Continue [...] continue to monitor. Please follow-up with cardiology. Patient reports that she is no longer on losartan per discretion of cardiology. Blood pressure is elevated today 144/86, however she reports regularly monitoring her blood pressure at home, typically within normal ranges. # Depression: Stable at this time. Reports good mood. Continue escitalopram 20 mg once daily. Discussed proper use of the medication and expected side effect profile occluding with a limited to dizziness, headache, GI upset, sexual dysfunction, weight gain, and increased depression. Will continue to monitor. # Prediabetes: Hemoglobin A1c 5.6%. Will continue to monitor and encourage lifestyle vacations. All questions have been answered to patient's satisfaction. Patient verbalized understanding of diagnosis and treatments explained. Advised to call sooner prior to next visit it any questions/concerns arise. Case discussed with collaborating physician Makeda eVnegas who reviewed the assessment and plan. Chart, medications, labs, vital signs reviewed. Dictation was accomplished with the use of [employer] voice recognition software, which is prone to medical misidentifications and grammatical errors. This are unintentional and the practitioner does try to identify and correct these, but some could still be present. Please do not hesitate to contact practitioner for clarification. All questions have been answered to patient's satisfaction. Patient verbalized understanding of diagnosis and treatments explained. Advised to call sooner prior to next visit it any questions/concerns arise. Case discussed with collaborating physician Makeda Venegas who reviewed the assessment and plan. Chart, medications, labs, vital signs reviewed. Dictation was accomplished with the use of [employer] voice recognition software, which is prone to medical misidentifications and grammatical errors. This are unintentional and the practitioner does try to identify and correct these, but some could still be present. Please do not hesitate to contact practitioner for clarification. 10/31/2024 Adult-onset obesity (ICD-10 - E66.9) Rena is a 69-year-old female with history of [...] of anti-inflammatory medications for acute pain. Advise [id number] Tylenol as needed. Patient has been practicing [...] Dictation was accomplished with the use of [employer] voice recognition software, which is prone to medical misidentifications and grammatical errors. This are unintentional and the practitioner does try to identify and correct these, but some could still be present. Please do not hesitate to contact practitioner for clarification. 12/05/2024 Hyperlipidemia, unspecified (ICD-10 - E78.5) Patient is here for weight management follow-up. We focused on significance of healthy lifestyle changes. We talked about need to track steps with goal between 6000-10,000 steps daily, focus on portion control, read food labels, get adequate sleep between 7 to 8 hours, get adequate rest to the body, meditate, frequent nutritious meals including vegetables and healthy choices of lean meats, fish, and elimination of refined carbohydrates. We also talked about mindfulness and mindful eating. Particular focus was on continuing portion control, mindful eating, and exercise. Total time spent with 30 minutes with greater than 50% spent on counseling and coordinating care. 09/23/2024: Weight 190 pounds, BMI 44.75. Seca scan completed today and interpreted with patient. SECA scan demonstrating low muscle mass. Discussed importance of increasing physical activity particular resistance training 3 times weekly to build muscle. Patient understanding. Discussed risk of sarcopenia related to osteoporosis. Currently on Ozempic 2 mg once weekly. Good tolerance of medication, however interested in transitioning to Zepbound due to increased co-pay at pharmacy as well as history of ABBY. Does not use nightly CPAP however does use nightly oxygen. Advised that the medication does require prior authorization which can take 2 to 4 weeks. At this time continue Ozempic weekly, if Zepbound approved we will discontinue Ozempic and begin Zepbound. Patient understanding. She otherwise will follow-up in office in 4 weeks for further management. 12/05/2024: Weight 188 pounds, BMI 34.38. Seca scan completed today and interpreted with the patient. She is down 2 pounds from her last visit. On body analysis she is up 1 pound of muscle mass and has had a reduction of fat mass by about 4 pounds. Currently on Ozempic 2 mg weekly. Reports good tolerance of the medication. We discussed goals of diet and exercise as well as improving her hydration. Plan is to otherwise maintain current regimen and have her follow-up in office in approximately 8 weeks for further evaluation. # ABBY: Continue nightly oxygen, 2 L [...] of anti-inflammatory medications for acute pain. Advise [id number] Tylenol as needed. Patient also discussed a supplement today called [employer] [facility] XL which she can begin using and to monitor effect on joint pain. All patient question answered at this time. # GERD: Stable at this time. Continue [...] continue to monitor. Please follow-up with cardiology. Patient reports that she is no longer on losartan per discretion of cardiology. Blood pressure is elevated today 144/86, however she reports regularly monitoring her blood pressure at home, typically within normal ranges. # Depression: Stable at this time. Reports good mood. Continue escitalopram 20 mg once daily. Discussed proper use of the medication and expected side effect profile occluding with a limited to dizziness, headache, GI upset, sexual dysfunction, weight gain, and increased depression. Will continue to monitor. # Prediabetes: Hemoglobin A1c 5.6%. Will continue to monitor and encourage lifestyle vacations. All questions have been answered to patient's satisfaction. Patient verbalized understanding of diagnosis and treatments explained. Advised to call sooner prior to next visit it any questions/concerns arise. Case discussed with collaborating physician Makeda Venegas who reviewed the assessment and plan. Chart, medications, labs, vital signs reviewed. Dictation was accomplished with the use of [employer] voice recognition software, which is prone to medical misidentifications and grammatical errors. This are unintentional and the practitioner does try to identify and correct these, but some could still be present. Please do not hesitate to contact practitioner for clarification. All questions have been answered to patient's satisfaction. Patient verbalized understanding of diagnosis and treatments explained. Advised to call sooner prior to next visit it any questions/concerns arise. Case discussed with collaborating physician Makeda Venegas who reviewed the assessment and plan. Chart, medications, labs, vital signs reviewed. Dictation was accomplished with the use of [employer] voice recognition software, which is prone to medical misidentifications and grammatical errors. This are unintentional and the practitioner does try to identify and correct these, but some could still be present. Please do not hesitate to contact practitioner for clarification. 09/23/2024 Chronic depression (ICD-10 - F32.A) Patient is here for weight management follow-up. We focused on significance of healthy lifestyle changes. We talked about need to track steps with goal between 6000-10,000 steps daily, focus on portion control, read food labels, get adequate sleep between 7 to 8 hours, get adequate rest to the body, meditate, frequent nutritious meals including vegetables and healthy choices of lean meats, fish, and elimination of refined carbohydrates. We also talked about mindfulness and mindful eating. Particular focus was on continuing portion control, mindful eating, and exercise. Total time spent with 30 minutes with greater than 50% spent on counseling and coordinating care. 09/23/2024: Weight 190 pounds, BMI 44.75. Seca scan completed today and interpreted with patient. SECA scan demonstrating low muscle mass. Discussed importance of increasing physical activity particular resistance training 3 times weekly to build muscle. Patient understanding. Discussed risk of sarcopenia related to osteoporosis. Currently on Ozempic 2 mg once weekly. Good tolerance of medication, however interested in transitioning to Zepbound due to increased co-pay at pharmacy as well as history of ABBY. Does not use nightly CPAP however does use nightly oxygen. Advised that the medication does require prior authorization which can take 2 to 4 weeks. At this time continue Ozempic weekly, if Zepbound approved we will discontinue Ozempic and begin Zepbound. Patient understanding. She otherwise will follow-up in office in 4 weeks for further management. # ABBY: Continue nightly oxygen, 2 L [...] of anti-inflammatory medications for acute pain. Advise [id number]-[id number] Tylenol as needed. Patient also discussed a supplement today called [employer] [facility] XL which she can begin using and to monitor effect on joint pain. All patient question answered at this time. # GERD: Stable at this time. Continue [...] continue to monitor and encourage lifestyle vacations. All questions have been answered to patient's satisfaction. Patient verbalized understanding of diagnosis and treatments explained. Advised to call sooner prior to next visit it any questions/concerns arise. Case discussed with collaborating physician Makeda Venegas who reviewed the assessment and plan. Chart, medications, labs, vital signs reviewed. Dictation was accomplished with the use of [employer] voice recognition software, which is prone to medical misidentifications and grammatical errors. This are unintentional and the practitioner does try to identify and correct these, but some could still be present. Please do not hesitate to contact practitioner for clarification. All questions have been answered to patient's satisfaction. Patient verbalized understanding of diagnosis and treatments explained. Advised to call sooner prior to next visit it any questions/concerns arise. Case discussed with collaborating physician Makeda Venegas who reviewed the assessment and plan. Chart, medications, labs, vital signs reviewed. Dictation was accomplished with the use of [employer] voice recognition software, which is prone to medical misidentifications and grammatical errors. This are unintentional and the practitioner does try to identify and correct these, but some could still be present. Please do not hesitate to contact practitioner for clarification. 07/12/2024 Pulmonary HTN (ICD-10 - I27.20) Patient is here for a Medicare wellness visit. Complete paperwork was reviewed and updated and has been filed and scanned. Depression screen completed. Alcohol AUDIT SCREEN completed. Obesity screen completed. Cardiovascular risk stratification screen completed. # Hypertension: Blood pressure stable in office today 126/82. Continue losartan 50 mg once daily. Continue aspirin 81 mg once daily for cardiac protection. Discussed proper use of the medication and expected side effect profile including but not limited to fatigue, muscle aches, low blood pressure, and cough. Discussed red flag signs of hypertension clinic but not limited to headache, blurry vision, chest pain, difficulty breathing, abdominal pain, dizziness, or weakness. Will continue to monitor. # Joint pain: Patient has followed previously [...] of anti-inflammatory medications for acute pain. Advise [id number] Tylenol as needed. Patient also discussed a supplement today called [employer] [facility] XL which she can begin using and to monitor effect on joint pain. All patient question answered at this time. # GERD: Stable at this time. Continue [...] increased depression. Will continue to monitor. # Obesity: Weight at this visit 189 pounds, BMI 34.56. Hemoglobin A1c obtained on 07/05/2024 and is 5.2%. Before then hemoglobin A1c obtained in July 2023 and was 5.6%. Continue Ozempic 2 mg once weekly subcutaneous injection. Discussed proper use of medication including rotating injection sites and expected side effect profile including but not limited to nausea, constipation, abdominal pain, and heartburn. She will follow-up in the office in August at her earliest convenience for weight management. All patient questions answered at this time. # Preventative medicine: Repeat bone mineral density scan ordered. Patient is up-to-date on most immunizations. She is due for RSV vaccine, given vaccine form to give to pharmacist. Cognition assessed and within reasonable limits Fall risk assessed. Discussed healthcare proxy. Discussed [place] order for life sustaining treatment, end-of-life issues, intubation and resuscitation dialysis artificial nutrition and hydration is appropriate. We discussed [place] order for life sustaining treatment and healthcare proxy. We discussed need for resuscitation, intubation, ventilation, need for dialysis, short-term versus long-term, nutrition, IV nutrition and hydration. Total time spent was 45 minutes with greater than 50% spent on counseling and coordinating care All questions have been answered to patient's satisfaction. Patient verbalized understanding of diagnosis and treatments explained. Advised to call sooner prior to next visit it any questions/concerns arise. Case discussed with collaborating physician Makeda Venegas who reviewed the assessment and plan. Chart, medications, labs, vital signs reviewed. Dictation was accomplished with the use of [employer] voice recognition software, which is prone to medical misidentifications and grammatical errors. This are unintentional and the practitioner does try to identify and correct these, but some could still be present. Please do not hesitate to contact practitioner for clarification. 07/12/2024 Mild depression (ICD-10 - F32.A) Patient is here for a Medicare wellness visit. Complete paperwork was reviewed and updated and has been filed and scanned. Depression screen completed. Alcohol AUDIT SCREEN completed. Obesity screen completed. Cardiovascular risk stratification screen completed. # Hypertension: Blood pressure stable in office today 126/82. Continue losartan 50 mg once daily. Continue aspirin 81 mg once daily for cardiac protection. Discussed proper use of the medication and expected side effect profile including but not limited to fatigue, muscle aches, low blood pressure, and cough. Discussed red flag signs of hypertension clinic but not limited to headache, blurry vision, chest pain, difficulty breathing, abdominal pain, dizziness, or weakness. Will continue to monitor. # Joint pain: Patient has followed previously [...] of anti-inflammatory medications for acute pain. Advise [id number] Tylenol as needed. Patient also discussed a supplement today called [place] [facility] XL which she can begin using and to monitor effect on joint pain. All patient question answered at this time. # GERD: Stable at this time. Continue [...] increased depression. Will continue to monitor. # Obesity: Weight at this visit 189 pounds, BMI 34.56. Hemoglobin A1c obtained on 07/05/2024 and is 5.2%. Before then hemoglobin A1c obtained in July 2023 and was 5.6%. Continue Ozempic 2 mg once weekly subcutaneous injection. Discussed proper use of medication including rotating injection sites and expected side effect profile including but not limited to nausea, constipation, abdominal pain, and heartburn. She will follow-up in the office in August at her earliest convenience for weight management. All patient questions answered at this time. # Preventative medicine: Repeat bone mineral density scan ordered. Patient is up-to-date on most immunizations. She is due for RSV vaccine, given vaccine form to give to pharmacist. Cognition assessed and within reasonable limits Fall risk assessed. Discussed healthcare proxy. Discussed [place] order for life sustaining treatment, end-of-life issues, intubation and resuscitation dialysis artificial nutrition and hydration is appropriate. We discussed [place] order for life sustaining treatment and healthcare proxy. We discussed need for resuscitation, intubation, ventilation, need for dialysis, short-term versus long-term, nutrition, IV nutrition and hydration. Total time spent was 45 minutes with greater than 50% spent on counseling and coordinating care All questions have been answered to patient's satisfaction. Patient verbalized understanding of diagnosis and treatments explained. Advised to call sooner prior to next visit it any questions/concerns arise. Case discussed with collaborating physician Makeda Venegas who reviewed the assessment and plan. Chart, medications, labs, vital signs reviewed. Dictation was accomplished with the use of [employer] voice recognition software, which is prone to medical misidentifications and grammatical errors. This are unintentional and the practitioner does try to identify and correct these, but some could still be present. Please do not hesitate to contact practitioner for clarification. 09/23/2024 Prediabetes (ICD-10 - R73.03) Patient is here for weight management follow-up. We focused on significance of healthy lifestyle changes. We talked about need to track steps with goal between 6000-10,000 steps daily, focus on portion control, read food labels, get adequate sleep between 7 to 8 hours, get adequate rest to the body, meditate, frequent nutritious meals including vegetables and healthy choices of lean meats, fish, and elimination of refined carbohydrates. We also talked about mindfulness and mindful eating. Particular focus was on continuing portion control, mindful eating, and exercise. Total time spent with 30 minutes with greater than 50% spent on counseling and coordinating care. 09/23/2024: Weight 190 pounds, BMI 44.75. Seca scan completed today and interpreted with patient. SECA scan demonstrating low muscle mass. Discussed importance of increasing physical activity particular resistance training 3 times weekly to build muscle. Patient understanding. Discussed risk of sarcopenia related to osteoporosis. Currently on Ozempic 2 mg once weekly. Good tolerance of medication, however interested in transitioning to Zepbound due to increased co-pay at pharmacy as well as history of ABBY. Does not use nightly CPAP however does use nightly oxygen. Advised that the medication does require prior authorization which can take 2 to 4 weeks. At this time continue Ozempic weekly, if Zepbound approved we will discontinue Ozempic and begin Zepbound. Patient understanding. She otherwise will follow-up in office in 4 weeks for further management. # ABBY: Continue nightly oxygen, 2 L [...] of anti-inflammatory medications for acute pain. Advise [id number] Tylenol as needed. Patient also discussed a supplement today called [place] XL which she can begin using and to monitor effect on joint pain. All patient question answered at this time. # GERD: Stable at this time. Continue [...] continue to monitor and encourage lifestyle vacations. All questions have been answered to patient's satisfaction. Patient verbalized understanding of diagnosis and treatments explained. Advised to call sooner prior to next visit it any questions/concerns arise. Case discussed with collaborating physician Makeda Venegas who reviewed the assessment and plan. Chart, medications, labs, vital signs reviewed. Dictation was accomplished with the use of [employer] voice recognition software, which is prone to medical misidentifications and grammatical errors. This are unintentional and the practitioner does try to identify and correct these, but some could still be present. Please do not hesitate to contact practitioner for clarification. All questions have been answered to patient's satisfaction. Patient verbalized understanding of diagnosis and treatments explained. Advised to call sooner prior to next visit it any questions/concerns arise. Case discussed with collaborating physician Makeda Venegas who reviewed the assessment and plan. Chart, medications, labs, vital signs reviewed. Dictation was accomplished with the use of [employer] voice recognition software, which is prone to medical misidentifications and grammatical errors. This are unintentional and the practitioner does try to identify and correct these, but some could still be present. Please do not hesitate to contact practitioner for clarification. 12/05/2024 Chronic depression (ICD-10 - F32.A) Patient is here for weight management follow-up. We focused on significance of healthy lifestyle changes. We talked about need to track steps with goal between 6000-10,000 steps daily, focus on portion control, read food labels, get adequate sleep between 7 to 8 hours, get adequate rest to the body, meditate, frequent nutritious meals including vegetables and healthy choices of lean meats, fish, and elimination of refined carbohydrates. We also talked about mindfulness and mindful eating. Particular focus was on continuing portion control, mindful eating, and exercise. Total time spent with 30 minutes with greater than 50% spent on counseling and coordinating care. 09/23/2024: Weight 190 pounds, BMI 44.75. Seca scan completed today and interpreted with patient. SECA scan demonstrating low muscle mass. Discussed importance of increasing physical activity particular resistance training 3 times weekly to build muscle. Patient understanding. Discussed risk of sarcopenia related to osteoporosis. Currently on Ozempic 2 mg once weekly. Good tolerance of medication, however interested in transitioning to Zepbound due to increased co-pay at pharmacy as well as history of ABBY. Does not use nightly CPAP however does use nightly oxygen. Advised that the medication does require prior authorization which can take 2 to 4 weeks. At this time continue Ozempic weekly, if Zepbound approved we will discontinue Ozempic and begin Zepbound. Patient understanding. She otherwise will follow-up in office in 4 weeks for further management. 12/05/2024: Weight 188 pounds, BMI 34.38. Seca scan completed today and interpreted with the patient. She is down 2 pounds from her last visit. On body analysis she is up 1 pound of muscle mass and has had a reduction of fat mass by about 4 pounds. Currently on Ozempic 2 mg weekly. Reports good tolerance of the medication. We discussed goals of diet and exercise as well as improving her hydration. Plan is to otherwise maintain current regimen and have her follow-up in office in approximately 8 weeks for further evaluation. # ABBY: Continue nightly oxygen, 2 L [...] of anti-inflammatory medications for acute pain. Advise [id number] Tylenol as needed. Patient also discussed a supplement today called [place] XL which she can begin using and to monitor effect on joint pain. All patient question answered at this time. # GERD: Stable at this time. Continue [...] continue to monitor. Please follow-up with cardiology. Patient reports that she is no longer on losartan per discretion of cardiology. Blood pressure is elevated today 144/86, however she reports regularly monitoring her blood pressure at home, typically within normal ranges. # Depression: Stable at this time. Reports good mood. Continue escitalopram 20 mg once daily. Discussed proper use of the medication and expected side effect profile occluding with a limited to dizziness, headache, GI upset, sexual dysfunction, weight gain, and increased depression. Will continue to monitor. # Prediabetes: Hemoglobin A1c 5.6%. Will continue to monitor and encourage lifestyle vacations. All questions have been answered to patient's satisfaction. Patient verbalized understanding of diagnosis and treatments explained. Advised to call sooner prior to next visit it any questions/concerns arise. Case discussed with collaborating physician Makeda Venegas who reviewed the assessment and plan. Chart, medications, labs, vital signs reviewed. Dictation was accomplished with the use of [employer] voice recognition software, which is prone to medical misidentifications and grammatical errors. This are unintentional and the practitioner does try to identify and correct these, but some could still be present. Please do not hesitate to contact practitioner for clarification. All questions have been answered to patient's satisfaction. Patient verbalized understanding of diagnosis and treatments explained. Advised to call sooner prior to next visit it any questions/concerns arise. Case discussed with collaborating physician Makeda Venegas who reviewed the assessment and plan. Chart, medications, labs, vital signs reviewed. Dictation was accomplished with the use of [employer] voice recognition software, which is prone to medical misidentifications and grammatical errors. This are unintentional and the practitioner does try to identify and correct these, but some could still be present. Please do not hesitate to contact practitioner for clarification. 12/05/2024 Prediabetes (ICD-10 - R73.03) Patient is here for weight management follow-up. We focused on significance of healthy lifestyle changes. We talked about need to track steps with goal between 6000-10,000 steps daily, focus on portion control, read food labels, get adequate sleep between 7 to 8 hours, get adequate rest to the body, meditate, frequent nutritious meals including vegetables and healthy choices of lean meats, fish, and elimination of refined carbohydrates. We also talked about mindfulness and mindful eating. Particular focus was on continuing portion control, mindful eating, and exercise. Total time spent with 30 minutes with greater than 50% spent on counseling and coordinating care. 09/23/2024: Weight 190 pounds, BMI 44.75. Seca scan completed today and interpreted with patient. SECA scan demonstrating low muscle mass. Discussed importance of increasing physical activity particular resistance training 3 times weekly to build muscle. Patient understanding. Discussed risk of sarcopenia related to osteoporosis. Currently on Ozempic 2 mg once weekly. Good tolerance of medication, however interested in transitioning to Zepbound due to increased co-pay at pharmacy as well as history of ABBY. Does not use nightly CPAP however does use nightly oxygen. Advised that the medication does require prior authorization which can take 2 to 4 weeks. At this time continue Ozempic weekly, if Zepbound approved we will discontinue Ozempic and begin Zepbound. Patient understanding. She otherwise will follow-up in office in 4 weeks for further management. 12/05/2024: Weight 188 pounds, BMI 34.38. Seca scan completed today and interpreted with the patient. She is down 2 pounds from her last visit. On body analysis she is up 1 pound of muscle mass and has had a reduction of fat mass by about 4 pounds. Currently on Ozempic 2 mg weekly. Reports good tolerance of the medication. We discussed goals of diet and exercise as well as improving her hydration. Plan is to otherwise maintain current regimen and have her follow-up in office in approximately 8 weeks for further evaluation. # ABBY: Continue nightly oxygen, 2 L [...] of anti-inflammatory medications for acute pain. Advise [id number] Tylenol as needed. Patient also discussed a supplement today called [place] XL which she can begin using and to monitor effect on joint pain. All patient question answered at this time. # GERD: Stable at this time. Continue [...] continue to monitor. Please follow-up with cardiology. Patient reports that she is no longer on losartan per discretion of cardiology. Blood pressure is elevated today 144/86, however she reports regularly monitoring her blood pressure at home, typically within normal ranges. # Depression: Stable at this time. Reports good mood. Continue escitalopram 20 mg once daily. Discussed proper use of the medication and expected side effect profile occluding with a limited to dizziness, headache, GI upset, sexual dysfunction, weight gain, and increased depression. Will continue to monitor. # Prediabetes: Hemoglobin A1c 5.6%. Will continue to monitor and encourage lifestyle vacations. All questions have been answered to patient's satisfaction. Patient verbalized understanding of diagnosis and treatments explained. Advised to call sooner prior to next visit it any questions/concerns arise. Case discussed with collaborating physician Makeda Venegas who reviewed the assessment and plan. Chart, medications, labs, vital signs reviewed. Dictation was accomplished with the use of [employer] voice recognition software, which is prone to medical misidentifications and grammatical errors. This are unintentional and the practitioner does try to identify and correct these, but some could still be present. Please do not hesitate to contact practitioner for clarification. All questions have been answered to patient's satisfaction. Patient verbalized understanding of diagnosis and treatments explained. Advised to call sooner prior to next visit it any questions/concerns arise. Case discussed with collaborating physician Makeda Venegas who reviewed the assessment and plan. Chart, medications, labs, vital signs reviewed. Dictation was accomplished with the use of [employer] voice recognition software, which is prone to medical misidentifications and grammatical errors. This are unintentional and the practitioner does try to identify and correct these, but some could still be present. Please do not hesitate to contact practitioner for clarification. 07/12/2024 Seasonal allergies (ICD-10 - J30.2) Patient is here for a Medicare wellness visit. Complete paperwork was reviewed and updated and has been filed and scanned. Depression screen completed. Alcohol AUDIT SCREEN completed. Obesity screen completed. Cardiovascular risk stratification screen completed. # Hypertension: Blood pressure stable in office today 126/82. Continue losartan 50 mg once daily. Continue aspirin 81 mg once daily for cardiac protection. Discussed proper use of the medication and expected side effect profile including but not limited to fatigue, muscle aches, low blood pressure, and cough. Discussed red flag signs of hypertension clinic but not limited to headache, blurry vision, chest pain, difficulty breathing, abdominal pain, dizziness, or weakness. Will continue to monitor. # Joint pain: Patient has followed previously [...] of anti-inflammatory medications for acute pain. Advise [id number] Tylenol as needed. Patient also discussed a supplement today called [place] XL which she can begin using and to monitor effect on joint pain. All patient question answered at this time. # GERD: Stable at this time. Continue [...] increased depression. Will continue to monitor. # Obesity: Weight at this visit 189 pounds, BMI 34.56. Hemoglobin A1c obtained on 07/05/2024 and is 5.2%. Before then hemoglobin A1c obtained in July 2023 and was 5.6%. Continue Ozempic 2 mg once weekly subcutaneous injection. Discussed proper use of medication including rotating injection sites and expected side effect profile including but not limited to nausea, constipation, abdominal pain, and heartburn. She will follow-up in the office in August at her earliest convenience for weight management. All patient questions answered at this time. # Preventative medicine: Repeat bone mineral density scan ordered. Patient is up-to-date on most immunizations. She is due for RSV vaccine, given vaccine form to give to pharmacist. Cognition assessed and within reasonable limits Fall risk assessed. Discussed healthcare proxy. Discussed [place] order for life sustaining treatment, end-of-life issues, intubation and resuscitation dialysis artificial nutrition and hydration is appropriate. We discussed [place] order for life sustaining treatment and healthcare proxy. We discussed need for resuscitation, intubation, ventilation, need for dialysis, short-term versus long-term, nutrition, IV nutrition and hydration. Total time spent was 45 minutes with greater than 50% spent on counseling and coordinating care All questions have been answered to patient's satisfaction. Patient verbalized understanding of diagnosis and treatments explained. Advised to call sooner prior to next visit it any questions/concerns arise. Case discussed with collaborating physician Makeda Venegas who reviewed the assessment and plan. Chart, medications, labs, vital signs reviewed. Dictation was accomplished with the use of [employer] voice recognition software, which is prone to medical misidentifications and grammatical errors. This are unintentional and the practitioner does try to identify and correct these, but some could still be present. Please do not hesitate to contact practitioner for clarification. PLAN OF TREATMENT Pending Test Test Name Order Date Hemoglobin A1c 11/18/2018 Hemoglobin A1c 05/27/2019 Lipid Panel 05/27/2019 Lipid Panel 11/18/2018 Comp. Metabolic Panel (14) 11/18/2018 Comp. Metabolic Panel (14) 05/27/2019 CBC 05/27/2019 CBC 11/18/2018 Bone Density 07/12/2024 Urinalysis 11/18/2018 MRI : Brain without Contrast 04/15/2022 EKG 07/07/2022 1,25OH VITAMIN D 11/04/2017 25OH VITAMIN D 04/01/2023 25OH VITAMIN D 04/10/2021 CBC (COMPLETE BLOOD COUNT) 06/01/2018 CBC (COMPLETE BLOOD COUNT) 07/26/2019 CBC (COMPLETE BLOOD COUNT) 05/16/2020 CBC (COMPLETE BLOOD COUNT) 09/04/2020 CBC (COMPLETE BLOOD COUNT) 11/04/2017 CBC (COMPLETE BLOOD COUNT) 04/03/2020 CBC (COMPLETE BLOOD COUNT) WITH DIFF 10/2022 COMPREHENSIVE METABOLIC PANEL 04/03/2020 COMPREHENSIVE METABOLIC PANEL 05/16/2020 COMPREHENSIVE METABOLIC PANEL 04/10/2021 COMPREHENSIVE METABOLIC PANEL 07/26/2019 COMPREHENSIVE METABOLIC PANEL 06/01/2018 COMPREHENSIVE METABOLIC PANEL 04/01/2023 COMPREHENSIVE METABOLIC PANEL 11/04/2017 COMPREHENSIVE METABOLIC PANEL 09/04/2020 HEMOGLOBIN A1C 11/04/2017 HEMOGLOBIN A1C 11/29/2021 HEMOGLOBIN A1C 09/04/2020 HEMOGLOBIN A1C 07/26/2019 HEMOGLOBIN A1C 04/10/2021 HEMOGLOBIN A1C 04/01/2023 LIPID PANEL 04/01/2023 LIPID PANEL 05/16/2020 LIPID PANEL 07/26/2019 LIPID PANEL 06/01/2018 LIPID PANEL 09/04/2020 MICROALBUMIN, URINE 04/10/2021 TSH 04/10/2021 TSH WITH REFLEX TO FT4 04/01/2023 TSH WITH REFLEX TO FT4 11/04/2017 URINALYSIS W/REFLEX CULTURE 04/01/2023 URINALYSIS, COMPLETE 07/26/2019 URINALYSIS, COMPLETE 05/16/2020 URINALYSIS, COMPLETE 09/04/2020 URINALYSIS, COMPLETE 04/03/2020 VITAMIN B12 11/04/2017 XR Shoulder 2+ Views RT 10/14/2021 LIPID PANEL, STANDARD 03/31/2024 LIPID PANEL, STANDARD 10/31/2024 COMPREHENSIVE METABOLIC PANEL 03/31/2024 COMPREHENSIVE METABOLIC PANEL 10/31/2024 CBC (INCLUDES DIFF/PLT) 10/31/2024 CBC (INCLUDES DIFF/PLT) 03/31/2024 URINALYSIS, COMPLETE 03/31/2024 URINALYSIS, COMPLETE 10/31/2024 HEMOGLOBIN A1c 03/31/2024 TSH 03/31/2024 TSH 10/31/2024 VITAMIN D,25-OH,TOTAL,IA 10/31/2024 VITAMIN D,25-OH,TOTAL,IA 03/31/2024 COMPLETE URINALYSIS 04/10/2021 Next Appt Details Provider Name:SVEN ROBLERO , 02/06/2025 10:00:00 AM, [address] [address], [place], [address], Provider Name:SVEN ROBLERO , 07/03/2025 11:00:00 AM, [address] [facility], [address] [address], [place], [address], Insurance Providers Payer Name Payer Address Payer Phone Subscriber Number Group Number Insured Name Patient Relationship to Insured Coverage Start Date Coverage End Date [address] [place] [address] [id number] RENA KIDD Self - patient is the insured 4 MEDICATIONS ADMINISTERED Medication Instructions Date of Administration Dosage Notes MICC B12 INJECTION 10/06/2022 1 MICC B12 INJECTION 11/17/2022 1 MEDICAL (GENERAL) HISTORY Medical History History ICD Code asthma morbid obesity pulmonary hypertension restrictive lung disease Surgical History Surgery Date(Month/Year) right diaphram plication 11/13/16 colonoscopy 2015 Right Shoulder Surgery 08/2022
--- OUTSIDE RECORDS SUMMARY | 2024-12-08 16:44 | XMS_ITS ---
Author Name [facility] Organization Unknown History of Medication Use Medication Directions Dispensed Refills Start Date End Date Stat nystatin 100,000 unit/gram topical cream APPLY TO AFFECTED AREAS BELOW BREASTS TWICE DAILY UNTIL CLEARED, THEN REPEAT FOR FLARES. 01/14/2024 completed escitalopram 20 mg tablet TAKE 1 TABLET BY MOUTH EVERY DAY active Trelegy Ellipta 100 mcg-62.5 mcg-25 mcg powder for inhalation INHALE 1 PUFF BY MOUTH DAILY FOR 30 DAYS 01/14/2024 completed Paxlovid 150 mg-100 mg tablets in a dose pack (Renal Dose) TAKE 2 TABLETS BY MOUTH TWICE A DAY FOR 5 DAYS 01/14/2024 completed irbesartan 150 mg tablet TAKE 1 TABLET BY MOUTH EVERY DAY active triamcinolone acetonide 0.1 % topical cream APPLY TWICE DAILY TO AFFECTED AREAS ON THE BACK FOR TWO WEEKS, BREAK FOR ONE WEEK, REPEAT NEEDED. active Marcaine (PF) 0.5 % (5 mg/mL) injection solution Take 4 mL by injection route. 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-26 ProblemAct ENS[facility]ECT Medial epicondylitis of left humerus active 2024-01-21 ProblemAct E[facility] Subacromial bursitis of right shoulder active 2023-01-09 ProblemAct ENS_AONECT Encounters Encounter Type Encounter Reason Primary Diagnosis Location Date Ambulatory [facility] [place] 01/27/2024 Ambulatory [facility] [place] 01/21/2024 Ambulatory [facility] [place] 01/20/2024 Ambulatory [facility] [place] 01/20/2024 Ambulatory [facility] [place] 01/15/2024 Ambulatory [facility] [place] 01/14/2024 Ambulatory [facility] [place] 11/01/2023 Ambulatory [facility] [place] 01/09/2023 Ambulatory [facility] [place] 01/09/2023 Ambulatory [facility] [place] 01/09/2023 Ambulatory [facility] [place] 01/08/2023 Ambulatory [facility] [place] 01/02/2023
--- OUTSIDE RECORDS SUMMARY | 2024-12-08 16:44 | XMS_ITS ---
Author Organization [facility] Address [address] [place] [address] Care Team Providers Care Medical Office Specialist Name Role Phone Antione Venegas Primary Care Provider Unavailabl e Black, Christina Unavailable [phone] Allergies Allergen (clinical drug ingredient) Drug/Non Drug [...] days 07/08/2021 Unknown Vitamin A & D 39161-101 UNIT as directed Orally Unknown Losartan Potassium [...] No Points 0 Interpretation Negative Vital Signs Height 5ft 1in in 11/03/2024 Weight 185 lbs 11/03/2024 BMI 34.95 kg/m2 11/03/2024 Blood pressure systolic 120 mm Hg 11/04/19 25 Blood pressure diastolic 80 mm Hg 025 Encounters Encounter Location Date Provider Diagnosis [facility] [address] [place] [address] 11/03/2024 Christina Black Pain in left foot [...] * Chely DODGEOB:[birth year] (69 yo F)Acc No.[id number]:11/03/2024 Progress Notes Patient:?Rena DODGE Provider:?Christina Ward DPM :1955???Age:69 Y???Sex:Female D ate:11/03/2024 Address:[address] [place] [address], [id number] Pcp:Antione Venegas Subjective: * Chief Complaints: * [...] aerobics. ?Marital status: . ?Occupation: weeks/months/years, Retired- [employer]. ???Drug/Alcohol:?AUDIT-C (Standard)?Did you have a [...] Once a day Vitamin A & D 68481-662 UNIT Tablet as directed Orally Medrol 4 [...] a day Unknown Vitamin A & D 79447-872 UNIT Tablet as directed Orally Unknown Medrol [...] Ward DPM Date:?2024 Generated for Baldo damon/Estefani/Yandyitting on:?12/08/2024 04:44 PM EDT History and Physical Notes * [...]
--- OUTSIDE RECORDS SUMMARY | 2024-12-08 16:44 | XMS_ITS ---
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 confirmed Problem Acquired hammer toe of left foot (9085150367987 103) Hammer toe of left foot (M20.42) Active confirmed Problem Diabetic renal disease (999354411) Type 2 diabetes mellitus with diabetic chronic kidney disease (E11.22) Active confirmed Vital Signs Height 5ft 1in in 10/07/2024 Weight 186 lbs 10/07/2024 BMI 35.14 kg/m2 10/07/2024 Blood pressure systolic 120 mm Hg 10/07/19 25 Blood pressure diastolic 72 mm Hg 025 Procedures Procedure Date Ordered Date Performed Result Body Sit e 67444, J0702- Neuroma/Injection 10/07/2024 N/A Encounters Encounter Location Date Provider Diagnosis [facility] [address] 10/07/2024 Christina Black Pain in left foot [...] Treatment Pending Test Test Name Order Date 69042, J0702- Neuroma/Injection 10/07/19 25 Next Appt Details Follow Up: 6 Weeks, Reason: Procedure Notes * Category Sub-Category Detail Notes Injection Neuroma/Injection 98946, J0702 I njection - Neuroma w/ Celestone [...] * Morena DODGEJanieOB:[birth year] (69 yo F)Acc No.[id number]:10/07/2024 Progress Notes Patient:?Rena DODGE Provider:?Christina Ward DPM :1955???Age:69 Y???Sex:Female D ate:10/07/2024 Address:[address] [place] [address] [id number] Pcp:Antione Venegas Subjective: * Chief Complaints: * [...] Once a day Vitamin A & D 75420-796 UNIT Tablet as directed Orally Medrol 4 [...] a day Unknown Vitamin A & D 89976-021 UNIT Tablet as directed Orally Unknown Medrol [...] Foot, AP, LAT, LO, LEFT??Taken by trained?Podiatric [employer] Roughneck (TG?),.?Findings:?normal bone and soft tissue density consistent [...] * Treatment: 2.?Kohler's neuroma of left foot?Procedure: 86153, J0702- Neuroma/Injection * Procedures:?Injection:?Neuroma/Injection?51753, J0702 Injection - Neuroma w/ Celestone Soluspan [...] on the patient's blood sugars.? * Procedure Codes:?80087 X-RAY EXAM OF LEFT FOOT 3V, Modifiers: 26 , OL49915 N BLOCK INJ, PLANTAR [id number] INJ BETAMETHSN ACTAT&SOD PHOSPH-3MG * Preventive Medicine:? [...] Ward DPM Date:?2024 Generated for Baldo damon/Estefani/Halima on:?12/08/2024 04:44 PM EDT History and Physical [...] LAT, LO, LEFT Taken by trained Podiatric [employer] Roughneck (TG ) , Clinical Indication(s): Evaluate for Fra cture ,
--- OUTSIDE RECORDS SUMMARY | 2024-12-08 16:44 | XMS_ITS ---
Author Organization [facility] Address [address] [place] [address] Care Team Providers Care Director Loss Prevention Name Role Phone Antione Venegas Primary Care Provider Unavailabl e Black, Christina Unavailable [phone] REASON FOR VISIT buy Pedag OTs Mini #38 Encounters Encounter Location Date Provider Diagnosis [facility] [address] [place] [address] 11/03/2024 Christina Black Plan Of Treatment No Information Progress Notes * ECHO MorenaJanieOB:[birth year] (69 yo F)Acc No.[id number]:11/03/2024 Patient:?Rena DODGE :1955???Age:69 Y???Sex:Female Address:[address] [place] [address] * true * Date:? Generated for Printi ng/Faprabhug/eTransmitting on:?12/08/2024 04:44 PM EDT
--- OUTSIDE RECORDS SUMMARY | 2024-12-08 16:44 | XMS_ITS ---
Author Organization [facility] Address [address] [place] [address] Care Team Providers Care Restaurant Hostess Name Role Phone LAITH VENEGAS Primary Care Provider [phone] SVEN ROBLERO Unavailable [phone] ALLERGIES Allergen (clinical drug ingredient) Drug/Non Drug [...] Omeprazole 20 MG TAKE 1 CAPSULE BY [facility] EVERY DAY for 90 Active Zepbound 2.5 [...] Notes Problem Mixed hyperlipidemia (E78.2) Active confirmed [id number] VITAL SIGNS Blood pressure systolic 124 mm Hg 11/01/19 25 Blood pressure diastolic 80 mm Hg 025 Heart Rate 77 /min 10/31/2024 Height 62 in 10/31/2024 Weight 189 lbs 10/31/2024 BMI 34.56 kg/m2 10/31/2024 Oximetry 99 % 10/31/2024 Encounters Encounter Location Date Provider Diagnosis [facility] [address] [facility] [address] [facility] [address] [place] [address] 10/31/2024 SVEN ROBLERO Essential hypertensi on I10 [...] of anti-inflammatory medications for acute pain. Advise fptd-ffs-ftxcqqt Tylenol as needed. Patient has been practicing [...] Dictation was accomplished with the use of [employer]ITION[employer] voice recognition software, which is prone to [...] of anti-inflammatory medications for acute pain. Advise fdaj-wxz-hgfimcx Tylenol as needed. Patient has been practicing [...] Dictation was accomplished with the use of [employer] voice recognition software, which is prone to [...] of anti-inflammatory medications for acute pain. Advise uwfh-fii-ilrckid Tylenol as needed. Patient has been practicing [...] Dictation was accomplished with the use of [employer] voice recognition software, which is prone to [...] of anti-inflammatory medications for acute pain. Advise epdh-zvy-oxtjjar Tylenol as needed. Patient has been practicing [...] Dictation was accomplished with the use of [employer] voice recognition software, which is prone to [...] of anti-inflammatory medications for acute pain. Advise rvnt-eop-hwmciqy Tylenol as needed. Patient has been practicing [...] Dictation was accomplished with the use of [employer] voice recognition software, which is prone to [...] of anti-inflammatory medications for acute pain. Advise fhck-vwc-ojwpqie Tylenol as needed. Patient has been practicing [...] Dictation was accomplished with the use of [employer] voice recognition software, which is prone to [...] of anti-inflammatory medications for acute pain. Advise xalv-ees-peswich Tylenol as needed. Patient has been practicing [...] Dictation was accomplished with the use of [employer] voice recognition software, which is prone to [...] of anti-inflammatory medications for acute pain. Advise klfh-fux-estdhpu Tylenol as needed. Patient has been practicing [...] Dictation was accomplished with the use of [employer] voice recognition software, which is prone to [...] of anti-inflammatory medications for acute pain. Advise lmte-fst-suhkige Tylenol as needed. Patient has been practicing [...] Dictation was accomplished with the use of [employer] voice recognition software, which is prone to [...] D,25-OH,TOTAL,IA 10/31/2024 Next Appt Details Provider Name:SVEN ROBLERO , 02/06/2025 10:00:00 AM, [address], [address], [place], [address], Provider Name:SVEN OSBALDO , 07/03/2025 11:00:00 AM, [address], [address], [place], [address], Progress Notes * ERWIN GOOD MDOB:1954 (69 yo F)Acc No.[id number]:10/31/2024 Progress Notes Patient:??ERWIN GOOD M Provider:??SVEN ROBLERO :1955?Age:69 Y?Sex:Fe male Date:10/31/2024 Address:[address] [place], [place] [address] Pcp:LAITH VENEGAS Subjective: * Chief Complaints: * [...] of anti-inflammatory medications for acute pain. Advise hfio-pjv-pwegeef Tylenol as needed. Patient has been practicing [...] Dictation was accomplished with the use of V[employer] voice recognition software, which is prone to [...] * Images: Billing Information: * Visit Code:?? 07016 Office Visit, Est Pt., Level 4. Modifiers: [...]
--- OUTSIDE RECORDS SUMMARY | 2024-12-08 16:45 | XMS_ITS ---
Author Organization [facility] Address [address] [place] [address] Care Team Providers Care Coil Binder Name Role Phone LAITH VENEGAS Primary Care Provider [phone] OSBALDO SVEN Unavailable [phone] ALLERGIES Allergen (clinical drug ingredient) Drug/Non Drug Allergy documented on EMR Reaction Allergy Type Onset Date Status penicillin G Penicillin G Sodium Unknown Drug Allergy Active rimantadine Rimantadine HCl Unknown Drug Allergy Active REASON FOR VISIT pt here for wt mgt seca done MEDICATIONS Medication SIG (Take, Route, Frequency, Duration) Notes Start Date End Date Status Vitamin D 25 MCG (1000 UT) 1 tablet Orally Once a day Active Calcium 1000 + D 1000-800 MG-UNIT 1 tablet with a meal Orally Once a day Active Atorvastatin Calcium 40 MG 1 tablet Orally Once a day for 30 day(s) Active Escitalopram Oxalate 20 MG TAKE 1 TABLET BY MOUTH EVERY DAY FOR 30 DAYS for 90 Active ZyrTEC Allergy 10 MG 1 tablet Orally Onc e a day for 30 day(s) Active Vitamin B Complex - as directed Orally Active Flonase 50 MCG/ACT 1 spray in each nost ril Nasally Once a day for 30 day(s) Active Combivent Respimat 20-100 MCG/ACT 1 puff as needed Inhalation every 6 hrs Active Zepbound 2.5 MG/0.5ML Inject 2.5 mg Subcutaneous weekly for 28 days 09/23/2024 Not-Taking Aspirin 81 81 MG 1 tablet Orally Once a day for 30 day(s) Active Omeprazole 20 MG TAKE 1 CAPSULE BY MO UTH EVERY DAY for 90 Active Losartan Potassium 50 MG 1 tablet Orally Once a day Not-Taking Ozempic (2 MG/DOSE) 8 MG/3ML INJECT 2 MG SUBCUTANEOUSLY ONCE PER WEEK for 30 Active SOCIAL HISTORY Tobacco Use: Social History Observation Description Date Details (start date - stop date) Former Smoker NA - NA Sex Assigned At : Social History Observation Description Sex Assigned At Unknown Tobacco Use/Smoking Question Answer Notes Are you a former smoker VITAL SIGNS Blood pressure systolic 144 mm Hg 12/06/19 25 Blood pressure diastolic 86 mm Hg 025 Heart Rate 70 /min 12/05/2024 Height 62 in 12/05/2024 Weight 188 lbs 12/05/2024 BMI 34.38 kg/m2 12/05/2024 Oximetry 98 % 12/05/2024 Encounters Encounter Location Date Provider Diagnosis [facility] [address] [facility] [address] [place] [address] 12/05/2024 SVEN ROBLERO Adult-onset obesity E66.9 ; BMI 34.0-34.9,adult Z68.34 ; ABBY (obstructive sleep apnea) G47.33 ; Primary pulmonary hypertension I27.0 ; Generalized joint pain M25.50 ; GERD without esophagitis K21.9 ; Seasonal allergies J30.2 ; Hyperlipidemia, unspecified E78.5 ; Chronic depression F32.A and Prediabetes R73.03 ASSESSMENTS Encounter Date Diagnosis Assessment Notes Treatment Notes Treatment Clinical Notes Section Notes 12/05/2024 Adult-onset obesity (ICD-10 - E66.9) Patient [...] of anti-inflammatory medications for acute pain. Advise cxog-uqc-zzwjika Tylenol as needed. Patient also discussed a supplement today called Voltaire XL which she can begin using and [...] Dictation was accomplished with the use of [employer] voice recognition software, which is prone to [...] Dictation was accomplished with the use of [employer] voice recognition software, which is prone to medical misidentifications and grammatical errors. This are unintentional and the practitioner does try to identify and correct these, but some could still be present. Please do not hesitate to contact practitioner for clarification. 12/05/2024 BMI 34.0-34.9,adult (ICD-10 - Z68.34) Patient [...] of anti-inflammatory medications for acute pain. Advise symb-boq-vbsfqxp Tylenol as needed. Patient also discussed a supplement today called Voltaire XL which she can begin using and [...] Dictation was accomplished with the use of [employer] voice recognition software, which is prone to [...] Dictation was accomplished with the use of [employer] voice recognition software, which is prone to [...] of anti-inflammatory medications for acute pain. Advise eoar-cvr-ccllwfh Tylenol as needed. Patient also discussed a supplement today called Voltaire XL which she can begin using and [...] Dictation was accomplished with the use of [employer] voice recognition software, which is prone to [...] Dictation was accomplished with the use of [employer] voice recognition software, which is prone to [...] of anti-inflammatory medications for acute pain. Advise dfqd-wux-wzcvbgz Tylenol as needed. Patient also discussed a supplement today called Voltaire XL which she can begin using and [...] Dictation was accomplished with the use of [employer] voice recognition software, which is prone to [...] Dictation was accomplished with the use of [employer] voice recognition software, which is prone to [...] of anti-inflammatory medications for acute pain. Advise hbfz-bby-fyqmlzw Tylenol as needed. Patient also discussed a supplement today called Voltaire XL which she can begin using and [...] Dictation was accomplished with the use of [employer] voice recognition software, which is prone to [...] Dictation was accomplished with the use of [employer] voice recognition software, which is prone to medical misidentifications and grammatical errors. This are unintentional and the practitioner does try to identify and correct these, but some could still be present. Please do not hesitate to contact practitioner for clarification. 12/05/2024 GERD without esophagitis (ICD-10 - K21.9) [...] of anti-inflammatory medications for acute pain. Advise snfr-scm-lbwvzfl Tylenol as needed. Patient also discussed a supplement today called Voltaire XL which she can begin using and [...] Dictation was accomplished with the use of [employer] voice recognition software, which is prone to [...] Dictation was accomplished with the use of [employer] voice recognition software, which is prone to [...] of anti-inflammatory medications for acute pain. Advise hhld-cdd-snxndbm Tylenol as needed. Patient also discussed a supplement today called Voltaire XL which she can begin using and [...] Dictation was accomplished with the use of [employer] voice recognition software, which is prone to [...] Dictation was accomplished with the use of H[employer] voice recognition software, which is prone to [...] of anti-inflammatory medications for acute pain. Advise lxnl-rtc-aerzsmw Tylenol as needed. Patient also discussed a supplement today called Voltaire XL which she can begin using and [...] Dictation was accomplished with the use of [employer] voice recognition software, which is prone to [...] arise. Case discussed with collaborating physician Makeda Veengas who reviewed the assessment and plan. Chart, medications, labs, vital signs reviewed. Dictation was accomplished with the use of [employer] voice recognition software, which is prone to [...] of anti-inflammatory medications for acute pain. Advise cwtw-mgr-altgegg Tylenol as needed. Patient also discussed a supplement today called Voltaire XL which she can begin using and [...] Dictation was accomplished with the use of [employer] voice recognition software, which is prone to [...] Dictation was accomplished with the use of [employer] voice recognition software, which is prone to [...] of anti-inflammatory medications for acute pain. Advise kpmm-kri-ajzdcxs Tylenol as needed. Patient also discussed a supplement today called Voltaire XL which she can begin using and [...] Dictation was accomplished with the use of [employer] voice recognition software, which is prone to [...] Dictation was accomplished with the use of [employer] voice recognition software, which is prone to medical misidentifications and grammatical errors. This are unintentional and the practitioner does try to identify and correct these, but some could still be present. Please do not hesitate to contact practitioner for clarification. PLAN OF TREATMENT Next Appt Details Provider Name:SVEN ROBLERO , 02/06/2025 10:00:00 AM, [address], [address], [place], [address], Provider Name:SVEN ROBLERO , 07/03/2025 11:00:00 AM, [address], [address], [place], [address], Progress Notes * ERWIN GOOD MDOB:1954 (69 yo F)Acc No.[id number]:12/05/2024 Patient:??ERWIN GODO Provider:??SVEN ROBLEOR :1955?Age:69 Y?Sex:Fe male Date:12/05/2024 Address:[address] [place] [address], [facility] Pcp:LAITH VENEGAS Subjective: * Chief Complaints: * ?1. Pt here for wt mgt seca done. * HPI: ?Constitutional:? Erwin is a 69-year-old female with history of hypertension, hyperlipidemia, GERD, pulmonary hypertension, restrictive lung disease, asthma, osteoarthritis, seasonal allergies, psoriasis, and obesity presents today for weight management follow-up. She was last seen on 09/19/2024 at which time her weight was 190 pounds, BMI 34.75. Patient is currently on Ozempic 2 mg weekly. Patient reports good tolerance of Ozempic, no adverse effects. Various spurts of increased hunger. Patient states that her primarily does the cooking, states could make improvements as far as reducing overall carbohydrate rich meals and increasing her protein and vegetables. Also would like to increase her water intake. She is soon to be traveling to [place]. Recently purchased a walking pad and has been walking for 20 minutes every other day at a brisk pace. Also participates in water aerobics. No other concerns today. * ROS:?Constitutional: Denies sudden weight loss, fever, night sweats, excessive fatigue, or changes in sleep. ???CV: Denies chest pain or heart palpitations. ???Respiratory: Denies SOB, wheezing, or pleuritic pain. ???GI: Denies n/v/d, constipation, blood in stools, pain associated with eating, indigestion, or difficulty/pain with swallowing. ???MSK: Denies back pain, joint deformity/pain, or muscle weakness. ???Integumentary: Denies skin changes. ???Endocrine: Denies polyuria, polyphagia, or polydipsia. No heat/cold intolerance or excessive thirst. * Medical History:??Asthma, Mo rbid obesity, Pulmonary hypertension, Restrictive lung disease. * Surgical History:??right naresh phram plication 11/13/16 , colonoscopy 2015 , [...] needed Inhalation every 6 hrs , Taking Aspirin 81 81 MG Tablet [...] tablet Orally Once a day , Taking Escitalopram Oxalate 20 MG Tablet TAKE 1 TABLET BY MOUTH EVERY DAY FOR 30 DAYS , Taking Ozempic (2 MG/DOSE) 8 MG/3ML Solution Pen-injector INJECT 2 MG SUBCUTANEOUSLY ONCE PER WEEK , Taking Omeprazole 20 MG Capsule Delayed Release TAKE 1 CAPSULE BY MOUTH EVERY DAY , Not-Taking Losartan Potassium 50 MG Tablet 1 tablet Orally Once a day , Not-Taking Zepbound 2.5 MG/0.5ML Solution Auto-injector Inject 2.5 mg Subcutaneous weekly , Medication List reviewed and reconciled with the patient * Allergies:??Penicillin G Sod ium, Rimantadine HCl. Objective: * Vitals:??HR:70/min, BP:144/8 6mm Hg, Wt:188lbs, BMI:34.38Index, Ht: 62 in, Oxygen sat %:98%. * Physical Examination:?General: Age appropriate, well-appearing 69-year-old female in no acute distress, speaking in full sentences without respiratory compromise. Well groomed, well developed. Alert, interactive. ?Skin: Warm, dry and intact. No lesions/rashes/erythema. ?HEENT: Normocephalic/atraumatic. ?Neck/Thyroid: Thyroid symmetrical, nonenlarged, and free of nodules to palpation. ?Lungs: Clear to auscultation bilaterally. ?CV: Regular rate and rhythm without murmurs, rubs, or gallops. 2+ radial pulses bilaterally. ?Neuro: CN II-XII grossly intact. Steady gait with non-assisted ambulation observed. ?Psych: Stable mood and affect. Assessment: * Assessment: 1.??Adult-onset obesity - E6 6.9 (Primary)??2.??BMI 34.0-34.9,adult - Z68.34??3.??ABBY (obstructive sleep apnea) - G47.33??4.??Primary pulmonary hypertension - I27.0??5.??Generalized joint pain - M25.50??6.??GERD without esophagitis - K21.9??7.??Seasonal allergies - J30.2??8.??Hyperlipidemia, unspecified - E78.5??9.??Chronic depression - F32.A??10.??Prediabetes - R73.03?? Patient is here for weight m anagement follow-up. We focused on significance of healthy [...] of anti-inflammatory medications for acute pain. Advise rtky-csx-aljkwny Tylenol as needed. Patient also discussed a supplement today called Voltaire XL which she can begin using and [...] Dictation was accomplished with the use of [employer] voice recognition software, which is prone to [...] Dictation was accomplished with the use of [employer] voice recognition software, which is prone to medical misidentifications and grammatical errors. This are unintentional and the practitioner does try to identify and correct these, but some could still be present. Please do not hesitate to contact practitioner for clarification. Plan: * Treatment: * Procedure Codes:??03627 P/M ENGINEERING SCIENTIST, INDIV 15 MIN, Modifiers: 33 , SA * Images: Billing Information: * Visit Code:?? 92291 Office Visit, Est Pt., Level 4. Modifiers: SA * Procedure Codes:?? 69238 P/M ENGINEERING SCIENTIST, INDIV 15 MIN. Modifiers: 33, SA * Sign off status: Completed true * Provider:??SVEN ROBLERO Date:?? 025 History and Physical Notes * HPI (History of Present Illness) Category Sub-Category Detail Notes Category Not es Constitutional Erwin is a 69 -year-old female with history of hypertension, hyperlipidemia, GERD, pulmonary hypertension, restrictive lung disease, asthma, osteoarthritis, seasonal allergies, psoriasis, and obesity presents today for weight management follow-up. She was last seen on 09/19/2024 at which time her weight was 190 pounds, BMI 34.75. Patient is currently on Ozempic 2 mg weekly. Patient reports good tolerance of Ozempic, no adverse effects. Various spurts of increased hunger. Patient states that her primarily does the cooking, states could make improvements as far as reducing overall carbohydrate rich meals and increasing her protein and vegetables. Also would like to increase her water intake. She is soon to be traveling to [place]. Recently purchased a walking pad and has been walking for 20 minutes every other day at a brisk pace. Also participates in water aerobics. No other concerns today. Physical Examination Category Sub-Category Detail Notes Section Note s General: Age appropriate, well-appearing 69-year-old female in no acute distress, speaking in full sentences without respiratory compromise. Well groomed, well developed. Alert, interactive. Skin: Warm, dry and intact. No lesions/rashes/erythema. HEENT: Normocephalic/atraumatic. Neck/Thyroid: Thyroid symmetrical, nonenlarged, and free of nodules to palpation. Lungs: Clear to auscultation bilaterally. CV: Regular rate and rhythm without murmurs, rubs, or gallops. 2+ radial pulses bilaterally. Neuro: CN II-XII grossly intact. Steady gait with non-assisted ambulation observed. Psych: Stable mood and affect.
--- OUTSIDE RECORDS SUMMARY | 2024-12-08 16:45 | XMS_ITS ---
Author Organization [facility] Address [address] [place] [address] Care Team Providers Care Wind Up Operator Name Role Phone LAITH CESPEDES Primary Care Provider [phone] SVEN ROBLERO [phone] Encounters Encounter Location Date Provider Diagnosis [address] [place] [address] 10/21/2024 SVEN ROBLERO PLAN OF TREATMENT Next Appt Details Provider Name:SVEN ROBLERO , 02/06/2025 10:00:00 AM, [address], [address], [place], [address], Provider Name:SVEN ROBLERO , 07/03/2025 11:00:00 AM, [address], [address], [place], [address], Progress Notes * ERWIN GOOD MDOB:1954 (69 yo F)Acc No.[id number]:10/21/2024 Patient:??ERWIN GOOD Provider:??SVEN ROBLERO :1955?Age:69 Y?Sex:Fe male Date:10/21/2024 Address:[address], [id number] Pcp:LAITH CESPEDES Subjective: * Chief Complaints: * ? * Medical History:?? Objective: Assessment: Plan: * Treatment: * Images: Billing Information: * Visit Code:?? * Procedure Codes:?? * Sign off status: Pending * Provider:??SVEN ROBLERO Date:?? 025
== END 2024-12-08 14:28 | disposition home or self-care (01) ==
LOC: HO.HOS 13:50
PROVIDERS: Visit Provider Orthopaedic Surgery
DX: M25.311 Other instability, right shoulder (principal)
CPT/HCPCS: 99213; G2211

== ENCOUNTER → 2024-12-08 13:52 | Outpatient (BNV) | payer MEDICARE, SELFPAY | PROVIDERS: Visit Provider Radiology Diagnostic Radiology | DX: M19.011 Primary osteoarthritis, right shoulder (principal) | CPT/HCPCS: 73030 ==

== ENCOUNTER → 2024-12-13 19:04 | Outpatient (BNV) | payer MEDICARE, SELFPAY | PROVIDERS: Visit Provider Radiology Diagnostic Radiology | DX: M19.011 Primary osteoarthritis, right shoulder (principal); M75.51 Bursitis of right shoulder | CPT/HCPCS: 73221 ==

== ENCOUNTER 2024-12-13 19:10 | Outpatient (REF) | payer MEDICARE, SELFPAY ==
--- NOTE | ~2024-12-13 | MR_ITS ---
CLINICAL HISTORY: M25.311 - Other instability, right shoulder --- Additional Notes or Special Instruc tions: One suture anchor in right proximal humerus after rotator cuff repair MR right shoulder without gadolinium Comparison: DX/SR - XR SHOULDER RT MIN 2V - 12/08/24 13:52 EDT Findings: No acute fracture or pathologic bone lesion. Distal clavicular resection. Moderate amount of fluid within the subacromial subdeltoid bursa. Mild glenohumeral osteoarthritis. No discrete labral tear. No glenohumeral joint effusion. Operative changes of rotator cuff repair. No surrounding marrow signal abnormality. No evidence of recurrent rotator cuff tear. No rotator cuff atrophy or fatty replacement. The long head of the biceps is intact. IMPRESSION: 1. Subacromial subdeltoid bursitis. 2. Mild glenohumeral osteoarthritis. 3. Rotator cuff repair without evidence of recurrent tear. This document has been electronically signed by: Miguel Gibbons DO on 12/15/2024 10:01:26
--- OUTSIDE RECORDS SUMMARY | 2024-12-13 19:13 | XMS_ITS | Patient Health Record ---
Author Organization [facility] Address [address] [place] [address] Care Team Providers Care Lion Hunter Name Role Phone LAITH VENEGAS Primary Care Provider CANDICE NAGEL Unavailable [phone] OSBALDO SVEN Unavailable [phone] ALLERGIES Allergen (clinical drug ingredient) Drug/Non Drug Allergy documented on EMR Reaction Allergy Type Onset Date Status penicillin G Penicillin G Sodium Unknown Drug Allergy Active rimantadine Rimantadine HCl Unknown Drug Allergy Active RESULTS Component Value Reference Range Notes CBC WITH AUTO DIFFERENTIAL Reviewed date:07/05/2024 10:41:16 [...] 12:55:31 PM Interpretation: Performing Lab: Notes/Report: Specific [place] Urine 1.016 1.003-1.030 pH, Urine 5.5 5.0-8.0 [...] Omeprazole 20 MG TAKE 1 CAPSULE BY ME UT EVERY DAY for 90 Active Vitamin B [...] Vitamin D deficiency, unspecified (E55.9) Active confirmed 25639551 Problem Morbid (severe) obesity due to excess calories (E66.01) Active confirmed Morbid obesity (disorder) (716658091) Problem Mixed hyperlipidemia (E78.2) Active confirmed 442030076 Problem Hyperlipidemia, unspecified (E78.5) Active confirmed Hyperlipidemia (29319143) Problem Primary pulmonary hypertension (I27.0) Active confirmed Idiopathic pulmonary arterial hypertension (248442981) Problem Unspecified diastolic (congestive) heart failure (I50.30) Active confirmed Diastolic heart failure (870438730) Problem Encounter for general adult medical examination without abnormal findings (Z00.00) Active confirmed 729649921 Problem Encounter for screening for lipoid disorders (Z13.220) Active confirmed Lipid screening (247074141) Problem Encounter for screening for other suspected endocrine disorder (Z13.29) Active confirmed 108854425 Problem Encounter for screening for osteoporosis (Z13.820) Active confirmed 031671608 Problem Body mass index (BMI) 40.0-44.9, adult (Z68.41) Active confirmed Body mass ind ex 40+ - severely obese (981063985) Problem Body mass index (BMI) 45.0-49.9, adult (Z68.42) Active confirmed Body mass ind ex 40+ - severely obese (224850227) Problem Prediabetes (R73.03) Active confirmed 925356322 Problem Essential hypertension (I10) Active confirmed 84899495 Problem Adult general medical exam (Z00.00) Active confirmed Adult health examination (517331695) Problem Dizziness (R42) Active confirmed Dizzin ess (660842061) Problem Cataract, unspecified cataract type, unspecified laterality (H26.9) Active confirmed Cataract (413772367) Problem Seasonal allergies (J30.2) Active confirmed 776680134 Problem ABBY (obstructive sleep apnea) (G47.33) Active confirmed 67887350 Problem Headache, unspecified (R51.9) Active confirmed Headache (43553728) Problem BMI 35.0-35.9,adult (Z68.35) Active confirmed 246096477 Problem Recurrent falls (R29.6) Active confirmed Recurrent falls (819635027) Problem BMI 36.0-36.9,adult (Z68.36) Active confirmed 801023564 Problem BMI 38.0-38.9,adult (Z68.38) Active confirmed 130876059 Problem Adult-onset obesity (E66.9) Active confirmed 941762791 Problem BMI 34.0-34.9,adult (Z68.34) Active confirmed 546703023 Problem GERD without esophagitis (K21.9) Active confirmed 760799585 Problem Avitaminosis D (E55.9) Active confirmed Avitaminosis D (57258698) Problem Encounter for screening for endocrine disorder (Z13.29) Active confirmed Endocrine/ metabol ic screening (754186589) VITAL SIGNS Heart Rate 70 /min 12/05/2024 Oximetry 98 % 12/05/2024 Blood pressure diastolic 86 mm Hg 12/05/2024 Height 62 in 12/05/2024 Blood pressure systolic 144 mm Hg 12/05/2024 Weight 188 lbs 12/05/2024 BMI 34.38 kg/m2 12/05/2024 Encounters Encounter Location Date Provider Diagnosis [facility] [address] [address] 03/10/2024 CANDICE NAGEL Obesity (BMI 30-39.9 ) E66.9 ; BMI 35.0-35.9,adult Z68.35 ; Primary pulmonary hypertension I27.0 ; Shortness of breath R06.02 ; Prediabetes R73.03 and Hyperlipidemia, unspecified E78.5 [facility] [address] [place] [address] 03/26/2024 CANDICE NAGEL [facility] [address] [address] 10/21/2024 SVEN ROBLERO [facility] [address] [address] 03/31/2024 CANDICE NAGEL Obesity (BMI 30-39.9 ) E66.9 ; BMI 35.0-35.9,adult Z68.35 ; Primary pulmonary hypertension I27.0 ; Shortness of breath R06.02 ; Prediabetes R73.03 and Hyperlipidemia, unspecified E78.5 [place] [address] [address] 07/12/2024 SEVN ROBLERO Annual physical exam Z00.00 ; Encounter for screening for depression Z13.31 ; Encounter for screening for other disorder Z13.89 ; BMI 34.0-34.9,adult Z68.34 ; Adult-onset obesity E66.9 ; Advance care planning Z71.89 ; Essential hypertension I10 ; Multiple joint pain M25.50 ; Pulmonary HTN I27.20 ; Mild depression F32.A and Seasonal allergies J30.2 [place] [address] [address] 09/23/2024 SVEN ROBLERO Adult-onset obesity E66.9 ; BMI 34.0-34.9,adult Z68.34 ; ABBY (obstructive sleep apnea) G47.33 ; Primary pulmonary hypertension I27.0 ; Generalized joint pain M25.50 ; GERD without esophagitis K21.9 ; Seasonal allergies J30.2 ; Hyperlipidemia, unspecified E78.5 ; Chronic depression F32.A and Prediabetes R73.03 [place] [address] 10/31/2024 SVEN ROBLERO Essential hypertensi on I10 ; Primary pulmonary hypertension I27.0 ; ABBY (obstructive sleep apnea) G47.33 ; GERD without esophagitis K21.9 ; Primary osteoarthritis involving multiple joints M15.0 ; Mixed hyperlipidemia E78.2 ; Seasonal allergies J30.2 ; Prediabetes R73.03 and Adult-onset obesity E66.9 [place] [address] [address] 12/05/2024 SVEN ROBLERO Adult-onset obesity E66.9 ; BMI 34.0-34.9,adult Z68.34 ; ABBY (obstructive sleep apnea) G47.33 ; Primary pulmonary hypertension I27.0 ; Generalized joint pain M25.50 ; GERD without esophagitis K21.9 ; Seasonal allergies J30.2 ; Hyperlipidemia, unspecified E78.5 ; Chronic depression F32.A and Prediabetes R73.03 [address] [place] [address] 07/21/[address] [facility] [address] [place] [address] 09/02/[address] [facility] [address] [place] [address] 09/23/[address] [facility] [address] [place] [address] 09/24/[address] [facility] [address] [place] [address] 10/03/2024 SVEN ROBLERO [address] [place], [place] 04/03/2024 LAITH VENEGAS ASSESSMENTS Encounter Date Diagnosis [...] minimum of 6 months The most recent [employer] of clinical endocrinologists and [employer] Endocrin[employer] guidelines recommend patients who [...] track activity level. Consider using apps like [employer], [email or web address], lose it, stick as needed for self-monitoring and weight management. Consider group exercises. Consider hiring a link trainer maintenance man. Regular exercise is riojas to sustainable health [...] counseling and psychiatry and Dr Escobar at [facility]. We would like to cover regular topics [...] software and direct typing Please excuse inadvertent cook enchilada or typing errors, or uncorrected word substitutions Although every attempt has been made by the provider to proofread this document, occasional misspellings and typographical errors may still be present Due to the previous pandemic, and the use of personal protective equipment (PPE) This may decrease voice recognition accuracy Inadvertent cook enchilada errors may occur 03/31/2024 Obesity (BMI 30-39.9) [...] minimum of 6 months The most recent [employer] of clinical endocrinologists and [employer] Endocrinology guidelines recommend patients who [...] track activity level. Consider using apps like [employer], [employer], lose it, stick as needed for self-monitoring and weight management. Consider group exercises. Consider hiring a link trainer maintenance man. Regular exercise is riojas to sustainable health [...] counseling and psychiatry and Dr Escobar at [facility]. We would like to cover regular topics [...] software and direct typing Please excuse inadvertent cook enchilada or typing errors, or uncorrected word substitutions Although every attempt has been made by the provider to proofread this document, occasional misspellings and typographical errors may still be present Due to the previous pandemic, and the use of personal protective equipment (PPE) This may decrease voice recognition accuracy Inadvertent cook enchilada errors may occur 07/12/2024 Encounter for screening [...] of anti-inflammatory medications for acute pain. Advise qoqy-yho-sfmcyaz Tylenol as needed. Patient also discussed a supplement today called Inkster XL which she can begin using and [...] Fall risk assessed. Discussed healthcare proxy. Discussed [place] order for life sustaining treatment, end-of-life issues, intubation and resuscitation dialysis artificial nutrition and hydration is appropriate. We discussed [place] order for life sustaining treatment and healthcare [...] Dictation was accomplished with the use of [employer] voice recognition software, which is prone to [...] of anti-inflammatory medications for acute pain. Advise dtdy-enq-dkcemdm Tylenol as needed. Patient also discussed a supplement today called Inkster XL which she can begin using and [...] Fall risk assessed. Discussed healthcare proxy. Discussed [place] order for life sustaining treatment, end-of-life issues, intubation and resuscitation dialysis artificial nutrition and hydration is appropriate. We discussed [place] order for life sustaining treatment and healthcare [...] Dictation was accomplished with the use of [employer] voice recognition software, which is prone to [...] of anti-inflammatory medications for acute pain. Advise zdtm-nhh-qoufrft Tylenol as needed. Patient also discussed a supplement today called Inkster XL which she can begin using and [...] Dictation was accomplished with the use of [employer] voice recognition software, which is prone to [...] Dictation was accomplished with the use of [employer] voice recognition software, which is prone to [...] of anti-inflammatory medications for acute pain. Advise wfno-vtk-txubuah Tylenol as needed. Patient also discussed a supplement today called Inkster XL which she can begin using and [...] Dictation was accomplished with the use of [employer] voice recognition software, which is prone to [...] Dictation was accomplished with the use of [employer] voice recognition software, which is prone to [...] of anti-inflammatory medications for acute pain. Advise cyif-jce-xryuzrf Tylenol as needed. Patient has been practicing [...] Dictation was accomplished with the use of [employer] voice recognition software, which is prone to [...] of anti-inflammatory medications for acute pain. Advise mcvs-hln-qmgwvum Tylenol as needed. Patient has been practicing [...] Dictation was accomplished with the use of [employer] voice recognition software, which is prone to [...] of anti-inflammatory medications for acute pain. Advise dais-xpx-psodmjp Tylenol as needed. Patient also discussed a supplement today called Inkster XL which she can begin using and [...] Dictation was accomplished with the use of [employer] voice recognition software, which is prone to [...] Dictation was accomplished with the use of [employer] voice recognition software, which is prone to [...] of anti-inflammatory medications for acute pain. Advise bdkj-jky-qclawri Tylenol as needed. Patient also discussed a supplement today called Inkster XL which she can begin using and [...] Dictation was accomplished with the use of [employer] voice recognition software, which is prone to [...] Dictation was accomplished with the use of [employer] voice recognition software, which is prone to [...] of anti-inflammatory medications for acute pain. Advise yitt-gwh-lsbopys Tylenol as needed. Patient has been practicing [...] Dictation was accomplished with the use of [employer] voice recognition software, which is prone to [...] of anti-inflammatory medications for acute pain. Advise cxfy-bgk-msnqprt Tylenol as needed. Patient also discussed a supplement today called Inkster XL which she can begin using and [...] Dictation was accomplished with the use of [employer] voice recognition software, which is prone to [...] Dictation was accomplished with the use of [employer] voice recognition software, which is prone to [...] minimum of 6 months The most recent [employer] of clinical endocrinologists and [employer] Endocrinology guidelines recommend patients who [...] track activity level. Consider using apps like [employer], [employer], lose it, stick as needed for self-monitoring and weight management. Consider group exercises. Consider hiring a link trainer maintenance man. Regular exercise is riojas to sustainable health [...] counseling and psychiatry and Dr Escobar at [facility]. We would like to cover regular topics [...] software and direct typing Please excuse inadvertent cook enchilada or typing errors, or uncorrected word substitutions Although every attempt has been made by the provider to proofread this document, occasional misspellings and typographical errors may still be present Due to the previous pandemic, and the use of personal protective equipment (PPE) This may decrease voice recognition accuracy Inadvertent cook enchilada errors may occur 07/12/2024 Encounter for screening [...] of anti-inflammatory medications for acute pain. Advise dvij-cat-dawovgw Tylenol as needed. Patient also discussed a supplement today called Inkster XL which she can begin using and [...] Fall risk assessed. Discussed healthcare proxy. Discussed [place] order for life sustaining treatment, end-of-life issues, intubation and resuscitation dialysis artificial nutrition and hydration is appropriate. We discussed [place] order for life sustaining treatment and healthcare [...] Dictation was accomplished with the use of [employer] voice recognition software, which is prone to [...] minimum of 6 months The most recent [employer] Association of clinical endocrinologists and [employer] Endocrinology guidelines recommend patients who [...] track activity level. Consider using apps like [employer], [employer], lose it, stick as needed for self-monitoring and weight management. Consider group exercises. Consider hiring a link trainer maintenance man. Regular exercise is riojas to sustainable health [...] counseling and psychiatry and Dr Escobar at [facility]. We would like to cover regular topics [...] software and direct typing Please excuse inadvertent cook enchilada or typing errors, or uncorrected word substitutions Although every attempt has been made by the provider to proofread this document, occasional misspellings and typographical errors may still be present Due to the previous pandemic, and the use of personal protective equipment (PPE) This may decrease voice recognition accuracy Inadvertent cook enchilada errors may occur 03/31/2024 Primary pulmonary hypertension [...] minimum of 6 months The most recent [employer] of clinical endocrinologists and [employer] Endocrinology guidelines recommend patients who [...] track activity level. Consider using apps like [employer], [employer], lose it, stick as needed for self-monitoring and weight management. Consider group exercises. Consider hiring a link trainer maintenance man. Regular exercise is riojas to sustainable health [...] counseling and psychiatry and Dr Escobar at [facility]. We would like to cover regular topics [...] software and direct typing Please excuse inadvertent cook enchilada or typing errors, or uncorrected word substitutions Although every attempt has been made by the provider to proofread this document, occasional misspellings and typographical errors may still be present Due to the previous pandemic, and the use of personal protective equipment (PPE) This may decrease voice recognition accuracy Inadvertent cook enchilada errors may occur 03/10/2024 Primary pulmonary hypertension [...] minimum of 6 months The most recent [employer] Association of clinical endocrinologists and [employer] Endocrinology guidelines recommend patients who [...] track activity level. Consider using apps like [employer], [email or web address], lose it, stick as needed for self-monitoring and weight management. Consider group exercises. Consider hiring a link trainer maintenance man. Regular exercise is riojas to sustainable health [...] counseling and psychiatry and Dr Escobar at [facility]. We would like to cover regular topics [...] software and direct typing Please excuse inadvertent cook enchilada or typing errors, or uncorrected word substitutions Although every attempt has been made by the provider to proofread this document, occasional misspellings and typographical errors may still be present Due to the previous pandemic, and the use of personal protective equipment (PPE) This may decrease voice recognition accuracy Inadvertent cook enchilada errors may occur 07/12/2024 BMI 34.0-34.9,adult (ICD-10 [...] of anti-inflammatory medications for acute pain. Advise cpyy-sgw-hmdwejz Tylenol as needed. Patient also discussed a supplement today called Inkster XL which she can begin using and [...] Fall risk assessed. Discussed healthcare proxy. Discussed [place] order for life sustaining treatment, end-of-life issues, intubation and resuscitation dialysis artificial nutrition and hydration is appropriate. We discussed [place] order for life sustaining treatment and healthcare [...] Dictation was accomplished with the use of [employer] voice recognition software, which is prone to [...] of anti-inflammatory medications for acute pain. Advise snke-jyt-ukrwjig Tylenol as needed. Patient also discussed a supplement today called Inkster XL which she can begin using and [...] Dictation was accomplished with the use of [employer] voice recognition software, which is prone to [...] Dictation was accomplished with the use of [employer] voice recognition software, which is prone to [...] of anti-inflammatory medications for acute pain. Advise nkfq-mgt-gqakcnp Tylenol as needed. Patient has been practicing [...] Dictation was accomplished with the use of [employer] voice recognition software, which is prone to [...] of anti-inflammatory medications for acute pain. Advise ybwa-pcw-poeqrmp Tylenol as needed. Patient also discussed a supplement today called Inkster XL which she can begin using and [...] Dictation was accomplished with the use of [employer] voice recognition software, which is prone to [...] Dictation was accomplished with the use of [employer] voice recognition software, which is prone to [...] of anti-inflammatory medications for acute pain. Advise uhsu-lns-ekwerjk Tylenol as needed. Patient has been practicing [...] Dictation was accomplished with the use of [employer] voice recognition software, which is prone to [...] of anti-inflammatory medications for acute pain. Advise awfg-iqz-uwhkqyc Tylenol as needed. Patient also discussed a supplement today called Inkster XL which she can begin using and [...] Dictation was accomplished with the use of [employer] voice recognition software, which is prone to [...] Dictation was accomplished with the use of [employer] voice recognition software, which is prone to [...] of anti-inflammatory medications for acute pain. Advise qgut-imh-obgrzul Tylenol as needed. Patient also discussed a supplement today called Inkster XL which she can begin using and [...] Dictation was accomplished with the use of [employer] voice recognition software, which is prone to [...] Dictation was accomplished with the use of [employer] voice recognition software, which is prone to [...] of anti-inflammatory medications for acute pain. Advise vaui-idj-avnpsmw Tylenol as needed. Patient also discussed a supplement today called Inkster XL which she can begin using and [...] Fall risk assessed. Discussed healthcare proxy. Discussed [place] order for life sustaining treatment, end-of-life issues, intubation and resuscitation dialysis artificial nutrition and hydration is appropriate. We discussed [place] order for life sustaining treatment and healthcare [...] Dictation was accomplished with the use of [employer] voice recognition software, which is prone to medical misidentifications and grammatical errors. This are unintentional and the practitioner does try to identify and correct these, but some could still be present. Please do not hesitate to contact practitioner for clarification. 03/10/2024 Shortness of breath (ICD-10 - R06.02) [...] minimum of 6 months The most recent [place] Association of clinical endocrinologists and [employer] Endocrinology guidelines recommend patients who [...] track activity level. Consider using apps like [employer], [employer] [place] [employer], lose it, stick as needed for self-monitoring and weight management. Consider group exercises. Consider hiring a link trainer maintenance man. Regular exercise is riojas to sustainable health [...] counseling and psychiatry and Dr Escobar at [employer]. We would like to cover regular topics [...] software and direct typing Please excuse inadvertent cook enchilada or typing errors, or uncorrected word substitutions Although every attempt has been made by the provider to proofread this document, occasional misspellings and typographical errors may still be present Due to the previous pandemic, and the use of personal protective equipment (PPE) This may decrease voice recognition accuracy Inadvertent cook enchilada errors may occur 03/31/2024 Shortness of breath (ICD-10 - R06.02) [...] minimum of 6 months The most recent [employer] Association of clinical endocrinologists and [employer] Endocrinology guidelines recommend patients who [...] track activity level. Consider using apps like [employer], [email or web address], lose it, stick as needed for self-monitoring and weight management. Consider group exercises. Consider hiring a link trainer maintenance man. Regular exercise is riojas to sustainable health [...] counseling and psychiatry and Dr Escobar at [facility] [facility]. We would like to cover regular topics [...] software and direct typing Please excuse inadvertent cook enchilada or typing errors, or uncorrected word substitutions Although every attempt has been made by the provider to proofread this document, occasional misspellings and typographical errors may still be present Due to the previous pandemic, and the use of personal protective equipment (PPE) This may decrease voice recognition accuracy Inadvertent cook enchilada errors may occur 03/31/2024 Prediabetes (ICD-10 - [...] minimum of 6 months The most recent [employer] of clinical endocrinologists and [employer] Endocrinology guidelines recommend patients who [...] track activity level. Consider using apps like [employer], [email or web address], lose it, stick as needed for self-monitoring and weight management. Consider group exercises. Consider hiring a link trainer maintenance man. Regular exercise is riojas to sustainable health [...] counseling and psychiatry and Dr Escobar at [employer]. We would like to cover regular topics [...] software and direct typing Please excuse inadvertent cook enchilada or typing errors, or uncorrected word substitutions Although every attempt has been made by the provider to proofread this document, occasional misspellings and typographical errors may still be present Due to the previous pandemic, and the use of personal protective equipment (PPE) This may decrease voice recognition accuracy Inadvertent cook enchilada errors may occur 03/10/2024 Prediabetes (ICD-10 - [...] minimum of 6 months The most recent [place] Association of clinical endocrinologists and [place] [employer] Endocrinology guidelines recommend patients who [...] track activity level. Consider using apps like [employer], Hears[employer].itpal, lose it, stick as needed for self-monitoring and weight management. Consider group exercises. Consider hiring a link trainer maintenance man. Regular exercise is riojas to sustainable health [...] counseling and psychiatry and Dr Escobar at [facility]. We would like to cover regular topics [...] software and direct typing Please excuse inadvertent cook enchilada or typing errors, or uncorrected word substitutions Although every attempt has been made by the provider to proofread this document, occasional misspellings and typographical errors may still be present Due to the previous pandemic, and the use of personal protective equipment (PPE) This may decrease voice recognition accuracy Inadvertent cook enchilada errors may occur 07/12/2024 Advance care planning [...] of anti-inflammatory medications for acute pain. Advise crnx-zmp-nuearco Tylenol as needed. Patient also discussed a supplement today called Inkster XL which she can begin using and [...] Fall risk assessed. Discussed healthcare proxy. Discussed [place] order for life sustaining treatment, end-of-life issues, intubation and resuscitation dialysis artificial nutrition and hydration is appropriate. We discussed [place] order for life sustaining treatment and healthcare [...] Dictation was accomplished with the use of [employer] voice recognition software, which is prone to [...] of anti-inflammatory medications for acute pain. Advise vfdu-pkf-nuphcfx Tylenol as needed. Patient also discussed a supplement today called Inkster XL which she can begin using and [...] Dictation was accomplished with the use of [employer] voice recognition software, which is prone to [...] Dictation was accomplished with the use of [employer] voice recognition software, which is prone to [...] of anti-inflammatory medications for acute pain. Advise glro-hmi-tmviwzi Tylenol as needed. Patient has been practicing [...] Dictation was accomplished with the use of [employer] voice recognition software, which is prone to [...] of anti-inflammatory medications for acute pain. Advise knlw-mcc-gifczsb Tylenol as needed. Patient also discussed a supplement today called Inkster XL which she can begin using and [...] Dictation was accomplished with the use of [employer] voice recognition software, which is prone to [...] Dictation was accomplished with the use of [employer] voice recognition software, which is prone to [...] of anti-inflammatory medications for acute pain. Advise ooig-ptp-znyvcrf Tylenol as needed. Patient also discussed a supplement today called Inkster XL which she can begin using and [...] Dictation was accomplished with the use of [employer] voice recognition software, which is prone to [...] Dictation was accomplished with the use of [employer] voice recognition software, which is prone to [...] of anti-inflammatory medications for acute pain. Advise ltgr-gqx-jpanutl Tylenol as needed. Patient has been practicing [...] Dictation was accomplished with the use of [employer] voice recognition software, which is prone to [...] of anti-inflammatory medications for acute pain. Advise qzps-aly-phuoqgr Tylenol as needed. Patient also discussed a supplement today called Inkster XL which she can begin using and [...] Fall risk assessed. Discussed healthcare proxy. Discussed [place] order for life sustaining treatment, end-of-life issues, intubation and resuscitation dialysis artificial nutrition and hydration is appropriate. We discussed [place] order for life sustaining treatment and healthcare [...] Dictation was accomplished with the use of [employer] voice recognition software, which is prone to [...] of anti-inflammatory medications for acute pain. Advise szxi-tty-htzdiqw Tylenol as needed. Patient also discussed a supplement today called Inkster XL which she can begin using and [...] Dictation was accomplished with the use of [employer] voice recognition software, which is prone to [...] Dictation was accomplished with the use of [employer] voice recognition software, which is prone to [...] minimum of 6 months The most recent [place] Association of clinical endocrinologists and [place] [employer] of Endocrinology guidelines recommend patients who [...] track activity level. Consider using apps like [employer], [employer]pal, lose it, stick as needed for self-monitoring and weight management. Consider group exercises. Consider hiring a link trainer maintenance man. Regular exercise is riojas to sustainable health [...] counseling and psychiatry and Dr Escobar at [facility] [facility]. We would like to cover regular topics [...] software and direct typing Please excuse inadvertent cook enchilada or typing errors, or uncorrected word substitutions Although every attempt has been made by the provider to proofread this document, occasional misspellings and typographical errors may still be present Due to the previous pandemic, and the use of personal protective equipment (PPE) This may decrease voice recognition accuracy Inadvertent cook enchilada errors may occur 03/31/2024 Hyperlipidemia, unspecified (ICD-10 [...] minimum of 6 months The most recent [place] Association of clinical endocrinologists and [place] College of Endocrinology guidelines recommend patients who [...] track activity level. Consider using apps like [employer], [employer]ago - teamwork across [employer]tablepal, lose it, stick as needed for self-monitoring and weight management. Consider group exercises. Consider hiring a link trainer maintenance man. Regular exercise is riojas to sustainable health [...] counseling and psychiatry and Dr Escobar at [facility]. We would like to cover regular topics [...] software and direct typing Please excuse inadvertent cook enchilada or typing errors, or uncorrected word substitutions Although every attempt has been made by the provider to proofread this document, occasional misspellings and typographical errors may still be present Due to the previous pandemic, and the use of personal protective equipment (PPE) This may decrease voice recognition accuracy Inadvertent cook enchilada errors may occur 09/23/2024 Hyperlipidemia, unspecified (ICD-10 - E78.5) Patient [...] of anti-inflammatory medications for acute pain. Advise caim-qrc-apkaghf Tylenol as needed. Patient also discussed a supplement today called Inkster XL which she can begin using and [...] Dictation was accomplished with the use of [employer] voice recognition software, which is prone to [...] Dictation was accomplished with the use of [employer] voice recognition software, which is prone to [...] of anti-inflammatory medications for acute pain. Advise fxcx-qvj-fbyncij Tylenol as needed. Patient also discussed a supplement today called Inkster XL which she can begin using and [...] Fall risk assessed. Discussed healthcare proxy. Discussed [place] order for life sustaining treatment, end-of-life issues, intubation and resuscitation dialysis artificial nutrition and hydration is appropriate. We discussed [place] order for life sustaining treatment and healthcare [...] Dictation was accomplished with the use of [employer] voice recognition software, which is prone to [...] of anti-inflammatory medications for acute pain. Advise eqvx-abw-ijdzqga Tylenol as needed. Patient has been practicing [...] Dictation was accomplished with the use of [employer] voice recognition software, which is prone to [...] of anti-inflammatory medications for acute pain. Advise fyqv-ztu-bnwxygk Tylenol as needed. Patient also discussed a supplement today called Inkster XL which she can begin using and [...] Dictation was accomplished with the use of [employer] voice recognition software, which is prone to [...] Dictation was accomplished with the use of [employer] voice recognition software, which is prone to [...] of anti-inflammatory medications for acute pain. Advise kpzd-cig-dnettca Tylenol as needed. Patient also discussed a supplement today called Inkster XL which she can begin using and [...] Dictation was accomplished with the use of [employer] voice recognition software, which is prone to [...] Dictation was accomplished with the use of [employer] voice recognition software, which is prone to [...] of anti-inflammatory medications for acute pain. Advise xfbd-spy-smtyfkw Tylenol as needed. Patient has been practicing [...] Dictation was accomplished with the use of [employer] voice recognition software, which is prone to [...] of anti-inflammatory medications for acute pain. Advise uteq-ncq-gqmjvkt Tylenol as needed. Patient also discussed a supplement today called Inkster XL which she can begin using and [...] Dictation was accomplished with the use of [employer] voice recognition software, which is prone to [...] Dictation was accomplished with the use of [employer] recognition software, which is prone to medical [...] of anti-inflammatory medications for acute pain. Advise vhdd-gau-uuezfvp Tylenol as needed. Patient also discussed a supplement today called Inkster XL which she can begin using and [...] Fall risk assessed. Discussed healthcare proxy. Discussed [place] order for life sustaining treatment, end-of-life issues, intubation and resuscitation dialysis artificial nutrition and hydration is appropriate. We discussed [place] order for life sustaining treatment and healthcare [...] Dictation was accomplished with the use of [employer] voice recognition software, which is prone to [...] of anti-inflammatory medications for acute pain. Advise vljw-sav-pbemhmv Tylenol as needed. Patient also discussed a supplement today called Inkster XL which she can begin using and [...] Fall risk assessed. Discussed healthcare proxy. Discussed [place] order for life sustaining treatment, end-of-life issues, intubation and resuscitation dialysis artificial nutrition and hydration is appropriate. We discussed [place] order for life sustaining treatment and healthcare [...] Dictation was accomplished with the use of [employer] voice recognition software, which is prone to [...] of anti-inflammatory medications for acute pain. Advise xrth-aba-swopljq Tylenol as needed. Patient also discussed a supplement today called Inkster XL which she can begin using and [...] Dictation was accomplished with the use of [employer] voice recognition software, which is prone to [...] Dictation was accomplished with the use of [employer] voice recognition software, which is prone to [...] of anti-inflammatory medications for acute pain. Advise qdkl-sub-oddupsk Tylenol as needed. Patient also discussed a supplement today called Inkster XL which she can begin using and [...] Dictation was accomplished with the use of [employer] voice recognition software, which is prone to [...] Dictation was accomplished with the use of [employer] voice recognition software, which is prone to [...] of anti-inflammatory medications for acute pain. Advise arnc-nwa-puhnrsu Tylenol as needed. Patient also discussed a supplement today called Inkster XL which she can begin using and [...] Dictation was accomplished with the use of [employer] voice recognition software, which is prone to [...] Dictation was accomplished with the use of [employer] voice recognition software, which is prone to [...] of anti-inflammatory medications for acute pain. Advise rhwk-hrl-txcjbwg Tylenol as needed. Patient also discussed a supplement today called Inkster XL which she can begin using and [...] Fall risk assessed. Discussed healthcare proxy. Discussed [place] order for life sustaining treatment, end-of-life issues, intubation and resuscitation dialysis artificial nutrition and hydration is appropriate. We discussed [place] order for life sustaining treatment and healthcare [...] Dictation was accomplished with the use of [employer] voice recognition software, which is prone to [...] 1,25OH VITAMIN D 11/04/2017 25OH VITAMIN D 04/10/2021 25OH VITAMIN D 04/01/2023 CBC (COMPLETE BLOOD COUNT) 04/03/2020 CBC (COMPLETE BLOOD COUNT) 06/01/2018 CBC (COMPLETE BLOOD COUNT) 11/04/2017 CBC (COMPLETE BLOOD COUNT) 07/26/2019 CBC (COMPLETE BLOOD COUNT) 05/16/2020 CBC (COMPLETE BLOOD COUNT) 09/04/2020 CBC (COMPLETE BLOOD COUNT) WITH DIFF 10/2022 COMPREHENSIVE METABOLIC PANEL 04/01/2023 COMPREHENSIVE METABOLIC PANEL 04/03/2020 COMPREHENSIVE METABOLIC PANEL 09/04/2020 COMPREHENSIVE METABOLIC PANEL 04/10/2021 COMPREHENSIVE METABOLIC PANEL 05/16/2020 COMPREHENSIVE METABOLIC PANEL 07/26/2019 COMPREHENSIVE METABOLIC PANEL 11/04/2017 COMPREHENSIVE METABOLIC PANEL 06/01/2018 HEMOGLOBIN A1C 11/04/2017 HEMOGLOBIN A1C 07/26/2019 HEMOGLOBIN A1C 09/04/2020 HEMOGLOBIN A1C 04/10/2021 HEMOGLOBIN A1C 11/29/2021 HEMOGLOBIN A1C 04/01/2023 LIPID PANEL 04/01/2023 LIPID PANEL 09/04/2020 LIPID PANEL 05/16/2020 LIPID PANEL 07/26/2019 LIPID PANEL 06/01/2018 MICROALBUMIN, URINE 04/10/2021 TSH 04/10/2021 TSH WITH REFLEX TO FT4 11/04/2017 TSH WITH REFLEX TO FT4 04/01/2023 URINALYSIS W/REFLEX CULTURE 04/01/2023 URINALYSIS, COMPLETE 04/03/2020 URINALYSIS, COMPLETE 09/04/2020 URINALYSIS, COMPLETE 07/26/2019 URINALYSIS, COMPLETE 05/16/2020 VITAMIN B12 11/04/2017 XR Shoulder 2+ Views RT 10/14/2021 LIPID PANEL, STANDARD 03/31/2024 LIPID PANEL, STANDARD 10/31/2024 COMPREHENSIVE METABOLIC PANEL 10/31/2024 COMPREHENSIVE METABOLIC PANEL 03/31/2024 CBC (INCLUDES DIFF/PLT) 03/31/2024 CBC (INCLUDES DIFF/PLT) 10/31/2024 URINALYSIS, COMPLETE 10/31/2024 URINALYSIS, COMPLETE 03/31/2024 HEMOGLOBIN A1c 03/31/2024 TSH 03/31/2024 TSH 10/31/2024 VITAMIN D,25-OH,TOTAL,IA 10/31/2024 VITAMIN D,25-OH,TOTAL,IA 03/31/2024 COMPLETE URINALYSIS 04/10/2021 Next Appt Details Provider Name:SVEN BIRKS , 02/06/2025 10:00:00 AM, [address], [address], Provider Name:SVEN ROBLERO , 07/03/2025 11:00:00 AM, [address] [address], [place], [address], Insurance Providers Payer Name Payer Address Payer Phone Subscriber Number Group Number Insured Name Patient Relationship to Insured Coverage Start Date Coverage End Date [facility] [address] [place] [address] [id number] RENA KIDD Self - patient is the [...]
--- OUTSIDE RECORDS SUMMARY | 2024-12-13 19:13 | XMS_ITS | Clinical Summary ---
Author Organization [facility] Address [address] [place] [address] Care Team Providers Care Gas Leak Inspector Helper Name Role Phone Antione Venegas MD Primary Care Provider [phone] Allergies Active Allergy Reactions Criticality Noted Date [...] age to complete this topic Care Teams Gas Leak Inspector Helper Relationship Specialty Start Date End Date Antione Venegas MD [address] [place] [address] PCP - General Internal Medicine 03/07/19
--- OUTSIDE RECORDS SUMMARY | 2024-12-13 19:13 | XMS_ITS ---
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 Problem Acquired hammer toe of left foot (3799270017615 103) Hammer toe of left foot (M20.42) Active confirmed Problem Diabetic renal disease (726204053) Type 2 diabetes mellitus with diabetic chronic kidney disease (E11.22) Active confirmed Vital Signs Height 5ft 1in in 10/07/2024 Weight 186 lbs 10/07/2024 BMI 35.14 kg/m2 10/07/2024 Blood pressure systolic 120 mm Hg 10/07/19 25 Blood pressure diastolic 72 mm Hg 025 Procedures Procedure Date Ordered Date Performed Result Body Sit e 30932, J0702- Neuroma/Injection 10/07/2024 N/A Encounters Encounter Location Date Provider Diagnosis [facility] [address] 10/07/2024 Christina Black Pain in left foot [...] Treatment Pending Test Test Name Order Date 64753, J0702- Neuroma/Injection 10/07/19 25 Next Appt Details Follow Up: 6 Weeks, Reason: Procedure Notes * Category Sub-Category Detail Notes Injection Neuroma/Injection 96130, J0702 I njection - Neuroma w/ Celestone [...] patient's blood sugars Progress Notes * Morena DODGEJaineOB:[birth year] (69 yo F)Acc No.[id number]:10/07/2024 Progress Notes Patient:?Rena DODGE Provider:?Christina Ward DPM :1955???Age:69 Y???Sex:Female D ate:10/07/2024 Address:[address] [place] [address] [place], [phone] Pcp:Antione Venegas Subjective: * Chief Complaints: * [...] Once a day Vitamin A & D 77220-065 UNIT Tablet as directed Orally Medrol 4 [...] a day Unknown Vitamin A & D 20422-563 UNIT Tablet as directed Orally Unknown Medrol [...] Foot, AP, LAT, LO, LEFT??Taken by trained?Podiatric Vp Customer Service (TG?),.?Findings:?normal bone and soft tissue density consistent [...] * Treatment: 2.?Kohler's neuroma of left foot?Procedure: 23542, J0702- Neuroma/Injection * Procedures:?Injection:?Neuroma/Injection?64430, J0702 Injection - Neuroma w/ Celestone Soluspan [...] on the patient's blood sugars.? * Procedure Codes:?38361 X-RAY EXAM OF LEFT FOOT 3V, Modifiers: 26 , [id number] N BLOCK INJ, PLANTAR [id number] INJ BETAMETHSN ACTAT&SOD PHOSPH-3MG * Preventive Medicine:? [...] Ward DPM Date:?2024 Generated for Baldo damon/Estefani/Halima on:?12/13/2024 07:13 PM EDT History and Physical Notes * HPI (History of Present Illness) Category Sub-Category Detail Notes Category Not es Foot Pain Nature: burning, numbnes s, sharp, shooting , burning, radiating, shooting, tingling Location: Forefoot, LEFT , For efoot, LEFT Duration: , since DOI [ 02/2024 ] , Onset: hyperextended toes , Course: worse , Aggravated: any pressure Treatments: rest/alter normal da sahnnon activity, medication ( tylenol, voltaren gel) pedag [...] LAT, LO, LEFT Taken by trained Podiatric Vp Customer Service (TG ) , Clinical Indication(s): Evaluate for Fra cture ,
--- OUTSIDE RECORDS SUMMARY | 2024-12-13 19:13 | XMS_ITS | Clinical Summary ---
Author Organization [address] Address [address] [place] [address] Phone Care Team Providers Care Reverse Unit Operator Name Role Phone Laith Venegas MD Primary Care Provider [phone] Medical History Medical History Date Comments Hyperlipidemia [...] Description 01/26/2025 9:50 AM EDT Office Visit [facility] [address] [address] Tom Doherty MD [address] [facility] [address] [place] [address] Health Maintenance Due Date Last Done Comments [...] health care facility Vitamin D deficiency disease [facility] SCREENING DIGITAL Routine 12/10/2023 2:24 PM EDT Encounter for screening mammogram for malignant neoplasm of breast [facility] DEXA AXIAL SKELETON Routine 11/04/2021 1:23 PM EST Encounter for screening for osteoporosis from Last 3 Months or Most Recently Relevant to Health Maintenance Results * Lipid panel with reflex to direct LDL (07/05/2024 8:16 AM EST) Cholesterol 153 0 - 200 mg/dL LAB CHEMISTRY METHOD 07/05/2024 11:12 AM [facility] Triglycerides 55 0 - 150 mg/dL LAB CHEMISTRY METHOD 07/05/2024 11:12 AM [facility] HDL 64 >=40 mg/dL LAB CHEMISTRY METHOD 07/05/2024 11:12 AM [facility] LDL Calculated 78 0 - 100 mg/dL LAB CHEMISTRY METHOD 07/05/2024 11:12 AM [facility] VLDL Cholesterol Alexis 11 mg/dL LAB CHEMISTRY METHOD 07/05/2024 11:12 AM [facility] Non HDL Chol. (LDL+VLDL) 89 <145 mg/dL LAB CHEMISTRY METHOD 07/05/2024 11:12 AM [facility] Chol/HDL Ratio 2.4 0.0 - 4.4 LAB CHEMISTRY METHOD 07/05/2024 11:12 AM [facility] Blood Venous blood specimen / Unknown Venipuncture / Unknown 07/05/2024 8:16 AM EST 07/05/2024 10:02 AM EST us Mari Sandoval TEAM ASSEMBLER LAB BLOOD ORDERABLES Final Re sult [facility] LAB [address] [place] [address], * MAO SCREENING DIGITAL (12/10/2023 2:24 PM EDT) Anatomical Region Laterality Modality Mammography 12/10/2023 11:0 2 AM EDT Narrative 12/10/2023 2:24 PM EDT [facility] Diagnostic Imaging Department [address] [place] [address] Patient: ??RENA DODGE ?/Age/Sex: 1955 - 68 - F Unit#: ??[id number] ? Location/Status: ??SPDIMAM/REG CLI ? Mnemonic/Ordering Site: ??DIGSC/SPMAM Ordering Physician: ??LAITH VENEGAS MD Mao Screening Digital - 12/10/23 - 1133 Report Status:Signed EXAM: Mao Screening Digital EXAM DATE AND TIME: 12/10/2023 11:33 AM HISTORY: ??Annual screening COMPARISON: ??Multiple exams dating back to 2003 TECHNIQUE: Bilateral digital breast tomosynthesis was performed in the CC and MLO projections. Computer aided detection with Droplet 3D 3.1 was employed. TISSUE DENSITY: b. [...] screening mammogram BILATERAL in 1 year. 3341F, 7004F Dictating Physician: ??MANJEET BELLO MD Electronically Signed by: ??MANJEET BELLO MD Dic Date/Time: ??12/10/23 142 Sign date/Time: ??12/10/23 1424 Procedure Note Manjeet Bello MD - 04/18/2024 [facility] Diagnostic Imaging Department [address] [place] [address] Patient: RENA DODGE/Age/Sex: 1955 68 - F Unit#: [id number] [facility] Mnemonic/Ordering Site: [facility] Ordering Physician: LAITH VENEGAS MD Mao Screening Digital - 12/10/23 - 1133 Report Status:Signed EXAM: [facility] Screening Digital EXAM DATE AND TIME: 12/10/2023 11:33 AM HISTORY: Annual screening COMPARISON: Multiple exams dating back to 2003 TECHNIQUE: Bilateral digital breast tomosynthesis was performed in the CCand MLO projections. Computer aided detection with Droplet 3D 3.1was employed. TISSUE DENSITY: b. There [...] MD IMG BI PROCEDURES Final Result * [facility] DEXA AXIAL SKELETON (11/04/2021 1:23 PM EST) Anatomical Region Laterality Modality Mammography 11/04/2021 10:2 8 AM EST Narrative 11/04/2021 1:23 PM EST [facility] Diagnostic Imaging Department [address] [place] [id number] Patient: ??IMERMertRENA ?/Age/Sex: 1955 - 66 - F Unit#: ??[id number] ? Location/Status: ??SPDIMAM/REG CLI ? Mnemonic/Ordering Site: ??MAMDEXAAX/SPMAM Ordering Physician: ??GAGE FRANCE MD [facility] Dexa Axial Skeleton - 11/04/21 - 1100 [facility] Dexa Axial Skeleton INDICATION: POSTMENOPAUSAL Technique: [...] lumbar spine bone mineral density of 4.9% [address] Dictating Physician: ??BETO THOMAS MD Electronically Signed by: ??BETO THOMAS MD Dic Date/Time: ??11/04/21 1322 Sign date/Time: ??11/04/21 1323 Procedure Note Beto Thomas MD - 08/20/2022 [facility] Diagnostic Imaging Department [address] [place], [place] [id number] Patient: RENA DODGE /Age/Sex: 1955 - 66 - F Unit#: [id number] Location/Status: SPDIMAM/REG CLI Mnemonic/Ordering Site: MAMDEXAAX/SPMAM Ordering Physician: GAGE FRANCE MD [facility] Dexa Axial Skeleton - 11/04/21 - 1100 [facility] Dexa Axial Skeleton INDICATION: POSTMENOPAUSAL Technique: [...] lumbar spine bone mineral density of 4.9% [address] Dictating Physician: BETO THOMAS MD Electronically Signed by: BETO THOMAS MD Dic Date/Time: 11/04/21 1322 Sign date/Time: 11/04/21 132 Gage France MD IMG BI PROCEDURES Final Res ult from Last 3 Months or Most Recently Relevant to Health Maintenance Insurance [facility] MEDICARE ADVANTAGE Care Teams Reverse Unit Operator Relationship Specialty Start Date End Date Laith Venegas MD PCP - General Internal Medicine 07/20/17
--- OUTSIDE RECORDS SUMMARY | 2024-12-13 19:13 | XMS_ITS | Patient Health Record ---
Author Organization [facility] Address [address] [address] Care Team Providers Care Project Account Manager Name Role Phone Antione Venegas Primary Care Provider Unavailabl e Black, Christina Unavailable [phone] Allergies Allergen (clinical drug ingredient) Drug/Non Drug [...] days 07/08/2021 Unknown Vitamin A & D 31921-937 UNIT as directed Orally Unknown Immunizations Vaccine [...] Status Risk Notes Problem Diabetic renal disease (155538152) Type 2 diabetes mellitus with diabetic chronic kidney disease (E11.22) Active confirmed Problem Localized, primary osteoarthritis of the ankle and/or foot (443027211) Primary osteoarthritis, right ankle and foot (M19.071) Active confirmed Problem Localized, primary osteoarthritis of the ankle and/or foot (074877520) Primary osteoarthritis, left ankle and foot (M19.072) Active confirmed Problem Acquired hammer toe of right foot (8042396871306080 ) Other hammer toe(s) (acquired), right foot (M20.41) Active confirmed Problem Acquired hammer toe of left foot (9221820159189766 ) Hammer toe of left foot (M20.42) Active confirmed Problem Kohler's neuroma of left foot (007275042139573) 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 confirmed Problem Acquired deformity of right foot (9618128618060180 0) PlantarFlexion of metatarsal of right foot (M21.6X1) Active confirmed Problem Acquired deformity of left foot (5034134458490414 4) PlantarFlexion of metatarsal of left foot (M21.6X2) Active confirmed Vital Signs Blood pressure diastolic 80 mm Hg 11/03/2024 Height 5ft 1in in 11/03/2024 Blood pressure systolic 120 mm Hg 11/03/2024 Weight 185 lbs 11/03/2024 BMI 34.95 kg/m2 11/03/2024 Procedures Procedure Date Ordered Date Performed Result Body Sit e 09419, J0702- Neuroma/Injection 10/07/2024 N/A Encounters Encounter Location Date Provider Diagnosis [address] [address] 10/07/2024 Christina Black Pain in left foot M79.672 ; Pain in left ankle and joints of left foot M25.572 ; Bursitis of intermetatarsal bursa of left foot M77.52 ; Metatarsalgia, left foot M77.42 ; Kohler's neuroma of left foot G57.62 ; Neuritis M79.2 ; Hammer toe of left foot M20.42 and Type 2 diabetes mellitus with diabetic chronic kidney disease E11.[address] [address] 11/03/2024 Christina Black Pain in left foot M79.672 ; Kohler's neuroma of left foot G57.62 ; Pain in left ankle and joints of left foot M25.572 ; Bursitis of intermetatarsal bursa of left foot M77.52 ; Metatarsalgia, left foot M77.42 ; Neuritis M79.2 ; Hammer toe of left foot M20.42 and Type 2 diabetes mellitus with diabetic chronic kidney disease E11.[address] [address] 08/30/2024 Christina Black [address] [address] 11/03/2024 Christina Black Assessments Encounter Date Diagnosis [...] Treatment Pending Test Test Name Order Date 51841, J0702- Neuroma/Injection 10/07/19 25 Insurance Providers Payer Name Payer Address Payer Phone Subscriber Number Group Number Insured Name Patient Relationship to Insured Coverage Start Date Coverage End Date [employer] [place] [employer]age [facility] [address] [place] [address] [phone] [id number] Rena Ko Self - patient is the [...]
--- OUTSIDE RECORDS SUMMARY | 2024-12-13 19:13 | XMS_ITS ---
Author Organization [facility] Address [address] [place] [address] Care Team Providers Care Javascript Programmer Name Role Phone Antione Venegas Primary Care Provider Unavailabl e Black, Christina Unavailable [phone] Allergies Allergen (clinical drug ingredient) Drug/Non Drug [...] days 07/08/2021 Unknown Vitamin A & D 47978-577 UNIT as directed Orally Unknown Losartan Potassium [...] 025 Encounters Encounter Location Date Provider Diagnosis [facility] [place] [address] [place] [address] 11/03/2024 Christina Black Pain in left foot [...] * Chely DODGEOB:[birth year] (69 yo F)Acc No.[id number]:11/03/2024 Progress Notes Patient:?Rena DODGE Provider:?Christina Ward DPM :1955???Age:69 Y???Sex:Female D ate:11/03/2024 Address:[address] [place] [address], [id number] Pcp:Antione Venegas Subjective: * Chief Complaints: * [...] aerobics. ?Marital status: . ?Occupation: weeks/months/years, Retired- [employer]. ???Drug/Alcohol:?AUDIT-C (Standard)?Did you have a drink [...] Once a day Vitamin A & D 84677-914 UNIT Tablet as directed Orally Medrol 4 [...] a day Unknown Vitamin A & D 14202-905 UNIT Tablet as directed Orally Unknown Medrol [...] Sign off status: Completed true * Provider:?Christina aWrd DPM Date:?2024 Generated for Baldo damon/Estefani/Yandyitting on:?12/13/2024 07:13 PM EDT History and Physical [...]
--- OUTSIDE RECORDS SUMMARY | 2024-12-13 19:14 | XMS_ITS ---
Author Organization [facility] Address [address] [place] [address] Care Team Providers Care Coding Support Specialist Name Role Phone LAITH VENEGAS Primary Care Provider [phone] OSBALDO SVEN Unavailable [phone] ALLERGIES Allergen (clinical drug ingredient) Drug/Non Drug [...] 12/05/2024 Encounters Encounter Location Date Provider Diagnosis [facility] [address] [facility] [address] [place] [address] 12/05/2024 SVEN ROBLERO Adult-onset obesity E66.9 ; [...] of anti-inflammatory medications for acute pain. Advise xazx-jtf-qwoghmx Tylenol as needed. Patient also discussed a supplement today called Wolfforth XL which she can begin using and [...] Dictation was accomplished with the use of [employer] voice recognition software, which is prone to [...] Dictation was accomplished with the use of [employer] voice recognition software, which is prone to [...] of anti-inflammatory medications for acute pain. Advise frzi-ine-cwbpgah Tylenol as needed. Patient also discussed a supplement today called Wolfforth XL which she can begin using and [...] Dictation was accomplished with the use of [employer] voice recognition software, which is prone to [...] Dictation was accomplished with the use of [employer] voice recognition software, which is prone to [...] of anti-inflammatory medications for acute pain. Advise qmzl-djm-pzhtkob Tylenol as needed. Patient also discussed a supplement today called Wolfforth XL which she can begin using and [...] Dictation was accomplished with the use of [employer] voice recognition software, which is prone to [...] Dictation was accomplished with the use of [employer] voice recognition software, which is prone to [...] of anti-inflammatory medications for acute pain. Advise dsrk-ekw-jemyuvq Tylenol as needed. Patient also discussed a supplement today called Wolfforth XL which she can begin using and [...] Dictation was accomplished with the use of [employer] voice recognition software, which is prone to [...] Dictation was accomplished with the use of [employer] voice recognition software, which is prone to [...] of anti-inflammatory medications for acute pain. Advise myvx-kwb-bqiastx Tylenol as needed. Patient also discussed a supplement today called Wolfforth XL which she can begin using and [...] Dictation was accomplished with the use of [employer] voice recognition software, which is prone to [...] Dictation was accomplished with the use of [employer] voice recognition software, which is prone to [...] of anti-inflammatory medications for acute pain. Advise qxwk-mld-ulbssqr Tylenol as needed. Patient also discussed a supplement today called Wolfforth XL which she can begin using and [...] Dictation was accomplished with the use of [employer] voice recognition software, which is prone to [...] Dictation was accomplished with the use of [employer] voice recognition software, which is prone to [...] of anti-inflammatory medications for acute pain. Advise uqrc-qrt-cvzbjnc Tylenol as needed. Patient also discussed a supplement today called Wolfforth XL which she can begin using and [...] Dictation was accomplished with the use of [employer] voice recognition software, which is prone to [...] Dictation was accomplished with the use of [employer] voice recognition software, which is prone to [...] of anti-inflammatory medications for acute pain. Advise yckc-ayf-puujgcx Tylenol as needed. Patient also discussed a supplement today called Wolfforth XL which she can begin using and [...] Dictation was accomplished with the use of [employer] voice recognition software, which is prone to [...] Dictation was accomplished with the use of [employer] voice recognition software, which is prone to [...] of anti-inflammatory medications for acute pain. Advise jfut-quz-opcqbbi Tylenol as needed. Patient also discussed a supplement today called Wolfforth XL which she can begin using and [...] Dictation was accomplished with the use of [employer] voice recognition software, which is prone to [...] Dictation was accomplished with the use of [employer] voice recognition software, which is prone to [...] of anti-inflammatory medications for acute pain. Advise zaxd-bpy-hvmpuke Tylenol as needed. Patient also discussed a supplement today called Wolfforth XL which she can begin using and [...] Dictation was accomplished with the use of [employer] voice recognition software, which is prone to [...] Dictation was accomplished with the use of [employer] voice recognition software, which is prone to medical misidentifications and grammatical errors. This are unintentional and the practitioner does try to identify and correct these, but some could still be present. Please do not hesitate to contact practitioner for clarification. PLAN OF TREATMENT Next Appt Details Provider Name:SVEN ROBLERO , 02/06/2025 10:00:00 AM, [address], [address], [place], [address], Provider Name:SVEN ROBLERO , 07/03/2025 11:00:00 AM, [address], [address], [place], [address], Progress Notes * ERWIN GOOD MDOB:1954 (69 yo F)Acc No.[id number]:12/05/2024 Patient:??ERWIN GOOD Provider:??SVEN ROBLERO :1955?Age:69 Y?Sex:Fe male Date:12/05/2024 Address:[address] [place] [address], [facility] Pcp:LAITH VENEGAS Subjective: [...] She is soon to be traveling to [place]. Recently purchased a walking pad and has [...] of anti-inflammatory medications for acute pain. Advise ucfg-dwk-yeqhpzw Tylenol as needed. Patient also discussed a supplement today called Wolfforth XL which she can begin using and [...] Dictation was accomplished with the use of [employer] voice recognition software, which is prone to [...] Dictation was accomplished with the use of [employer] voice recognition software, which is prone to medical misidentifications and grammatical errors. This are unintentional and the practitioner does try to identify and correct these, but some could still be present. Please do not hesitate to contact practitioner for clarification. Plan: * Treatment: * Procedure Codes:??28047 P/M DIRECTOR OF REVENUE CYCLE MANAGEMENT, INDIV 15 MIN, Modifiers: 33 , SA * Images: Billing Information: * Visit Code:?? 75487 Office Visit, Est Pt., Level 4. Modifiers: SA * Procedure Codes:?? 22145 P/M DIRECTOR OF REVENUE CYCLE MANAGEMENT, INDIV 15 MIN. Modifiers: 33, SA * [...] She is soon to be traveling to [place]. Recently purchased a walking pad and has [...]
--- OUTSIDE RECORDS SUMMARY | 2024-12-13 19:14 | XMS_ITS ---
Author Organization [facility] Address [address] [place] [address] Care Team Providers Care Gumming Machine Operator Name Role Phone Antione Venegas Primary Care Provider Unavailabl e Black, Christina Unavailable [phone] REASON FOR VISIT buy Pedag OTs Mini #38 Encounters Encounter Location Date Provider Diagnosis [facility] [address] [place] [address] 11/03/2024 Christina Black Plan Of Treatment No Information Progress Notes * ECHO MorenaJanieOB:[birth year] (69 yo F)Acc No.[id number]:11/03/2024 Patient:?Rena DODGE :1955???Age:69 Y???Sex:Female Address:[address] [place] [address] * true * Date:? Generated for Printi ng/Faxing/eTransmitting on:?12/13/2024 07:13 PM EDT
--- OUTSIDE RECORDS SUMMARY | 2024-12-13 19:14 | XMS_ITS ---
Author Organization [facility] Address [address] [place] [address] Care Team Providers Care Ammunition Assembly I Laborer Name Role Phone LAITH CESPEDES Primary Care Provider [phone] SVEN ROBLERO [phone] Encounters Encounter Location Date Provider Diagnosis [address] [facility] [address] [place] [address] 10/21/2024 SVEN ROBLERO PLAN OF TREATMENT Next Appt Details Provider Name:SVEN ROBLERO , 02/06/2025 10:00:00 AM, [address], [address], [place], [address], Provider Name:SVEN ROBLERO , 07/03/2025 11:00:00 AM, [address], [address], [place], [address], Progress Notes * ERWIN GOOD MDOB:1954 (69 yo F)Acc No.[id number]:10/21/2024 Patient:??ERWIN GOOD Provider:??SVEN ROBLERO :1955?Age:69 Y?Sex:Fe male Date:10/21/2024 Address:[address] [facility] [id number] Pcp:LAITH CESPEDES Subjective: * Chief Complaints: * ? * Medical History:?? Objective: Assessment: Plan: * Treatment: * Images: Billing Information: * Visit Code:?? * Procedure Codes:?? * Sign off status: Pending * Provider:??SVEN ROBLERO Date:?? 025
--- OUTSIDE RECORDS SUMMARY | 2024-12-13 19:14 | XMS_ITS ---
Author Organization [facility] Address [address] [place] [address] Care Team Providers Care Licensed Marriage And Family Therapist Name Role Phone LIATH VENEGAS Primary Care Provider SVEN ROBELRO Unavailable [phone] ALLERGIES Allergen (clinical drug ingredient) Drug/Non Drug [...] Omeprazole 20 MG TAKE [address] CAPSU[address] [facility] EVERY DAY for 90 Active Zepbound 2.5 [...] Notes Problem Mixed hyperlipidemia (E78.2) Active confirmed 473534471 VITAL SIGNS Blood pressure systolic 124 mm Hg 11/01/19 25 Blood pressure diastolic 80 mm Hg 025 Heart Rate 77 /min 10/31/2024 Height 62 in 10/31/2024 Weight 189 lbs 10/31/2024 BMI 34.56 kg/m2 10/31/2024 Oximetry 99 % 10/31/2024 Encounters Encounter Location Date Provider Diagnosis [facility] [address] [facility] [address] [place] [address] 10/31/2024 SVEN ROBLERO Essential hypertensi on I10 [...] of anti-inflammatory medications for acute pain. Advise qqtp-ayr-jefqwel Tylenol as needed. Patient has been practicing [...] Dictation was accomplished with the use of [employer] voice recognition software, which is prone to [...] of anti-inflammatory medications for acute pain. Advise tjfn-opw-bigosbq Tylenol as needed. Patient has been practicing [...] Dictation was accomplished with the use of [employer] voice recognition software, which is prone to [...] of anti-inflammatory medications for acute pain. Advise kzkl-jhx-horaouw Tylenol as needed. Patient has been practicing [...] Dictation was accomplished with the use of [employer] voice recognition software, which is prone to [...] of anti-inflammatory medications for acute pain. Advise dzjf-zap-ajzvgak Tylenol as needed. Patient has been practicing [...] Dictation was accomplished with the use of [employer] voice recognition software, which is prone to [...] of anti-inflammatory medications for acute pain. Advise xzej-nwe-lryiwrd Tylenol as needed. Patient has been practicing [...] Dictation was accomplished with the use of [employer] voice recognition software, which is prone to [...] of anti-inflammatory medications for acute pain. Advise uqlh-wqs-jwwteac Tylenol as needed. Patient has been practicing [...] Dictation was accomplished with the use of [employer] voice recognition software, which is prone to [...] of anti-inflammatory medications for acute pain. Advise zgzs-eyz-beviiyj Tylenol as needed. Patient has been practicing [...] Dictation was accomplished with the use of [employer] voice recognition software, which is prone to [...] of anti-inflammatory medications for acute pain. Advise rhna-jgn-spqjwls Tylenol as needed. Patient has been practicing [...] Dictation was accomplished with the use of [employer] voice recognition software, which is prone to [...] of anti-inflammatory medications for acute pain. Advise twst-dcj-whzctjj Tylenol as needed. Patient has been practicing [...] Dictation was accomplished with the use of [employer] voice recognition software, which is prone to [...] 10:00:00 AM, [address], [address], [place], [address], Provider Name:SVEN OSBALDO , 07/03/2025 11:00:00 AM, [address], [address], [place], [address], Progress Notes * ERWIN GOOD MDOB:1954 (69 yo F)Acc No.[id number]:10/31/2024 Progress Notes Patient:??ERWIN GOOD M Provider:??SVEN ROBLERO :1955?Age:69 Y?Sex:Fe male Date:10/31/2024 Address:[address] [place], [place] [address] Pcp:LAITH VENEGAS Subjective: * Chief Complaints: * [...] of anti-inflammatory medications for acute pain. Advise obyi-kod-vozlmmv Tylenol as needed. Patient has been practicing [...] Dictation was accomplished with the use of [employer] voice recognition software, which is prone to [...] * Images: Billing Information: * Visit Code:?? 25777 Office Visit, Est Pt., Level 4. Modifiers: [...]
--- OUTSIDE RECORDS SUMMARY | 2024-12-13 19:14 | XMS_ITS | Data Portability ---
Author Organization [place] [facility] Federico Reis AONE Moon Address [address] [facility] [address] [place] [address] Care Team Providers Care Fitter Type Bar And Segment Name Role Phone LAITH CESPEDES Referring Provider [phone] LAITH CESPEDES Primary Care Provider Assessment Encounter [...] or more view 2023 [email or web address] [facility], [address], [place], [address], 4 22:51:40 XR, knee, 4 or more view 2023 024 [email or web address] [facility], [address], [place], [address], 4 10:45:34 Medication Orders Marcaine (PF) 0.5 % (5 mg/mL) injectio n solution [address]/Pharmacy #2331, [address] [place] [address], [address], 4 10:42:47 lidocain e (PF) 100 mg/5 mL (2 %) injectio n syringe [address]/Pharmacy #2330, [address] [place] [address], [address], 4 10:42:47 triamcin olone acetonid e 40 mg/mL suspensi on for injectio n [address]/Pharmacy #2339, [address] [place], [address], 10:42:47 Kenalog 40 mg/mL suspensi on for injectio n 2022 023 [email or web address] [facility]/Pharmacy #2339, [address] [place], [address], 4 10:17:25 lidocain e (PF) 10 mg/mL (1 %) injectio n solution 2022 023 [email or web address] [facility]/Pharmacy #2339, [address] [place], [address], 10:17:27 Patient TargetsNo targets recorded. Patient Instructions Encounter Date Encounter Id Patient Instructions Last Modified By Organization Details Last Modified Time 01/09/2023 [id number] You have been provided with a cortisone [...] portal HEATHER. Not available 01/09/2023 12:26:09 01/14/2024 [id number] {{2 3 4 5 6 7* 8 9} } view X-ray study obtained during today's office encounter show evidence of {{mild moderate* se avila}} {{right left bilate ral*}} {{hip knee*}} osteoarthritis. There is joint space narrowing, subchondral sclerosis and marginal osteophytosis. Kellgren-Bob grade {{0 1 2* 3 4}}. No evidence of acute fracture or osteolytic findings. Not available 01/14/2024 10:29:04 01/21/2024 [id number] tennis elbow: exercises [email or web address] Not available 01/21/2024 [...] Medial epicondyli tis of left elbow joint 8869734097328 07 Active 2023 Kristal gilbert, [place] [facility], [facility] 4 14:14:29 Neuritis of left ulnar nerve 4185986662508 9100 Active 2023 Tenisha Olson MD [address] [address], [place], [address] , [place] [facility], [facility] 4 14:10:19 Subacromia l bursitis of right shoulder 7226866602343 109 Active 2022 ANKUR MAHAJAN PA-C [address] [facility] [address], [place], [address] , [place] [facility], [facility] 3 12:25:41 Problem Notes None recorded. Procedures Surgical History Date Name Laterality Status Provider Name and Address Organization Details Recorded Time 4 MJG Knee injection w/US completed ANKUR STARKEY PA-C [address], [place], [address], [place] [facility], P 01/14/2024 10:29:42 3 Shoulder Joint/Bursa Asp & Inj completed ANKUR MAHAJAN PA-C [address], [place], [address], [facility], P 01/09/2023 12:24:02 Shoulder Surgery completed Gennaro Neff [facility], P 01/09/2023 11:06:48 Imaging Results None recorded. Procedure Notes None recorded. Medical Equipment None Reported. Allergies Allergen ID Allergen Name Allergen Category Reaction Reaction Severity Criticality Documentation Date Start Date Code Code System Note Provider Name and Address Organization Details Recorded Time 3924 Product containin g penicilli n (product) medicatio n Not available Not available Not available 01/09/2023 08913 8001 SNOMED Gennaro Martinnchard [facility], [facility], P 3 11:05:18 3925 acetamino phen / oxycodone medicatio n Not available Not available Not available 01/09/2023 14145 3 RxNorm Gennaro Martinapril gilbert, [facility], P 3 11:05:30 Medications Name Sig [...] Updated DateTime 01/09/2023 157.48 cm 43.2 kg/m2 168857.8 g Gennaro Neff [place] [facility], [facility] 01/09/2023 11:05:04 Social History Question Answer Notes LastModified by Organizat ion Details LastModified Time Tobacco Smoking Status Former Smoker Gennaro Neff [facility], [facility], P 01/09/2023 11:06:07 What Is Your Level Of Alcohol Consumption? Occasional [email or web address] Information not available 01/09/2023 How Many Times Per Week Do You Consume Alcohol? 1-2 Times Per Week [email or web address] Information not available 01/09/2023 When Did You Quit Smoking? 16+yearssincel astcigarette [email or web address] Information not available 01/09/2023 Do You Use Any Illicit Or Recreational Drugs? No [email or web address] Information not available 01/09/2023 Do You Or Have You Ever Used Any Other Forms Of Tobacco Or Nicotine? No [email or web address] Information not available 01/09/2023 Sex: Unknown Functional Status None recorded. Mental Status None recorded. Family History Nothing Reported. Medical History Condition Response Asthma Y Hypertension Y Gynecological HistoryNo gynecological history recorded. Obstetrics History GPAL:G 0 P 0 0 0 0 Past Encounters Encounter ID Performer Location Encounter Start Date Encounter Closed Date Diagnosis/Indication Diagnosis SNOMED-CT Code Diagnosis ICD10 Code Diagnosis Note [id number] [facility] [address] [place] [address] 01/09/2023 10:53:37 01/09/2023 11:11:13 Subacromial bursitis of right shoulder 6582256662 306550 M75.51 [id number] MD KENNETH Lynchparesh [address] [place] [address] 01/21/2024 13:22:38 01/21/2024 14:26:00 Pain in elbow 09769256 M25.522 Additional diagnosis detail: Elbow pain, left Medial epi condylitis of left elbow joint 0175174571 56043 M77.02 Additional diagnosis detail: Medial epicondyli tis, left Neuritis o f left ulnar nerve 0146949175 3116075 G56.22 Additional diagnosis detail: Ulnar neuritis, left [id number] MD KENNETH Bang [facility] [address] [facility] [address] [place] [address] 01/14/2024 09:52:28 01/14/2024 10:45:33 Pain of left knee joint 8744669565 63052 M25.562 Additional diagnosis detail: Pain, joint, knee, left Osteoarthr itis of left knee joint 9796313145 97722 M17.12 Additional diagnosis detail: Primary osteoarthr itis of left knee Health Concerns Section Related Observation LastModified by Organization Detai ls LastModified Time None Recorded Concern Status LastModified by Organization Details LastModified Time None Recorded Advance Directives Directive None Recorded Payers Encounter Date Sequence Insurance Name Policy Number Policy Hope Covered Member ID Hope Member ID Guarantor Name 01/09/2023 1 [facility] (MEDICARE REPLACEMENT/A DVANTAGE - PPO) [id number] Rena Colbyk [id number] Rena Milmikiezjean-claude 01/14/2024 1 [facility] (MEDICARE REPLACEMENT/A DVANTAGE - PPO) [id number] Rena Colbyk [id number] Rena Milmikiezcik 01/14/2024 2 [employer] - MEDICARE ADVANTAGE PLAN (MEDICARE REPLACEMENT HMO) [id number] 01 Rena Colbyk [id number] Rena Milmikiezcik 01/21/2024 1 [facility] (MEDICARE REPLACEMENT/A DVANTAGE - PPO) [id number] 01 Rena Sierrazcik [id number] Rena Milelzcik 01/21/2024 2 [facility] - MEDICARE ADVANTAGE PLAN (MEDICARE REPLACEMENT HMO) [id number] 01 Rena Dodge [id number] Rena Dodge Notes Date Note Type Note [...] 1 suture anchor. ANKUR MAHAJAN PA-C [address] [facility],[address], [place], [address], [place] [facility] 01/09/2023 12:26:45 01/14/2024 text/html 68-year-old jyoti [...] ANKUR STARKEY PA-C [address], [place], [address], [place] [facility] 01/14/2024 10:30:39 01/21/2024 text/html This is a 68-year-old cwnzi-qtvq-relewcns female who presenting with left elbow pain [...] thumb, index, middle fingers. Tenisha Olson MD [address] [place] [address], [address], [place] [facility] 01/26/2024 14:10:47 OBGyn Episode No OBEpisode recorded.
== END 2024-12-13 19:11 | disposition home or self-care (01) ==
LOC: HO.MRI 19:10
PROVIDERS: Visit Provider Orthopaedic Surgery
DX: M25.311 Other instability, right shoulder (principal)
CPT/HCPCS: 73221

== ENCOUNTER 2025-02-07 11:18 | Outpatient (AMB) | payer MEDICARE, SELFPAY ==
--- NOTE | 2025-02-07 11:20 | MHC.OFFVIS ---
Vital Signs 02/07/25 11:21 Height 5 ft 1 in Weight 188 lb BMI 35.5 Intake Visit Reasons: OV-Rt shoulder MRI review Intake Note: Rena is a 69 year old right hand dominant female who presents today for a MRI review of his right shoulder. She reports intermittent discomfort along the lateral aspect of her right shoulder. She denies any weakness. She did undergo right shoulder rotator cuff repair surgery several years ago. She has had cortisone injections in the past which gave her fairly good relief. She has tried Tylenol and anti-inflammatory medicines which gave her only mild relief. Allergies acetaminophen [From Percocet] Allergy (Verified 02/07/25 11:24) Hives oxycodone [From Percocet] Allergy (Verified 02/07/25 11:24) Hives Penicillins Allergy (Verified 02/07/25 11:24) Hives rimantadine Allergy (Verified 02/07/25 11:24) Hives Medication List - Last Reconciled 02/07/25 by Luke Hartley MD atorvastatin 40 mg PO DAILY escitalopram oxalate 20 mg PO DAILY ipratropium-albuterol 20-100 mcg/actuation (Combivent Respimat) 1 puff inhalation Q6H omeprazole 20 mg PO DAILY PFSH Surgical History (Updated 12/08/24 @ 14:20 by RAAD Maradiaga) Hx of cataract surgery Hx of shoulder surgery History of thoracotomy Social History (Updated 12/08/24 @ 14:01 by RAAD Maradiaga) Patient Tobacco Use Status: Never used Tobacco Current occupational status: retired Current occupation: right hand dominant Physical Exam Vital Signs: BMI result Body Mass Index 35.5 Const Other: Well-nourished well-developed very friendly female awake alert and oriented x3 in no acute distress Extrem Other: Bilateral upper extremity examination shows good capillary refill, no skin lesions noted, normal sensation light touch Right shoulder examination shows slightly decreased range of motion when compared to her left shoulder, 4+ out of 5 strength with supraspinatus testing, positive impingement signs, no instability Office Procedures AMB Joint Injection/Aspiration Joint Injection/Aspiration Primary Site: right shoulder Prep: site was prepped using aseptic technique Injected: 40 mg of, DepoMedrol and 1% plain lidocaine Procedure: The patient tolerated the procedure well Coding 52738 - Large joint Procedure code (CPT) selection complete Results Reviewed Results Reviewed: MRI of the patient's right shoulder shows 1 suture anchor in the proximal humerus with no signs of loosening, no evidence of recurrent rotator cuff tear, signal change within the supraspinatus tendon most likely due to impingement syndrome and rotator cuff tendinosis Assessment & Plan Assessment & Plan (1) Impingement of right shoulder: Code(s): M25.811 - Other specified joint disorders, right shoulder Category: Medical Plan Mrs. Dodge presents with right shoulder pain due to impingement syndrome and rotator cuff tendinosis. The risks and benefits of a right shoulder cortisone injection were discussed at length with the patient. The patient wished to proceed. She tolerated the injection well. She will continue with her home stretching program. She will follow up with me on an as-needed basis should her symptoms not plateau at an unacceptable level over the next few months. I spent 20 minutes in reviewing the patient's records and imaging studies, seeing the patient and documenting in the medical record. Orders: Orders AMB Joint Injection/Aspiration Today M25.811 - Other specified joint disorders, right shoulder Coding Level of Care Code Est Pt Level 3 (50643) Complex EM visit Add On G2211 Diagnoses Impingement of right shoulder M25.811 CPT Codes Coding - Large joint: 72563 - Large joint ([id number])
[2025-02-07 11:21] VITALS: BMI 35.5
--- OUTSIDE RECORDS SUMMARY | 2025-02-07 13:37 | XMS_ITS | Patient Health Record ---
Author [facility] Address [address] [facility] [place] [address] Care Team Providers Care Screening Representative Name Role Phone Antione Venegas Primary Care Provider Unavailabl e Black, Christina Unavailable [phone] Allergies Allergen (clinical drug ingredient) Drug/Non Drug [...] days 07/08/2021 Unknown Vitamin A & D 32845[address] UNIT as directed Orally Unknown Immunizations Vaccine [...] Status Risk Notes Problem Diabetic renal disease (226055345) Type 2 diabetes mellitus with diabetic chronic kidney disease (E11.22) Active confirmed Problem Localized, primary osteoarthritis of the ankle and/or foot (378363477) Primary osteoarthritis, right ankle and foot (M19.071) Active confirmed Problem Localized, primary osteoarthritis of the ankle and/or foot (790365484) Primary osteoarthritis, left ankle and foot (M19.072) Active confirmed Problem Acquired hammer toe of right foot (1029206665805880 ) Other hammer toe(s) (acquired), right foot (M20.41) Active confirmed Problem Acquired hammer toe of left foot (2875016107448101 ) Hammer toe of left foot (M20.42) Active confirmed Problem Kohler's neuroma of left foot (565340667610577) 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 confirmed Problem Acquired deformity of right foot (9119960870679757 0) PlantarFlexion of metatarsal of right foot (M21.6X1) Active confirmed Problem Acquired deformity of left foot (5513962800902555 4) PlantarFlexion of metatarsal of left foot (M21.6X2) Active confirmed Vital Signs Blood pressure diastolic 80 mm Hg 11/03/2024 Height 5ft 1in in 11/03/2024 Blood pressure systolic 120 mm Hg 11/03/2024 Weight 185 lbs 11/03/2024 BMI 34.95 kg/m2 11/03/2024 Procedures Procedure Date Ordered Date Performed Result Body Sit e 05568, J0702- Neuroma/Injection 10/07/2024 N/A Encounters Encounter Location Date Provider Diagnosis [address] [address] 10/07/2024 Christina Black Pain in left foot M79.672 ; Pain in left ankle and joints of left foot M25.572 ; Bursitis of intermetatarsal bursa of left foot M77.52 ; Metatarsalgia, left foot M77.42 ; Kohler's neuroma of left foot G57.62 ; Neuritis M79.2 ; Hammer toe of left foot M20.42 and Type 2 diabetes mellitus with diabetic chronic kidney disease E11.[address] [address] 11/03/2024 Christina Black Pain in left foot M79.672 ; Kohler's neuroma of left foot G57.62 ; Pain in left ankle and joints of left foot M25.572 ; Bursitis of intermetatarsal bursa of left foot M77.52 ; Metatarsalgia, left foot M77.42 ; Neuritis M79.2 ; Hammer toe of left foot M20.42 and Type 2 diabetes mellitus with diabetic chronic kidney disease E11.[address] [address] 08/30/2024 Christina Black [address] [address] 11/03/2024 Christina Black Assessments Encounter Date Diagnosis [...] Treatment Pending Test Test Name Order Date 07860, J0702- Neuroma/Injection 10/07/19 25 Insurance Providers Payer Name Payer Address Payer Phone Subscriber Number Group Number Insured Name Patient Relationship to Insured Coverage Start Date Coverage End Date [employer] [place] [employer] [address] [place] [place] [address] [id number] Rena Ko Self - patient is the [...]
== END 2025-02-07 12:05 | disposition home or self-care (01) ==
LOC: HO.HOS 11:19
PROVIDERS: Visit Provider Orthopaedic Surgery
DX: M25.811 Other specified joint disorders, right shoulder (principal)
CPT/HCPCS: 20610; 99213

== ENCOUNTER → 2025-02-07 11:18 | Outpatient (BNVA) | payer MEDICARE, SELFPAY | PROVIDERS: Visit Provider Orthopaedic Surgery | DX: M25.811 Other specified joint disorders, right shoulder (principal) | CPT/HCPCS: 20610; 99212; J1010; J2003 ==